=== PATIENT | male | born 1945 | race Caucasian/White ===

== ENCOUNTER 2019-10-01 13:37 | Inpatient (IN) | payer OTHER, BC ==
--- NOTE | 2019-10-01 13:55 | PDOC ---
Attending Attestation - Resident Resident Name: Jessica Lee - HPI HPI: 10/01/19 15:50 Pt presents to the ED complaining of fall with inability to get up for two days. Patient has a long standing history of gout, and a recent admission at [facility] with rehab placement. Patient is unable to state why he fell, or why he was unable to get up. Denies chest pain or shortness of breath. - Physicial Exam PE: 10/01/19 16:35 Agree with resident exam. Patient is alert and oriented x 3 and in no acute distress. Lungs are clear. Heart has regular rate and rhythm. abdomen soft, non tender non distended without guarding or rebound. + swelling and tenderness of distal R wrist, without gross deformity. + mild diffuse tenderness of the R knee without tibial plateau tenderness. - Medical Decision Making 10/01/19 16:37 Pt presents to the ED after fall for unknown reason. Denies chest or abdominal pain, shortness of breath. CT head and C spine checked to rule out intracrainial or cervical spinal injury, and is negative. Differential includes rhabdo, less likely sepsis, less likely ACS. Will check labs and admit to medicine. 10/01/19 16:40
--- NOTE | 2019-10-01 14:18 | PDOC ---
History of Present Illness - General Chief Complaint: Injury Stated Complaint: FALL Time Seen by Provider: 10/01/19 13:51 History Source: Patient - History of Present Illness Initial Comments: 10/01/19 14:18 Patient is a 74 year old male with PMH of HTN and gout who presents s/p fall. Pt does not remember details of fall and is poor historian, giving inconsistent details. Per girlfriend at bedside, she has not heard from pt since Saturday. She went to check on him today and no one was answering his apartment. She called EMS to open apartment and pt was found supine on ground in living room. He states that he thinks he fell either yesterday or day before but is unsure. Story has changed several times. He thinks he was walking back from the kitchen after eating something, now thinks he was walking back from the bathroom. He denies any chest pain, SOB, palpitations, lightheadedness, dizziness prior to fall. Denies seizures. Denies mechanical fall. Says he forgets what happened but then woke up on the ground and was too weak to get up. He urinated himself twice, no fecal incontinence. Denies any alcohol or drug use. Pt had a recent fall in July, which he remembers the details. He fell out of bed and was hospitalized at [facility] for several weeks. Denies any surgeries or known fractures from this fall. He was then transferred to [facility] for rehab and discharged one week ago. PMH: HTN, gout Surgical hx: hernia repair Social hx: occasional alcohol use, denies cigarettes or drug use Allergies: NKDA 10/01/19 14:27 Past History - Past Medical History Allergies/Adverse Reactions: Allergies Allergy/AdvReac Type Severity Reaction Status Date / Time No Known Allergies Allergy Verified 10/01/19 13:51 Home Medications: Ambulatory Orders Allopurinol [Zyloprim -] 100 mg PO DAILY 10/01/19 Amlodipine Besylate mg PO DAILY 10/01/19 Atorvastatin Calcium 80 mg PO HS 10/01/19 Colchicine 1 tab PO DAILY 10/01/19 Ergocalciferol [Vitamin D2] 50,000 unit PO Q7D@1000 10/01/19 Losartan Potassium [Cozaar -] mg PO DAILY 10/01/19 COPD: No HTN: Yes Hypercholesterolemia: Yes Other medical history: gout - Surgical History Abdominal Surgery: Yes (hernia repair) - Psycho Social/Smoking Cessation Hx Smoking History: Smoker current status UNK Review of Systems - Review of Systems Able to Perform ROS?: Yes Constitutional: No: Symptoms Reported, See HPI, Chills, Diaphoresis, Fever, Loss of Appetite, Malaise, Night Sweats, Weakness, Weight Stable, Unintentional Wgt. Loss, Unexplained wgt Loss, Other HEENTM: No: Symptoms Reported, See HPI, Eye Pain, Blurred Vision, Tearing, Recent change in vision, Double Vision, Cataracts, Ear Pain, Ocular Prothesis, Ear Discharge, Nose Pain, Nose Congestion, Tinnitus, Nose Bleeding, Hearing Loss , Throat Pain, Throat Swelling, Mouth Pain, Dental Problems, Difficulty Swallowing, Mouth Swelling, Other Respiratory: No: Symptoms reported, See HPI, Cough, Orthopnea, Shortness of Breath, SOB with Exertion, SOB at Rest, Stridor, Wheezing, Productive cough, Hemoptysis, Other Cardiac (ROS): No: Symptoms Reported, See HPI, Chest Pain, Edema, Irregular Heart Rate, Lightheadedness, Palpitations, Syncope, Chest Tightness, Other ABD/GI: No: Symptoms Reported, See HPI, Abdominal Distended, Abd. Pain w/ defecation, Blood Streaked Bowels, Constipated, Diarrhea, Difficulty Swallowing , Nausea, Poor Appetite, Poor Fluid Intake, Rectal Bleeding, Vomiting, Indigestion, Abdominal cramping, Tarry Stools, Other : No: Symptoms Reported, See HPI, Burning, Dysuria, Discharge, Frequency, Flank Pain, Hematuria, Incontinence, Pain, Urgency, Testicular Mass, Testicular Swelling, Lesions, Testicular Pain, Other Musculoskeletal: Yes: Gout, Joint Pain, Joint Swelling *Physical Exam - Vital Signs Last Vital Signs Temp Pulse Resp BP Pulse Ox 98.3 F 103 H 20 170/90 100 10/01/19 13:50 10/01/19 13:50 10/01/19 13:50 10/01/19 13:50 10/01/19 13:50 - Physical Exam General Appearance: Yes: Cachetic, Thin. No: Apparent Distress HEENT: positive: EOMI, DEZ, Symmetrical Neck: positive: Trachea midline, Normal Thyroid, Supple. negative: Tender Respiratory/Chest: positive: Lungs Clear, Normal Breath Sounds. negative: Respiratory Distress Cardiovascular: positive: Regular Rhythm, Regular Rate, S1, S2. negative: Edema , JVD, Murmur Vascular Pulses: Dorsalis-Pedis (R): 2+, Doralis-Pedis (L): 2+ Gastrointestinal/Abdominal: positive: Normal Bowel Sounds, Soft. 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 negative: Normal Mood/Affect ED Treatment Course - LABORATORY CBC & Chemistry Diagram: 10/01/19 14:21 10/01/19 14:21 - RADIOLOGY Radiology Studies Ordered: Category Date Time Status CERVICAL SPINE CT W/O CONTR [CT] Stat CT Scan 10/01/19 14:[address] WITHOUT CONTRAST [CT] Stat CT Scan 10/01/19 14:12 Ordered CHEST PA & LAT [RAD] Stat Radiology 10/01/19 14:17 Ordered KNEE 3 POS-RIGHT [RAD] Stat Radiology 10/01/19 14:16 Ordered WRIST-LEFT [RAD] Stat Radiology 10/01/19 14:16 Ordered Medical Decision Making - Medical Decision Making 10/01/19 14:42 > EKG, cardiac profile > CXR, CBC, CMP, UA > CT head/c-spine > L wrist, R knee XR 10/01/19 16:02 10/01/19 16:20 L wrist and R knee XR: no fractures CT head: moderate volume loss and ventricular dilatation, mild periventricular chronic microvascular ischemic changes. No intracranial lesion or hemorrahge. 10/01/19 17:45 > Paged Dr. Monsivais once. Discharge - Discharge Information Problems reviewed: Yes Clinical Impression/Diagnosis: Syncope Qualifiers: Syncope type: unspecified Qualified Code(s): R55 - Syncope and collapse - Admission Yes - Follow up/Referral Referrals: Jose Daniel Monreal [Primary Care Provider] - - Patient Discharge Instructions - Post Discharge Activity
[2019-10-01] MEDS ORDERED: MORPHINE SULFATE 2 MG/ML VIAL IVPUSH ONE (14:25)
[2019-10-01] MEDS ORDERED: MORPHINE SULFATE 2 MG/ML VIAL ONE (14:36)
[2019-10-01 14:40] LABS: BASO % 0.1 % (0-2.0); HEMATOCRIT 28.9 % (35.4-49); HEMOGLOBIN 9.5 GM/dL (11.7-16.9); LYMPH % 3.4 % (8-40); MCH 25.5 pg (25.7-33.7); MCHC 33.1 g/dl (32.0-35.9); MEAN PLT VOLUME 8.7 fl (7.5-11.1); MONO % 20.3 % (3.8-10.2); NEUT % 76.2 % (42.8-82.8); RBC 3.75 M/mm3 (4.00-5.60); RDW 20.7 % (11.9-15.9); WHITE BLOOD COUNT 17.2 K/mm3 (4.0-10.0)
[2019-10-01 15:09] LABS: ALBUMIN 3.8 g/dl (3.4-5.0); ALK PHOS 135 U/L (45-117); ANION GAP 9 MMOL/L (8-16); BILIRUBIN,TOTAL 0.5 mg/dL (0.2-1); BLOOD UREA NITROGEN 38.8 mg/dL (7-18); CALCIUM 9.6 mg/dL (8.5-10.1); CHLORIDE 105 mmol/L (98-107); CO2 23 mmol/L (21-32); CREATININE 1.5 mg/dL (0.55-1.3); GLUCOSE,RANDOM 91 mg/dL (74-106); POTASSIUM 4.9 mmol/L (3.5-5.1); SGOT/AST 20 U/L (15-37); SGPT/ALT 15 U/L (13-61); SODIUM 137 mmol/L (136-145); TOT PROT 8.6 g/dl (6.4-8.2)
[2019-10-01 15:32] LABS: ANISOCYTOSIS 3+; MACROCYTOSIS 0; PLATELET ESTIMATE INCREASED
[2019-10-01 15:40] LABS: PLATELET COUNT 792 K/MM3 (134-434)
[2019-10-01 17:44] LABS: EPI CELLS 1.4 /HPF (0-5/HPF); HYALINE CASTS 11 /lpf (0-8); URINE APPEARANCE CLEAR; URINE BILIRUBIN NEGATIVE (NEGATIVE); URINE COLOR DK YELLOW; URINE GLUCOSE (UA) NEGATIVE (NEGATIVE); URINE KETONE NEGATIVE (NEGATIVE); URINE LEUK ESTERASE NEGATIVE (NEGATIVE); URINE NITRITE NEGATIVE (NEGATIVE); URINE PROTEIN 4+ (NEGATIVE); URINE RBC 1 /hpf (0-4); URINE WBC 1 /hpf (0-5)
[2019-10-01 17:50] LABS: COCAINE, UR NEGATIVE ng/ml (CUTOFF=300); METHADONE, UR NEGATIVE ng/ml (CUTOFF=300); PHENCYCLIDINE,URINE NEGATIVE ng/ml (CUTOFF=25); URINE AMPHETAMINES NEGATIVE ng/ml (CUTOFF=500); URINE BARBITURATES NEGATIVE ng/ml (CUTOFF=200); URINE BENZODIAZEPINES NEGATIVE ng/ml (CUTOFF=200)
[2019-10-01 18:03] LABS: OPIATES, URI POSITIVE ng/ml (CUTOFF=300)
[2019-10-01] MEDS: DEXTROSE 5%-0.45% SALINE 1,000 ML IV SCH (19:19)
[2019-10-01 21:44] LABS: PROTHROMBIN TIME (PATIENT) 15.1 SEC (9.7-13.0)
[2019-10-01 21:45] LABS: INR 1.28 (0.83-1.09)
[2019-10-01] MEDS ORDERED: ATORVASTATIN CA 80 MG TABLET (FP) ONE (22:21)
[2019-10-01] MEDS: ATORVASTATIN CA 80 MG TABLET (FP) PO SCH (22:45)
[2019-10-02] MEDS ORDERED: ACETAMINOPHEN 325 MG TABLET (FP) ONE (02:40)
[2019-10-02] MEDS: ACETAMINOPHEN 325 MG TABLET (FP) PO PRN (02:48)
[2019-10-02 06:26] LABS: BASO % 0.1 % (0-2.0); EOS % 0.1 % (0-4.5); HEMATOCRIT 24.1 % (35.4-49); LYMPH % 7.9 % (8-40); MCH 25.5 pg (25.7-33.7); MCHC 33.3 g/dl (32.0-35.9); MEAN CELL VOLUME 76.5 fl (80-96); MEAN PLT VOLUME 8.6 fl (7.5-11.1); MONO % 18.5 % (3.8-10.2); NEUT % 73.4 % (42.8-82.8); PLATELET COUNT 626 K/MM3 (134-434); RBC 3.14 M/mm3 (4.00-5.60); RDW 20.9 % (11.9-15.9); WHITE BLOOD COUNT 10.9 K/mm3 (4.0-10.0)
[2019-10-02 06:35] LABS: INR 1.24 (0.83-1.09); PROTHROMBIN TIME (PATIENT) 14.7 SEC (9.7-13.0)
[2019-10-02 07:04] LABS: BILIRUBIN,TOTAL 0.6 mg/dL (0.2-1); CREATININE 1.8 mg/dL (0.55-1.3); MAGNESIUM 2.5 mg/dL (1.8-2.4); POTASSIUM 4.3 mmol/L (3.5-5.1); TOT PROT 7.3 g/dl (6.4-8.2)
[2019-10-02] MEDS: amLODIPine BESYLATE 10 MG TABLET (FP) PO SCH (11:02)
[2019-10-02] MEDS: LOSARTAN POTASSIUM 50 MG TABLET (FP) PO SCH (11:02)
[2019-10-02] MEDS: POLYETHYLENE GLYCOL 3350 119 GM BTL PO SCH (11:03)
[2019-10-02] MEDS: ALLOPURINOL 100 MG TABLET (FP) PO SCH (11:03)
[2019-10-02] MEDS: COLCHICINE 0.6 MG CAP PO SCH (11:03)
--- NOTE | 2019-10-02 11:47 | HP ---
Admitting History and Physical - Primary Care Physician PCP: Perri Monsivais I - Admission History Source: Patient Limitations to Obtaining History: No Limitations - Past Medical History Cardiovascular: Yes: HTN, Hyperlipdemia Rheumatology: Yes: Gout - Past Surgical History Past Surgical History: Yes: Hernia Repair - Smoking History Smoking history: Smoker current status UNK - Alcohol/Substance Use Hx Alcohol Use: No History of Substance Use: reports: None - Social History Usual Living Arrangement: Yes: Alone ADL: Family Assistance History of Recent Travel: No Home Medications - Allergies Allergies/Adverse Reactions: Allergies Allergy/AdvReac Type Severity Reaction Status Date / Time No Known Allergies Allergy Verified 10/01/19 13:51 - Home Medications Home Medications: Ambulatory Orders Allopurinol [Zyloprim -] 100 mg PO DAILY 10/01/19 Amlodipine Besylate mg PO DAILY 10/01/19 Atorvastatin Calcium 80 mg PO HS 10/01/19 Colchicine 1 tab PO DAILY 10/01/19 Ergocalciferol [Vitamin D2] 50,000 unit PO Q7D@1000 10/01/19 Losartan Potassium [Cozaar -] mg PO DAILY 10/01/19 Review of Systems - Review of Systems Constitutional: reports: Weakness Eyes: reports: No Symptoms HENT: reports: No Symptoms Neck: reports: No Symptoms Cardiovascular: reports: No Symptoms Respiratory: reports: No Symptoms Gastrointestinal: reports: No Symptoms Genitourinary: reports: No Symptoms Breasts: reports: No Symptoms Reported Musculoskeletal: reports: Decreased ROM, Joint Pain, Muscle Weakness Integumentary: reports: No Symptoms Neurological: reports: No Symptoms Endocrine: reports: No Symptoms Hematology/Lymphatic: reports: No Symptoms, Other (Gout) Psychiatric: reports: No Symptoms Physical Examination Vital Signs: Vital Signs Temperature 97.9 F 10/02/19 07:15 Pulse Rate 77 10/02/19 07:15 Respiratory Rate 17 10/02/19 07:15 Blood Pressure 118/73 10/02/19 07:15 O2 Sat by Pulse Oximetry (%) 98 10/02/19 07:15 Constitutional: Yes: Well Nourished, No Distress, Calm Eyes: Yes: Conjunctiva Clear, EOM Intact HENT: Yes: Atraumatic, Normocephalic Neck: Yes: Supple, Trachea Midline Cardiovascular: Yes: Regular Rate and Rhythm Respiratory: Yes: Regular, CTA Bilaterally Gastrointestinal: Yes: Normal Bowel Sounds, Soft ...Rectal Exam: Yes: Deferred Renal/: Yes: WNL Breast(s): Yes: WNL Musculoskeletal: Yes: WNL Extremities: Yes: WNL Edema: No Peripheral Pulses WNL: No Integumentary: Yes: WNL Neurological: Yes: Alert, Oriented ...Motor Strength: WNL Psychiatric: Yes: Alert, Oriented Labs: CBC, BMP 10/02/19 05:45 10/02/19 05:45 Imaging - Results Chest X-ray: Report Reviewed X-ray: Report Reviewed (Rt knee, lt wrist and cervical spine xrays neg for fx) Problem List - Problems (1) Gout Code(s): M10.9 - GOUT, UNSPECIFIED Qualifiers: Gout site: elbow Chronicity: chronic Laterality: right (2) Right knee pain Code(s): M25.561 - PAIN IN RIGHT KNEE (3) Fall Code(s): W19.XXXA - UNSPECIFIED FALL, INITIAL ENCOUNTER (4) Gait abnormality Code(s): R26.9 - UNSPECIFIED ABNORMALITIES OF GAIT AND MOBILITY Assessment/Plan 74 y/o male admitted s/p unwitnessed/ unremembered fall. Patient found lying on apt floor one day after coming home for rehab at [facility] s/p fall. States that he may have been on the floor for a day or two. PMHx includes Gout, HLD and HTN. Pos opiate screen. Refer for physical therapy evaluation.
--- NOTE | 2019-10-02 13:17 | EKG ---
Test Reason : Blood Pressure : / mmHG Vent. Rate : 087 BPM Atrial Rate : 087 BPM P-R Int : 116 ms QRS Dur : 090 ms QT Int : 380 ms P-R-T Axes : 058 -11 -38 degrees QTc Int : 457 ms POOR DATA QUALITY, INTERPRETATION MAY BE ADVERSELY AFFECTED NORMAL SINUS RHYTHM WITH SINUS ARRHYTHMIA SEPTAL INFARCT (CITED ON OR BEFORE 01-OCT-2019) ABNORMAL ECG Confirmed by ORAL GIBBONS MD ([id number]) on 10/02/2019 1:17:12 PM Referred By: Confirmed By:ORAL GIBBONS MD
--- NOTE | 2019-10-02 13:19 | EKG ---
Test Reason : Blood Pressure : / mmHG Vent. Rate : 099 BPM Atrial Rate : 099 BPM P-R Int : 110 ms QRS Dur : 090 ms QT Int : 420 ms P-R-T Axes : 024 -21 035 degrees QTc Int : 539 ms POOR DATA QUALITY, INTERPRETATION MAY BE ADVERSELY AFFECTED SINUS RHYTHM WITH SHORT MO SEPTAL INFARCT , AGE UNDETERMINED NONSPECIFIC ST ABNORMALITY ABNORMAL ECG NO PREVIOUS ECGS AVAILABLE Confirmed by ORAL GIBBONS MD ([id number]) on 10/02/2019 1:19:25 PM Referred By: Confirmed By:ORAL GIBBONS MD
[2019-10-02] MEDS: DEXTROSE 5%-0.45% SALINE 1,000 ML IV SCH (20:05)
[2019-10-02] MEDS ORDERED: ATORVASTATIN CA 80 MG TABLET (FP) ONE (22:04)
[2019-10-02] MEDS: ATORVASTATIN CA 80 MG TABLET (FP) PO SCH (22:24)
[2019-10-03] MEDS: ACETAMINOPHEN 325 MG TABLET (FP) PO PRN ×3 (04:03→14:34)
[2019-10-03] MEDS ORDERED: ACETAMINOPHEN 325 MG TABLET (FP) ONE (04:06)
[2019-10-03 07:25] LABS: BASO % 0.3 % (0-2.0); EOS % 0.1 % (0-4.5); HEMOGLOBIN 7.9 GM/dL (11.7-16.9); LYMPH % 7.9 % (8-40); MCH 25.1 pg (25.7-33.7); MCHC 32.8 g/dl (32.0-35.9); MEAN CELL VOLUME 76.4 fl (80-96); MEAN PLT VOLUME 8.2 fl (7.5-11.1); MONO % 20.6 % (3.8-10.2); NEUT % 71.1 % (42.8-82.8); PLATELET COUNT 459 K/MM3 (134-434); RBC 3.14 M/mm3 (4.00-5.60); RDW 20.1 % (11.9-15.9); WHITE BLOOD COUNT 8.9 K/mm3 (4.0-10.0)
[2019-10-03 07:31] LABS: BLOOD UREA NITROGEN 41.4 mg/dL (7-18); CREATININE 1.5 mg/dL (0.55-1.3); POTASSIUM 4.1 mmol/L (3.5-5.1); URIC ACID 10.9 mg/dL (2.6-7.2)
[2019-10-03] MEDS: amLODIPine BESYLATE 10 MG TABLET (FP) PO SCH (09:57)
[2019-10-03] MEDS: COLCHICINE 0.6 MG CAP PO SCH (09:57)
[2019-10-03] MEDS: LOSARTAN POTASSIUM 50 MG TABLET (FP) PO SCH (09:58)
[2019-10-03] MEDS: ALLOPURINOL 100 MG TABLET (FP) PO SCH (09:59)
[2019-10-03] MEDS: POLYETHYLENE GLYCOL 3350 119 GM BTL PO SCH (09:59)
--- NOTE | 2019-10-03 10:54 | CONSULT ---
Consult - text type - Consultation Consultation Note: Neurology - General Chief Complaint: Injury Stated Complaint: FALL - History of Present Illness Initial Comments: Patient is a 74 year old male with PMH of HTN and gout who presented to ED s/p fall. Pt does not remember details of fall and is poor historian, giving inconsistent details. Per girlfriend at bedside, she has not heard from pt since Saturday prior to admission. She went to check on him on day of admission and no one was answering his apartment. She called EMS to open apartment and pt was found supine on ground in living room. He stateed that he thinks he fell either Saturday or day before on Saturday but is unsure. Story has changed several times. He thinks he was walking back from the kitchen after eating something, then thinks he was walking back from the bathroom. He denies any chest pain, SOB, palpitations, lightheadedness, dizziness prior to fall. Denied seizures. Denied mechanical fall. Says he forgets what happened but then woke up on the ground and was too weak to get up. He urinated himself twice, no fecal incontinence. Denies any alcohol or drug use. Pt had a recent fall in July, which he remembers the details. He fell out of bed and was hospitalized at [facility] for several weeks. Denies any surgeries or known fractures from this fall. He was then transferred to [facility] for rehab and discharged one week ago prior to admission. Head CT completed with no evidence of acute pathology, noted for moderate atrophy with chronic microvascular ischemic changes. Cervical spine ct completed with minimal degenerative changes noted, no acute pathology. Patient labs indicate elevated BUN/Cr 41/1.5, pt also tested positive for opiates. DIscussed with nurse, patient fatigued appearing and opiates are a concern regarding mental status and his presentation. Informed patient of CT head results and although mentating well, does appear sluggish. Past History History Source: Patient - Past Medical History COPD: No HTN: Yes Hypercholesterolemia: Yes Other medical history: gout - Surgical History Abdominal Surgery: Yes (hernia repair) - Psycho Social/Smoking Cessation Hx Smoking History: Smoker current status UNK Social hx: occasional alcohol use, denies cigarettes or drug use Allergies Allergy/AdvReac Type Severity Reaction Status Date / Time No Known Allergies Allergy Verified 10/01/19 13:51 Ambulatory Orders Allopurinol [Zyloprim -] 100 mg PO DAILY 10/01/19 Amlodipine Besylate mg PO DAILY 10/01/19 Atorvastatin Calcium 80 mg PO HS 10/01/19 Colchicine 1 tab PO DAILY 10/01/19 Ergocalciferol [Vitamin D2] 50,000 unit PO Q7D@1000 10/01/19 Losartan Potassium [Cozaar -] mg PO DAILY 10/01/19 Active Medications Acetaminophen (Tylenol -) 650 mg PO Q4H PRN PRN Reason: PAIN LEVEL 1-5 Last Admin: 10/03/19 09:57 Dose: 650 mg Allopurinol (Zyloprim -) 100 mg PO DAILY [facility] Last Admin: 10/03/19 09:59 Dose: 100 mg Amlodipine Besylate (Norvasc -) 10 mg PO DAILY [facility] Last Admin: 10/03/19 09:57 Dose: 10 mg Atorvastatin Calcium (Lipitor -) 80 mg PO HS [facility] Last Admin: 10/02/19 22:24 Dose: 80 mg Colchicine (Colcrys) 0.6 mg PO DAILY [facility] Last Admin: 10/03/19 09:57 Dose: 0.6 mg Ergocalciferol (Drisdol -) 50,000 unit PO Q7D@1000 [facility] Dextrose/Sodium Chloride (D5-1/2ns -) 1,000 mls @ 100 mls/hr IV ASDIR [facility] Last Admin: 10/02/19 20:05 Dose: 100 mls/hr Losartan Potassium (Cozaar -) 50 mg PO DAILY [facility] Last Admin: 10/03/19 09:58 Dose: 50 mg Polyethylene Glycol (Miralax (For Daily Use) -) 17 gm PO DAILY [facility] Last Admin: 10/03/19 09:59 Dose: Not Given Review of Systems - Review of Systems Able to Perform ROS?: Yes Constitutional: No: Symptoms Reported, See HPI, Chills, Diaphoresis, Fever, Loss of Appetite, Malaise, Night Sweats, Weakness, Weight Stable, Unintentional Wgt. Loss, Unexplained wgt Loss, Other HEENTM: No: Symptoms Reported, See HPI, Eye Pain, Blurred Vision, Tearing, Recent change in vision, Double Vision, Cataracts, Ear Pain, Ocular Prothesis, Ear Discharge, Nose Pain, Nose Congestion, Tinnitus, Nose Bleeding, Hearing Loss , Throat Pain, Throat Swelling, Mouth Pain, Dental Problems, Difficulty Swallowing, Mouth Swelling, Other Respiratory: No: Symptoms reported, See HPI, Cough, Orthopnea, Shortness of Breath, SOB with Exertion, SOB at Rest, Stridor, Wheezing, Productive cough, Hemoptysis, Other Cardiac (ROS): No: Symptoms Reported, See HPI, Chest Pain, Edema, Irregular Heart Rate, Lightheadedness, Palpitations, Syncope, Chest Tightness, Other ABD/GI: No: Symptoms Reported, See HPI, Abdominal Distended, Abd. Pain w/ defecation, Blood Streaked Bowels, Constipated, Diarrhea, Difficulty Swallowing , Nausea, Poor Appetite, Poor Fluid Intake, Rectal Bleeding, Vomiting, Indigestion, Abdominal cramping, Tarry Stools, Other : No: Symptoms Reported, See HPI, Burning, Dysuria, Discharge, Frequency, Flank Pain, Hematuria, Incontinence, Pain, Urgency, Testicular Mass, Testicular Swelling, Lesions, Testicular Pain, Other Musculoskeletal: Yes: Gout, Joint Pain, Joint Swelling *Physical Exam - Vital Signs Vital Signs Period Temp Pulse Resp BP Sys/Hewitt Pulse Ox Last 24 Hr 98.1 F-98.2 F 74-87 16-18 118-144/73-82 97-98 - Physical Exam General Appearance: Yes: Cachetic, Thin. No: Apparent Distress HEENT: positive: EOMI, DEZ, Symmetrical Neck: positive: Trachea midline, Normal Thyroid, Supple. negative: Tender Respiratory/Chest: positive: Lungs Clear, Normal Breath Sounds. negative: Respiratory Distress Cardiovascular: positive: Regular Rhythm, Regular Rate, S1, S2. negative: Edema , JVD, Murmur Vascular Pulses: Dorsalis-Pedis (R): 2+, Doralis-Pedis (L): 2+ Gastrointestinal/Abdominal: positive: Normal Bowel Sounds, Soft. 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 NML intact, Fully Oriented,moves all extremities equally, sensory intact, finger to nose normal CBCD WBC 8.9 K/mm3 (4.0-10.0) 10/03/19 06:15 RBC 3.14 M/mm3 (4.00-5.60) L 10/03/19 06:15 Hgb 7.9 GM/dL (11.7-16.9) L 10/03/19 06:15 Hct 24.0 % (35.4-49) L 10/03/19 06:15 MCV 76.4 fl (80-96) L 10/03/19 06:15 MCHC 32.8 g/dl (32.0-35.9) 10/03/19 06:15 RDW 20.1 % (11.9-15.9) H 10/03/19 06:15 Plt Count 459 K/MM3 (134-434) H D 10/03/19 06:15 MPV 8.2 fl (7.5-11.1) 10/03/19 06:15 CMP Sodium 134 mmol/L (136-145) L 10/03/19 06:15 Potassium 4.1 mmol/L (3.5-5.1) 10/03/19 06:15 Chloride 104 mmol/L (98-107) 10/03/19 06:15 Carbon Dioxide 20 mmol/L (21-32) L 10/03/19 06:15 Anion Gap 10 MMOL/L (8-16) 10/03/19 06:15 BUN 41.4 mg/dL (7-18) H 10/03/19 06:15 Creatinine 1.5 mg/dL (0.55-1.3) H 10/03/19 06:15 Random Glucose 115 mg/dL (74-106) H 10/03/19 06:15 Calcium 9.0 mg/dL (8.5-10.1) 10/03/19 06:15 Total Bilirubin 0.6 mg/dL (0.2-1) 10/02/19 05:45 AST 18 U/L (15-37) 10/02/19 05:45 ALT 13 U/L (13-61) 10/02/19 05:45 Alkaline Phosphatase 106 U/L (45-117) 10/02/19 05:45 Total Protein 7.3 g/dl (6.4-8.2) 10/02/19 05:45 Albumin 3.0 g/dl (3.4-5.0) L 10/02/19 05:45 CARDIAC ENZYMES Creatine Kinase 288 U/L (26-308) 10/01/19 14:21 Troponin I < 0.02 ng/ml (0.00-0.05) 10/01/19 14:21 PLAN/ASSESSMENT: Patient is a 74 year old male with PMH of HTN and gout who presented to ED s/p fall. Pt does not remember details of fall and is poor historian, giving inconsistent details. Per girlfriend at bedside, she has not heard from pt since Saturday prior to admission. She went to check on him on day of admission and no one was answering his apartment. She called EMS to open apartment and pt was found supine on ground in living room. He stateed that he thinks he fell either Saturday or day before on Saturday but is unsure. Story has changed several times. He thinks he was walking back from the kitchen after eating something, then thinks he was walking back from the bathroom. He denies any chest pain, SOB, palpitations, lightheadedness, dizziness prior to fall. Denied seizures. Denied mechanical fall. Says he forgets what happened but then woke up on the ground and was too weak to get up. He urinated himself twice, no fecal incontinence. Denies any alcohol or drug use. Pt had a recent fall in July, which he remembers the details. He fell out of bed and was hospitalized at [facility] for several weeks. Denies any surgeries or known fractures from this fall. He was then transferred to [facility] for rehab and discharged one week ago prior to admission. Head CT completed with no evidence of acute pathology, noted for moderate atrophy with chronic microvascular ischemic changes. Cervical spine ct completed with minimal degenerative changes noted, no acute pathology. Patient labs indicate elevated BUN/Cr 41/1.5, pt also tested positive for opiates. DIscussed with nurse, patient fatigued appearing and opiates are a concern regarding mental status and his presentation. Informed patient of CT head results and although mentating well, does appear sluggish. Recommend opiod minimization/cessation as best able. Continue blood pressure monitoring and antihypertensive medications. Maintain adequate hydration, optimize renal function and lytes. Physical therapy may be of benefit, fall precautions.
[2019-10-03] MEDS: ATORVASTATIN CA 80 MG TABLET (FP) PO SCH (21:02)
[2019-10-03] MEDS: DEXTROSE 5%-0.45% SALINE 1,000 ML IV SCH (21:02)
[2019-10-03 22:49] VITALS: BMI 21.7
--- NOTE | 2019-10-04 01:41 | PN ---
Progress Note (short form) - Note Progress Note: Patient in bed comfortable able to provide hx of events but can't remember immediate events leading to fall Vital Signs Period Temp Pulse Resp BP Sys/Hewitt Pulse Ox Last 24 Hr 98.1 F-98.6 F 74-92 16-18 118-144/73-82 97-98 neck supple heart s1/S2 LUNGS CLEAR BILAT Abd soft nontender ext no calf tenderness right elbow deformity left hand swollen CBC, BMP 10/03/19 06:15 10/03/19 06:15 reports no hx of anemia Active Medications Acetaminophen (Tylenol -) 650 mg PO Q4H PRN PRN Reason: PAIN LEVEL 1-5 Last Admin: 10/03/19 14:34 Dose: 650 mg Allopurinol (Zyloprim -) 100 mg PO DAILY [facility] Last Admin: 10/03/19 09:59 Dose: 100 mg Amlodipine Besylate (Norvasc -) 10 mg PO DAILY [facility] Last Admin: 10/03/19 09:57 Dose: 10 mg Atorvastatin Calcium (Lipitor -) 80 mg PO HS [facility] Last Admin: 10/03/19 21:02 Dose: 80 mg Colchicine (Colcrys) 0.6 mg PO DAILY [facility] Last Admin: 10/03/19 09:57 Dose: 0.6 mg Ergocalciferol (Drisdol -) 50,000 unit PO Q7D@1000 [facility] Dextrose/Sodium Chloride (D5-1/2ns -) 1,000 mls @ 100 mls/hr IV ASDIR [facility] Last Admin: 10/03/19 21:02 Dose: Not Given Losartan Potassium (Cozaar -) 50 mg PO DAILY [facility] Last Admin: 10/03/19 09:58 Dose: 50 mg Polyethylene Glycol (Miralax (For Daily Use) -) 17 gm PO DAILY [facility] Last Admin: 10/03/19 09:59 Dose: Not Given # LOC found on floor by girlfriend CK <300, likely on the floor for short time # Anemia anemia w/u transfusion GI w/u # Gout continue meds # HTN continue home meds # HLD continue meds # hx of multiple falls recent hospitalization followed by [facility] just released from [facility] ?? safe at home
[2019-10-04] MEDS: DEXTROSE 5%-0.45% SALINE 1,000 ML IV SCH ×3 (01:45→19:49)
[2019-10-04 06:52] LABS: BASO % 0.6 % (0-2.0); EOS % 0.3 % (0-4.5); HEMOGLOBIN 7.8 GM/dL (11.7-16.9); LYMPH % 9.4 % (8-40); MCH 24.9 pg (25.7-33.7); MCHC 32.3 g/dl (32.0-35.9); MEAN PLT VOLUME 9.2 fl (7.5-11.1); MONO % 20.6 % (3.8-10.2); NEUT % 69.1 % (42.8-82.8); PLATELET COUNT 348 K/MM3 (134-434); RBC 3.12 M/mm3 (4.00-5.60); RDW 20.1 % (11.9-15.9); WHITE BLOOD COUNT 11.8 K/mm3 (4.0-10.0)
[2019-10-04 07:09] LABS: BLOOD UREA NITROGEN 32.2 mg/dL (7-18); CALCIUM 8.8 mg/dL (8.5-10.1); CREATININE 1.2 mg/dL (0.55-1.3); POTASSIUM 4.7 mmol/L (3.5-5.1)
[2019-10-04 09:07] LABS: ANISOCYTOSIS 2+
[2019-10-04] MEDS ORDERED: ERGOCALCIFEROL (VIT D2) 50,000 UNIT (1.25 MG) CAPSULE PO SCH (10:00)
[2019-10-04] MEDS ORDERED: PT OWN MED DRAWER 7, Y5N ONE (10:49)
--- NOTE | 2019-10-04 10:54 | PN ---
Progress Note (short form) - Note Progress Note: Patient in bed comfortable able to provide hx of events but can't remember immediate events leading to fall Patient provides more hx regarding anemia - was at rehab for 4 weeks - was told he was anemic - no other work up He has declined Colonoscopy in the past - has never had one he is still reluctant to have one done anemia w/u ordered and transfusion ordered discussed with patient - he agrees to transfusion - still not agreeable to accept GI work up Vital Signs Period Temp Pulse Resp BP Sys/Hewitt Pulse Ox Last 24 Hr 98.1 F-98.6 F 74-92 16-18 118-144/73-82 97-98 neck supple heart s1/S2 LUNGS CLEAR BILAT Abd soft nontender ext no calf tenderness right elbow deformity left hand swollen / + pain ellicited on pressure in snuff box CBC, [facility] 10/04/19 05:45 10/04/19 05:45 CBC, [facility] 10/03/19 06:15 10/03/19 06:15 Active Medications Acetaminophen (Tylenol -) 650 mg PO Q4H PRN PRN Reason: PAIN LEVEL 1-5 Last Admin: 10/03/19 14:34 Dose: 650 mg Allopurinol (Zyloprim -) 100 mg PO DAILY [facility] Last Admin: 10/03/19 09:59 Dose: 100 mg Amlodipine Besylate (Norvasc -) 10 mg PO DAILY [facility] Last Admin: 10/03/19 09:57 Dose: 10 mg Atorvastatin Calcium (Lipitor -) 80 mg PO HS [facility] Last Admin: 10/03/19 21:02 Dose: 80 mg Colchicine (Colcrys) 0.6 mg PO DAILY [facility] Last Admin: 10/03/19 09:57 Dose: 0.6 mg Ergocalciferol (Drisdol -) 50,000 unit PO Q7D@1000 [facility] Dextrose/Sodium Chloride (D5-1/2ns -) 1,000 mls @ 100 mls/hr IV ASDIR [facility] Last Admin: 10/04/19 01:45 Dose: 100 mls/hr Losartan Potassium (Cozaar -) 50 mg PO DAILY [facility] Last Admin: 10/03/19 09:58 Dose: 50 mg Polyethylene Glycol (Miralax (For Daily Use) -) 17 gm PO DAILY [facility] Last Admin: 10/03/19 09:59 Dose: Not Given # LOC found on floor by girlfriend CK <300, likely on the floor for short time # left wrist swelling + pain in snuff box - consider navicular FX ortho consult Dr Huggins # anemia chronic disease stool guiacs ordered anemia work up ordered transfusion ordered will need GI work up # Gout continue meds # HTN continue home meds # HLD continue meds # hx of multiple falls recent hospitalization followed by [facility] just released from [facility] ?? safe at home
[2019-10-04] MEDS: COLCHICINE 0.6 MG CAP PO SCH (11:05)
--- NOTE | 2019-10-04 11:05 | PN ---
Progress Note (short form) - Note Progress Note: Neurology - General Chief Complaint: Injury Stated Complaint: FALL - History of Present Illness Initial Comments: Patient is a 74 year old male with PMH of HTN and gout who presented to ED s/p fall. Pt does not remember details of fall and is poor historian, giving inconsistent details. Per girlfriend at bedside, she has not heard from pt since Saturday prior to admission. She went to check on him on day of admission and no one was answering his apartment. She called EMS to open apartment and pt was found supine on ground in living room. He stateed that he thinks he fell either Saturday or day before on Saturday but is unsure. Story has changed several times. He thinks he was walking back from the kitchen after eating something, then thinks he was walking back from the bathroom. He denies any chest pain, SOB, palpitations, lightheadedness, dizziness prior to fall. Denied seizures. Denied mechanical fall. Says he forgets what happened but then woke up on the ground and was too weak to get up. He urinated himself twice, no fecal incontinence. Denies any alcohol or drug use. Pt had a recent fall in July, which he remembers the details. He fell out of bed and was hospitalized at [facility] for several weeks. Denies any surgeries or known fractures from this fall. He was then transferred to [facility] for rehab and discharged one week ago prior to admission. Head CT completed with no evidence of acute pathology, noted for moderate atrophy with chronic microvascular ischemic changes. Cervical spine ct completed with minimal degenerative changes noted, no acute pathology. Patient labs indicate elevated BUN/Cr 41/1.5, pt also tested positive for opiates. BUN/Cr trending down, 32.2/1.2 Discussed with nurse, patient fatigued appearing and opiates are a concern regarding mental status and his presentation. Informed patient of CT head results and mentating well, more awake and interactive today but reports feeling relatively the same. Continues to receive fluids and medical optimization. Active Medications Acetaminophen (Tylenol -) 650 mg PO Q4H PRN PRN Reason: PAIN LEVEL 1-5 Last Admin: 10/03/19 14:34 Dose: 650 mg Allopurinol (Zyloprim -) 100 mg PO DAILY [facility] Last Admin: 10/03/19 09:59 Dose: 100 mg Amlodipine Besylate (Norvasc -) 10 mg PO DAILY [facility] Last Admin: 10/03/19 09:57 Dose: 10 mg Atorvastatin Calcium (Lipitor -) 80 mg PO HS [facility] Last Admin: 10/03/19 21:02 Dose: 80 mg Colchicine (Colcrys) 0.6 mg PO DAILY [facility] Last Admin: 10/03/19 09:57 Dose: 0.6 mg Ergocalciferol (Drisdol -) 50,000 unit PO Q7D@1000 [facility] Dextrose/Sodium Chloride (D5-1/2ns -) 1,000 mls @ 100 mls/hr IV ASDIR [facility] Last Admin: 10/04/19 01:45 Dose: 100 mls/hr Losartan Potassium (Cozaar -) 50 mg PO DAILY [facility] Last Admin: 10/03/19 09:58 Dose: 50 mg Polyethylene Glycol (Miralax (For Daily Use) -) 17 gm PO DAILY [facility] Last Admin: 10/03/19 09:59 Dose: Not Given *Physical Exam - Vital Signs Vital Signs Period Temp Pulse Resp BP Sys/Hewitt Pulse Ox Last 24 Hr 98.1 F-98.8 F 74-93 16-18 115-146/70-87 98-98 - Physical Exam General Appearance: Yes: Cachetic, Thin. No: Apparent Distress HEENT: positive: EOMI, DEZ, Symmetrical Neck: positive: Trachea midline, Normal Thyroid, Supple. negative: Tender Respiratory/Chest: positive: Lungs Clear, Normal Breath Sounds. negative: Respiratory Distress Cardiovascular: positive: Regular Rhythm, Regular Rate, S1, S2. negative: Edema , JVD, Murmur Vascular Pulses: Dorsalis-Pedis (R): 2+, Doralis-Pedis (L): 2+ Gastrointestinal/Abdominal: positive: Normal Bowel Sounds, Soft. 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, Fully Oriented,moves all extremities equally, sensory intact, finger to nose normal CBCD WBC 11.8 K/mm3 (4.0-10.0) H 10/04/19 05:45 RBC 3.12 M/mm3 (4.00-5.60) L 10/04/19 05:45 Hgb 7.8 GM/dL (11.7-16.9) L 10/04/19 05:45 Hct 24.0 % (35.4-49) L 10/04/19 05:45 MCV 77.0 fl (80-96) L 10/04/19 05:45 MCHC 32.3 g/dl (32.0-35.9) 10/04/19 05:45 RDW 20.1 % (11.9-15.9) H 10/04/19 05:45 Plt Count 348 K/MM3 (134-434) D 10/04/19 05:45 MPV 9.2 fl (7.5-11.1) D 10/04/19 05:45 CMP Sodium 139 mmol/L (136-145) 10/04/19 05:45 Potassium 4.7 mmol/L (3.5-5.1) 10/04/19 05:45 Chloride 109 mmol/L (98-107) H 10/04/19 05:45 Carbon Dioxide 19 mmol/L (21-32) L 10/04/19 05:45 Anion Gap 10 MMOL/L (8-16) 10/04/19 05:45 BUN 32.2 mg/dL (7-18) H 10/04/19 05:45 Creatinine 1.2 mg/dL (0.55-1.3) 10/04/19 05:45 Random Glucose 96 mg/dL (74-106) 10/04/19 05:45 Calcium 8.8 mg/dL (8.5-10.1) 10/04/19 05:45 Total Bilirubin 0.6 mg/dL (0.2-1) 10/02/19 05:45 AST 18 U/L (15-37) 10/02/19 05:45 ALT 13 U/L (13-61) 10/02/19 05:45 Alkaline Phosphatase 106 U/L (45-117) 10/02/19 05:45 Total Protein 7.3 g/dl (6.4-8.2) 10/02/19 05:45 Albumin 3.0 g/dl (3.4-5.0) L 10/02/19 05:45 CARDIAC ENZYMES Creatine Kinase 288 U/L (26-308) 10/01/19 14:21 Troponin I < 0.02 ng/ml (0.00-0.05) 10/01/19 14:21 PLAN/ASSESSMENT: Patient is a 74 year old male with PMH of HTN and gout who presented to ED s/p fall. Pt does not remember details of fall and is poor historian, giving inconsistent details. Per girlfriend at bedside, she has not heard from pt since Saturday prior to admission. She went to check on him on day of admission and no one was answering his apartment. She called EMS to open apartment and pt was found supine on ground in living room. He stateed that he thinks he fell either Saturday or day before on Saturday but is unsure. Story has changed several times. He thinks he was walking back from the kitchen after eating something, then thinks he was walking back from the bathroom. He denies any chest pain, SOB, palpitations, lightheadedness, dizziness prior to fall. Denied seizures. Denied mechanical fall. Says he forgets what happened but then woke up on the ground and was too weak to get up. He urinated himself twice, no fecal incontinence. Denies any alcohol or drug use. Pt had a recent fall in July, which he remembers the details. He fell out of bed and was hospitalized at [facility] for several weeks. Denies any surgeries or known fractures from this fall. He was then transferred to [facility] for rehab and discharged one week ago prior to admission. Head CT completed with no evidence of acute pathology, noted for moderate atrophy with chronic microvascular ischemic changes. Cervical spine ct completed with minimal degenerative changes noted, no acute pathology. Patient labs indicate elevated BUN/Cr 41/1.5, pt also tested positive for opiates. BUN/Cr trending down, 32.2 and 1.2. Discussed with nurse, patient fatigued appearing and opiates are a concern regarding mental status and his presentation. Informed patient of CT head results and mentating well, more awake and interactive today but reports feeling relatively the same. Continues to receive fluids and medical optimization. Recommend opioid minimization/cessation as best able. Continue blood pressure monitoring and antihypertensive medications. Maintain adequate hydration, optimize renal function and lytes. Physical therapy may be of benefit, fall precautions.
[2019-10-04] MEDS: LOSARTAN POTASSIUM 50 MG TABLET (FP) PO SCH (11:06)
[2019-10-04] MEDS: ALLOPURINOL 100 MG TABLET (FP) PO SCH (11:06)
[2019-10-04] MEDS: amLODIPine BESYLATE 10 MG TABLET (FP) PO SCH (11:06)
[2019-10-04] MEDS: POLYETHYLENE GLYCOL 3350 119 GM BTL PO SCH (11:07)
[2019-10-04] MEDS: ACETAMINOPHEN 325 MG TABLET (FP) PO PRN (16:04)
[2019-10-04] MEDS: ATORVASTATIN CA 80 MG TABLET (FP) PO SCH (22:00)
[2019-10-05] MEDS: DEXTROSE 5%-0.45% SALINE 1,000 ML IV SCH (06:01)
[2019-10-05 07:07] LABS: BASO % 0.3 % (0-2.0); EOS % 0.4 % (0-4.5); HEMATOCRIT 23.9 % (35.4-49); HEMOGLOBIN 7.9 GM/dL (11.7-16.9); LYMPH % 12.6 % (8-40); MEAN CELL VOLUME 75.5 fl (80-96); MEAN PLT VOLUME 8.6 fl (7.5-11.1); NEUT % 60.7 % (42.8-82.8); PLATELET COUNT 416 K/MM3 (134-434); RBC 3.16 M/mm3 (4.00-5.60); RDW 20.4 % (11.9-15.9); WHITE BLOOD COUNT 7.3 K/mm3 (4.0-10.0)
[2019-10-05 07:25] LABS: BLOOD UREA NITROGEN 19.8 mg/dL (7-18); CALCIUM 8.7 mg/dL (8.5-10.1); CREATININE 1.1 mg/dL (0.55-1.3); POTASSIUM 4.7 mmol/L (3.5-5.1)
--- NOTE | 2019-10-05 08:57 | PN ---
Progress Note (short form) - Note Progress Note: Neurology - General Chief Complaint: Injury Stated Complaint: FALL - History of Present Illness Initial Comments: Patient is a 74 year old male with PMH of HTN and gout who presented to ED s/p fall. Pt does not remember details of fall and is poor historian, giving inconsistent details. Per girlfriend at bedside, she has not heard from pt since Saturday prior to admission. She went to check on him on day of admission and no one was answering his apartment. She called EMS to open apartment and pt was found supine on ground in living room. He stateed that he thinks he fell either Saturday or day before on Saturday but is unsure. Story has changed several times. He thinks he was walking back from the kitchen after eating something, then thinks he was walking back from the bathroom. He denies any chest pain, SOB, palpitations, lightheadedness, dizziness prior to fall. Denied seizures. Denied mechanical fall. Says he forgets what happened but then woke up on the ground and was too weak to get up. He urinated himself twice, no fecal incontinence. Denies any alcohol or drug use. Pt had a recent fall in July, which he remembers the details. He fell out of bed and was hospitalized at [facility] for several weeks. Denies any surgeries or known fractures from this fall. He was then transferred to [facility] for rehab and discharged one week ago prior to admission. Head CT completed with no evidence of acute pathology, noted for moderate atrophy with chronic microvascular ischemic changes. Cervical spine ct completed with minimal degenerative changes noted, no acute pathology. Patient labs indicate elevated BUN/Cr 41/1.5, pt also tested positive for opiates. BUN/Cr trending down, 32.2/1.2 Discussed with nurse, patient fatigued appearing and opiates are a concern regarding mental status and his presentation. Informed patient of CT head results and mentating well, more awake and interactive today but reports feeling relatively the same. As noted, H/H decreased N patient was ordered for blood transfusion but he wanted further documentation regarding this. I advised to have all of his questions for primaryphysician to discuss and therefore make an educated decision thereafter. Consider hematology consult if needed. Active Medications Acetaminophen (Tylenol -) 650 mg PO Q4H PRN PRN Reason: PAIN LEVEL 1-5 Last Admin: 10/04/19 16:04 Dose: 650 mg Allopurinol (Zyloprim -) 100 mg PO DAILY [facility] Last Admin: 10/04/19 11:06 Dose: 100 mg Amlodipine Besylate (Norvasc -) 10 mg PO DAILY [facility] Last Admin: 10/04/19 11:06 Dose: 10 mg Atorvastatin Calcium (Lipitor -) 80 mg PO HS [facility] Last Admin: 10/04/19 22:00 Dose: 80 mg Colchicine (Colcrys) 0.6 mg PO DAILY [facility] Last Admin: 10/04/19 11:05 Dose: 0.6 mg Ergocalciferol (Drisdol -) 50,000 unit PO Q7D@1000 [facility] Last Admin: 10/04/19 11:06 Dose: 50,000 unit Dextrose/Sodium Chloride (D5-1/2ns -) 1,000 mls @ 100 mls/hr IV ASDIR [facility] Last Admin: 10/05/19 06:01 Dose: 100 mls/hr Losartan Potassium (Cozaar -) 50 mg PO DAILY [facility] Last Admin: 10/04/19 11:06 Dose: 50 mg Polyethylene Glycol (Miralax (For Daily Use) -) 17 gm PO DAILY [facility] Last Admin: 10/04/19 11:07 Dose: 17 gm *Physical Exam - Vital Signs Vital Signs Period Temp Pulse Resp BP Sys/Hewitt Pulse Ox Last 24 Hr 98.0 F-98.8 F 76-93 16-18 130-146/64-87 96-96 - Physical Exam General Appearance: Yes: Cachetic, Thin. No: Apparent Distress HEENT: positive: EOMI, DEZ, Symmetrical Neck: positive: Trachea midline, Normal Thyroid, Supple. negative: Tender Respiratory/Chest: positive: Lungs Clear, Normal Breath Sounds. negative: Respiratory Distress Cardiovascular: positive: Regular Rhythm, Regular Rate, S1, S2. negative: Edema , JVD, Murmur Vascular Pulses: Dorsalis-Pedis (R): 2+, Doralis-Pedis (L): 2+ Gastrointestinal/Abdominal: positive: Normal Bowel Sounds, Soft. 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, Fully Oriented,moves all extremities equally, sensory intact, finger to nose normal CBCD WBC 7.3 K/mm3 (4.0-10.0) 10/05/19 06:15 RBC 3.16 M/mm3 (4.00-5.60) L 10/05/19 06:15 Hgb 7.9 GM/dL (11.7-16.9) L 10/05/19 06:15 Hct 23.9 % (35.4-49) L 10/05/19 06:15 MCV 75.5 fl (80-96) L 10/05/19 06:15 MCHC 33.0 g/dl (32.0-35.9) 10/05/19 06:15 RDW 20.4 % (11.9-15.9) H 10/05/19 06:15 Plt Count 416 K/MM3 (134-434) 10/05/19 06:15 MPV 8.6 fl (7.5-11.1) 10/05/19 06:15 CMP Sodium 140 mmol/L (136-145) 10/05/19 06:15 Potassium 4.7 mmol/L (3.5-5.1) 10/05/19 06:15 Chloride 110 mmol/L (98-107) H 10/05/19 06:15 Carbon Dioxide 22 mmol/L (21-32) 10/05/19 06:15 Anion Gap 8 MMOL/L (8-16) 10/05/19 06:15 BUN 19.8 mg/dL (7-18) H 10/05/19 06:15 Creatinine 1.1 mg/dL (0.55-1.3) 10/05/19 06:15 Random Glucose 100 mg/dL (74-106) 10/05/19 06:15 Calcium 8.7 mg/dL (8.5-10.1) 10/05/19 06:15 Total Bilirubin 0.6 mg/dL (0.2-1) 10/02/19 05:45 AST 18 U/L (15-37) 10/02/19 05:45 ALT 13 U/L (13-61) 10/02/19 05:45 Alkaline Phosphatase 106 U/L (45-117) 10/02/19 05:45 Total Protein 7.3 g/dl (6.4-8.2) 10/02/19 05:45 Albumin 3.0 g/dl (3.4-5.0) L 10/02/19 05:45 CARDIAC ENZYMES Creatine Kinase 288 U/L (26-308) 10/01/19 14:21 Troponin I < 0.02 ng/ml (0.00-0.05) 10/01/19 14:21 PLAN/ASSESSMENT: Patient is a 74 year old male with PMH of HTN and gout who presented to ED s/p fall. Pt does not remember details of fall and is poor historian, giving inconsistent details. Per girlfriend at bedside, she has not heard from pt since Saturday prior to admission. She went to check on him on day of admission and no one was answering his apartment. She called EMS to open apartment and pt was found supine on ground in living room. He stateed that he thinks he fell either Saturday or day before on Saturday but is unsure. Story has changed several times. He thinks he was walking back from the kitchen after eating something, then thinks he was walking back from the bathroom. He denies any chest pain, SOB, palpitations, lightheadedness, dizziness prior to fall. Denied seizures. Denied mechanical fall. Says he forgets what happened but then woke up on the ground and was too weak to get up. He urinated himself twice, no fecal incontinence. Denies any alcohol or drug use. Pt had a recent fall in July, which he remembers the details. He fell out of bed and was hospitalized at [facility] for several weeks. Denies any surgeries or known fractures from this fall. He was then transferred to [facility] for rehab and discharged one week ago prior to admission. Head CT completed with no evidence of acute pathology, noted for moderate atrophy with chronic microvascular ischemic changes. Cervical spine ct completed with minimal degenerative changes noted, no acute pathology. Patient labs indicate elevated BUN/Cr 41/1.5, pt also tested positive for opiates. BUN/Cr trending down, 32.2 and 1.2. Discussed with nurse, patient fatigued appearing and opiates are a concern regarding mental status and his presentation. Informed patient of CT head results and mentating well, more awake and interactive today but reports feeling relatively the same. Continues to receive fluids and medical optimization. Recommend opioid minimization/cessation as best able. As noted, H/H decreased N patient was ordered for blood transfusion but he wanted further documentation regarding this. I advised to have all of his questions for primaryphysician to discuss and therefore make an educated decision thereafter. Consider hematology consult if needed. Continue blood pressure monitoring and antihypertensive medications. Maintain adequate hydration, optimize renal function and lytes. Physical therapy may be of benefit, fall precautions.
--- NOTE | 2019-10-05 09:20 | CON.ORTH ---
Consult Reason for Consultation:: left hand/wrist pain - Past Medical History Cardio/Vascular: Yes: HTN, Hyperlipdemia Rheumatology: Yes: Gout - Past Surgical History Past Surgical History: Yes: Hernia Repair - Alcohol/Substance Use Hx Alcohol Use: No History of Substance Use: reports: None - Smoking History Smoking history: Former smoker Have you smoked in the past 12 months: No - Social History ADL: Family Assistance History of Recent Travel: No Home Medications - Allergies Allergies/Adverse Reactions: Allergies Allergy/AdvReac Type Severity Reaction Status Date / Time No Known Allergies Allergy Verified 10/01/19 13:51 - Home Medications Home Medications: Ambulatory Orders Allopurinol [Zyloprim -] 100 mg PO DAILY 10/01/19 Amlodipine Besylate mg PO DAILY 10/01/19 Atorvastatin Calcium 80 mg PO HS 10/01/19 Colchicine 1 tab PO DAILY 10/01/19 Ergocalciferol [Vitamin D2] 50,000 unit PO Q7D@1000 10/01/19 Losartan Potassium [Cozaar -] mg PO DAILY 10/01/19 Physical Exam for Ortho Vital Signs: Vital Signs Temperature 98.1 F 10/05/19 06:00 Pulse Rate 84 10/05/19 06:00 Respiratory Rate 18 10/05/19 06:00 Blood Pressure 130/87 10/05/19 06:00 O2 Sat by Pulse Oximetry (%) 96 10/04/19 21:00 Labs: CBC, BMP 10/05/19 06:15 10/05/19 06:15 INR, PTT INR 1.24 (0.83-1.09) H 10/02/19 05:45 - Upper Extremity Wrist: Yes: Left, Pain, Swelling, Other (+ ttp over 2nd and 3rd metacarpal neck , nontender over distal radius and snuff box, good rom of wrist, decr finger flexion, nvi) Imaging - Results X-ray: Image Reviewed Assessment/Plan 74 year old male with PMH of HTN and gout who presented to ED s/p fall. Pt c/o pain and swelling in left hand. He states that the swelling and pain have improved in the past few days. a/p left hand contusion/sprain xrays neg for acute fx, dislocation, lytic/blastic lesion will order wrist brace ROM exercises elevation will follow d/w Dr. Huggins
[2019-10-05] MEDS ORDERED: IRON SUCROSE INJECTION 200 MG in SODIUM CHLORIDE 90 ML IVPB ONE (10:22)
[2019-10-05 10:26] LABS: MACROCYTOSIS 1+; OVALOCYTE 1+; PLATELET ESTIMATE NORMAL
--- NOTE | 2019-10-05 10:33 | PN ---
Progress Note (short form) - Note Progress Note: Patient in bed comfortable after extensive discussion with patient yesterday - and pressummed agreement to accept transfusion but still declined colonoscopy I was called by RN because patient rerfused to sign consent for transfusion - I spoke to him over the phone - states I didnot explain to him why he needed the blood, I repeated explaination - ( nurse at bedside ) patient wants "literature to explain need for transfusion " and "doesn't want it " record from office reviewed - patient with long hx of ETOH - cirrhosis, and anemia known to have poor recall and non compliance All visits to office with "Girlfriend" - however unclear who is HCP Vital Signs Period Temp Pulse Resp BP Sys/Hewitt Pulse Ox Last 24 Hr 98.1 F-98.6 F 74-92 16-18 118-144/73-82 97-98 neck supple heart s1/S2 LUNGS CLEAR BILAT Abd soft nontender ext no calf tenderness right elbow deformity left hand swollen / + pain ellicited on pressure in snuff box CBC, BMP 10/05/19 06:15 10/05/19 06:15 CBC, [facility] 10/04/19 05:45 10/04/19 05:45 Active Medications Acetaminophen (Tylenol -) 650 mg PO Q4H PRN PRN Reason: PAIN LEVEL 1-5 Last Admin: 10/04/19 16:04 Dose: 650 mg Allopurinol (Zyloprim -) 100 mg PO DAILY [facility] Last Admin: 10/04/19 11:06 Dose: 100 mg Amlodipine Besylate (Norvasc -) 10 mg PO DAILY [facility] Last Admin: 10/04/19 11:06 Dose: 10 mg Atorvastatin Calcium (Lipitor -) 80 mg PO HS [facility] Last Admin: 10/04/19 22:00 Dose: 80 mg Colchicine (Colcrys) 0.6 mg PO DAILY [facility] Last Admin: 10/04/19 11:05 Dose: 0.6 mg Ergocalciferol (Drisdol -) 50,000 unit PO Q7D@1000 [facility] Last Admin: 10/04/19 11:06 Dose: 50,000 unit Dextrose/Sodium Chloride (D5-1/2ns -) 1,000 mls @ 100 mls/hr IV ASDIR [facility] Last Admin: 10/05/19 06:01 Dose: 100 mls/hr Iron Sucrose 200 mg/ Sodium (Chloride) 100 mls @ 100 mls/hr IVPB ONCE ONE Stop: 10/05/19 11:21 Losartan Potassium (Cozaar -) 50 mg PO DAILY [facility] Last Admin: 10/04/19 11:06 Dose: 50 mg Polyethylene Glycol (Miralax (For Daily Use) -) 17 gm PO DAILY [facility] Last Admin: 10/04/19 11:07 Dose: 17 gm # LOC found on floor by girlfriend CK <300, likely on the floor for short time # left wrist swelling + pain in snuff box - consider navicular FX ortho consult Dr Huggins # anemia chronic disease stool guiacs ordered anemia work up ordered transfusion ordered -- patient refused will need GI work up -- patient refused # Gout continue meds # HTN continue home meds # HLD continue meds # hx of multiple falls recent hospitalization followed by [facility] just released from [facility] hx of ETOH ?? safe at home
[2019-10-05] MEDS: POLYETHYLENE GLYCOL 3350 119 GM BTL PO SCH (10:49)
[2019-10-05] MEDS: COLCHICINE 0.6 MG CAP PO SCH (10:50)
[2019-10-05] MEDS: amLODIPine BESYLATE 10 MG TABLET (FP) PO SCH (10:50)
[2019-10-05] MEDS: LOSARTAN POTASSIUM 50 MG TABLET (FP) PO SCH (10:50)
[2019-10-05] MEDS: ALLOPURINOL 100 MG TABLET (FP) PO SCH (12:42)
[2019-10-05] MEDS: ATORVASTATIN CA 80 MG TABLET (FP) PO SCH (21:10)
[2019-10-05] MEDS: ACETAMINOPHEN 325 MG TABLET (FP) PO PRN (21:11)
[2019-10-06] MEDS: ACETAMINOPHEN 325 MG TABLET (FP) PO PRN ×2 (06:57→21:25)
--- NOTE | 2019-10-06 08:35 | PN ---
Progress Note (short form) - Note Progress Note: Neurology - General Chief Complaint: Injury Stated Complaint: FALL - History of Present Illness Initial Comments: Patient is a 74 year old male with PMH of HTN and gout who presented to ED s/p fall. Pt does not remember details of fall and is poor historian, giving inconsistent details. Per girlfriend at bedside, she has not heard from pt since Saturday prior to admission. She went to check on him on day of admission and no one was answering his apartment. She called EMS to open apartment and pt was found supine on ground in living room. He stateed that he thinks he fell either Saturday or day before on Saturday but is unsure. Story has changed several times. He thinks he was walking back from the kitchen after eating something, then thinks he was walking back from the bathroom. He denies any chest pain, SOB, palpitations, lightheadedness, dizziness prior to fall. Denied seizures. Denied mechanical fall. Says he forgets what happened but then woke up on the ground and was too weak to get up. He urinated himself twice, no fecal incontinence. Denies any alcohol or drug use. Pt had a recent fall in July, which he remembers the details. He fell out of bed and was hospitalized at [facility] for several weeks. Denies any surgeries or known fractures from this fall. He was then transferred to [facility] for rehab and discharged one week ago prior to admission. Head CT completed with no evidence of acute pathology, noted for moderate atrophy with chronic microvascular ischemic changes. Cervical spine ct completed with minimal degenerative changes noted, no acute pathology. Patient labs indicate elevated BUN/Cr 41/1.5, pt also tested positive for opiates. BUN/Cr trending down, 32.2/1.2 Discussed with nurse, patient fatigued appearing and opiates are a concern regarding mental status and his presentation. Informed patient of CT head results and mentating well, more awake and interactive today but reports feeling relatively the same. As noted, H/H decreased N patient was ordered for blood transfusion but he wanted further documentation regarding this. I advised to have all of his questions for primary physician to discuss and therefore make an educated decision thereafter. Consider hematology consult if needed. Orthopedic consult reviewed, xrays negatives for fracture of left hand, consultation recommendation for wrist braces, ROM exercises, and elevation of left hand. Patient still not interested in transfusion, he reports he was given iron, notes from primary care physician reviewed, patient refusing both transfusion and GI workup. Active Medications Acetaminophen (Tylenol -) 650 mg PO Q4H PRN PRN Reason: PAIN LEVEL 1-5 Last Admin: 10/06/19 06:57 Dose: 650 mg Allopurinol (Zyloprim -) 100 mg PO DAILY [facility] Last Admin: 10/05/19 12:42 Dose: 100 mg Amlodipine Besylate (Norvasc -) 10 mg PO DAILY [facility] Last Admin: 10/05/19 10:50 Dose: 10 mg Atorvastatin Calcium (Lipitor -) 80 mg PO HS [facility] Last Admin: 10/05/19 21:10 Dose: 80 mg Colchicine (Colcrys) 0.6 mg PO DAILY [facility] Last Admin: 10/05/19 10:50 Dose: 0.6 mg Ergocalciferol (Drisdol -) 50,000 unit PO Q7D@1000 [facility] Last Admin: 10/04/19 11:06 Dose: 50,000 unit Losartan Potassium (Cozaar -) 50 mg PO DAILY [facility] Last Admin: 10/05/19 10:50 Dose: 50 mg Polyethylene Glycol (Miralax (For Daily Use) -) 17 gm PO DAILY [facility] Last Admin: 10/05/19 10:49 Dose: 17 gm *Physical Exam - Vital Signs Vital Signs Period Temp Pulse Resp BP Sys/Hewitt Pulse Ox Last 24 Hr 97.8 F-99.9 F 79-93 16-20 131-153/79-92 95-98 - Physical Exam General Appearance: Yes: Cachetic, Thin. No: Apparent Distress HEENT: positive: EOMI, DEZ, Symmetrical Neck: positive: Trachea midline, Normal Thyroid, Supple. negative: Tender Respiratory/Chest: positive: Lungs Clear, Normal Breath Sounds. negative: Respiratory Distress Cardiovascular: positive: Regular Rhythm, Regular Rate, S1, S2. negative: Edema , JVD, Murmur Vascular Pulses: Dorsalis-Pedis (R): 2+, Doralis-Pedis (L): 2+ Gastrointestinal/Abdominal: positive: Normal Bowel Sounds, Soft. 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, Fully Oriented,moves all extremities equally, sensory intact, finger to nose normal CBCD WBC 7.3 K/mm3 (4.0-10.0) 10/05/19 06:15 RBC 3.16 M/mm3 (4.00-5.60) L 10/05/19 06:15 Hgb 7.9 GM/dL (11.7-16.9) L 10/05/19 06:15 Hct 23.9 % (35.4-49) L 10/05/19 06:15 MCV 75.5 fl (80-96) L 10/05/19 06:15 MCHC 33.0 g/dl (32.0-35.9) 10/05/19 06:15 RDW 20.4 % (11.9-15.9) H 10/05/19 06:15 Plt Count 416 K/MM3 (134-434) 10/05/19 06:15 MPV 8.6 fl (7.5-11.1) 10/05/19 06:15 CMP Sodium 140 mmol/L (136-145) 10/05/19 06:15 Potassium 4.7 mmol/L (3.5-5.1) 10/05/19 06:15 Chloride 110 mmol/L (98-107) H 10/05/19 06:15 Carbon Dioxide 22 mmol/L (21-32) 10/05/19 06:15 Anion Gap 8 MMOL/L (8-16) 10/05/19 06:15 BUN 19.8 mg/dL (7-18) H 10/05/19 06:15 Creatinine 1.1 mg/dL (0.55-1.3) 10/05/19 06:15 Random Glucose 100 mg/dL (74-106) 10/05/19 06:15 Calcium 8.7 mg/dL (8.5-10.1) 10/05/19 06:15 Total Bilirubin 0.6 mg/dL (0.2-1) 10/02/19 05:45 AST 18 U/L (15-37) 10/02/19 05:45 ALT 13 U/L (13-61) 10/02/19 05:45 Alkaline Phosphatase 106 U/L (45-117) 10/02/19 05:45 Total Protein 7.3 g/dl (6.4-8.2) 10/02/19 05:45 Albumin 3.0 g/dl (3.4-5.0) L 10/02/19 05:45 CARDIAC ENZYMES Creatine Kinase 288 U/L (26-308) 10/01/19 14:21 Troponin I < 0.02 ng/ml (0.00-0.05) 10/01/19 14:21 PLAN/ASSESSMENT: Patient is a 74 year old male with PMH of HTN and gout who presented to ED s/p fall. Pt does not remember details of fall and is poor historian, giving inconsistent details. Per girlfriend at bedside, she has not heard from pt since Saturday prior to admission. She went to check on him on day of admission and no one was answering his apartment. She called EMS to open apartment and pt was found supine on ground in living room. He stateed that he thinks he fell either Saturday or day before on Saturday but is unsure. Story has changed several times. He thinks he was walking back from the kitchen after eating something, then thinks he was walking back from the bathroom. He denies any chest pain, SOB, palpitations, lightheadedness, dizziness prior to fall. Denied seizures. Denied mechanical fall. Says he forgets what happened but then woke up on the ground and was too weak to get up. He urinated himself twice, no fecal incontinence. Denies any alcohol or drug use. Pt had a recent fall in July, which he remembers the details. He fell out of bed and was hospitalized at [facility] for several weeks. Denies any surgeries or known fractures from this fall. He was then transferred to [facility] for rehab and discharged one week ago prior to admission. Head CT completed with no evidence of acute pathology, noted for moderate atrophy with chronic microvascular ischemic changes. Cervical spine ct completed with minimal degenerative changes noted, no acute pathology. Patient labs indicate elevated BUN/Cr 41/1.5, pt also tested positive for opiates. BUN/Cr trending down, 32.2 and 1.2. Discussed with nurse, patient fatigued appearing and opiates are a concern regarding mental status and his presentation. Informed patient of CT head results and mentating well, more awake and interactive today but reports feeling relatively the same. Continues to receive fluids and medical optimization. Recommend opioid minimization/cessation as best able. As noted, H/H decreased patient was ordered for blood transfusion but he wanted further documentation regarding this. I advised to have all of his questions for primary physician to discuss and therefore make an educated decision thereafter. Consider hematology consult if needed. Orthopedic consult reviewed, xrays negatives for fracture of left hand, consultation recommendation for wrist braces, ROM exercises, and elevation of left hand. Continue blood pressure monitoring and antihypertensive medications. Maintain adequate hydration, optimize renal function and lytes. Physical therapy may be of benefit, fall precautions. Patient still not interested in transfusion, he reports he was given iron, notes from primary care physician reviewed, patient refusing both transfusion and GI workup.
[2019-10-06] MEDS ORDERED: PT OWN MED DRAWER 7, Y5N ONE (08:58)
[2019-10-06] MEDS: POLYETHYLENE GLYCOL 3350 119 GM BTL PO SCH (09:07)
[2019-10-06] MEDS: COLCHICINE 0.6 MG CAP PO SCH (09:08)
[2019-10-06] MEDS: ALLOPURINOL 100 MG TABLET (FP) PO SCH (09:08)
[2019-10-06] MEDS: amLODIPine BESYLATE 10 MG TABLET (FP) PO SCH (09:09)
[2019-10-06] MEDS: LOSARTAN POTASSIUM 50 MG TABLET (FP) PO SCH (09:09)
[2019-10-06] MEDS ORDERED: IRON SUCROSE INJECTION 200 MG in SODIUM CHLORIDE 90 ML IVPB ONE (12:00)
--- NOTE | 2019-10-06 14:05 | PN ---
Progress Note (short form) - Note Progress Note: Ortho Pt seen and examined- left hand/wrist feeling better Selected Entries 10/06/19 09:05 Temperature 97.9 F Pulse Rate 95 H Respiratory 19 Rate Blood Pressure 144/84 Laboratory Tests 10/03/19 10/05/19 06:15 06:15 WBC 7.3 Hgb 7.9 L Hct 23.9 L Plt Count 416 Uric Acid 10.9 H decr swelling, incr rom nvi a/p brace ordered ROM exercises continue colchicine d/w Dr. Huggins
--- NOTE | 2019-10-06 20:47 | PN ---
Progress Note (short form) - Note Progress Note: Patient in bed comfortable able to provide hx of events but can't remember immediate events leading to fall Vital Signs Period Temp Pulse Resp BP Sys/Hewitt Pulse Ox Last 24 Hr 98.1 F-98.6 F 74-92 16-18 118-144/73-82 97-98 neck supple heart s1/S2 LUNGS CLEAR BILAT Abd soft nontender ext no calf tenderness right elbow deformity left hand swollen CBC, BMP 10/03/19 06:15 10/03/19 06:15 reports no hx of anemia Active Medications Acetaminophen (Tylenol -) 650 mg PO Q4H PRN PRN Reason: PAIN LEVEL 1-5 Last Admin: 10/03/19 14:34 Dose: 650 mg Allopurinol (Zyloprim -) 100 mg PO DAILY [facility] Last Admin: 10/03/19 09:59 Dose: 100 mg Amlodipine Besylate (Norvasc -) 10 mg PO DAILY [facility] Last Admin: 10/03/19 09:57 Dose: 10 mg Atorvastatin Calcium (Lipitor -) 80 mg PO HS [facility] Last Admin: 10/03/19 21:02 Dose: 80 mg Colchicine (Colcrys) 0.6 mg PO DAILY [facility] Last Admin: 10/03/19 09:57 Dose: 0.6 mg Ergocalciferol (Drisdol -) 50,000 unit PO Q7D@1000 [facility] Dextrose/Sodium Chloride (D5-1/2ns -) 1,000 mls @ 100 mls/hr IV ASDIR [facility] Last Admin: 10/03/19 21:02 Dose: Not Given Losartan Potassium (Cozaar -) 50 mg PO DAILY [facility] Last Admin: 10/03/19 09:58 Dose: 50 mg Polyethylene Glycol (Miralax (For Daily Use) -) 17 gm PO DAILY [facility] Last Admin: 10/03/19 09:59 Dose: Not Given # LOC found on floor by girlfriend CK <300, likely on the floor for short time # Anemia anemia w/u transfusion refused GI w/u refused Fe 19 on venofer IV # Gout continue meds # HTN continue home meds # HLD continue meds # hx of multiple falls recent hospitalization followed by [facility] just released from [facility] ?? safe at home
[2019-10-06] MEDS: ATORVASTATIN CA 80 MG TABLET (FP) PO SCH (21:25)
[2019-10-07 06:57] LABS: BASO % 0.2 % (0-2.0); HEMATOCRIT 24.3 % (35.4-49); HEMOGLOBIN 8.1 GM/dL (11.7-16.9); LYMPH % 9.1 % (8-40); MCH 24.8 pg (25.7-33.7); MCHC 33.3 g/dl (32.0-35.9); MEAN CELL VOLUME 74.5 fl (80-96); MEAN PLT VOLUME 8.4 fl (7.5-11.1); NEUT % 63.7 % (42.8-82.8); PLATELET COUNT 477 K/MM3 (134-434); RBC 3.27 M/mm3 (4.00-5.60); RDW 19.6 % (11.9-15.9); WHITE BLOOD COUNT 11.4 K/mm3 (4.0-10.0)
[2019-10-07 07:11] LABS: BLOOD UREA NITROGEN 17.6 mg/dL (7-18); CALCIUM 8.9 mg/dL (8.5-10.1); POTASSIUM 4.7 mmol/L (3.5-5.1)
--- NOTE | 2019-10-07 08:54 | PN ---
Progress Note (short form) - Note Progress Note: Neurology - General Chief Complaint: Injury Stated Complaint: FALL - History of Present Illness Initial Comments: Patient is a 74 year old male with PMH of HTN and gout who presented to ED s/p fall. Pt does not remember details of fall and is poor historian, giving inconsistent details. Per girlfriend at bedside, she has not heard from pt since Saturday prior to admission. She went to check on him on day of admission and no one was answering his apartment. She called EMS to open apartment and pt was found supine on ground in living room. He stateed that he thinks he fell either Saturday or day before on Saturday but is unsure. Story has changed several times. He thinks he was walking back from the kitchen after eating something, then thinks he was walking back from the bathroom. He denies any chest pain, SOB, palpitations, lightheadedness, dizziness prior to fall. Denied seizures. Denied mechanical fall. Says he forgets what happened but then woke up on the ground and was too weak to get up. He urinated himself twice, no fecal incontinence. Denies any alcohol or drug use. Pt had a recent fall in July, which he remembers the details. He fell out of bed and was hospitalized at [facility] for several weeks. Denies any surgeries or known fractures from this fall. He was then transferred to [facility] for rehab and discharged one week ago prior to admission. Head CT completed with no evidence of acute pathology, noted for moderate atrophy with chronic microvascular ischemic changes. Cervical spine ct completed with minimal degenerative changes noted, no acute pathology. Patient labs indicate elevated BUN/Cr 41/1.5, pt also tested positive for opiates. BUN/Cr trending down, 32.2/1.2 Discussed with nurse, patient fatigued appearing and opiates are a concern regarding mental status and his presentation. Informed patient of CT head results and mentating well, more awake and interactive today but reports feeling relatively the same. As noted, H/H decreased N patient was ordered for blood transfusion but he wanted further documentation regarding this. I advised to have all of his questions for primary physician to discuss and therefore make an educated decision thereafter. Consider hematology consult if needed. Orthopedic consult reviewed, xrays negatives for fracture of left hand, consultation recommendation for wrist braces, ROM exercises, and elevation of left hand. Patient still not interested in transfusion, he reports he was given iron, notes from primary care physician reviewed, patient refusing both transfusion and GI workup. Per notes, refusing STR. Active Medications Acetaminophen (Tylenol -) 650 mg PO Q4H PRN PRN Reason: PAIN LEVEL 1-5 Last Admin: 10/06/19 21:25 Dose: 650 mg Allopurinol (Zyloprim -) 100 mg PO DAILY [facility] Last Admin: 10/06/19 09:08 Dose: 100 mg Amlodipine Besylate (Norvasc -) 10 mg PO DAILY [facility] Last Admin: 10/06/19 09:09 Dose: 10 mg Atorvastatin Calcium (Lipitor -) 80 mg PO HS [facility] Last Admin: 10/06/19 21:25 Dose: 80 mg Colchicine (Colcrys) 0.6 mg PO DAILY [facility] Last Admin: 10/06/19 09:08 Dose: 0.6 mg Ergocalciferol (Drisdol -) 50,000 unit PO Q7D@1000 [facility] Last Admin: 10/04/19 11:06 Dose: 50,000 unit Losartan Potassium (Cozaar -) 50 mg PO DAILY [facility] Last Admin: 10/06/19 09:09 Dose: 50 mg Polyethylene Glycol (Miralax (For Daily Use) -) 17 gm PO DAILY [facility] Last Admin: 10/06/19 09:07 Dose: 17 gm *Physical Exam - Vital Signs Vital Signs Period Temp Pulse Resp BP Sys/Hewitt Pulse Ox Last 24 Hr 97.9 F-101.1 F 87-114 14-20 138-163/77-93 94-96 - Physical Exam General Appearance: Yes: Cachetic, Thin. No: Apparent Distress HEENT: positive: EOMI, DEZ, Symmetrical Neck: positive: Trachea midline, Normal Thyroid, Supple. negative: Tender Respiratory/Chest: positive: Lungs Clear, Normal Breath Sounds. negative: Respiratory Distress Cardiovascular: positive: Regular Rhythm, Regular Rate, S1, S2. negative: Edema , JVD, Murmur Vascular Pulses: Dorsalis-Pedis (R): 2+, Doralis-Pedis (L): 2+ Gastrointestinal/Abdominal: positive: Normal Bowel Sounds, Soft. 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,moves all extremities equally, sensory intact, finger to nose normal CBCD WBC 11.4 K/mm3 (4.0-10.0) H 10/07/19 06:03 RBC 3.27 M/mm3 (4.00-5.60) L 10/07/19 06:03 Hgb 8.1 GM/dL (11.7-16.9) L 10/07/19 06:03 Hct 24.3 % (35.4-49) L 10/07/19 06:03 MCV 74.5 fl (80-96) L 10/07/19 06:03 MCHC 33.3 g/dl (32.0-35.9) 10/07/19 06:03 RDW 19.6 % (11.9-15.9) H 10/07/19 06:03 Plt Count 477 K/MM3 (134-434) H 10/07/19 06:03 MPV 8.4 fl (7.5-11.1) 10/07/19 06:03 CMP Sodium 134 mmol/L (136-145) L 10/07/19 06:03 Potassium 4.7 mmol/L (3.5-5.1) 10/07/19 06:03 Chloride 104 mmol/L (98-107) 10/07/19 06:03 Carbon Dioxide 23 mmol/L (21-32) 10/07/19 06:03 Anion Gap 8 MMOL/L (8-16) 10/07/19 06:03 BUN 17.6 mg/dL (7-18) 10/07/19 06:03 Creatinine 1.0 mg/dL (0.55-1.3) 10/07/19 06:03 Random Glucose 86 mg/dL (74-106) 10/07/19 06:03 Calcium 8.9 mg/dL (8.5-10.1) 10/07/19 06:03 Total Bilirubin 0.6 mg/dL (0.2-1) 10/02/19 05:45 AST 18 U/L (15-37) 10/02/19 05:45 ALT 13 U/L (13-61) 10/02/19 05:45 Alkaline Phosphatase 106 U/L (45-117) 10/02/19 05:45 Total Protein 7.3 g/dl (6.4-8.2) 10/02/19 05:45 Albumin 3.0 g/dl (3.4-5.0) L 10/02/19 05:45 CARDIAC ENZYMES Creatine Kinase 288 U/L (26-308) 10/01/19 14:21 Troponin I < 0.02 ng/ml (0.00-0.05) 10/01/19 14:21 PLAN/ASSESSMENT: Patient is a 74 year old male with PMH of HTN and gout who presented to ED s/p fall. Pt does not remember details of fall and is poor historian, giving inconsistent details. Per girlfriend at bedside, she has not heard from pt since Saturday prior to admission. She went to check on him on day of admission and no one was answering his apartment. She called EMS to open apartment and pt was found supine on ground in living room. He stateed that he thinks he fell either Saturday or day before on Saturday but is unsure. Story has changed several times. He thinks he was walking back from the kitchen after eating something, then thinks he was walking back from the bathroom. He denies any chest pain, SOB, palpitations, lightheadedness, dizziness prior to fall. Denied seizures. Denied mechanical fall. Says he forgets what happened but then woke up on the ground and was too weak to get up. He urinated himself twice, no fecal incontinence. Denies any alcohol or drug use. Pt had a recent fall in July, which he remembers the details. He fell out of bed and was hospitalized at [facility] for several weeks. Denies any surgeries or known fractures from this fall. He was then transferred to [facility] for rehab and discharged one week ago prior to admission. Head CT completed with no evidence of acute pathology, noted for moderate atrophy with chronic microvascular ischemic changes. Cervical spine ct completed with minimal degenerative changes noted, no acute pathology. Patient labs indicate elevated BUN/Cr 41/1.5, pt also tested positive for opiates. BUN/Cr trending down, 32.2 and 1.2. Discussed with nurse, patient fatigued appearing and opiates are a concern regarding mental status and his presentation. Informed patient of CT head results and mentating well, more awake and interactive today but reports feeling relatively the same. Continues to receive fluids and medical optimization. Recommend opioid minimization/cessation as best able. As noted, H/H decreased patient was ordered for blood transfusion but he wanted further documentation regarding this. I advised to have all of his questions for primary physician to discuss and therefore make an educated decision thereafter. Consider hematology consult if needed. Orthopedic consult reviewed, xrays negatives for fracture of left hand, consultation recommendation for wrist braces, ROM exercises, and elevation of left hand. Continue blood pressure monitoring and antihypertensive medications. Maintain adequate hydration, optimize renal function and lytes. Physical therapy may be of benefit, fall precautions. Patient still not interested in transfusion, he reports he was given iron, notes from primary care physician reviewed, patient refusing both transfusion and GI workup. Per notes, refusing STR. Caution with ambulation.
[2019-10-07] MEDS: ALLOPURINOL 100 MG TABLET (FP) PO SCH (10:09)
[2019-10-07] MEDS: LOSARTAN POTASSIUM 50 MG TABLET (FP) PO SCH (10:09)
[2019-10-07] MEDS: COLCHICINE 0.6 MG CAP PO SCH (10:09)
[2019-10-07] MEDS: amLODIPine BESYLATE 10 MG TABLET (FP) PO SCH (10:09)
[2019-10-07] MEDS: POLYETHYLENE GLYCOL 3350 119 GM BTL PO SCH (10:10)
[2019-10-07] MEDS ORDERED: IRON SUCROSE INJECTION 200 MG in SODIUM CHLORIDE 90 ML IVPB ONE (10:10)
[2019-10-07] MEDS: ACETAMINOPHEN 325 MG TABLET (FP) PO PRN ×2 (10:11→17:40)
--- NOTE | 2019-10-07 10:13 | PN ---
Progress Note (short form) - Note Progress Note: Patient in bed comfortable declined PT today has not been participating unsafe to go home -- discussed STR - he is agreeable recommend SW to discuss with patient and Girlfriend Vital Signs Period Temp Pulse Resp BP Sys/Hewitt Pulse Ox Last 24 Hr 98.1 F-98.6 F 74-92 16-18 118-144/73-82 97-98 neck supple heart s1/S2 LUNGS CLEAR BILAT Abd soft nontender ext no calf tenderness right elbow deformity left hand swollen CBC, BMP 10/07/19 06:03 10/07/19 06:03 CBC, BMP 10/03/19 06:15 10/03/19 06:15 Active Medications Acetaminophen (Tylenol -) 650 mg PO Q4H PRN PRN Reason: PAIN LEVEL 1-5 Last Admin: 10/03/19 14:34 Dose: 650 mg Allopurinol (Zyloprim -) 100 mg PO DAILY [facility] Last Admin: 10/03/19 09:59 Dose: 100 mg Amlodipine Besylate (Norvasc -) 10 mg PO DAILY [facility] Last Admin: 10/03/19 09:57 Dose: 10 mg Atorvastatin Calcium (Lipitor -) 80 mg PO HS [facility] Last Admin: 10/03/19 21:02 Dose: 80 mg Colchicine (Colcrys) 0.6 mg PO DAILY [facility] Last Admin: 10/03/19 09:57 Dose: 0.6 mg Ergocalciferol (Drisdol -) 50,000 unit PO Q7D@1000 [facility] Dextrose/Sodium Chloride (D5-1/2ns -) 1,000 mls @ 100 mls/hr IV ASDIR [facility] Last Admin: 10/03/19 21:02 Dose: Not Given Losartan Potassium (Cozaar -) 50 mg PO DAILY [facility] Last Admin: 10/03/19 09:58 Dose: 50 mg Polyethylene Glycol (Miralax (For Daily Use) -) 17 gm PO DAILY [facility] Last Admin: 10/03/19 09:59 Dose: Not Given # LOC found on floor by girlfriend CK <300, likely on the floor for short time # Anemia anemia w/u transfusion refused GI w/u refused Fe 19 on venofer IV # Gout continue meds # HTN continue home meds # HLD continue meds # hx of multiple falls recent hospitalization followed by [facility] just released from [facility] ?? safe at home record from office reviewed - patient with long hx of ETOH - cirrhosis, and anemia known to have poor recall and non compliance All visits to office with "Girlfriend" - however unclear who is HCP
[2019-10-07 11:02] LABS: URIC ACID 6.6 mg/dL (2.6-7.2)
[2019-10-07 11:58] LABS: ANISOCYTOSIS 2+; MACROCYTOSIS 0; PLATELET ESTIMATE NORMAL
[2019-10-07] MEDS: ATORVASTATIN CA 80 MG TABLET (FP) PO SCH (21:52)
[2019-10-08 07:35] LABS: BLOOD UREA NITROGEN 20.2 mg/dL (7-18); CALCIUM 8.9 mg/dL (8.5-10.1); POTASSIUM 4.7 mmol/L (3.5-5.1)
[2019-10-08 09:01] VITALS: BP 128/87; PULSE 104; TEMP 98.4
--- NOTE | 2019-10-08 10:02 | DS ---
Physical Examination Vital Signs: Vital Signs Temperature 98.4 F 10/08/19 08:59 Pulse Rate 104 H 10/08/19 08:59 Respiratory Rate 18 10/08/19 08:59 Blood Pressure 128/87 10/08/19 08:59 O2 Sat by Pulse Oximetry (%) 95 10/07/19 21:00 Constitutional: Yes: Well Nourished, No Distress, Calm Eyes: Yes: Conjunctiva Clear, EOM Intact HENT: Yes: Atraumatic, Normocephalic Neck: Yes: Supple, Trachea Midline Cardiovascular: Yes: Regular Rate and Rhythm Respiratory: Yes: Regular, CTA Bilaterally Gastrointestinal: Yes: Normal Bowel Sounds, Soft ...Rectal Exam: Yes: Deferred Renal/: Yes: WNL Breast(s): Yes: WNL Musculoskeletal: Yes: WNL Extremities: Yes: WNL Edema: No Peripheral Pulses WNL: Yes Integumentary: Yes: WNL Neurological: Yes: Alert, Unsteady Gait ...Motor Strength: WNL Psychiatric: Yes: Alert, Oriented Labs: CBC, BMP 10/07/19 06:03 10/08/19 06:10 Discharge Summary Problems reviewed: Yes Reason For Visit: SYNCOPE Current Active Problems Fall (Acute) Gait abnormality (Acute) Gout (Acute) Right knee pain (Acute) Syncope (Acute) Hospital Course: 74 y/o male admitted s/p fall one day after coming home from rehab at [facility] due to previous fall. PMHx includes Gout, HLD and HTN. Pos opiate screen. Condition: Improved - Instructions Diet, Activity, Other Instructions: 2 gm sodium diet Referrals: Jose Daniel Monreal [Primary Care Provider] - Disposition: [facility] - Home Medications Comprehensive Discharge Medication List: Ambulatory Orders Allopurinol [Zyloprim -] 100 mg PO DAILY 10/01/19 Amlodipine Besylate mg PO DAILY 10/01/19 Atorvastatin Calcium 80 mg PO HS 10/01/19 Colchicine 1 tab PO DAILY 10/01/19 Ergocalciferol [Vitamin D2] 50,000 unit PO Q7D@1000 10/01/19 Losartan Potassium [Cozaar -] mg PO DAILY 10/01/19
[2019-10-08] MEDS: ALLOPURINOL 100 MG TABLET (FP) PO SCH (10:39)
[2019-10-08] MEDS: LOSARTAN POTASSIUM 50 MG TABLET (FP) PO SCH (10:39)
[2019-10-08] MEDS: amLODIPine BESYLATE 10 MG TABLET (FP) PO SCH (10:39)
[2019-10-08] MEDS: COLCHICINE 0.6 MG CAP PO SCH (10:39)
[2019-10-08] MEDS: POLYETHYLENE GLYCOL 3350 119 GM BTL PO SCH (10:41)
[2019-10-08] MEDS ORDERED: IRON SUCROSE INJECTION 200 MG in SODIUM CHLORIDE 90 ML IVPB ONE (14:20)
== END 2019-10-08 14:30 | DRG 605 ==
LOC: JER 13:37 → JERBED 18:15 → OBSVTOIN 18:24 → J4S 10-03 05:16
PROVIDERS: ADMIT Family Medicine; ATTEND Family Medicine
DX: S60.222A Contusion of left hand, initial encounter (principal); K70.30 Alcoholic cirrhosis of liver without ascites; F11.10 Opioid abuse, uncomplicated; E78.5 Hyperlipidemia, unspecified; R26.9 Unspecified abnormalities of gait and mobility; I10 Essential (primary) hypertension; M25.261 Flail joint, right knee; M1A.9XX0 Chronic gout, unspecified, without tophus (tophi); D50.0 Iron deficiency anemia secondary to blood loss (chronic); R29.6 Repeated falls; W18.39XA Other fall on same level, initial encounter; Y92.098 Other place in other non-institutional residence as the place of occurrence of the external cause
CPT/HCPCS: 36415; 70450-TC; 71046-TC-FY; 72125-TC; 73110-TC-LT-FY; 73562-TC-RT-FY; 80048; 80053; 80061; 80307; 81003; 82550; 82553; 82728; 83036; 83540; 83550; 83605; 83721; 83735; 84443; 84484; 84550; 85025; 85610; 86850; 86900; 86901; 86922; 93005; 93010; 97116-GP; 97161-GP; 99285-25; G0378; J1756

== ENCOUNTER 2019-10-20 18:01 | Inpatient (IN) | payer OTHER, BC ==
[2019-10-20] MEDS ORDERED: METOCLOPRAMIDE HCL INJECTION 10 MG/2 ML VIAL IVPUSH ONE (18:48)
[2019-10-20] MEDS ORDERED: ACETAMINOPHEN 1000 MG/100 ML VIAL (NON FORMULARY) IVPB ONE (18:49)
--- NOTE | 2019-10-20 18:57 | PDOC ---
Attending Attestation - Resident Resident Name: Lurdes Johnson - ED Attending Attestation I have performed the following: I have examined & evaluated the patient, The case was reviewed & discussed with the resident, I agree w/resident's findings & plan, Exceptions are as noted - HPI HPI: 10/20/19 18:57 74y M hx of htn, gout presents with complaint of abdominal pain - the patient was at rehab in her usual state of health this afternoon, after his rehab, he had gotten some pain medication then developed R sided back pain and abdominal pain. Pt notes the pain is severe, associated with several episodes of nbnb vmiting. P denies any fever/chills, cp, sob, diaphoersis, palpitation, diziness , numbne/stingling/wekaness, diarrhea, melena, bpr, dysuria, hematuria. pt denies any history o similar pain kidney stones, gall sones. there is no relationship of the pain to food intake GENERAL: The patient is awake, alert, and fully oriented, Nontoxic - in no acute distress. HEAD: Normocephalic, atraumatic. EYES: extraocular movements intact, sclera anicteric, conjunctiva clear. ENT: Normal voice, Moist mucous membranes. NECK: Normal range of motion, supple LUNGS: Breath sounds equal, clear to auscultation bilaterally. No wheezes, no rhonchi, no rales. HEART: Regular rate and rhythm, normal S1 and S2 without murmur, rub or gallop. ABDOMEN: Soft, moderate RUQ tenderness, No guarding, no rebound. No CVA tenderness EXTREMITIES: Normal range of motion, no edema. moving all 4 extremities spontaneously and symmetrically NEUROLOGICAL: No facial assymetry, Normal speech, PSYCH: Normal mood, normal affect. SKIN: Warm, Dry, normal turgor, ddx - gall stones, kdiney stone, msk, consider acs, panceratitis will obtan blood work ekg analgesia will reassess - Physicial Exam PE: 10/22/19 02:21 see above - Medical Decision Making 10/20/19 21:13 labs reviewed cholelithiasis with mild wall thickening cw cholecystitis will give abx and dw emir Heart Score/ECG Review - ECG Impressions Comment:: 10/20/19 19:14 Twelve-lead EKG was performed and reviewed by me. There is normal sinus rhythm with a normal rate. Rate of 92 QTc interval of 482 T wave inversion in V4, V5, these are present on a prior EKG dated October 01, 2019
[2019-10-20 19:27] LABS: BASO % 0.6 % (0-2.0); EOS % 0.2 % (0-4.5); HEMATOCRIT 29.1 % (35.4-49); HEMOGLOBIN 9.2 GM/dL (11.7-16.9); LYMPH % 6.5 % (8-40); MCH 23.9 pg (25.7-33.7); MCHC 31.5 g/dl (32.0-35.9); MEAN CELL VOLUME 76.1 fl (80-96); MEAN PLT VOLUME 8.7 fl (7.5-11.1); MONO % 6.9 % (3.8-10.2); NEUT % 85.8 % (42.8-82.8); PLATELET COUNT 532 K/MM3 (134-434); RBC 3.83 M/mm3 (4.00-5.60); RDW 19.6 % (11.9-15.9); WHITE BLOOD COUNT 8.9 K/mm3 (4.0-10.0)
[2019-10-20] MEDS ORDERED: ACETAMINOPHEN INJECTION 100 ML IVPB ONE (19:32)
[2019-10-20] MEDS ORDERED: METOCLOPRAMIDE HCL INJECTION 10 MG/2 ML VIAL ONE (19:33)
--- NOTE | 2019-10-20 19:43 | PDOC ---
History of Present Illness - General Chief Complaint: Back Pain Stated Complaint: BACK PAIN Time Seen by Provider: 10/20/19 18:52 - History of Present Illness Initial Comments: Anthony Coulter is a 74yo man with a PMH of HTN, HLD, gout, chronic anemia who presents reporting right back pain that has since moved around to the right upper abdomen. He states that he has been in and out of rehab for several months , and he has had back and leg pain for "a while.' He started a new medication for tingling in his feet today, after which he started vomiting. He says that he had right-sided back and flank pain at that time. He states that this pain is new, and he has never experienced anything similar in the past. He came to the hospital for evaluation, and since arriving his pain has moved around to the right upper abdomen and epigastrium. It is non-radiating and severe. He is unable to clarify whether anything makes the pain better or worse. Mr Coulter states that his emesis looked like Ensure he had earlier in the day ; he denies blood or bile. He denies any fever/chills, diarrhea, lower abdominal pain, difficulty breathing, chest pain, urinary symptoms, new foods, or known sick contacts. He says that he has been given "a lot of pills" while at rehab but is only sure of the one new medication today; he is not sure what the medication was. Past History - Past Medical History Allergies/Adverse Reactions: Allergies Allergy/AdvReac Type Severity Reaction Status Date / Time No Known Allergies Allergy Verified 10/20/19 18:04 Home Medications: Ambulatory Orders Allopurinol [Zyloprim -] 100 mg PO DAILY 10/01/19 Amlodipine Besylate 10 mg PO DAILY 10/01/19 Atorvastatin Calcium 80 mg PO HS 10/01/19 Colchicine 1 tab PO DAILY 10/01/19 Ergocalciferol [Vitamin D2] 50,000 unit PO Q7D@1000 10/01/19 Losartan Potassium [Cozaar -] 50 mg PO DAILY 10/01/19 Acetaminophen [Tylenol .Regular Strength -] 1,000 mg PO Q6H PRN 10/20/19 Gabapentin 100 mg PO TID 10/20/19 Anemia: Yes (iron deficiency.) CVA: Yes (dysphagia,) COPD: No Dementia: Yes (vascular dementia) HTN: Yes Hypercholesterolemia: Yes (Idiopathic gout, frequent falls.) Psychiatric Problems: Yes (alcoholic cirrhosis) - Surgical History Abdominal Surgery: Yes (hernia repair) - Psycho Social/Smoking Cessation Hx Smoking History: Unknown if ever smoked Have you smoked in the past 12 months: No Hx Alcohol Use: No Drug/Substance Use Hx: No Substance Use Type: None Hx Substance Use Treatment: No Review of Systems - Review of Systems Comments:: General: Uncomfortable but in no acute distress HEENT: Atraumatic, PERRL, EOMI, dry lips, voice normal, normal neck ROM Cards: RRR, no murmur appreciated Pulm: Comfortable on room air, clear to auscultation bilaterally Abd: Soft, nondistended. Epigastric and RUQ tenderness. No rigidity or guarding. : No CVA tenderness Ext: Atraumatic. No LE edema. ROM intact. WWP Skin: Normal color, no rashes or lesions Neuro: A&Ox3, CN grossly intact, normal speech, motor/sensory grossly intact and symmetric Psych: Mood appropriate to situation *Physical Exam - Vital Signs Last Vital Signs Temp Pulse Resp BP Pulse Ox 97.8 F 79 16 179/82 H 100 10/20/19 18:05 10/20/19 18:05 10/20/19 18:05 10/20/19 18:05 10/20/19 18:05 - Physical Exam General: Uncomfortable but in no acute distress. Cachectic HEENT: Atraumatic, PERRL, EOMI, dry lips, voice normal, normal neck ROM Cards: RRR, no murmur appreciated Pulm: Comfortable on room air, clear to auscultation bilaterally Abd: Soft, +RUQ and epigastric TTP. Questionable whaley's sign. No rigidity, no guarding. : No CVA tenderness Ext: Atraumatic. No LE edema. ROM intact. WWP Skin: Normal color, no rashes or lesions Neuro: A&Ox3, CN grossly intact, normal speech, motor/sensory grossly intact and symmetric Psych: Mood appropriate to situation ED Treatment Course - LABORATORY CBC & Chemistry Diagram: 10/20/19 19:10 10/20/19 19:10 - ADDITIONAL ORDERS Additional order review: 10/20/19 19:10 RBC 3.83 L MCV 76.1 L MCHC 31.5 L RDW 19.6 H MPV 8.7 Neutrophils % 85.8 H D Lymphocytes % 6.5 L D Monocytes % 6.9 Eosinophils % 0.2 D Basophils % 0.6 Medical Decision Making - Medical Decision Making 10/20/19 19:42 Anthony Coulter is a 74yo man with a PMH of HTN, HLD, gout, chronic anemia who presents with right back and flank pain this afternoon that has since moved to the RUQ and epigastrium; he also reports nausea and NBNB vomiting. - Broad differential given back, flank, and upper abdominal pain. TTP over RUQ and epigastrium, more likely biliary complaint, pancreatitis, possible hepatitis. Flank pain, nausea, vomiting could indicate pyelonephritis. Possible gastritis, gastroenteritis though no diarrhea. Less likely ACS given right- sided pain, no chest pain but nausea can be anginal equivalent - CBC, CMP, lipase, lactate, UA, trop, EKG - IV acetaminophen, reglan for symptoms 10/20/19 20:42 - Labs reviewed. Notable for elevated alk phos to 253. BOUCHRA with Cr to 1.5 from baseline 1.0, BUN 23 from 20, lactate 2.2. Otherwise unremarkable. Remainder of LFT's wnl, tbili 0.4. Anemia with hgb 9.2, increased from recent admission baseline around 8. - IVF for suspected dehydration - Abd US ordered for evaluation of possible biliary colic. Low suspicion for cholecystitis. 10/20/19 21:32 - Abd US with multiple stones and gallbladder wall thickening suggestive of acute cholecystitis. No pericholecystic fluid or duct dilation - Call to Dr Monsivais's service for admission. Waiting for call back - Call placed to surgery, Dr Castle, regarding cholecystits 10/20/19 21:59 - Spoke to Dr Omer, will admit for Dr Monsivais to med/surg - Spoke to Dr Castle, will see tomorrow for cholecystitis Discussed with Dr Steven Johnson PGY2 Discharge - Discharge Information Problems reviewed: Yes Clinical Impression/Diagnosis: Cholecystitis Condition: Stable - Admission Yes - Follow up/Referral - Patient Discharge Instructions - Post Discharge Activity
[2019-10-20 19:54] LABS: LIPASE 296 U/L (73-393)
[2019-10-20 19:59] LABS: PH,URINE >= 9.0 (5.0-8.0); URINE APPEARANCE CLEAR; URINE BILIRUBIN NEGATIVE (NEGATIVE); URINE COLOR YELLOW; URINE GLUCOSE (UA) NEGATIVE (NEGATIVE); URINE KETONE TRACE (NEGATIVE)
[2019-10-20 20:00] LABS: ALBUMIN 3.9 g/dl (3.4-5.0); ALK PHOS 253 U/L (45-117); ANION GAP 13 MMOL/L (8-16); BILIRUBIN,TOTAL 0.4 mg/dL (0.2-1); BLOOD UREA NITROGEN 23.1 mg/dL (7-18); CALCIUM 10.6 mg/dL (8.5-10.1); CHLORIDE 102 mmol/L (98-107); CO2 20 mmol/L (21-32); CREATININE 1.5 mg/dL (0.55-1.3); GLUCOSE,RANDOM 135 mg/dL (74-106); POTASSIUM 4.2 mmol/L (3.5-5.1); SGOT/AST 21 U/L (15-37); SGPT/ALT 19 U/L (13-61); SODIUM 135 mmol/L (136-145); TOT PROT 9.5 g/dl (6.4-8.2); URINE LEUK ESTERASE NEGATIVE (NEGATIVE); URINE NITRITE NEGATIVE (NEGATIVE); URINE PROTEIN 300 (NEGATIVE); URINE UROBILINOGEN 0.2 mg/dL (0.2-1.0)
[2019-10-20] MEDS ORDERED: SODIUM CHLORIDE 0.9% 500 ML INFUS.BAG IV ONE (20:11)
[2019-10-20] MEDS ORDERED: morphine CARPU-JECT 2 MG/1 ML DISP.SYRIN IVPUSH ONE (21:40)
[2019-10-20] MEDS ORDERED: MORPHINE SULFATE 2 MG/ML VIAL ONE (21:57)
[2019-10-20 23:09] LABS: GAMMA GLUTAMYL TRANSPEPTIDASE 314 U/L (5-85)
--- NOTE | 2019-10-20 23:49 | HP ---
Admitting History and Physical - Admission Chief Complaint: Acute right upper quadrant abdominal pain History of Present Illness: This 74 yr old male with history of hypertension, hyperlipidemia, gout, and chronic anemia admitted via ER with acute cholecystitis and cholelithiasis. History Source: Patient Limitations to Obtaining History: Dementia, Poor Historian - Past Medical History BAG HANGER: Yes: Dementia Cardiovascular: Yes: HTN, Hyperlipdemia Pulmonary: No: Asthma, Bronchitis, Cancer, COPD, O2 Dependent, Pneumonia, Previously Intubated, Pulmonary Embolus, Pulmonary Fibrosis, Sleep Apnea, Other Gastrointestinal: Yes: Other (alcoholic cirrhosis of the liver) Hepatobiliary: Yes: Cholelithiasis, Cholecystitis Renal/: No: Renal Failure, Renal Inusuff, BPH, Cancer, Hematuria, Hemodialysis , Neurogenic Bladder, Renal Calculi, UTI, Other Heme/Onc: Yes: Anemia Infectious Disease: No: AIDS, C-Diff, Herpes Zoster, HIV, MRSA, STD's, Tuberculosis, VREF, Other Psych: No: Addictions, Anxiety, Bipolar, Depression, Panic, Psychosis, Schizophrenia, Other Musculoskeletal: No: Bursitis, Chronic low back pain, Hemiparesis, Hemiplegia, Osteoarthritis, Paraplegia, Other Rheumatology: Yes: Gout Endocrine: No: Rafiq's Disease, Abebe's Disease, Diabetes Insipidus, Diabetes Mellitus, Hyperparathyroidism, Hyperthyroidism, Hypothyroidism, Osteopenia, SIADH, Other Dermatology: Yes: Other (open wound of the left buttock) - Past Surgical History Past Surgical History: Yes: Hernia Repair - Smoking History Smoking history: Unknown if ever smoked Have you smoked in the past 12 months: No - Alcohol/Substance Use Hx Alcohol Use: No History of Substance Use: reports: None - Social History ADL: Family Assistance History of Recent Travel: No Home Medications - Allergies Allergies/Adverse Reactions: Allergies Allergy/AdvReac Type Severity Reaction Status Date / Time No Known Allergies Allergy Verified 10/20/19 18:04 - Home Medications Home Medications: Ambulatory Orders Allopurinol [Zyloprim -] 100 mg PO DAILY 10/01/19 Amlodipine Besylate 10 mg PO DAILY 10/01/19 Atorvastatin Calcium 80 mg PO HS 10/01/19 Colchicine 1 tab PO DAILY 10/01/19 Ergocalciferol [Vitamin D2] 50,000 unit PO Q7D@1000 10/01/19 Losartan Potassium [Cozaar -] 50 mg PO DAILY 10/01/19 Acetaminophen [Tylenol .Regular Strength -] 1,000 mg PO Q6H PRN 10/20/19 Gabapentin 100 mg PO TID 10/20/19 Review of Systems - Review of Systems Constitutional: denies: No Symptoms, Chills, Diaphoresis, Fever, Lethargy, Loss of Appetite, Malaise, Night Sweats, Unintentional Wgt. Loss, Weakness, Other Eyes: denies: No Symptoms, Blind Spots, Blurred Vision, Double Vision, Eye Pain , Floaters, Photophobia, Recent Change in Vision, Other HENT: denies: No Symptoms, Difficult Swallowing, Ear Discharge, Ear Pain, Epistaxis, Gingival Bleeding, Hearing Loss, Mouth Swelling, Nasal Congestion, Ocular Prosthesis, Throat Pain, Toothache, Ringing in Ears, Other Neck: denies: No Symptoms, Decreased ROM, Lumps, Pain on Movement, Stiffness, Swollen Glands, Tenderness, Other Cardiovascular: reports: Chest Pain (right sided) Respiratory: denies: No Symptoms, Cough, Exercise Intolerance, Hemoptysis, Orthopnea, PND, Snoring, SOB, SOB on Exertion, Wheezing, Other Gastrointestinal: reports: Nausea, Vomiting Genitourinary: denies: No Symptoms, Burning, Discharge, Dysuria, Flank Pain, Frequency, Hematuria, Incontinence, Lesions, Menses, Pain, Testicular Mass, Testicular Pain, Testicular Swelling, Urgency, Vaginal Bleeding, Other Breasts: denies: No Symptoms Reported, See HPI, Breast Implants, Discharge from Nipple, Lumps, Pain, Skin Changes, Other Musculoskeletal: denies: No Symptoms, Back Pain, Crepitus, Decreased ROM, Extremity Pain, Joint Pain, Joint Swelling, Muscle Pain, Muscle Cramps, Muscle Weakness, Other Integumentary: reports: Wound (left buttock) Hematology/Lymphatic: denies: No Symptoms, Easily Bruised, Excessive Bleeding, Swollen Glands, Other Psychiatric: denies: No Symptoms, Altered Sleep Pattern, Anxiety, Depression, Hallucinations, Panic, Paranoia, Suicidal, Other Physical Examination Vital Signs: Vital Signs Temperature 97.6 F 10/20/19 20:00 Pulse Rate 76 10/20/19 20:00 Respiratory Rate 18 10/20/19 20:00 Blood Pressure 166/76 10/20/19 20:00 O2 Sat by Pulse Oximetry (%) 100 10/20/19 20:00 Constitutional: Yes: Well Nourished, Moderate Distress Eyes: Yes: Conjunctiva Clear, EOM Intact HENT: Yes: Atraumatic, Normocephalic Neck: Yes: Supple, Trachea Midline Cardiovascular: Yes: Regular Rate and Rhythm, Tachycardia Respiratory: Yes: Regular, CTA Bilaterally Gastrointestinal: Yes: Normal Bowel Sounds, Soft, Tenderness (RUQ) ...Rectal Exam: Yes: Deferred Renal/: Yes: WNL Breast(s): Yes: WNL Musculoskeletal: Yes: Muscle Weakness Edema: No Peripheral Pulses WNL: Yes Peripheral Pulses: Left Radial: 2+, Right Radial: 2+, Left Doralis Pedis: 2+, Right Dorsalis Pedis: 2+, Left Femoral: 2+, Right Femoral: 2+ Integumentary: Yes: Pressure Ulcer (left buttock) Neurological: Yes: Alert, Weakness ...Motor Strength: LUE (generalized muscle weakness) Psychiatric: Yes: Alert Labs: CBC, BMP 10/20/19 19:10 10/20/19 19:10 Imaging - Results Ultrasound: Report Reviewed Other: Report Reviewed (Lab data reviewed) Problem List - Problems (1) Anemia Code(s): D64.9 - ANEMIA, UNSPECIFIED (2) Hypertension Code(s): I10 - ESSENTIAL (PRIMARY) HYPERTENSION (3) Gout Code(s): M10.9 - GOUT, UNSPECIFIED Qualifiers: Gout site: elbow Chronicity: chronic Laterality: right (4) Cholecystitis Code(s): K81.9 - CHOLECYSTITIS, UNSPECIFIED Assessment/Plan Assessment/plan: acute cholecystitis, gout, hypertension, hyponatremia, anemia; IV fluids, consultation to surgeon and ID, physical therapy, incentive spirometer.
[2019-10-21] MEDS ORDERED: ACETAMINOPHEN 500 MG TABLET (FP) PO PRN (00:04)
[2019-10-21] MEDS ORDERED: ACETAMINOPHEN 500 MG TABLET (FP) ONE (00:23)
[2019-10-21] MEDS ORDERED: ONDANSETRON 4 MG/2 ML VIAL ONE (00:28)
[2019-10-21] MEDS ORDERED: ONDANSETRON 4 MG/2 ML VIAL IVPUSH ONE (00:28)
[2019-10-21] MEDS ORDERED: ONDANSETRON 4 MG TABLET PO PRN (01:05)
[2019-10-21] MEDS: D5-1/2NS+20 MEQ KCL - 20 MEQ/1,000 ML INFUS.BAG IV SCH (01:28)
[2019-10-21] MEDS: BACITRACIN 15 GM TUBE TOPICAL OINTMENT TP SCH ×3 (01:29→22:01)
[2019-10-21] MEDS ORDERED: MORPHINE SULFATE 2 MG/ML VIAL IVPUSH ONE (03:00)
[2019-10-21] MEDS ORDERED: GABAPENTIN 100 MG CAPSULE (FP) PO SCH (06:00)
[2019-10-21] MEDS: amLODIPine BESYLATE 10 MG TABLET (FP) PO SCH (08:48)
[2019-10-21] MEDS ORDERED: METOPROLOL TARTRATE 5 MG/5 ML VIAL IVPUSH PRN (09:52)
[2019-10-21] MEDS ORDERED: morphine CARPU-JECT 2 MG/1 ML DISP.SYRIN IVPUSH PRN (09:56)
--- NOTE | 2019-10-21 09:56 | PN ---
Progress Note, Physician Chief Complaint: AWAKE POOR HISTORIAN DEMENTIA HISTORY NO FEVER OR CHILLS - Current Medication List Current Medications: Active Medications Acetaminophen (Tylenol -) 1,000 mg PO Q8H PRN PRN Reason: MODERATE PAIN Last Admin: 10/21/19 00:25 Dose: 1,000 mg Allopurinol (Zyloprim -) 100 mg PO DAILY [facility] Amlodipine Besylate (Norvasc -) 10 mg PO DAILY [facility] Last Admin: 10/21/19 08:48 Dose: 10 mg Bacitracin (Bacitracin -) 1 applic TP BID [facility] Last Admin: 10/21/19 09:27 Dose: 1 applic Gabapentin (Neurontin -) 100 mg PO TID [facility] Last Admin: 10/21/19 06:38 Dose: Not Given Potassium Chloride/Dextrose/Sod Cl (D5-1/2ns+20 Meq Kcl -) 20 meq in 1,000 mls @ 75 mls/hr IV ASDIR [facility] Last Admin: 10/21/19 01:28 Dose: 75 mls/hr Losartan Potassium (Cozaar -) 50 mg PO BID [facility] Ondansetron HCl (Zofran -) 4 mg PO TID PRN PRN Reason: NAUSEA - Objective Vital Signs: Vital Signs Temperature 97.5 F L 10/21/19 04:00 Pulse Rate 108 H 10/21/19 04:00 Respiratory Rate 18 10/21/19 04:00 Blood Pressure 182/99 H 10/21/19 04:00 O2 Sat by Pulse Oximetry (%) 100 10/21/19 00:20 Constitutional: Yes: Mild Distress Cardiovascular: Yes: Regular Rate and Rhythm Respiratory: Yes: WNL Gastrointestinal: Yes: Tenderness Genitourinary: Yes: WNL Musculoskeletal: Yes: Muscle Weakness Edema: No Labs: CBC, BMP 10/20/19 19:10 10/20/19 19:10 Problem List - Problems (1) Cholecystitis Code(s): K81.9 - CHOLECYSTITIS, UNSPECIFIED (2) Hypertension Code(s): I10 - ESSENTIAL (PRIMARY) HYPERTENSION (3) Gait abnormality Code(s): R26.9 - UNSPECIFIED ABNORMALITIES OF GAIT AND MOBILITY Assessment/Plan STOP ALL PO MEDS NPO LOPRESSOR IV Q4H SURGERY EVAL ZOFRAN, PAIN MEDS IVF MEDICALLY CLEARED FOR ANY LAPROSOPIC/ROBOTIC CHOLCYSTECTOMY DVT PROPHYLAXIS
[2019-10-21] MEDS ORDERED: MORPHINE SULFATE 2 MG/ML VIAL IVPUSH PRN (09:59)
[2019-10-21] MEDS ORDERED: LOSARTAN POTASSIUM 50 MG TABLET (FP) PO SCH ×2 (10:00)
[2019-10-21] MEDS: METOPROLOL TARTRATE 5 MG/5 ML VIAL IVPB PRN ×2 (11:32→21:43)
[2019-10-21 11:54] LABS: BASO % 0.2 % (0-2.0); HEMATOCRIT 25.6 % (35.4-49); HEMOGLOBIN 8.2 GM/dL (11.7-16.9); LYMPH % 2.8 % (8-40); MCH 24.3 pg (25.7-33.7); MEAN CELL VOLUME 75.9 fl (80-96); MEAN PLT VOLUME 8.6 fl (7.5-11.1); MONO % 14.7 % (3.8-10.2); NEUT % 82.3 % (42.8-82.8); PLATELET COUNT 489 K/MM3 (134-434); RBC 3.38 M/mm3 (4.00-5.60); RDW 19.9 % (11.9-15.9); WHITE BLOOD COUNT 15.7 K/mm3 (4.0-10.0)
[2019-10-21 12:19] LABS: ALBUMIN 3.6 g/dl (3.4-5.0); BILIRUBIN,TOTAL 0.2 mg/dL (0.2-1); BLOOD UREA NITROGEN 17.4 mg/dL (7-18); CREATININE 1.1 mg/dL (0.55-1.3); POTASSIUM 4.3 mmol/L (3.5-5.1)
--- NOTE | 2019-10-21 12:49 | PN ---
Progress Note, Physician Chief Complaint: Patient seen and examined at the bedside, right upper quadrant abdominal pain diminished (on a scale 1-10, #6). History of Present Illness: This 74 yr old male with hx of hypertension, gout, hyperlipidemia, and anemia admitted via ER with acute cholecystitis with cholelithiasis. - Current Medication List Current Medications: Active Medications Acetaminophen (Tylenol -) 1,000 mg PO Q8H PRN PRN Reason: MODERATE PAIN Last Admin: 10/21/19 00:25 Dose: 1,000 mg Allopurinol (Zyloprim -) 100 mg PO DAILY [facility] Amlodipine Besylate (Norvasc -) 10 mg PO DAILY [facility] Last Admin: 10/21/19 08:48 Dose: 10 mg Bacitracin (Bacitracin -) 1 applic TP BID [facility] Last Admin: 10/21/19 09:27 Dose: 1 applic Gabapentin (Neurontin -) 100 mg PO TID [facility] Last Admin: 10/21/19 06:38 Dose: Not Given Potassium Chloride/Dextrose/Sod Cl (D5-1/2ns+20 Meq Kcl -) 20 meq in 1,000 mls @ 75 mls/hr IV ASDIR [facility] Last Admin: 10/21/19 01:28 Dose: 75 mls/hr Losartan Potassium (Cozaar -) 50 mg PO BID [facility] Last Admin: 10/21/19 10:31 Dose: Not Given Metoprolol Tartrate (Lopressor Injection -) 5 mg IVPB Q4H PRN PRN Reason: HYPERTENSION Last Admin: 10/21/19 11:32 Dose: 5 mg Morphine Sulfate (Morphine Sulfate) 2 mg IVPUSH Q4H PRN PRN Reason: PAIN LEVEL 6-10 Ondansetron HCl (Zofran -) 4 mg PO TID PRN PRN Reason: NAUSEA - Objective Vital Signs: Vital Signs Temperature 98 F 10/21/19 08:00 Pulse Rate 106 H 10/21/19 11:32 Respiratory Rate 18 10/21/19 08:00 Blood Pressure 162/95 10/21/19 11:32 O2 Sat by Pulse Oximetry (%) 100 10/21/19 00:20 Constitutional: Yes: Well Nourished, Calm, Mild Distress Eyes: Yes: Conjunctiva Clear, EOM Intact HENT: Yes: Atraumatic, Normocephalic Neck: Yes: Supple, Trachea Midline Cardiovascular: Yes: Regular Rate and Rhythm, Tachycardia Respiratory: Yes: Regular, CTA Bilaterally Gastrointestinal: Yes: Normal Bowel Sounds, Soft, Tenderness (RUQ) ...Rectal Exam: Yes: Deferred Genitourinary: Yes: WNL Breast(s): Yes: WNL Musculoskeletal: Yes: Muscle Weakness Extremities: Yes: WNL Edema: No Peripheral Pulses: Left Radial: 2+, Right Radial: 2+, Left Doralis Pedis: 2+, Right Dorsalis Pedis: 2+, Left Femoral: 2+, Right Femoral: 2+ Integumentary: Yes: Other (open wound of the left buttock) Wound/Incision: Yes: Open to air Neurological: Yes: Alert, Oriented ...Motor Strength: LUE (generalized muscle weakness) Psychiatric: Yes: Alert, Oriented Labs: CBC, BMP 10/21/19 10:05 10/21/19 10:05 - ....Imaging Other: Report Reviewed (Lab data reviewed, Surgeon's note read and appreciated) Problem List - Problems (1) Anemia Code(s): D64.9 - ANEMIA, UNSPECIFIED (2) Hypertension Code(s): I10 - ESSENTIAL (PRIMARY) HYPERTENSION (3) Gout Code(s): M10.9 - GOUT, UNSPECIFIED Qualifiers: Gout site: elbow Chronicity: chronic Laterality: right (4) Cholecystitis Code(s): K81.9 - CHOLECYSTITIS, UNSPECIFIED Assessment/Plan Assessment/plan: acute cholecystitis with cholelithiasis, acute neutrophilic leukocytosis, acute anemia, hypertension; IV fluids, IV analgesics prn, discontinue all oral medications, bp controlled with IV metoprolol, blood transfusion if Hb drops below 8, ct scan of abdomen pending, consult to ID pending, incentive spirometer, physical therapy.
--- NOTE | 2019-10-21 14:41 | PN ---
Progress Note (short form) - Note Progress Note: PATIENT WAS MISTAKENLY PUT ON MY SERVICE BY OVERNIGHT TEAM, PLEASE TRANSFER TO [facility]TEGA Problem List - Problems (1) Cholecystitis Code(s): K81.9 - CHOLECYSTITIS, UNSPECIFIED (2) Hypertension Code(s): I10 - ESSENTIAL (PRIMARY) HYPERTENSION (3) Gait abnormality Code(s): R26.9 - UNSPECIFIED ABNORMALITIES OF GAIT AND MOBILITY
--- NOTE | 2019-10-21 16:25 | PN ---
Progress Note (short form) - Note Progress Note: surgery pt seen and examined. 74m with significant weight loss in past few months, cachectic, anemia, gout, had ruq abd pain that has now moved periumbilical. alk phos elevated. wbc normal. lactic acidosis. u/s shows gallstones with some gb thickening. pt admitted for possible acute choleycstitis off abx. Ct done at my request awaiting official read but gb does not appear to be significantly inflamed but it is distended. alk phos elevated but so is ggt. abd- soft, mild ruq tenderness Plan- acute choleycysitits?- HIDA ordered. will start abx. i am concerned for underlying cachexia. ? malignancy involving bone with elevated alk phos. follow official ct. psa. possible surgery vs perc drain pending hida results.
--- NOTE | 2019-10-21 16:33 | PN ---
Progress Note (short form) - Note Progress Note: R/O ACUTE CHOLECYSTITIS LEUKOCYTOSIS R/O SEPSIS SECONDARY TO BILIARY SOURCE OBTAIN BC EMPIRIC ZOSYN
[2019-10-21] MEDS ORDERED: hydrALAZINE HCL 20 MG/ML VIAL IVPUSH PRN (16:56)
--- NOTE | 2019-10-21 17:11 | CONS ---
DATE OF CONSULTATION: 10/21/2019 REASON FOR CONSULTATION: Acute cholecystitis, cholelithiasis. This is an inpatient consultation. BRIEF HISTORY: A 74-year-old male who approximately 5 to 6 months ago had a hernia repair. Since that time he has lost close to 30 pounds; it is unclear why. He was having difficulty walking because of gout and he developed a right-sided pain in his abdomen. He came to the [facility] emergency room, where he had an ultrasound done of his gallbladder, history of gallstones and some possible mild thickening of the gallbladder. The radiologist opined that this could be acute cholecystitis. He was noted to have a normal white blood cell count, but it did have a shift. He is also known to have an elevated alkaline phosphatase and a lactic acid of 2.2. He was admitted to the hospital overnight. He was not placed on antibiotics. Overnight his white blood cell count climbed to 15.7, and his platelet count was also noted to be elevated at 489. His liver function tests remained unremarkable with the exception of the alkaline phosphatase, which remained elevated at 232. At my request, a CAT scan was done of his abdomen and pelvis, which is currently awaiting official reading. Unofficially, the gallbladder is distended, but there is no marked inflammation around it. He does appear to have a very large prostate. He also has a very distended stomach noted on the CT as well. He is currently asking for food. He denies nausea or vomiting. PAST MEDICAL HISTORY: Significant for hypertension, hyperlipidemia, gout, chronic anemia. PAST SURGICAL HISTORY: Includes bilateral inguinal hernia repair that was not done at [facility]. HOME MEDICATIONS: Reviewed. They include allopurinol, Norvasc, Lipitor, colchicine, vitamin D, Cozaar, Tylenol, and Neurontin. REVIEW OF SYSTEMS: GENERAL: Denies fatigue or malaise. CARDIAC: Denies chest pain or palpitations. RESPIRATORY: Denies shortness of breath, wheeze. GASTROINTESTINAL: As in HPI. GENITOURINARY: Denies dysuria. MUSCULOSKELETAL: Admits to gout pain. PSYCHIATRIC: Denies hearing voices. PHYSICAL EXAMINATION: GENERAL: This is a cachectic 74-year-old male in no distress. He is afebrile, has been this admission. His heart rate is elevated at 106, his blood pressure is 162/95. HEAD: His head shows temporal wasting. NECK: Supple. CHEST: Clear. ABDOMEN: Soft. It is not distended. There are well-healed bilateral inguinal hernia repair scars. He has mild tenderness in the right upper quadrant without any masses appreciated. He has no tenderness elsewhere in his abdomen. EXTREMITIES: Trace edema. LABORATORY: His white blood cell count is 15.7. There is no shift today, but his monocytes are high. His chemistries show lactic acid, which was abnormal at 2.2. His alkaline phosphatase is elevated at 232, and a GGT is also elevated at 314. His imaging is as in HPI. ASSESSMENT: This is a 74-year-old male with significant weight loss that is unintended with resolved right upper quadrant pain, which is now periumbilical pain. He has a lactic acidosis. He has a leukocytosis. He has mild tenderness in right upper quadrant. His ultrasound does confirm gallstones and suggests the possibility of acute cholecystitis, and his CAT scan is pending but does not appear to be significantly inflamed. However, I am waiting on official radiology read. At this point it is possible he does have acute cholecystitis or even possibly gangrenous cholecystitis; however, he does not appear to be toxic. I will start his Zosyn antibiotic to cover for Escherichia coli and other biliary related maude. Will get a HIDA scan to confirm if there is indeed cystic duct obstruction. I am concerned about his cachexia and weight loss. He also has an elevated alkaline phosphatase. Perhaps he has a disease involving his bone such as prostate cancer with metastases. His prostate does appear to be big. I will order a PSA. At this point if the HIDA scan confirms acute cholecystitis, would proceed with a percutaneous drainage of his gallbladder. The patient would have to be considered a good candidate for surgery and optimized, and again I am concerned with his overall general health. DO LALITHA ARCE/[id number] MTDFozia
--- NOTE | 2019-10-21 17:38 | EKG ---
Test Reason : Blood Pressure : / mmHG Vent. Rate : 092 BPM Atrial Rate : 092 BPM P-R Int : 126 ms QRS Dur : 094 ms QT Int : 390 ms P-R-T Axes : 046 -08 085 degrees QTc Int : 482 ms NORMAL SINUS RHYTHM PROLONGED QT ABNORMAL ECG WHEN COMPARED WITH ECG OF 01-OCT-2019 19:37, T WAVE INVERSION NO LONGER EVIDENT IN INFERIOR LEADS T WAVE INVERSION MORE EVIDENT IN LATERAL LEADS CLINICAL CORRELATION IS RECOMMENDED BASELINE ARTIFACT Confirmed by HIRAM SANCHEZ MD ([id number]) on 10/21/2019 5:38:04 PM Referred By: Confirmed By:HIRAM SANCHEZ MD
[2019-10-21] MEDS ORDERED: PIPERACILLIN/TAZOBACTAM 3.375 GM VIAL IVPB ONE (17:53)
[2019-10-21] MEDS ORDERED: DEXTROSE 5%-WATER - 50 ML IVPB ONE (17:53)
[2019-10-21] MEDS ORDERED: PIPERACILLIN/TAZOB 3.375 GM 3.375 GM in DEXTROSE 5%-WATER - 50 ML IVPB SCH ×2 (18:00→21:00)
[2019-10-21] MEDS: hydrALAZINE HCL 20 MG/ML VIAL IVPUSH PRN (18:01)
[2019-10-21] MEDS: PIPERACILLIN/TAZOB 3.375 GM 3.375 GM in DEXTROSE 5%-WATER - 50 ML IVPB SCH (18:38)
[2019-10-21 18:57] LABS: BASO % 0.4 % (0-2.0); EOS % 0.1 % (0-4.5); HEMATOCRIT 26.9 % (35.4-49); HEMOGLOBIN 8.7 GM/dL (11.7-16.9); LYMPH % 3.3 % (8-40); MCH 24.5 pg (25.7-33.7); MCHC 32.1 g/dl (32.0-35.9); MEAN CELL VOLUME 76.2 fl (80-96); MEAN PLT VOLUME 8.5 fl (7.5-11.1); MONO % 14.3 % (3.8-10.2); NEUT % 81.9 % (42.8-82.8); PLATELET COUNT 483 K/MM3 (134-434); RBC 3.53 M/mm3 (4.00-5.60); RDW 19.7 % (11.9-15.9); WHITE BLOOD COUNT 15.7 K/mm3 (4.0-10.0)
[2019-10-22] MEDS: D5-1/2NS+20 MEQ KCL - 20 MEQ/1,000 ML INFUS.BAG IV SCH (00:18)
[2019-10-22] MEDS: hydrALAZINE HCL 20 MG/ML VIAL IVPUSH PRN (00:27)
[2019-10-22] MEDS ORDERED: PIPERACILLIN/TAZOBACTAM 3.375 GM VIAL IVPB ONE ×3 (00:59→17:58)
[2019-10-22] MEDS ORDERED: DEXTROSE 5%-WATER - 50 ML IVPB ONE ×3 (00:59→17:58)
[2019-10-22] MEDS: PIPERACILLIN/TAZOB 3.375 GM 3.375 GM in DEXTROSE 5%-WATER - 50 ML IVPB SCH ×3 (01:03→18:06)
[2019-10-22] MEDS: METOPROLOL TARTRATE 5 MG/5 ML VIAL IVPB PRN ×2 (05:57→13:51)
[2019-10-22 07:54] LABS: BASO % 0.2 % (0-2.0); EOS % 0.1 % (0-4.5); HEMOGLOBIN 8.5 GM/dL (11.7-16.9); LYMPH % 3.4 % (8-40); MCH 24.5 pg (25.7-33.7); MCHC 32.5 g/dl (32.0-35.9); MEAN CELL VOLUME 75.3 fl (80-96); MEAN PLT VOLUME 8.5 fl (7.5-11.1); MONO % 12.3 % (3.8-10.2); PLATELET COUNT 417 K/MM3 (134-434); RBC 3.46 M/mm3 (4.00-5.60); RDW 20.1 % (11.9-15.9); WHITE BLOOD COUNT 17.5 K/mm3 (4.0-10.0)
[2019-10-22 08:24] LABS: ALBUMIN 3.3 g/dl (3.4-5.0); BILIRUBIN,TOTAL 0.3 mg/dL (0.2-1); BLOOD UREA NITROGEN 15.2 mg/dL (7-18); CALCIUM 9.6 mg/dL (8.5-10.1); CREATININE 1.1 mg/dL (0.55-1.3); POTASSIUM 4.4 mmol/L (3.5-5.1); TOT PROT 8.5 g/dl (6.4-8.2)
[2019-10-22 08:43] LABS: ALBUMIN 3.3 g/dl (3.4-5.0); BILIRUBIN,DIRECT 0.2 mg/dL (0.0-0.2); BILIRUBIN,TOTAL 0.5 mg/dL (0.2-1); TOT PROT 8.7 g/dl (6.4-8.2)
--- NOTE | 2019-10-22 09:32 | PN ---
Progress Note (short form) - Note Progress Note: 74yo F h/o RUQ pain and cholelithiasis, seen and examined at bedside. Pt states that he continues to have some RUQ pain and nausea. He denies fever, chills, cp, sob. Pt remains NPO and is scheduled for HIDA scan. Abd/pelvis CT read pending. Vital Signs Temp 98.8 F 10/22/19 07:00 Pulse 111 H 10/22/19 07:00 Resp 10/22/19 07:00 BP 157/97 10/22/19 07:00 Pulse Ox 100 10/21/19 00:20 Intake & Output 10/21/19 10/21/19 10/22/19 11:59 23:59 11:59 Intake Total 375 332 600 Output Total 600 Balance 375 -268 600 Weight 118 lb 14.4 oz Intake: IV 375 332 600 D5-1/2NS+20 MEQ KCL - 20 375 332 600 meq In 1,000 ml @ 75 mls/ hr IV ASDIR DARYL Rx#: [id number] Output: Urine 600 Void 600 Other: Voiding Method Urinal Urinal Bowel Movement No Height 5 ft 6 in Body Mass Index (BMI) 19.1 Weight Measurement Method Built in [facility] CBC, BMP 10/22/19 06:46 10/22/19 06:46 PE: Gen: A&OX 3, NAD Resp: Unlabored resp on RA Abd: soft, nondistented, diffuse abd pain worse in RUQ, no rebound tenderness, no masses. no rashes or lesions on skin. Ext: no edema, right olecranon bursitis noted. Problem List - Problems (1) Cholecystitis Assessment/Plan: Assessment/Plan: Plan -will follow up HIDA scan-OR plan pending - Follow up abd/pelvis CT scan read -cont NPO, IVF -pain control -IV ABX per medicine - Code(s): K81.9 - CHOLECYSTITIS, UNSPECIFIED
[2019-10-22] MEDS: amLODIPine BESYLATE 10 MG TABLET (FP) PO SCH ×2 (10:41→13:52)
[2019-10-22] MEDS: ALLOPURINOL 100 MG TABLET (FP) PO SCH ×2 (10:42→13:52)
[2019-10-22 12:03] VITALS: BMI 19.0
[2019-10-22] MEDS: BACITRACIN 15 GM TUBE TOPICAL OINTMENT TP SCH ×2 (13:52→23:12)
--- NOTE | 2019-10-22 14:17 | PN ---
Progress Note (short form) - Note Progress Note: surgery hida negative at 10 minutes. gb is not source of leukocytosis or pain. still awaiting official ct read from yesterday. suggest gi eval.
--- NOTE | 2019-10-22 15:14 | PN ---
Progress Note, Physician Chief Complaint: Patient seen and examined at the bedside, awake, intermittently c/o nausea and mild RUQ abdominal pain. History of Present Illness: This 74 yr old male with hx of hypertension, hyperlipidemia, gout, and anemia admitted via ER with acute RUQ abdominal pain, and acute nausea. - Current Medication List Current Medications: Active Medications Bacitracin (Bacitracin -) 1 applic TP BID DARYL Last Admin: 10/22/19 13:52 Dose: 1 applic Hydralazine HCl (Apresoline Injection -) 5 mg IVPUSH Q6H PRN PRN Reason: HYPERTENSION Last Admin: 10/22/19 00:27 Dose: 5 mg Potassium Chloride/Dextrose/Sod Cl (D5-1/2ns+20 Meq Kcl -) 20 meq in 1,000 mls @ 75 mls/hr IV ASDIR DARYL Last Admin: 10/22/19 00:18 Dose: 75 mls/hr Piperacillin Sod/Tazobactam (Sod 3.375 gm/ Dextrose) 50 mls @ 100 mls/hr IVPB Q8H-IV DARYL; Protocol Last Admin: 10/22/19 14:34 Dose: 100 mls/hr Metoprolol Tartrate (Lopressor Injection -) 5 mg IVPB Q8H DARYL Morphine Sulfate (Morphine Sulfate) 2 mg IVPUSH Q4H PRN PRN Reason: PAIN LEVEL 6-10 Last Admin: 10/21/19 13:52 Dose: 2 mg - Objective Vital Signs: Vital Signs Temperature 97.3 F L 10/22/19 14:40 Pulse Rate 116 H 10/22/19 14:40 Respiratory Rate 20 10/22/19 14:40 Blood Pressure 158/91 10/22/19 14:40 O2 Sat by Pulse Oximetry (%) 99 10/22/19 09:00 Constitutional: Yes: Calm, Cachectic, Mild Distress Eyes: Yes: Conjunctiva Clear, EOM Intact HENT: Yes: Atraumatic, Normocephalic Neck: Yes: Supple, Trachea Midline Cardiovascular: Yes: Regular Rate and Rhythm Respiratory: Yes: Regular, CTA Bilaterally Gastrointestinal: Yes: Normal Bowel Sounds, Soft, Tenderness (mild RUQ tenderness) ...Rectal Exam: Yes: Deferred Genitourinary: Yes: WNL Breast(s): Yes: WNL Musculoskeletal: Yes: Muscle Weakness Extremities: Yes: WNL Edema: No Peripheral Pulses WNL: Yes Peripheral Pulses: Left Radial: 2+, Right Radial: 2+, Left Doralis Pedis: 2+, Right Dorsalis Pedis: 2+, Left Femoral: 2+, Right Femoral: 2+ Integumentary: Yes: Other (open wound of the left buttock) Neurological: Yes: Alert, Oriented ...Motor Strength: LUE (generalized muscle weakness) Psychiatric: Yes: Alert, Oriented Labs: CBC, BMP 10/22/19 06:46 10/22/19 06:46 - ....Imaging Other: Report Reviewed (Lab data reviewed) Problem List - Problems (1) Anemia Code(s): D64.9 - ANEMIA, UNSPECIFIED (2) Hypertension Code(s): I10 - ESSENTIAL (PRIMARY) HYPERTENSION (3) Gout Code(s): M10.9 - GOUT, UNSPECIFIED Qualifiers: Gout site: elbow Chronicity: chronic Laterality: right (4) Cholecystitis Code(s): K81.9 - CHOLECYSTITIS, UNSPECIFIED (5) Open wound of left buttock Code(s): S31.829A - UNSPECIFIED OPEN WOUND OF LEFT BUTTOCK, INITIAL ENCOUNTER (6) Alcoholic cirrhosis of liver Code(s): K70.30 - ALCOHOLIC CIRRHOSIS OF LIVER WITHOUT ASCITES (7) Iron overload Code(s): E83.19 - OTHER DISORDERS OF IRON METABOLISM Assessment/Plan Assessment/plan: Acute RUQ abdominal pain, acute nausea, severe anemia of chronic disease, hypertension, alcoholic cirrhosis of the liver, iron overload, acute neutrophilic leukocytosis, acute open wound of the left buttock; IV fluids , IV hydralazine, IV Metoprolol, IV Zofran, topical Bacitracin ointment, consultation to GI, physical therapy.
[2019-10-22] MEDS ORDERED: ONDANSETRON 4 MG/2 ML VIAL IVPUSH PRN (15:15)
[2019-10-22] MEDS ORDERED: AMINO ACIDS 4.25%/D5W 1,000 ML IV SCH ×2 (16:00)
[2019-10-22] MEDS ORDERED: D5-1/2NS+20 MEQ KCL - 20 MEQ/1,000 ML INFUS.BAG IV SCH (16:00)
--- NOTE | 2019-10-22 16:37 | CON.GI ---
Consult Consult Specialty:: GI Referred by:: Hospitalist Service Reason for Consultation:: Abdominal pain, weight loss, thickening of stomach on CT scan - History of Present Illness Chief Complaint: Abdominal pain History of Present Illness: 74M admitted through [facility] from rehab (has falls at home). This was his second. He is uncertain why he falls but is now in rehab for this problem) for evaluation of abdominal pain. He states that the pain was on the right abdomen radiating to the right side of his back. He says that it was ocurring for about a week, not related to meals and positional at times. There was no associated change in bowel habits. He was noted to have an elevated WBC, had a negative HIDA and Alkaline phosphatase is elevated. CT scan of the A/P He states that whern he was given morphine on admission, the pain resolved. He does not have pain now. There has been no diarrhea. There have been no fevers/ chills. He was noted to be anemic. He states that he believes his PMD told Mr. Coulter's girlfriend that he was anemic within the last year. He does not recall ever having had an EGD or colonoscopy. His mother had colon canceer diagnosed in her 60's. He describes weight loss over last few months of 35 pounds. He has an unexplained leukocytosis. The H&P describes a history of alcoholism and cirrhosis. Mr. Coulter denies drinking alcohol in past or present. 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 Cardio/Vascular: Yes: HTN, Hyperlipdemia Gastrointestinal: Yes: Other (alcoholic cirrhosis of the liver) Hepatobiliary: Yes: Cholelithiasis, Cholecystitis Rheumatology: Yes: Gout Dermatology: Yes: Other (open wound of the left buttock) - Past Surgical History Past Surgical History: Yes: Hernia Repair (bilteral inguinal hernia repair) - Alcohol/Substance Use Hx Alcohol Use: No History of Substance Use: reports: None - Smoking History Smoking history: Unknown if ever smoked Have you smoked in the past 12 months: No - Social History ADL: Family Assistance History of Recent Travel: No Home Medications - Allergies Allergies/Adverse Reactions: Allergies Allergy/AdvReac Type Severity Reaction Status Date / Time No Known Allergies Allergy Verified 10/20/19 18:04 - Home Medications Home Medications: Ambulatory Orders Allopurinol [Zyloprim -] 100 mg PO DAILY 10/01/19 Amlodipine Besylate 10 mg PO DAILY 10/01/19 Atorvastatin Calcium 80 mg PO HS 10/01/19 Colchicine 1 tab PO DAILY 10/01/19 Ergocalciferol [Vitamin D2] 50,000 unit PO Q7D@1000 10/01/19 Losartan Potassium [Cozaar -] 50 mg PO DAILY 10/01/19 Acetaminophen [Tylenol .Regular Strength -] 1,000 mg PO Q6H PRN 10/20/19 Gabapentin 100 mg PO TID 10/20/19 Allopurinol [Zyloprim -] 100 mg PO DAILY 10/21/19 Family Medical History Family Hx Cancer: Mother (Colon cancer: 60) Other Family History: Father: : 50's: blood clot in brain. 1 brother, 2 sisters: healthy. No children Review of Systems - Review of Systems Constitutional: denies: Chills Cardiovascular: denies: Chest Pain Respiratory: denies: Cough Gastrointestinal: reports: Abdominal Pain (resolved) Physical Exam-GI Vital Signs: Vital Signs Temperature 97.3 F L 10/22/19 14:40 Pulse Rate 116 H 10/22/19 14:40 Respiratory Rate 20 10/22/19 14:40 Blood Pressure 158/91 10/22/19 14:40 O2 Sat by Pulse Oximetry (%) 99 10/22/19 09:00 Constitutional: Yes: Calm Eyes: No: Sclera Icterus Cardiovascular: Yes: Tachycardia. No: Murmur Respiratory: Yes: CTA Bilaterally Gastrointestinal Inspection: No: Distention ...Auscultate: Yes: Normoactive Bowel Sounds ...Palpate: Yes: Soft. No: Hepatomegaly, Splenomegaly, Tenderness ...Percussion: No: Tympanitic ...Rectal Exam: Yes: Other (No external lesions, no masses, trace brown stool, guaiac negative. 2+ prostate) Edema: No (No LE edema) Neurological: Yes: Alert Labs: CBC, BMP 10/22/19 06:46 10/22/19 06:46 Hepatic Panel Total Bilirubin 0.5 mg/dL (0.2-1) 10/22/19 06:46 Direct Bilirubin 0.2 mg/dL (0.0-0.2) 10/22/19 06:46 AST 26 U/L (15-37) 10/22/19 06:46 ALT 19 U/L (13-61) 10/22/19 06:46 Alkaline Phosphatase 228 U/L (45-117) H 10/22/19 06:46 Albumin 3.3 g/dl (3.4-5.0) L 10/22/19 06:46 Problem List - Problems (1) Abdominal pain Assessment/Plan: Resolved. No focal findings on physical exam and guaiac negative. HIDA negative. Given microcytic anemia and history of weight loss, questionable thickening of the stomach on CT scan and family history of colon cancer, discussed upper endoscopy followed by colonoscopy to exclude pathology of the GI tract such as bleeding blood vessels, PUD, polyps or mass lesions of the stomach such as colon cancer. We discussed potential risks of the procedures like but not limited to bleeding, perforation requiring surgery to repair, infection, sedation medication effects all of which could be potentially life threatening. He has declined these procedures. I asked that he think about these options. For follow-up of questionable pancreatic head finding, I suggested MRI for further evaluation with MRCP. He was agreeable to this. (ordered) ALP is elevated whith remaining liver chemistries being normal. As above, MRI to be obtained with MRCP images. GGT ordered. Given enlarged prostate noted on physical exam, exclusion of bone component of elevated ALP should be considered per PMD. Check screening hepatitis serologies. Code(s): R10.9 - UNSPECIFIED ABDOMINAL PAIN (2) Elevated ferritin Assessment/Plan: Ordered iron and TIBC. Cannot call it iron overlaod at this time. May be acting as acute phase reactant in setting of inflammatory process given leukocytosis. Code(s): R79.89 - OTHER SPECIFIED ABNORMAL FINDINGS OF BLOOD CHEMISTRY (3) Leukocytosis Assessment/Plan: Unclear etiology at this time: No focal GI findings at this time Hematology evaluation ID evaluation Code(s): D72.829 - ELEVATED WHITE BLOOD CELL COUNT, UNSPECIFIED (4) Enlarged prostate Assessment/Plan: Noted on physical exam. Eval per PMD Code(s): N40.0 - BENIGN PROSTATIC HYPERPLASIA WITHOUT LOWER URINRY TRACT SYMP
[2019-10-22] MEDS ORDERED: hydrALAZINE HCL 20 MG/ML VIAL IVPB PRN (17:42)
[2019-10-22] MEDS ORDERED: METOPROLOL TARTRATE 5 MG/5 ML VIAL IVPB SCH (18:00)
[2019-10-22] MEDS: METOPROLOL TARTRATE 5 MG/5 ML VIAL IVPB SCH (23:13)
[2019-10-23] MEDS ORDERED: PIPERACILLIN/TAZOBACTAM 3.375 GM VIAL IVPB ONE ×3 (01:06→17:11)
[2019-10-23] MEDS ORDERED: DEXTROSE 5%-WATER - 50 ML IVPB ONE ×3 (01:06→17:11)
[2019-10-23] MEDS: PIPERACILLIN/TAZOB 3.375 GM 3.375 GM in DEXTROSE 5%-WATER - 50 ML IVPB SCH ×3 (01:48→17:16)
[2019-10-23] MEDS: METOPROLOL TARTRATE 5 MG/5 ML VIAL IVPB SCH (05:56)
[2019-10-23 07:49] LABS: BASO % 0.3 % (0-2.0); HEMATOCRIT 24.1 % (35.4-49); HEMOGLOBIN 7.8 GM/dL (11.7-16.9); MCH 24.6 pg (25.7-33.7); MCHC 32.5 g/dl (32.0-35.9); MEAN CELL VOLUME 75.7 fl (80-96); MEAN PLT VOLUME 8.8 fl (7.5-11.1); MONO % 17.3 % (3.8-10.2); NEUT % 76.4 % (42.8-82.8); PLATELET COUNT 323 K/MM3 (134-434); RBC 3.18 M/mm3 (4.00-5.60); WHITE BLOOD COUNT 15.6 K/mm3 (4.0-10.0)
[2019-10-23 08:02] LABS: IRON SERUM 24 ug/dL (50-175); TOTAL IRON BINDING CAPACITY 209 ug/dL (250-450)
[2019-10-23 08:25] LABS: ALBUMIN 2.8 g/dl (3.4-5.0); BILIRUBIN,TOTAL 0.4 mg/dL (0.2-1); BLOOD UREA NITROGEN 25.4 mg/dL (7-18); CALCIUM 8.9 mg/dL (8.5-10.1); CREATININE 1.2 mg/dL (0.55-1.3); TOT PROT 7.6 g/dl (6.4-8.2)
[2019-10-23] MEDS ORDERED: AMINO ACIDS 4.25%/D5W 1,000 ML IV SCH (09:35)
[2019-10-23 10:26] LABS: MAGNESIUM 1.7 mg/dL (1.8-2.4); PHOSPHOROUS 2.9 mg/dL (2.5-4.9)
--- NOTE | 2019-10-23 10:30 | PN.GI ---
GI Progress Note Subjective: Denies any focal complaints - Objective Vital Signs: Vital Signs Temperature 98.4 F 10/23/19 05:00 Pulse Rate 100 H 10/23/19 05:56 Respiratory Rate 10/23/19 05:00 Blood Pressure 149/96 10/23/19 05:56 O2 Sat by Pulse Oximetry (%) 98 10/22/19 21:00 Constitutional: Calm Eyes: No: Sclera Icterus Cardiovascular: Yes: Regular Rate and Rhythm Respiratory: Yes: CTA Bilaterally Gastrointestinal Inspection: No: Distention ...Auscultate: Yes: Normoactive Bowel Sounds ...Palpate: Yes: Soft. No: Hepatomegaly, Splenomegaly, Tenderness Edema: No (No LE edema) Neurological: Yes: Alert Labs: CBC, BMP 10/23/19 07:00 10/23/19 07:00 Laboratory Tests 10/23/19 07:00 Iron 24 L TIBC 209 L Iron Saturation 11 L Unsaturated IBC 185 L Problem List - Problems (1) Anemia Assessment/Plan: Low iron indices, low TIBC: suspect mixed picture of iropn deficiency anemia and chronic disease. Guaiac negative on yesterday's physical exam Has refused endoscopic evaluation. Discussion as outlined with patient in yesterday's consult Consider Hematology evaluation Monitor H/H and for overt bleeding Daily PPI Code(s): D64.9 - ANEMIA, UNSPECIFIED Qualifiers: Anemia type: other cause (2) Abdominal pain Assessment/Plan: No abdominal pain Awaiting MRI abdomen Code(s): R10.9 - UNSPECIFIED ABDOMINAL PAIN (3) Leukocytosis Assessment/Plan: Of unclear etiology Heme eval ID eval Code(s): D72.829 - ELEVATED WHITE BLOOD CELL COUNT, UNSPECIFIED (4) Enlarged prostate Assessment/Plan: With elevated PSA. W/U per PMD Code(s): N40.0 - BENIGN PROSTATIC HYPERPLASIA WITHOUT LOWER URINRY TRACT SYMP
[2019-10-23] MEDS: AMINO ACIDS 4.25%/D5W 1,000 ML IV SCH (10:42)
[2019-10-23] MEDS: BACITRACIN 15 GM TUBE TOPICAL OINTMENT TP SCH ×2 (10:42→21:30)
[2019-10-23] MEDS: D5-1/2NS+20 MEQ KCL - 20 MEQ/1,000 ML INFUS.BAG IV SCH ×2 (10:42→17:23)
[2019-10-23] MEDS: LOSARTAN POTASSIUM 50 MG TABLET (FP) PO SCH (12:40)
[2019-10-23] MEDS: CHOLECALCIFEROL (VIT D3) 1,000 UNIT (25 MCG) TABLET PO SCH (12:40)
[2019-10-23] MEDS: ALLOPURINOL 100 MG TABLET (FP) PO SCH (12:40)
[2019-10-23] MEDS: PANTOPRAZOLE 40 MG TABLET (FP) PO SCH (12:41)
--- NOTE | 2019-10-23 14:09 | PN ---
Progress Note, Physician Chief Complaint: Patient seen and examined at the bedside. No specific complaints except for mild generalized muscle weakness. Denies to nausea, abdominal pain and dyspnea. History of Present Illness: This 74 yr old male with hx of hypertension, hyperlipidemia, gout, and anemia admitted via ER with acute RUQ abdominal pain, acute open wound of the left buttock, and acute nausea. - Current Medication List Current Medications: Active Medications Allopurinol (Zyloprim -) 100 mg PO DAILY [facility] Last Admin: 10/23/19 12:40 Dose: 100 mg Amlodipine Besylate (Norvasc -) 10 mg PO DAILY [facility] Bacitracin (Bacitracin -) 1 applic TP BID [facility] Last Admin: 10/23/19 10:42 Dose: 1 applic Cholecalciferol (Vitamin D3 -) 5,000 unit PO DAILY [facility] Last Admin: 10/23/19 12:40 Dose: 5,000 unit Piperacillin Sod/Tazobactam (Sod 3.375 gm/ Dextrose) 50 mls @ 100 mls/hr IVPB Q8H-IV DARYL; Protocol Last Admin: 10/23/19 10:41 Dose: 100 mls/hr Potassium Chloride/Dextrose/Sod Cl (D5-1/2ns+20 Meq Kcl -) 20 meq in 1,000 mls @ 35 mls/hr IV ASDIR [facility] Last Admin: 10/23/19 10:42 Dose: Not Given Amino Acids (Clinimix -) 1,000 mls @ 65 mls/hr IV Q24H [facility] Last Admin: 10/23/19 10:42 Dose: Not Given Losartan Potassium (Cozaar -) 50 mg PO DAILY [facility] Last Admin: 10/23/19 12:40 Dose: 50 mg Pantoprazole Sodium (Protonix -) 40 mg PO DAILY [facility] Last Admin: 10/23/19 12:41 Dose: 40 mg - Objective Vital Signs: Vital Signs Temperature 98.2 F 10/23/19 13:00 Pulse Rate 95 H 10/23/19 13:00 Respiratory Rate 20 10/23/19 13:00 Blood Pressure 149/98 10/23/19 13:00 O2 Sat by Pulse Oximetry (%) 98 10/22/19 21:00 Constitutional: Yes: No Distress, Calm, Cachectic Eyes: Yes: Conjunctiva Clear, EOM Intact HENT: Yes: Atraumatic, Normocephalic Neck: Yes: Supple, Trachea Midline Cardiovascular: Yes: Regular Rate and Rhythm Respiratory: Yes: Regular, CTA Bilaterally Gastrointestinal: Yes: Normal Bowel Sounds, Soft ...Rectal Exam: Yes: Deferred Genitourinary: Yes: WNL Breast(s): Yes: WNL Musculoskeletal: Yes: Muscle Weakness Edema: No Peripheral Pulses WNL: Yes Peripheral Pulses: Left Radial: 2+, Right Radial: 2+, Left Doralis Pedis: 2+, Right Dorsalis Pedis: 2+, Left Femoral: 2+, Right Femoral: 2+ Integumentary: Yes: Other (open wound of the left buttock) Neurological: Yes: Alert, Oriented ...Motor Strength: LUE (mild generalized muscle weakness) Psychiatric: Yes: Alert, Oriented Labs: CBC, BMP 10/23/19 07:00 10/23/19 07:00 - ....Imaging Other: Report Reviewed (Lab data reviewed, GI note read and appreciated) Problem List - Problems (1) Anemia Code(s): D64.9 - ANEMIA, UNSPECIFIED (2) Hypertension Code(s): I10 - ESSENTIAL (PRIMARY) HYPERTENSION (3) Gout Code(s): M10.9 - GOUT, UNSPECIFIED Qualifiers: Gout site: elbow Chronicity: chronic Laterality: right (4) Cholecystitis Code(s): K81.9 - CHOLECYSTITIS, UNSPECIFIED (5) Open wound of left buttock Code(s): S31.829A - UNSPECIFIED OPEN WOUND OF LEFT BUTTOCK, INITIAL ENCOUNTER (6) Alcoholic cirrhosis of liver Code(s): K70.30 - ALCOHOLIC CIRRHOSIS OF LIVER WITHOUT ASCITES (7) Elevated ferritin Code(s): R79.89 - OTHER SPECIFIED ABNORMAL FINDINGS OF BLOOD CHEMISTRY (8) Muscle weakness (generalized) Code(s): M62.81 - MUSCLE WEAKNESS (GENERALIZED) (9) Cholelithiasis Code(s): K80.20 - CALCULUS OF GALLBLADDER W/O CHOLECYSTITIS W/O OBSTRUCTION (10) Leukocytosis Code(s): D72.829 - ELEVATED WHITE BLOOD CELL COUNT, UNSPECIFIED (11) Enlarged prostate Code(s): N40.0 - BENIGN PROSTATIC HYPERPLASIA WITHOUT LOWER URINRY TRACT SYMP Assessment/Plan Assessment/plan: acute RUQ abdominal pain resolved, acute nausea resolved, acute anemia, acute leukocytosis, acute elevated ferritin level, cachexia, mild hypomagnesemia; IV fluids, IV Clinimix, PPI, oral antihypertensives, physical therapy, consultation to Hematology.
--- NOTE | 2019-10-23 15:55 | CONSULT ---
Consultation: REQUESTING PROVIDER: primary team CONSULT REQUEST: We have been asked to medically evaluate this patient for ( anemia and leuckocytosis ). HISTORY OF PRESENT ILLNESS: his 74 yr old male with history of hypertension, hyperlipidemia, gout, and chronic anemia admitted via ER with acute cholecystitis and cholelithiasis. we were consulted for anemia and leuckocytosis . pt reports 35 pound weight loss since May , he had B/L hernia repeair at that time. 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 no drugs, drink socially wine , REVIEW OF SYSTEMS: CONSTITUTIONAL: Absent: fever, chills, diaphoresis, generalized weakness, malaise, loss of appetite, weight change loss 35 pounds HEENT: Absent: rhinorrhea, nasal congestion, throat pain, throat swelling, difficulty swallowing, mouth swelling, ear pain, eye pain, visual changes CARDIOVASCULAR: Absent: chest pain, syncope, palpitations, irregular heart rate, lightheadedness , peripheral edema RESPIRATORY: Absent: cough, shortness of breath, dyspnea with exertion, orthopnea, wheezing, stridor, hemoptysis GASTROINTESTINAL: Absent: abdominal pain, abdominal distension, nausea, vomiting, diarrhea, constipation, melena, hematochezia GENITOURINARY: Absent: dysuria, frequency, urgency, hesitancy, hematuria, flank pain, genital pain MUSCULOSKELETAL: Absent: myalgia, arthralgia, joint swelling, back pain, neck pain SKIN: Absent: rash, itching, pallor HEMATOLOGIC/IMMUNOLOGIC: Absent: easy bleeding, easy bruising, lymphadenopathy, frequent infections ENDOCRINE: Absent: unexplained weight gain, unexplained weight loss, heat intolerance, cold intolerance NEUROLOGIC: Absent: headache, focal weakness or paresthesias, dizziness, unsteady gait, seizure, mental status changes, bladder or bowel incontinence PSYCHIATRIC: Absent: anxiety, depression, suicidal or homicidal ideation, hallucinations. PHYSICAL EXAMINATION Vital Signs - 24 hr 10/22/19 10/22/19 10/22/19 17:00 21:00 23:13 Temperature 99.5 F Pulse Rate 105 H 117 H Respiratory 20 Rate Blood Pressure 156/99 157/105 H O2 Sat by Pulse 98 Oximetry (%) 10/23/19 10/23/19 10/23/19 01:00 05:00 05:56 Temperature 99.6 F 98.4 F Pulse Rate 98 H 100 H 100 H Respiratory 20 20 Rate Blood Pressure 124/74 149/96 149/96 O2 Sat by Pulse Oximetry (%) 10/23/19 13:00 Temperature 98.2 F Pulse Rate 95 H Respiratory 20 Rate Blood Pressure 149/98 O2 Sat by Pulse Oximetry (%) GENERAL: Awake, alert, and fully oriented, in no acute distress. HEAD: Normal with no signs of trauma. EYES: Pupils equal, round and reactive to light, extraocular movements intact, sclera anicteric, conjunctiva clear. EARS, NOSE, THROAT: Ears normal, nares patent, oropharynx clear without exudates. Moist mucous membranes. NECK: supple without lymphadenopathy, LUNGS: Breath sounds equal, clear to auscultation bilaterally. No wheezes, and no crackles. No accessory muscle use. HEART: Regular rate and rhythm, normal S1 and S2 without murmur, rub or gallop. ABDOMEN: Soft, nontender, not distended, normoactive bowel sounds, no guarding, LOWER EXTREMITIES: 2+ pulses, warm, well-perfused. No calf tenderness. No peripheral edema. NEUROLOGICAL: no focal deficit Normal speech. PSYCHIATRIC: Cooperative. SKIN: Warm, dry, normal turgor, B/L inguinal scar for hernia repair no lyphnode enlargment noticed no breast mass palpated no oral thrush or mucositis Laboratory Results - last 24 hr 10/22/19 10/23/19 10/23/19 06:46 07:00 07:00 WBC 15.6 H RBC 3.18 L Hgb 7.8 L Hct 24.1 L MCV 75.7 L MCH 24.6 L MCHC 32.5 RDW 20.0 H Plt Count 323 D MPV 8.8 Absolute Neuts (auto) 11.9 H Neutrophils % 76.4 Lymphocytes % 6.0 L D Monocytes % 17.3 H Eosinophils % 0.0 D Basophils % 0.3 Nucleated RBC % 0 Sodium 136 Potassium 4.0 Chloride 105 Carbon Dioxide 21 Anion Gap 10 BUN 25.4 H Creatinine 1.2 Est GFR (CKD-EPI)AfAm 69.11 Est GFR (CKD-EPI)NonAf 59.63 Random Glucose 94 Calcium 8.9 Phosphorus 2.9 Magnesium 1.7 L Iron TIBC Iron Saturation Unsaturated IBC Total Bilirubin 0.4 GGT AST 25 ALT 20 Alkaline Phosphatase 188 H Total Protein 7.6 Albumin 2.8 L Prostate Specific Ag 4.10 H Blood Type Antibody Screen 10/23/19 10/23/19 10/23/19 07:00 07:00 10:58 WBC RBC Hgb Hct MCV MCH MCHC RDW Plt Count MPV Absolute Neuts (auto) Neutrophils % Lymphocytes % Monocytes % Eosinophils % Basophils % Nucleated RBC % Sodium Potassium Chloride Carbon Dioxide Anion Gap BUN Creatinine Est GFR (CKD-EPI)AfAm Est GFR (CKD-EPI)NonAf Random Glucose Calcium Phosphorus Magnesium Iron 24 L TIBC 209 L Iron Saturation 11 L Unsaturated IBC 185 L Total Bilirubin GGT 264 H AST ALT Alkaline Phosphatase Total Protein Albumin Prostate Specific Ag Blood Type B POSITIVE Antibody Screen Negative Active Medications Generic Name Dose Route Start Last Admin Trade Name Freq PRN Reason Stop Dose Admin Allopurinol 100 mg 10/23/19 12:15 10/23/19 12:40 Zyloprim - PO 100 mg DAILY DARYL Administration Amlodipine Besylate 10 mg 10/24/19 10:00 Norvasc - PO DAILY DARYL Bacitracin 1 applic 10/21/19 01:15 10/23/19 10:42 Bacitracin - TP 1 applic BID DARYL Administration Cholecalciferol 5,000 unit 10/23/19 13:00 10/23/19 12:40 Vitamin D3 - PO 5,000 unit DAILY DARYL Administration Piperacillin Sod/Tazobactam 50 mls @ 100 mls/hr 10/21/19 18:00 10/23/19 10:41 Sod 3.375 gm/ Dextrose IVPB 100 mls/hr Q8H-IV DARYL Administration Protocol Potassium Chloride/Dextrose/Sod Cl 20 meq in 1,000 mls @ 35 mls/hr 10/23/19 09 :35 10/23/19 10:42 D5-1/2ns+20 Meq Kcl - IV Not Given ASDIR DARYL Amino Acids 1,000 mls @ 65 mls/hr 10/23/19 09:45 10/23/19 10:42 Clinimix - IV Not Given Q24H DARYL Losartan Potassium 50 mg 10/23/19 12:15 10/23/19 12:40 Cozaar - PO 50 mg DAILY DARYL Administration Pantoprazole Sodium 40 mg 10/23/19 10:30 10/23/19 12:41 Protonix - PO 40 mg DAILY DARYL Administration CBC, BMP 10/23/19 07:00 10/23/19 07:00 ASSESSMENT/PLAN: # Leuckocytosis R/O infection # Microcytic hypochromic anemia likely due to anemia of chronic disease , iron panel all low except ferritin 1500 could be acute phases reactanct # weight loss cont clinimix , r.o cancer * williamson cx * cont abx * will send flow cytometry, FISH, Cytogentics , BCR/ABL , JAK2 , b12 , FA , ESR , CRP, TSH * appropriate age cancer screening * CT chest as screening * UA negative , Blood cx negative so far * maintain hgb > 8 * occult blood negative * pt refuse EGD/Colonoscopy * CT a/p non contrast --lingular scar , needs 3 month f/u, extensive perinephric stranding, adrenal gland hyperplasia, prominent pancreatic head * MRI/MRCP ordered by GI team * Reverse AG rtio --check protein studies * Elevated ALKP -- MRCP * will get bone scan # prostate enlargement PSA only 4 # HTN # Abdominal pain # Gout # prologed QTC 480 avoid meds cause prologation # Open wound buttocks # Cirrhosis alcoholic per primary team Dispo: We will continue to follow the patient. Thank you for this consultative opportunity. Visit type - Emergency Visit Emergency Visit: Yes ED Registration Date: 10/20/19 Care time: The patient presented to the Emergency Department on the above date and was hospitalized for further evaluation of their emergent condition. - New Patient This patient is new to me today: Yes Date on this admission: 10/20/19 - Critical Care Critical Care patient: No ATTENDING PHYSICIAN STATEMENT I saw and evaluated the patient. I reviewed the resident's note and discussed the case with the resident. I agree with the resident's findings and plan as documented. SUBJECTIVE: OBJECTIVE: ASSESSMENT AND PLAN:
[2019-10-24] MEDS ORDERED: PIPERACILLIN/TAZOBACTAM 3.375 GM VIAL IVPB ONE ×3 (01:59→17:36)
[2019-10-24] MEDS ORDERED: DEXTROSE 5%-WATER - 50 ML IVPB ONE ×3 (01:59→17:37)
[2019-10-24] MEDS: PIPERACILLIN/TAZOB 3.375 GM 3.375 GM in DEXTROSE 5%-WATER - 50 ML IVPB SCH ×3 (02:03→17:38)
--- NOTE | 2019-10-24 07:49 | PN ---
Progress Note, Physician Chief Complaint: Patient seen and examined by the bedside. Denies to nausea, abdominal pain, or dyspnea. History of Present Illness: This 74 yr old male presented with hypertension, gout, hyperlipidemia, and anemia of chronic disease admitted via ER with aucte RUQ abdominal pain, acute nausea, and an open wound of the left buttock. - Current Medication List Current Medications: Active Medications Allopurinol (Zyloprim -) 100 mg PO DAILY [facility] Last Admin: 10/23/19 12:40 Dose: 100 mg Amlodipine Besylate (Norvasc -) 10 mg PO DAILY [facility] Bacitracin (Bacitracin -) 1 applic TP BID [facility] Last Admin: 10/23/19 21:30 Dose: 1 applic Cholecalciferol (Vitamin D3 -) 5,000 unit PO DAILY [facility] Last Admin: 10/23/19 12:40 Dose: 5,000 unit Piperacillin Sod/Tazobactam (Sod 3.375 gm/ Dextrose) 50 mls @ 100 mls/hr IVPB Q8H-IV DARYL; Protocol Last Admin: 10/24/19 02:03 Dose: 100 mls/hr Potassium Chloride/Dextrose/Sod Cl (D5-1/2ns+20 Meq Kcl -) 20 meq in 1,000 mls @ 35 mls/hr IV ASDIR [facility] Last Admin: 10/23/19 17:23 Dose: 35 mls/hr Amino Acids (Clinimix -) 1,000 mls @ 65 mls/hr IV Q24H [facility] Last Admin: 10/23/19 10:42 Dose: Not Given Losartan Potassium (Cozaar -) 50 mg PO DAILY [facility] Last Admin: 10/23/19 12:40 Dose: 50 mg Pantoprazole Sodium (Protonix -) 40 mg PO DAILY [facility] Last Admin: 10/23/19 12:41 Dose: 40 mg - Objective Vital Signs: Vital Signs Temperature 98.2 F 10/24/19 07:30 Pulse Rate 77 10/24/19 07:30 Respiratory Rate 20 10/24/19 07:30 Blood Pressure 134/76 10/24/19 07:30 O2 Sat by Pulse Oximetry (%) 99 10/23/19 19:44 Constitutional: Yes: No Distress, Calm, Cachectic Eyes: Yes: Conjunctiva Clear, EOM Intact HENT: Yes: Atraumatic, Normocephalic Neck: Yes: Supple, Trachea Midline Cardiovascular: Yes: Regular Rate and Rhythm Respiratory: Yes: Regular, CTA Bilaterally Gastrointestinal: Yes: Normal Bowel Sounds, Soft, Hernia (status post bilateral inguinal hernia repair) ...Rectal Exam: Yes: Deferred Genitourinary: Yes: WNL Breast(s): Yes: WNL Musculoskeletal: Yes: WNL Extremities: Yes: WNL Edema: No Peripheral Pulses WNL: Yes Peripheral Pulses: Left Radial: 2+, Right Radial: 2+, Left Doralis Pedis: 2+, Right Dorsalis Pedis: 2+, Left Femoral: 2+, Right Femoral: 2+ Integumentary: Yes: Other (open wound of the left buttock) Neurological: Yes: Alert, Oriented ...Motor Strength: WNL Psychiatric: Yes: Alert, Oriented Labs: CBC, BMP 10/23/19 07:00 10/23/19 07:00 - ....Imaging Other: Report Reviewed (Hematology consult read and appreciated) Problem List - Problems (1) Anemia Code(s): D64.9 - ANEMIA, UNSPECIFIED (2) Hypertension Code(s): I10 - ESSENTIAL (PRIMARY) HYPERTENSION (3) Gout Code(s): M10.9 - GOUT, UNSPECIFIED Qualifiers: Gout site: elbow Chronicity: chronic Laterality: right (4) Cholecystitis Code(s): K81.9 - CHOLECYSTITIS, UNSPECIFIED (5) Open wound of left buttock Code(s): S31.829A - UNSPECIFIED OPEN WOUND OF LEFT BUTTOCK, INITIAL ENCOUNTER (6) Alcoholic cirrhosis of liver Code(s): K70.30 - ALCOHOLIC CIRRHOSIS OF LIVER WITHOUT ASCITES (7) Elevated ferritin Code(s): R79.89 - OTHER SPECIFIED ABNORMAL FINDINGS OF BLOOD CHEMISTRY (8) Muscle weakness (generalized) Code(s): M62.81 - MUSCLE WEAKNESS (GENERALIZED) (9) Cholelithiasis Code(s): K80.20 - CALCULUS OF GALLBLADDER W/O CHOLECYSTITIS W/O OBSTRUCTION (10) Leukocytosis Code(s): D72.829 - ELEVATED WHITE BLOOD CELL COUNT, UNSPECIFIED (11) Enlarged prostate Code(s): N40.0 - BENIGN PROSTATIC HYPERPLASIA WITHOUT LOWER URINRY TRACT SYMP (12) History of bilateral inguinal hernia repair Code(s): Z98.890 - OTHER SPECIFIED POSTPROCEDURAL STATES; Z87.19 - PERSONAL HISTORY OF OTHER DISEASES OF THE DIGESTIVE SYSTEM (13) Abnormal weight loss Code(s): R63.4 - ABNORMAL WEIGHT LOSS Assessment/Plan Assessment/plan: acute RUQ abdominal pain subsided, acute nausea subsided, cholelithiasis, acute cholecystitis, anemia of chronic disease, unintentional abnormal weight loss, ?cancer, elevated ferritin, acute leukocytosis; IV fluids , IV Clinimix, IV Piperacillin, oral antihypertensives, oral PPI, physical therapy.
[2019-10-24 08:06] LABS: RETICULOCYTES 2.32 % (0.5-1.5)
[2019-10-24 08:19] LABS: BASO % 0.4 % (0-2.0); EOS % 0.1 % (0-4.5); HEMATOCRIT 22.8 % (35.4-49); HEMOGLOBIN 7.4 GM/dL (11.7-16.9); LYMPH % 9.2 % (8-40); MCH 24.8 pg (25.7-33.7); MCHC 32.6 g/dl (32.0-35.9); MEAN PLT VOLUME 9.2 fl (7.5-11.1); MONO % 16.2 % (3.8-10.2); NEUT % 74.1 % (42.8-82.8); PLATELET COUNT 367 K/MM3 (134-434); RDW 19.9 % (11.9-15.9); WHITE BLOOD COUNT 10.7 K/mm3 (4.0-10.0)
[2019-10-24 08:37] LABS: ALBUMIN 2.5 g/dl (3.4-5.0); BILIRUBIN,TOTAL 0.3 mg/dL (0.2-1); BLOOD UREA NITROGEN 31.6 mg/dL (7-18); CALCIUM 8.7 mg/dL (8.5-10.1); CREATININE 1.2 mg/dL (0.55-1.3); POTASSIUM 3.8 mmol/L (3.5-5.1)
[2019-10-24] MEDS: CHOLECALCIFEROL (VIT D3) 1,000 UNIT (25 MCG) TABLET PO SCH (10:18)
[2019-10-24] MEDS: PANTOPRAZOLE 40 MG TABLET (FP) PO SCH (10:19)
[2019-10-24] MEDS: ALLOPURINOL 100 MG TABLET (FP) PO SCH (10:20)
[2019-10-24] MEDS: BACITRACIN 15 GM TUBE TOPICAL OINTMENT TP SCH ×2 (10:20→21:36)
[2019-10-24] MEDS: D5-1/2NS+20 MEQ KCL - 20 MEQ/1,000 ML INFUS.BAG IV SCH (10:20)
[2019-10-24] MEDS: amLODIPine BESYLATE 10 MG TABLET (FP) PO SCH (10:20)
[2019-10-24] MEDS: AMINO ACIDS 4.25%/D5W 1,000 ML IV SCH ×2 (10:21→22:42)
[2019-10-24] MEDS: LOSARTAN POTASSIUM 50 MG TABLET (FP) PO SCH (10:21)
[2019-10-24 10:22] LABS: ERYTHROCYTE SEDIMENTATION RATE > 140 mm/hr (0-20)
--- NOTE | 2019-10-24 17:18 | PN ---
Teaching Attending Note Name of Resident: Tomy Salas ATTENDING PHYSICIAN STATEMENT I saw and evaluated the patient. I reviewed the resident's note and discussed the case with the resident. I agree with the resident's findings and plan as documented. ASSESSMENT AND PLAN: 74M admitted through [facility] from rehab (has falls at home). This was his second. He is uncertain why he falls but is now in rehab for this problem) for evaluation of abdominal pain. He states that the pain was on the right abdomen radiating to the right side of his back. He says that it was ocurring for about a week, not related to meals and positional at times. There was no associated change in bowel habits. He was noted to have an elevated WBC, had a negative HIDA and Alkaline phosphatase is elevated. His mother had colon canceer diagnosed in her 60's. He describes weight loss over last few months of 35 pounds. He has an unexplained leukocytosis. # Microcytic hypochromic anemia likely due to anemia of chronic disease Irob studies s/o chronic disease + iron deficiency. IRon saturtion 11%, Ferritin 1500 ESR> 140 CT a/p non contrast --lingular scar , needs 3 month f/u, extensive perinephric stranding, adrenal glnd hyperplasia, prominent pancreatic head MRI/MRCP ordered by GI team Will order CT chest Refused EGD/Colonoscopy Reverse AG rtio --check protein studies Elevated ALKP -- MRCP will get bone scan will request fall evaluation by neurology
[2019-10-24] MEDS ORDERED: CYANOCOBALAMIN (VITAMIN B-12) 1000 MCG/1 ML VIAL IM ONE (18:19)
[2019-10-24] MEDS ORDERED: D5-NS + 20 MEQ KCL - 20 MEQ/1,000 ML INFUS.BAG IV SCH (18:30)
[2019-10-24 20:09] LABS: HEP B CORE AB, TOT Negative (Negative)
[2019-10-24] MEDS ORDERED: PT OWN MED DRAWER 7, Y5N ONE (22:35)
[2019-10-25] MEDS ORDERED: PIPERACILLIN/TAZOBACTAM 3.375 GM VIAL IVPB ONE ×3 (01:12→17:48)
[2019-10-25] MEDS ORDERED: DEXTROSE 5%-WATER - 50 ML IVPB ONE ×3 (01:13→17:48)
[2019-10-25] MEDS: PIPERACILLIN/TAZOB 3.375 GM 3.375 GM in DEXTROSE 5%-WATER - 50 ML IVPB SCH ×3 (01:33→17:58)
[2019-10-25] MEDS ORDERED: IRON SUCROSE INJECTION 100 MG in SODIUM CHLORIDE 95 ML IVPB ONE (07:00)
[2019-10-25 09:15] LABS: BASO % 0.4 % (0-2.0); EOS % 0.2 % (0-4.5); HEMOGLOBIN 7.9 GM/dL (11.7-16.9); LYMPH % 10.8 % (8-40); MCHC 32.9 g/dl (32.0-35.9); MEAN PLT VOLUME 8.9 fl (7.5-11.1); MONO % 16.4 % (3.8-10.2); NEUT % 72.2 % (42.8-82.8); PLATELET COUNT 375 K/MM3 (134-434); RBC 3.15 M/mm3 (4.00-5.60); RDW 19.5 % (11.9-15.9); WHITE BLOOD COUNT 8.1 K/mm3 (4.0-10.0)
[2019-10-25 09:24] LABS: ALBUMIN 2.7 g/dl (3.4-5.0); BILIRUBIN,TOTAL 0.3 mg/dL (0.2-1); BLOOD UREA NITROGEN 37.3 mg/dL (7-18); CALCIUM 9.1 mg/dL (8.5-10.1); CREATININE 1.2 mg/dL (0.55-1.3); POTASSIUM 4.1 mmol/L (3.5-5.1); TOT PROT 7.3 g/dl (6.4-8.2)
[2019-10-25] MEDS: amLODIPine BESYLATE 10 MG TABLET (FP) PO SCH (10:33)
[2019-10-25] MEDS: ALLOPURINOL 100 MG TABLET (FP) PO SCH (10:33)
[2019-10-25] MEDS: LOSARTAN POTASSIUM 50 MG TABLET (FP) PO SCH (10:33)
[2019-10-25] MEDS: PANTOPRAZOLE 40 MG TABLET (FP) PO SCH (10:34)
[2019-10-25] MEDS: AMINO ACIDS 4.25%/D5W 1,000 ML IV SCH (10:34)
[2019-10-25] MEDS: BACITRACIN 15 GM TUBE TOPICAL OINTMENT TP SCH ×2 (10:34→21:04)
[2019-10-25] MEDS: CHOLECALCIFEROL (VIT D3) 1,000 UNIT (25 MCG) TABLET PO SCH (10:34)
--- NOTE | 2019-10-25 13:29 | PN ---
Progress Note, Physician Chief Complaint: Patient seen and examined at the bedside. Denies to nausea, dyspnea, or abdominal pain. Agrees to have upper endoscopy and colonoscopy. History of Present Illness: This 74 yr old male with hx of abnormal weight loss, hypertension, hyperlipidemia, gout, and anemia of chronic disease admitted via ER with acute RUQ abdominal pain, nausea, and an open wound of the left buttock. - Current Medication List Current Medications: Active Medications Allopurinol (Zyloprim -) 100 mg PO DAILY [facility] Last Admin: 10/25/19 10:33 Dose: 100 mg Amlodipine Besylate (Norvasc -) 10 mg PO DAILY [facility] Last Admin: 10/25/19 10:33 Dose: 10 mg Bacitracin (Bacitracin -) 1 applic TP BID [facility] Last Admin: 10/25/19 10:34 Dose: 1 applic Cholecalciferol (Vitamin D3 -) 5,000 unit PO DAILY [facility] Last Admin: 10/25/19 10:34 Dose: 5,000 unit Piperacillin Sod/Tazobactam (Sod 3.375 gm/ Dextrose) 50 mls @ 100 mls/hr IVPB Q8H-IV DARYL; Protocol Last Admin: 10/25/19 10:32 Dose: 100 mls/hr Amino Acids (Clinimix -) 1,000 mls @ 65 mls/hr IV Q24H [facility] Last Admin: 10/25/19 10:34 Dose: Not Given Dextrose/Sodium Chloride (Dextrose 5%-Normal Saline+20 Meq Kcl -) 20 meq in 1, 000 mls @ 35 mls/hr IV ASDIR [facility] Last Admin: 10/24/19 21:35 Dose: 35 mls/hr Fat Emulsion Intravenous (Intralipid -) 500 mls @ 250 mls/hr IV DAILY@2200 [facility] Losartan Potassium (Cozaar -) 50 mg PO DAILY [facility] Last Admin: 10/25/19 10:33 Dose: 50 mg Pantoprazole Sodium (Protonix -) 40 mg PO DAILY [facility] Last Admin: 10/25/19 10:34 Dose: 40 mg - Objective Vital Signs: Vital Signs Temperature 97.7 F 10/25/19 10:21 Pulse Rate 68 10/25/19 10:21 Respiratory Rate 20 10/25/19 10:21 Blood Pressure 136/77 10/25/19 10:21 O2 Sat by Pulse Oximetry (%) 99 10/25/19 09:00 Constitutional: Yes: No Distress, Calm, Cachectic Eyes: Yes: Conjunctiva Clear, EOM Intact HENT: Yes: Atraumatic, Normocephalic Neck: Yes: Supple, Trachea Midline Cardiovascular: Yes: Regular Rate and Rhythm Respiratory: Yes: Regular, CTA Bilaterally Gastrointestinal: Yes: Normal Bowel Sounds, Soft ...Rectal Exam: Yes: Deferred Genitourinary: Yes: WNL Breast(s): Yes: WNL Musculoskeletal: Yes: WNL Extremities: Yes: WNL Edema: No Peripheral Pulses WNL: Yes Peripheral Pulses: Left Radial: 2+, Right Radial: 2+, Left Doralis Pedis: 2+, Right Dorsalis Pedis: 2+, Left Femoral: 2+, Right Femoral: 2+ Integumentary: Yes: Other (abrasion of left buttock) Wound/Incision: Yes: Open to air Neurological: Yes: Alert, Oriented ...Motor Strength: WNL Psychiatric: Yes: Alert, Oriented Labs: CBC, BMP 10/25/19 08:08 10/25/19 08:08 - ....Imaging MRI: Report Reviewed (Within head of pancreas intraductal papillary mucinous neoplasm is suspected vs dilated branch duct) Other: Report Reviewed (Lab data reviewed) Problem List - Problems (1) Anemia Code(s): D64.9 - ANEMIA, UNSPECIFIED (2) Hypertension Code(s): I10 - ESSENTIAL (PRIMARY) HYPERTENSION (3) Gout Code(s): M10.9 - GOUT, UNSPECIFIED Qualifiers: Gout site: elbow Chronicity: chronic Laterality: right (4) Cholecystitis Code(s): K81.9 - CHOLECYSTITIS, UNSPECIFIED (5) Open wound of left buttock Code(s): S31.829A - UNSPECIFIED OPEN WOUND OF LEFT BUTTOCK, INITIAL ENCOUNTER (6) Alcoholic cirrhosis of liver Code(s): K70.30 - ALCOHOLIC CIRRHOSIS OF LIVER WITHOUT ASCITES (7) Elevated ferritin Code(s): R79.89 - OTHER SPECIFIED ABNORMAL FINDINGS OF BLOOD CHEMISTRY (8) Muscle weakness (generalized) Code(s): M62.81 - MUSCLE WEAKNESS (GENERALIZED) (9) Cholelithiasis Code(s): K80.20 - CALCULUS OF GALLBLADDER W/O CHOLECYSTITIS W/O OBSTRUCTION (10) Leukocytosis Code(s): D72.829 - ELEVATED WHITE BLOOD CELL COUNT, UNSPECIFIED (11) Enlarged prostate Code(s): N40.0 - BENIGN PROSTATIC HYPERPLASIA WITHOUT LOWER URINRY TRACT SYMP (12) History of bilateral inguinal hernia repair Code(s): Z98.890 - OTHER SPECIFIED POSTPROCEDURAL STATES; Z87.19 - PERSONAL HISTORY OF OTHER DISEASES OF THE DIGESTIVE SYSTEM (13) Abnormal weight loss Code(s): R63.4 - ABNORMAL WEIGHT LOSS (14) Splenomegaly Code(s): R16.1 - SPLENOMEGALY, NOT ELSEWHERE CLASSIFIED (15) Intraductal papillary mucinous neoplasm Code(s): D49.0 - NEOPLASM OF UNSPECIFIED BEHAVIOR OF DIGESTIVE SYSTEM (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
[2019-10-25] MEDS ORDERED: AMINO ACIDS 4.25%/D5W 1,000 ML IV SCH (14:00)
[2019-10-25] MEDS: POTASSIUM CHLORIDE 20 MEQ in AMINO ACIDS 4.25%/D5W 1,000 ML IVPB SCH (16:23)
[2019-10-25] MEDS: FAT EMULSIONS 500 ML IV SCH (21:04)
[2019-10-25] MEDS ORDERED: FAT EMULSIONS 20% 500 ML PREMIX INFUS.BAG IV SCH (22:00)
[2019-10-26] MEDS ORDERED: PIPERACILLIN/TAZOBACTAM 3.375 GM VIAL IVPB ONE ×3 (00:57→17:11)
[2019-10-26] MEDS ORDERED: DEXTROSE 5%-WATER - 50 ML IVPB ONE ×3 (00:58→17:12)
[2019-10-26] MEDS: POTASSIUM CHLORIDE 20 MEQ in AMINO ACIDS 4.25%/D5W 1,000 ML IVPB SCH ×3 (01:10→13:39)
[2019-10-26] MEDS: PIPERACILLIN/TAZOB 3.375 GM 3.375 GM in DEXTROSE 5%-WATER - 50 ML IVPB SCH ×3 (01:11→17:34)
[2019-10-26 08:15] LABS: BASO % 0.4 % (0-2.0); EOS % 0.2 % (0-4.5); HEMATOCRIT 22.9 % (35.4-49); HEMOGLOBIN 7.6 GM/dL (11.7-16.9); LYMPH % 7.9 % (8-40); MCH 25.1 pg (25.7-33.7); MEAN CELL VOLUME 75.9 fl (80-96); MEAN PLT VOLUME 8.8 fl (7.5-11.1); MONO % 13.8 % (3.8-10.2); NEUT % 77.7 % (42.8-82.8); PLATELET COUNT 446 K/MM3 (134-434); RBC 3.02 M/mm3 (4.00-5.60); RDW 19.8 % (11.9-15.9); WHITE BLOOD COUNT 8.3 K/mm3 (4.0-10.0)
[2019-10-26] MEDS ORDERED: EPOETIN ALFA 2,000 UNIT/1 ML VIAL SQ ONE (08:38)
[2019-10-26 08:45] LABS: ALBUMIN 2.7 g/dl (3.4-5.0); BILIRUBIN,TOTAL 0.2 mg/dL (0.2-1); BLOOD UREA NITROGEN 31.1 mg/dL (7-18); CALCIUM 8.9 mg/dL (8.5-10.1); CREATININE 1.3 mg/dL (0.55-1.3); POTASSIUM 4.3 mmol/L (3.5-5.1); TOT PROT 7.3 g/dl (6.4-8.2)
--- NOTE | 2019-10-26 08:54 | PN ---
Progress Note, Physician Chief Complaint: Patient seen and examined at bedside. Denies to nausea, abdominal pain, or dyspnea. Low grade fever. History of Present Illness: This 74 yr old male with hx of hypertension, gout, hyperlipidemia admitted via ER with acute RUQ abdominal pain, acute nausea, abnormal weight loss, and acute neutrophilic leukocytosis. - Current Medication List Current Medications: Active Medications Allopurinol (Zyloprim -) 100 mg PO DAILY [facility] Last Admin: 10/25/19 10:33 Dose: 100 mg Amlodipine Besylate (Norvasc -) 10 mg PO DAILY [facility] Last Admin: 10/25/19 10:33 Dose: 10 mg Bacitracin (Bacitracin -) 1 applic TP BID [facility] Last Admin: 10/25/19 21:04 Dose: 1 applic Cholecalciferol (Vitamin D3 -) 5,000 unit PO DAILY [facility] Last Admin: 10/25/19 10:34 Dose: 5,000 unit Epoetin Uli (Epogen -) 25,000 unit SQ ONCE ONE Stop: 10/26/19 08:39 Piperacillin Sod/Tazobactam (Sod 3.375 gm/ Dextrose) 50 mls @ 100 mls/hr IVPB Q8H-IV DARYL; Protocol Last Admin: 10/26/19 01:11 Dose: 100 mls/hr Fat Emulsion Intravenous (Intralipid -) 500 mls @ 250 mls/hr IV DAILY@2200 [facility] Last Admin: 10/25/19 21:04 Dose: 250 mls/hr Potassium Chloride 20 meq/ (Amino Acids) 1,010 mls @ 84 mls/hr IVPB Q12H [facility] Last Admin: 10/26/19 01:10 Dose: Not Given Losartan Potassium (Cozaar -) 50 mg PO DAILY [facility] Last Admin: 10/25/19 10:33 Dose: 50 mg Pantoprazole Sodium (Protonix -) 40 mg PO DAILY [facility] Last Admin: 10/25/19 10:34 Dose: 40 mg - Objective Vital Signs: Vital Signs Temperature 100.1 F H 10/26/19 06:13 Pulse Rate 80 10/26/19 06:13 Respiratory Rate 18 10/26/19 06:13 Blood Pressure 126/67 10/26/19 06:13 O2 Sat by Pulse Oximetry (%) 100 10/25/19 21:00 Constitutional: Yes: No Distress, Calm, Cachectic Eyes: Yes: Conjunctiva Clear, EOM Intact HENT: Yes: Atraumatic, Normocephalic Neck: Yes: Supple, Trachea Midline Cardiovascular: Yes: Regular Rate and Rhythm Respiratory: Yes: Regular, CTA Bilaterally Gastrointestinal: Yes: Normal Bowel Sounds, Soft ...Rectal Exam: Yes: Deferred Genitourinary: Yes: WNL Breast(s): Yes: WNL Musculoskeletal: Yes: WNL Extremities: Yes: WNL Edema: No Peripheral Pulses WNL: Yes Peripheral Pulses: Left Radial: 2+, Right Radial: 2+, Left Doralis Pedis: 2+, Right Dorsalis Pedis: 2+, Left Femoral: 2+, Right Femoral: 2+ Integumentary: Yes: Other (abrasion of the left hip) Wound/Incision: Yes: Open to air Neurological: Yes: Alert, Oriented ...Motor Strength: WNL Psychiatric: Yes: Alert, Oriented Labs: CBC, BMP 10/26/19 06:45 10/26/19 06:45 - ....Imaging MRI: Report Reviewed (Intraductal papillary mucinous neoplasm) Other: Report Reviewed (cbc reviewed, chemistries pending.) Problem List - Problems (1) Anemia Code(s): D64.9 - ANEMIA, UNSPECIFIED (2) Hypertension Code(s): I10 - ESSENTIAL (PRIMARY) HYPERTENSION (3) Gout Code(s): M10.9 - GOUT, UNSPECIFIED Qualifiers: Gout site: elbow Chronicity: chronic Laterality: right (4) Cholecystitis Code(s): K81.9 - CHOLECYSTITIS, UNSPECIFIED (5) Open wound of left buttock Code(s): S31.829A - UNSPECIFIED OPEN WOUND OF LEFT BUTTOCK, INITIAL ENCOUNTER (6) Alcoholic cirrhosis of liver Code(s): K70.30 - ALCOHOLIC CIRRHOSIS OF LIVER WITHOUT ASCITES (7) Elevated ferritin Code(s): R79.89 - OTHER SPECIFIED ABNORMAL FINDINGS OF BLOOD CHEMISTRY (8) Muscle weakness (generalized) Code(s): M62.81 - MUSCLE WEAKNESS (GENERALIZED) (9) Cholelithiasis Code(s): K80.20 - CALCULUS OF GALLBLADDER W/O CHOLECYSTITIS W/O OBSTRUCTION (10) Leukocytosis Code(s): D72.829 - ELEVATED WHITE BLOOD CELL COUNT, UNSPECIFIED (11) Enlarged prostate Code(s): N40.0 - BENIGN PROSTATIC HYPERPLASIA WITHOUT LOWER URINRY TRACT SYMP (12) History of bilateral inguinal hernia repair Code(s): Z98.890 - OTHER SPECIFIED POSTPROCEDURAL STATES; Z87.19 - PERSONAL HISTORY OF OTHER DISEASES OF THE DIGESTIVE SYSTEM (13) Abnormal weight loss Code(s): R63.4 - ABNORMAL WEIGHT LOSS (14) Splenomegaly Code(s): R16.1 - SPLENOMEGALY, NOT ELSEWHERE CLASSIFIED (15) Intraductal papillary mucinous neoplasm Code(s): D49.0 - NEOPLASM OF UNSPECIFIED BEHAVIOR OF DIGESTIVE SYSTEM (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
[2019-10-26] MEDS: CHOLECALCIFEROL (VIT D3) 1,000 UNIT (25 MCG) TABLET PO SCH (09:45)
[2019-10-26] MEDS: LOSARTAN POTASSIUM 50 MG TABLET (FP) PO SCH (09:45)
[2019-10-26] MEDS: ACETAMINOPHEN 500 MG TABLET (FP) PO PRN ×2 (09:45→21:44)
[2019-10-26] MEDS: amLODIPine BESYLATE 10 MG TABLET (FP) PO SCH (09:45)
[2019-10-26] MEDS: ALLOPURINOL 100 MG TABLET (FP) PO SCH (09:46)
[2019-10-26] MEDS: BACITRACIN 15 GM TUBE TOPICAL OINTMENT TP SCH ×2 (09:46→21:23)
[2019-10-26] MEDS: PANTOPRAZOLE 40 MG TABLET (FP) PO SCH (09:46)
[2019-10-26] MEDS ORDERED: EPOETIN ALFA SQ ONE (10:15)
--- NOTE | 2019-10-26 12:19 | PN ---
Progress Note (short form) - Note Progress Note: Patient now amenable to procedures, has never had EGD or colonoscopy, I personally discussed with him in detail Will plan for colonoscopy +/- EGD on Sat Clear liquids tomorrow 20mg dulcolax and 4L golytely Saturday evening NPO after MN Sat for procedures 10/28
--- NOTE | 2019-10-26 16:35 | PN ---
Progress Note (short form) - Note Progress Note: Patient seen and examined Feels OK Last Vital Signs Temp Pulse Resp BP Pulse Ox 97.4 F L 72 18 118/61 100 10/26/19 14:00 10/26/19 14:00 10/26/19 14:00 10/26/19 14:00 10/25/19 21:00 Cor: RSR, No murmurs, No gallops Lungs: Clear to P&A Abd: Soft, Normal bowel sounds, No organomegaly Ext:No significant edema Labs/Meds reviewed A/P 74M admitted through [facility] from rehab (has falls at home). Came in with abdominal pain. He states that the pain was on the right abdomen radiating to the right side of his back. He says that it was ocurring for about a week, not related to meals and positional at times. There was no associated change in bowel habits. He was noted to have an elevated WBC, had a negative HIDA and Alkaline phosphatase is elevated. His mother had colon canceer diagnosed in her 60's. He describes weight loss over last few months of 35 pounds. He has an unexplained leukocytosis. # Microcytic hypochromic anemia likely due to anemia of chronic disease Iron studies s/o chronic disease + iron deficiency. IRon saturtion 11%, Ferritin 1500 ESR> 140 CT a/p non contrast --lingular scar , needs 3 month f/u, extensive perinephric stranding, adrenal glnd hyperplasia, prominent pancreatic head MRI/MRCP --0.9cm cyst in pancreatic head, ? dilated biliary branch duct vs IPMN. MRI s/o iron overload f/u CT chest, bone scan FOr EGD/Colonoscopy Reverse AG rtio --check protein studies Elevated ALKP -- will get bone scan + rheumatoid factor --marie Schmitt consult Avoid iv iron given ferritin 1500, iron sat 11%
[2019-10-26] MEDS: FAT EMULSIONS 500 ML IV SCH (21:23)
[2019-10-27] MEDS ORDERED: PIPERACILLIN/TAZOBACTAM 3.375 GM VIAL IVPB ONE ×3 (02:21→17:22)
[2019-10-27] MEDS ORDERED: DEXTROSE 5%-WATER - 50 ML IVPB ONE ×3 (02:22→17:22)
[2019-10-27] MEDS: PIPERACILLIN/TAZOB 3.375 GM 3.375 GM in DEXTROSE 5%-WATER - 50 ML IVPB SCH ×3 (02:45→17:26)
[2019-10-27] MEDS: POTASSIUM CHLORIDE 20 MEQ in AMINO ACIDS 4.25%/D5W 1,000 ML IVPB SCH ×2 (02:46→14:51)
--- NOTE | 2019-10-27 07:38 | PN ---
Progress Note, Physician Chief Complaint: Patient seen and examined at the bedside, pain of both feet secondary to gout, denies to dyspnea, nausea, or abdominal pain. History of Present Illness: This 74 yr old male with hx of HTN, gout, and hyperlipidemia admitted via ER with acute RUQ abdominal pain, acute nausea, cholelithiasis, abnormal weight loss, and acute neutrophilic leukocytosis. - Current Medication List Current Medications: Active Medications Acetaminophen (Tylenol -) 500 mg PO Q4H PRN PRN Reason: MODERATE PAIN Last Admin: 10/26/19 21:44 Dose: 500 mg Allopurinol (Zyloprim -) 100 mg PO DAILY [facility] Last Admin: 10/26/19 09:46 Dose: 100 mg Amlodipine Besylate (Norvasc -) 10 mg PO DAILY [facility] Last Admin: 10/26/19 09:45 Dose: 10 mg Bacitracin (Bacitracin -) 1 applic TP BID [facility] Last Admin: 10/26/19 21:23 Dose: 1 applic Bisacodyl (Dulcolax -) 20 mg PO ONCE ONE Stop: 10/27/19 17:21 Cholecalciferol (Vitamin D3 -) 5,000 unit PO DAILY [facility] Last Admin: 10/26/19 09:45 Dose: 5,000 unit Piperacillin Sod/Tazobactam (Sod 3.375 gm/ Dextrose) 50 mls @ 100 mls/hr IVPB Q8H-IV [facility]; Protocol Last Admin: 10/27/19 02:45 Dose: 100 mls/hr Fat Emulsion Intravenous (Intralipid -) 500 mls @ 250 mls/hr IV DAILY@2200 [facility] Last Admin: 10/26/19 21:23 Dose: 250 mls/hr Potassium Chloride 20 meq/ (Amino Acids) 1,010 mls @ 84 mls/hr IVPB Q12H [facility] Last Admin: 10/27/19 02:46 Dose: 84 mls/hr Losartan Potassium (Cozaar -) 50 mg PO DAILY [facility] Last Admin: 10/26/19 09:45 Dose: 50 mg Pantoprazole Sodium (Protonix -) 40 mg PO DAILY [facility] Last Admin: 10/26/19 09:46 Dose: 40 mg Polyethylene Glycol/Electrolytes (Golytely Solution -) 4,000 ml PO ONCE ONE Stop: 10/27/19 17:21 - Objective Vital Signs: Vital Signs Temperature 97.9 F 10/27/19 06:16 Pulse Rate 76 10/27/19 06:16 Respiratory Rate 20 10/27/19 06:16 Blood Pressure 139/75 10/27/19 06:16 O2 Sat by Pulse Oximetry (%) 100 10/25/19 21:00 Constitutional: Yes: No Distress, Calm, Cachectic Eyes: Yes: Conjunctiva Clear, EOM Intact HENT: Yes: Atraumatic, Normocephalic Neck: Yes: Supple, Trachea Midline Cardiovascular: Yes: Regular Rate and Rhythm Respiratory: Yes: Regular, CTA Bilaterally Gastrointestinal: Yes: Normal Bowel Sounds, Soft ...Rectal Exam: Yes: Deferred Genitourinary: Yes: WNL Breast(s): Yes: WNL Musculoskeletal: Yes: Other (Joint pain of both feet) Extremities: Yes: Other (gout, pain in both feet) Edema: No Peripheral Pulses WNL: Yes Peripheral Pulses: Left Radial: 3+, Right Radial: 3+, Left Doralis Pedis: 3+, Right Dorsalis Pedis: 3+, Left Femoral: 3+, Right Femoral: 3+ Integumentary: Yes: WNL Neurological: Yes: Alert, Oriented ...Motor Strength: WNL Psychiatric: Yes: Alert, Oriented Labs: CBC, BMP 10/26/19 06:45 10/26/19 06:45 Problem List - Problems (1) Anemia Code(s): D64.9 - ANEMIA, UNSPECIFIED (2) Hypertension Code(s): I10 - ESSENTIAL (PRIMARY) HYPERTENSION (3) Gout Code(s): M10.9 - GOUT, UNSPECIFIED Qualifiers: Gout site: elbow Chronicity: chronic Laterality: right (4) Cholecystitis Code(s): K81.9 - CHOLECYSTITIS, UNSPECIFIED (5) Open wound of left buttock Code(s): S31.829A - UNSPECIFIED OPEN WOUND OF LEFT BUTTOCK, INITIAL ENCOUNTER (6) Alcoholic cirrhosis of liver Code(s): K70.30 - ALCOHOLIC CIRRHOSIS OF LIVER WITHOUT ASCITES (7) Elevated ferritin Code(s): R79.89 - OTHER SPECIFIED ABNORMAL FINDINGS OF BLOOD CHEMISTRY (8) Muscle weakness (generalized) Code(s): M62.81 - MUSCLE WEAKNESS (GENERALIZED) (9) Cholelithiasis Code(s): K80.20 - CALCULUS OF GALLBLADDER W/O CHOLECYSTITIS W/O OBSTRUCTION (10) Leukocytosis Code(s): D72.829 - ELEVATED WHITE BLOOD CELL COUNT, UNSPECIFIED (11) Enlarged prostate Code(s): N40.0 - BENIGN PROSTATIC HYPERPLASIA WITHOUT LOWER URINRY TRACT SYMP (12) History of bilateral inguinal hernia repair Code(s): Z98.890 - OTHER SPECIFIED POSTPROCEDURAL STATES; Z87.19 - PERSONAL HISTORY OF OTHER DISEASES OF THE DIGESTIVE SYSTEM (13) Abnormal weight loss Code(s): R63.4 - ABNORMAL WEIGHT LOSS (14) Splenomegaly Code(s): R16.1 - SPLENOMEGALY, NOT ELSEWHERE CLASSIFIED (15) Intraductal papillary mucinous neoplasm Code(s): D49.0 - NEOPLASM OF UNSPECIFIED BEHAVIOR OF DIGESTIVE SYSTEM (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
[2019-10-27 07:44] LABS: BASO % 0.4 % (0-2.0); EOS % 0.1 % (0-4.5); HEMATOCRIT 22.1 % (35.4-49); HEMOGLOBIN 7.5 GM/dL (11.7-16.9); LYMPH % 11.5 % (8-40); MCH 25.6 pg (25.7-33.7); MCHC 33.9 g/dl (32.0-35.9); MEAN CELL VOLUME 75.4 fl (80-96); MEAN PLT VOLUME 9.5 fl (7.5-11.1); MONO % 16.5 % (3.8-10.2); NEUT % 71.5 % (42.8-82.8); PLATELET COUNT 477 K/MM3 (134-434); RBC 2.92 M/mm3 (4.00-5.60); RDW 19.9 % (11.9-15.9)
[2019-10-27 08:15] LABS: ALBUMIN 2.7 g/dl (3.4-5.0); BILIRUBIN,TOTAL 0.4 mg/dL (0.2-1); BLOOD UREA NITROGEN 34.7 mg/dL (7-18); CREATININE 1.3 mg/dL (0.55-1.3); POTASSIUM 4.2 mmol/L (3.5-5.1); TOT PROT 7.4 g/dl (6.4-8.2)
[2019-10-27] MEDS: BACITRACIN 15 GM TUBE TOPICAL OINTMENT TP SCH ×2 (09:58→21:40)
[2019-10-27] MEDS: amLODIPine BESYLATE 10 MG TABLET (FP) PO SCH (09:59)
[2019-10-27] MEDS: ACETAMINOPHEN 500 MG TABLET (FP) PO PRN ×2 (09:59→21:39)
[2019-10-27] MEDS: CHOLECALCIFEROL (VIT D3) 1,000 UNIT (25 MCG) TABLET PO SCH (09:59)
[2019-10-27] MEDS: ALLOPURINOL 100 MG TABLET (FP) PO SCH (09:59)
[2019-10-27] MEDS: PANTOPRAZOLE 40 MG TABLET (FP) PO SCH (09:59)
[2019-10-27] MEDS: LOSARTAN POTASSIUM 50 MG TABLET (FP) PO SCH (10:00)
--- NOTE | 2019-10-27 14:04 | PATH ---
Surgical Pathology Report Patient Name: AURELIA CALL Med. Rec. #: [id number] /Age/Gender: 1945 (Age: 74) / M Account: [id number] [facility] Taken: 10/24/2019 Received: 10/26/2019 Reported: 10/27/2019 Physicians: Marisel Nj M.D. Specimen(s) Received PERIPHERAL BLOOD Clinical History Anemia, leukocytosis Final Diagnosis Comprehensive Flow Panel performed and interpreted at [place], [place] shows the following: Interpretation: Granulocytosis with no definitive atypical flow cytometric findings seen. Comment: This specimen was received beyond 48 hours after collection, which can result in loss of selective populations. Please correlate clinically and morphologically. See [facility] report ([id number]) for additional details. Electronically Signed Bailee Valverde M.D. Addendum Reported: 10/28/2019 Addendum Diagnosis MYELODYSPLASIA FISH PANEL performed and interpreted at [place], [place] shows the following: INTERPRETATION: No evidence of deletion 5q or monosomy 5 is present. No evidence of deletion 7q or monosomy 7 is present. No evidence of trisomy 8 (+8) is present. No evidence of deletion 13q14.2 is present. No evidence of a rearrangement of 11q23. No evidence of a deletion of the p53 (17p13) locus. No evidence of deletion 20q12 is present. No BCR/ABL1 t(9;22) translocation is detected. Comments: Correlation with pending cytogenetics ([id number]) is recommended. Eight multiplex probe stain procedures were performed. See [facility] report ([id number]) for additional details. Bailee Valverde M.D. Addendum Reported: 10/30/2019 Addendum Diagnosis CYTOGENETIC KARYOTYPE ANALYSIS performed and interpreted at [facility] shows the following: RESULTS: Tissue Culture Failure INTERPRETATION: This unstimulated peripheral blood specimen did not produce any analyzable metaphase cells and, therefore, chromosome analysis is not possible. A bone marrow aspirate, when clinically appropriate, is recommended. See [facility] report for additional details ([id number]). Bailee Valverde M.D. Gross Description Received peripheral blood in 4 green top and 3 lavender top tubes. Sent to [facility] for analysis. KWS/10/27/2019 pérez/10/27/2019
[2019-10-27 16:07] LABS: ALBUMIN % 72.6 % (.); ALPHA-1 FOR UPE 1.4 % (.); TOTAL PROTEIN, URINE 193.7 mg/dL (Not Estab.)
[2019-10-27] MEDS ORDERED: PEG 3350/NA SULF BICARB CL/KCL 4000 ML SOLN.RECON PO ONE (17:20)
[2019-10-27] MEDS ORDERED: BISACODYL 5 MG TABLET.DR (FP) PO ONE (17:20)
[2019-10-27 18:07] LABS: FREE KAPPA,SERUM 75.5 mg/L (3.3-19.4)
[2019-10-27] MEDS: FAT EMULSIONS 500 ML IV SCH (21:39)
[2019-10-28] MEDS ORDERED: DEXTROSE 5%-WATER - 50 ML IVPB ONE ×2 (02:02→10:41)
[2019-10-28] MEDS ORDERED: PIPERACILLIN/TAZOBACTAM 3.375 GM VIAL IVPB ONE ×2 (02:02→10:41)
[2019-10-28] MEDS: PIPERACILLIN/TAZOB 3.375 GM 3.375 GM in DEXTROSE 5%-WATER - 50 ML IVPB SCH ×2 (02:11→10:45)
[2019-10-28] MEDS: POTASSIUM CHLORIDE 20 MEQ in AMINO ACIDS 4.25%/D5W 1,000 ML IVPB SCH ×2 (02:11→14:41)
[2019-10-28] MEDS: ACETAMINOPHEN 500 MG TABLET (FP) PO PRN (02:51)
[2019-10-28 08:20] LABS: BASO % 0.4 % (0-2.0); EOS % 0.1 % (0-4.5); HEMATOCRIT 21.5 % (35.4-49); HEMOGLOBIN 7.4 GM/dL (11.7-16.9); LYMPH % 14.1 % (8-40); MCH 25.8 pg (25.7-33.7); MCHC 34.3 g/dl (32.0-35.9); MEAN CELL VOLUME 75.2 fl (80-96); MEAN PLT VOLUME 9.6 fl (7.5-11.1); MONO % 15.3 % (3.8-10.2); NEUT % 70.1 % (42.8-82.8); PLATELET COUNT 556 K/MM3 (134-434); RBC 2.86 M/mm3 (4.00-5.60); RDW 19.9 % (11.9-15.9); WHITE BLOOD COUNT 8.6 K/mm3 (4.0-10.0)
[2019-10-28 09:19] LABS: ALBUMIN 2.6 g/dl (3.4-5.0); BILIRUBIN,TOTAL 0.5 mg/dL (0.2-1); CALCIUM 8.7 mg/dL (8.5-10.1); CREATININE 1.4 mg/dL (0.55-1.3); POTASSIUM 4.2 mmol/L (3.5-5.1)
[2019-10-28] MEDS: BACITRACIN 15 GM TUBE TOPICAL OINTMENT TP SCH ×2 (10:45→21:20)
[2019-10-28] MEDS: amLODIPine BESYLATE 10 MG TABLET (FP) PO SCH (10:46)
[2019-10-28] MEDS: CHOLECALCIFEROL (VIT D3) 1,000 UNIT (25 MCG) TABLET PO SCH (10:46)
[2019-10-28] MEDS: PANTOPRAZOLE 40 MG TABLET (FP) PO SCH (10:46)
[2019-10-28] MEDS: ALLOPURINOL 100 MG TABLET (FP) PO SCH (10:46)
[2019-10-28] MEDS: LOSARTAN POTASSIUM 50 MG TABLET (FP) PO SCH (10:46)
--- NOTE | 2019-10-28 11:04 | PN ---
Progress Note, Physician Chief Complaint: Patient seen and examined at the bedside, generalized muscle weakness, doesn't tolerate the prep and refusing endoscopy and colonoscopy. History of Present Illness: This 74 yr old male with hx of hypertension, hyperlipidemia, and gout admitted via ER with acute RUQ abdominal pain, acute nausea, abnormal weight loss, malnutrition, and acute neutrophilic leukocytosis. - Current Medication List Current Medications: Active Medications Acetaminophen (Tylenol -) 500 mg PO Q4H PRN PRN Reason: MODERATE PAIN Last Admin: 10/28/19 02:51 Dose: 500 mg Allopurinol (Zyloprim -) 100 mg PO DAILY [facility] Last Admin: 10/28/19 10:46 Dose: 100 mg Amlodipine Besylate (Norvasc -) 10 mg PO DAILY [facility] Last Admin: 10/28/19 10:46 Dose: 10 mg Bacitracin (Bacitracin -) 1 applic TP BID [facility] Last Admin: 10/28/19 10:45 Dose: 1 applic Cholecalciferol (Vitamin D3 -) 5,000 unit PO DAILY [facility] Last Admin: 10/28/19 10:46 Dose: 5,000 unit Piperacillin Sod/Tazobactam (Sod 3.375 gm/ Dextrose) 50 mls @ 100 mls/hr IVPB Q8H-IV [facility]; Protocol Last Admin: 10/28/19 10:45 Dose: 100 mls/hr Fat Emulsion Intravenous (Intralipid -) 500 mls @ 250 mls/hr IV DAILY@2200 [facility] Last Admin: 10/27/19 21:39 Dose: 250 mls/hr Potassium Chloride 20 meq/ (Amino Acids) 1,010 mls @ 84 mls/hr IVPB Q12H [facility] Last Admin: 10/28/19 02:11 Dose: 84 mls/hr Losartan Potassium (Cozaar -) 50 mg PO DAILY [facility] Last Admin: 10/28/19 10:46 Dose: 50 mg Pantoprazole Sodium (Protonix -) 40 mg PO DAILY [facility] Last Admin: 10/28/19 10:46 Dose: 40 mg - Objective Vital Signs: Vital Signs Temperature 97.9 F 10/28/19 06:22 Pulse Rate 82 10/28/19 06:22 Respiratory Rate 20 10/28/19 06:22 Blood Pressure 116/62 10/28/19 06:22 O2 Sat by Pulse Oximetry (%) 100 10/25/19 21:00 Constitutional: Yes: No Distress, Calm, Cachectic Eyes: Yes: Conjunctiva Clear, EOM Intact HENT: Yes: Atraumatic, Normocephalic Neck: Yes: Supple, Trachea Midline Cardiovascular: Yes: Regular Rate and Rhythm Respiratory: Yes: Regular, CTA Bilaterally Gastrointestinal: Yes: Normal Bowel Sounds, Soft ...Rectal Exam: Yes: Deferred Genitourinary: Yes: WNL Breast(s): Yes: WNL Extremities: Yes: WNL Edema: No Peripheral Pulses WNL: Yes Peripheral Pulses: Left Radial: 3+, Right Radial: 3+, Left Doralis Pedis: 3+, Right Dorsalis Pedis: 3+, Left Femoral: 3+, Right Femoral: 3+ Integumentary: Yes: WNL Neurological: Yes: Alert, Oriented, Weakness ...Motor Strength: LUE (generalized muscle weakness), LLE (generalized muscle weakness), RUE (generalized muscle weakness), RLE (generalized muscle weakness) Psychiatric: Yes: Alert, Oriented Labs: CBC, BMP 10/28/19 07:34 10/28/19 07:34 - ....Imaging Other: Report Reviewed (Lab data reviewed) Problem List - Problems (1) Anemia Code(s): D64.9 - ANEMIA, UNSPECIFIED (2) Hypertension Code(s): I10 - ESSENTIAL (PRIMARY) HYPERTENSION (3) Gout Code(s): M10.9 - GOUT, UNSPECIFIED Qualifiers: Gout site: elbow Chronicity: chronic Laterality: right (4) Cholecystitis Code(s): K81.9 - CHOLECYSTITIS, UNSPECIFIED (5) Open wound of left buttock Code(s): S31.829A - UNSPECIFIED OPEN WOUND OF LEFT BUTTOCK, INITIAL ENCOUNTER (6) Alcoholic cirrhosis of liver Code(s): K70.30 - ALCOHOLIC CIRRHOSIS OF LIVER WITHOUT ASCITES (7) Elevated ferritin Code(s): R79.89 - OTHER SPECIFIED ABNORMAL FINDINGS OF BLOOD CHEMISTRY (8) Muscle weakness (generalized) Code(s): M62.81 - MUSCLE WEAKNESS (GENERALIZED) (9) Cholelithiasis Code(s): K80.20 - CALCULUS OF GALLBLADDER W/O CHOLECYSTITIS W/O OBSTRUCTION (10) Leukocytosis Code(s): D72.829 - ELEVATED WHITE BLOOD CELL COUNT, UNSPECIFIED (11) Enlarged prostate Code(s): N40.0 - BENIGN PROSTATIC HYPERPLASIA WITHOUT LOWER URINRY TRACT SYMP (12) History of bilateral inguinal hernia repair Code(s): Z98.890 - OTHER SPECIFIED POSTPROCEDURAL STATES; Z87.19 - PERSONAL HISTORY OF OTHER DISEASES OF THE DIGESTIVE SYSTEM (13) Abnormal weight loss Code(s): R63.4 - ABNORMAL WEIGHT LOSS (14) Splenomegaly Code(s): R16.1 - SPLENOMEGALY, NOT ELSEWHERE CLASSIFIED (15) Intraductal papillary mucinous neoplasm Code(s): D49.0 - NEOPLASM OF UNSPECIFIED BEHAVIOR OF DIGESTIVE SYSTEM (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 Code(s): D49.0 - NEOPLASM OF UNSPECIFIED BEHAVIOR OF DIGESTIVE SYSTEM (17) Fever Code(s): R50.9 - FEVER, UNSPECIFIED (18) Pain in both feet Code(s): M79.671 - PAIN IN RIGHT FOOT; M79.672 - PAIN IN LEFT FOOT (19) Malnutrition Code(s): E46 - UNSPECIFIED PROTEIN-CALORIE MALNUTRITION (20) Hypoalbuminemia Code(s): E88.09 - OTH DISORDERS OF PLASMA-PROTEIN METABOLISM, NEC (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
--- NOTE | 2019-10-28 11:22 | PN ---
Progress Note (short form) - Note Progress Note: Pt planned for EGD/colonoscopy today however informed he took 2 cups of golytely , did not want to drink more. Spoke with pt in detail, discussed concerns and alternative prep including miralax to improve tolerability. Also discussed potential for missed lesions including malignancy if procedures not done. Pt verbalized understanding, refusing the test today and states he would like to think about it further. Did not want to address rescheduling or potential date for procedure at this time. EGD/colonoscopy therefore cancelled today.
[2019-10-28 13:21] LABS: PLATELET ESTIMATE INCREASED
[2019-10-28 13:55] LABS: ANISOCYTOSIS 1+; OVALOCYTE 1+
[2019-10-28] MEDS: FAT EMULSIONS 500 ML IV SCH (21:20)
[2019-10-29] MEDS: ACETAMINOPHEN 500 MG TABLET (FP) PO PRN ×2 (01:49→10:27)
[2019-10-29] MEDS: POTASSIUM CHLORIDE 20 MEQ in AMINO ACIDS 4.25%/D5W 1,000 ML IVPB SCH ×2 (03:04→03:05)
[2019-10-29 08:54] LABS: BASO % 0.3 % (0-2.0); EOS % 0.1 % (0-4.5); HEMATOCRIT 20.8 % (35.4-49); LYMPH % 14.2 % (8-40); MCH 25.4 pg (25.7-33.7); MCHC 33.5 g/dl (32.0-35.9); MEAN CELL VOLUME 75.7 fl (80-96); MEAN PLT VOLUME 9.1 fl (7.5-11.1); MONO % 18.1 % (3.8-10.2); NEUT % 67.3 % (42.8-82.8); PLATELET COUNT 606 K/MM3 (134-434); RBC 2.75 M/mm3 (4.00-5.60); RDW 20.2 % (11.9-15.9); WHITE BLOOD COUNT 8.4 K/mm3 (4.0-10.0)
[2019-10-29 09:26] LABS: ALBUMIN 2.6 g/dl (3.4-5.0); BILIRUBIN,TOTAL 0.1 mg/dL (0.2-1); CALCIUM 8.9 mg/dL (8.5-10.1); CREATININE 1.3 mg/dL (0.55-1.3); POTASSIUM 4.5 mmol/L (3.5-5.1); TOT PROT 7.1 g/dl (6.4-8.2)
[2019-10-29] MEDS ORDERED: PT OWN MED DRAWER 7, Y5N ONE (10:17)
[2019-10-29] MEDS: BACITRACIN 15 GM TUBE TOPICAL OINTMENT TP SCH ×2 (10:20→21:12)
[2019-10-29] MEDS: CHOLECALCIFEROL (VIT D3) 1,000 UNIT (25 MCG) TABLET PO SCH (10:20)
[2019-10-29] MEDS: ALLOPURINOL 100 MG TABLET (FP) PO SCH (10:20)
[2019-10-29] MEDS: amLODIPine BESYLATE 10 MG TABLET (FP) PO SCH (10:20)
[2019-10-29] MEDS: PANTOPRAZOLE 40 MG TABLET (FP) PO SCH (10:20)
[2019-10-29] MEDS: LOSARTAN POTASSIUM 50 MG TABLET (FP) PO SCH (10:20)
--- NOTE | 2019-10-29 11:18 | PN ---
Progress Note, Physician Chief Complaint: Patient seen and examined at the bedside, generalized muscle weakness, tolerating oral liquids well. History of Present Illness: This 74 yr old male with hx of gout, hypertension, and hyperlipidemia admitted via ER with acute RUQ abdominal pain, acute nausea, malnutrition, abnormal weight loss, severe anemia of chronic disease, and acute neutrophilic leukocytosis. - Current Medication List Current Medications: Active Medications Acetaminophen (Tylenol -) 500 mg PO Q4H PRN PRN Reason: MODERATE PAIN Last Admin: 10/29/19 10:27 Dose: 500 mg Allopurinol (Zyloprim -) 100 mg PO DAILY [facility] Last Admin: 10/29/19 10:20 Dose: 100 mg Amlodipine Besylate (Norvasc -) 10 mg PO DAILY [facility] Last Admin: 10/29/19 10:20 Dose: 10 mg Bacitracin (Bacitracin -) 1 applic TP BID [facility] Last Admin: 10/29/19 10:20 Dose: 1 applic Cholecalciferol (Vitamin D3 -) 5,000 unit PO DAILY [facility] Last Admin: 10/29/19 10:20 Dose: 5,000 unit Fat Emulsion Intravenous (Intralipid -) 500 mls @ 250 mls/hr IV DAILY@2200 [facility] Last Admin: 10/28/19 21:20 Dose: 250 mls/hr Potassium Chloride 20 meq/ (Amino Acids) 1,010 mls @ 84 mls/hr IVPB Q12H [facility] Last Admin: 10/29/19 03:05 Dose: 84 mls/hr Losartan Potassium (Cozaar -) 50 mg PO DAILY [facility] Last Admin: 10/29/19 10:20 Dose: 50 mg Pantoprazole Sodium (Protonix -) 40 mg PO DAILY [facility] Last Admin: 10/29/19 10:20 Dose: 40 mg - Objective Vital Signs: Vital Signs Temperature 98.9 F 10/29/19 06:35 Pulse Rate 92 H 10/29/19 06:35 Respiratory Rate 20 10/29/19 06:35 Blood Pressure 107/58 L 10/29/19 06:35 O2 Sat by Pulse Oximetry (%) 100 10/28/19 21:00 Constitutional: Yes: No Distress, Calm, Cachectic Eyes: Yes: Conjunctiva Clear, EOM Intact HENT: Yes: Atraumatic, Normocephalic Neck: Yes: Supple, Trachea Midline Cardiovascular: Yes: Regular Rate and Rhythm Respiratory: Yes: Regular, CTA Bilaterally Gastrointestinal: Yes: Normal Bowel Sounds, Soft ...Rectal Exam: Yes: Deferred Genitourinary: Yes: WNL Breast(s): Yes: WNL Extremities: Yes: WNL Edema: No Peripheral Pulses WNL: Yes Peripheral Pulses: Left Radial: 3+, Right Radial: 3+, Left Doralis Pedis: 3+, Right Dorsalis Pedis: 3+, Left Femoral: 3+, Right Femoral: 3+ Integumentary: Yes: WNL Neurological: Yes: Alert, Oriented ...Motor Strength: LUE (generalized muscle weakness) Psychiatric: Yes: Alert, Oriented Labs: CBC, BMP 10/29/19 07:50 10/29/19 07:50 - ....Imaging Other: Report Reviewed (Lab data reviewed) Problem List - Problems (1) Anemia Code(s): D64.9 - ANEMIA, UNSPECIFIED (2) Hypertension Code(s): I10 - ESSENTIAL (PRIMARY) HYPERTENSION (3) Gout Code(s): M10.9 - GOUT, UNSPECIFIED Qualifiers: Gout site: elbow Chronicity: chronic Laterality: right (4) Cholecystitis Code(s): K81.9 - CHOLECYSTITIS, UNSPECIFIED (5) Open wound of left buttock Code(s): S31.829A - UNSPECIFIED OPEN WOUND OF LEFT BUTTOCK, INITIAL ENCOUNTER (6) Alcoholic cirrhosis of liver Code(s): K70.30 - ALCOHOLIC CIRRHOSIS OF LIVER WITHOUT ASCITES (7) Elevated ferritin Code(s): R79.89 - OTHER SPECIFIED ABNORMAL FINDINGS OF BLOOD CHEMISTRY (8) Muscle weakness (generalized) Code(s): M62.81 - MUSCLE WEAKNESS (GENERALIZED) (9) Cholelithiasis Code(s): K80.20 - CALCULUS OF GALLBLADDER W/O CHOLECYSTITIS W/O OBSTRUCTION (10) Leukocytosis Code(s): D72.829 - ELEVATED WHITE BLOOD CELL COUNT, UNSPECIFIED (11) Enlarged prostate Code(s): N40.0 - BENIGN PROSTATIC HYPERPLASIA WITHOUT LOWER URINRY TRACT SYMP (12) History of bilateral inguinal hernia repair Code(s): Z98.890 - OTHER SPECIFIED POSTPROCEDURAL STATES; Z87.19 - PERSONAL HISTORY OF OTHER DISEASES OF THE DIGESTIVE SYSTEM (13) Abnormal weight loss Code(s): R63.4 - ABNORMAL WEIGHT LOSS (14) Splenomegaly Code(s): R16.1 - SPLENOMEGALY, NOT ELSEWHERE CLASSIFIED (15) Intraductal papillary mucinous neoplasm Code(s): D49.0 - NEOPLASM OF UNSPECIFIED BEHAVIOR OF DIGESTIVE SYSTEM (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 Code(s): D49.0 - NEOPLASM OF UNSPECIFIED BEHAVIOR OF DIGESTIVE SYSTEM (17) Fever Code(s): R50.9 - FEVER, UNSPECIFIED (18) Pain in both feet Code(s): M79.671 - PAIN IN RIGHT FOOT; M79.672 - PAIN IN LEFT FOOT (19) Malnutrition Code(s): E46 - UNSPECIFIED PROTEIN-CALORIE MALNUTRITION (20) Hypoalbuminemia Code(s): E88.09 - OTH DISORDERS OF PLASMA-PROTEIN METABOLISM, NEC (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
--- NOTE | 2019-10-29 19:13 | PN.GI ---
GI Progress Note Subjective: patienit appear to be confused, FHX of colon cancer, progressive anemia, abnormal catscan - Objective Vital Signs: Vital Signs Temperature 98.0 F 10/29/19 17:36 Pulse Rate 71 10/29/19 17:36 Respiratory Rate 10/29/19 17:36 Blood Pressure 122/69 10/29/19 17:36 O2 Sat by Pulse Oximetry (%) 100 10/28/19 21:00 Constitutional: Well Nourished Eyes: Yes: Conjunctiva Clear, Occular Prosthesis Cardiovascular: Yes: Regular Rate and Rhythm Respiratory: Yes: CTA Bilaterally ...Palpate: Yes: Soft. No: Firm/Rigid, Guarding, Hepatomegaly, Mass, Pulsatile Mass, Splenomegaly, Tenderness Labs: CBC, BMP 10/29/19 07:50 10/29/19 07:50 Problem List - Problems (1) Anemia Assessment/Plan: r/o occult gi bleeding, moccult malignancy R> pt appear confised, may need psych to assess mentation transfuse 1 uniit of [facility] will schedule EGD after psych evaluation Code(s): D64.9 - ANEMIA, UNSPECIFIED
--- NOTE | 2019-10-29 21:00 | PN ---
Physical Exam: SUBJECTIVE: Patient seen and examined no acute events OBJECTIVE: Vital Signs Period Temp Pulse Resp BP Sys/Hewitt Pulse Ox Last 24 Hr 97.3 F-98.9 F 66-92 20-20 107-144/58-77 GENERAL: Awake, alert, and fully oriented, in no acute distress. HEAD: Normal with no signs of trauma. EYES: Pupils equal, round and reactive to light, extraocular movements intact, sclera anicteric, conjunctiva clear. EARS, NOSE, THROAT: Ears normal, nares patent, oropharynx clear without exudates. Moist mucous membranes. NECK: supple without lymphadenopathy, LUNGS: Breath sounds equal, clear to auscultation bilaterally. No wheezes, and no crackles. No accessory muscle use. HEART: Regular rate and rhythm, normal S1 and S2 without murmur, rub or gallop. ABDOMEN: Soft, nontender, not distended, normoactive bowel sounds, no guarding, LOWER EXTREMITIES: 2+ pulses, warm, well-perfused. No calf tenderness. No peripheral edema. NEUROLOGICAL: no focal deficit Normal speech. PSYCHIATRIC: Cooperative. SKIN: Warm, dry, normal turgor, B/L inguinal scar for hernia repair no lyphnode enlargment noticed no breast mass palpated no oral thrush or mucositis Laboratory Results - last 24 hr 10/29/19 10/29/19 07:50 07:50 WBC 8.4 RBC 2.75 L Hgb 7.0 L Hct 20.8 L MCV 75.7 L MCH 25.4 L MCHC 33.5 RDW 20.2 H Plt Count 606 H MPV 9.1 Absolute Neuts (auto) 5.7 Neutrophils % 67.3 Lymphocytes % 14.2 Monocytes % 18.1 H Eosinophils % 0.1 Basophils % 0.3 Nucleated RBC % 0 Sodium 135 L Potassium 4.5 Chloride 110 H Carbon Dioxide 16 L Anion Gap 10 BUN 31.0 H Creatinine 1.3 Est GFR (CKD-EPI)AfAm 62.74 Est GFR (CKD-EPI)NonAf 54.13 Random Glucose 90 Calcium 8.9 Total Bilirubin 0.1 L AST 14 L ALT 12 L Alkaline Phosphatase 146 H Total Protein 7.1 Albumin 2.6 L Active Medications Generic Name Dose Route Start Last Admin Trade Name Freq PRN Reason Stop Dose Admin Acetaminophen 500 mg 10/26/19 09:22 10/29/19 10:27 Tylenol - PO 500 mg Q4H PRN Administration MODERATE PAIN Allopurinol 100 mg 10/23/19 12:15 10/29/19 10:20 Zyloprim - PO 100 mg DAILY DARYL Administration Amlodipine Besylate 10 mg 10/24/19 10:00 10/29/19 10:20 Norvasc - PO 10 mg DAILY DARYL Administration Bacitracin 1 applic 10/21/19 01:15 10/29/19 10:20 Bacitracin - TP 1 applic BID DARYL Administration Cholecalciferol 5,000 unit 10/23/19 13:00 10/29/19 10:20 Vitamin D3 - PO 5,000 unit DAILY DARYL Administration Losartan Potassium 50 mg 10/23/19 12:15 10/29/19 10:20 Cozaar - PO 50 mg DAILY DARYL Administration Pantoprazole Sodium 40 mg 10/23/19 10:30 10/29/19 10:20 Protonix - PO 40 mg DAILY DARYL Administration CBC, BMP 10/29/19 07:50 10/29/19 07:50 ASSESSMENT/PLAN: # Leuckocytosis R/O infection # Microcytic hypochromic anemia likely due to anemia of chronic disease , iron panel all low except ferritin 1500 could be acute phases reactanct # weight loss cont clinimix , r.o cancer * williamson cx * cont abx * will send flow cytometry, FISH, [employer] , BCR/ABL , JAK2 , b12 , FA , ESR , CRP, TSH * appropriate age cancer screening * CT chest as screening * UA negative , Blood cx negative so far * maintain hgb > 8 * occult blood negative * pt refuse EGD/Colonoscopy * CT a/p non contrast --lingular scar , needs 3 month f/u, extensive perinephric stranding, adrenal gland hyperplasia, prominent pancreatic head * MRI/MRCP ordered by GI team * Reverse AG rtio --check protein studies * Elevated ALKP -- MRCP * will get bone scan # prostate enlargement PSA only 4 # HTN # Abdominal pain # Gout # prologed QTC 480 avoid meds cause prologation # Open wound buttocks # Cirrhosis alcoholic per primary team Visit type - Emergency Visit Emergency Visit: Yes ED Registration Date: 10/20/19 Care time: The patient presented to the Emergency Department on the above date and was hospitalized for further evaluation of their emergent condition. - New Patient This patient is new to me today: No - Critical Care Critical Care patient: No ATTENDING PHYSICIAN STATEMENT I saw and evaluated the patient. I reviewed the resident's note and discussed the case with the resident. I agree with the resident's findings and plan as documented. SUBJECTIVE: OBJECTIVE: ASSESSMENT AND PLAN:
--- NOTE | 2019-10-29 21:50 | PN ---
Teaching Attending Note Name of Resident: Tomy Salas ATTENDING PHYSICIAN STATEMENT I saw and evaluated the patient. I reviewed the resident's note and discussed the case with the resident. I agree with the resident's findings and plan as documented. SUBJECTIVE: Doing well. No complaints OBJECTIVE: Last Vital Signs Temp Pulse Resp BP Pulse Ox 98.0 F 71 20 122/69 100 10/29/19 17:36 10/29/19 17:36 10/29/19 17:36 10/29/19 17:36 10/28/19 21:00 Cor: RSR, No murmurs, No gallops Lungs: Clear to P&A Abd: Soft, Normal bowel sounds, No organomegaly Ext:No significant edema 10/29/19 07:50 10/29/19 07:50 Current Medications Acetaminophen (Tylenol -) 500 mg PO Q4H PRN PRN Reason: MODERATE PAIN Last Admin: 10/29/19 10:27 Dose: 500 mg Allopurinol (Zyloprim -) 100 mg PO DAILY [facility] Last Admin: 10/29/19 10:20 Dose: 100 mg Amlodipine Besylate (Norvasc -) 10 mg PO DAILY [facility] Last Admin: 10/29/19 10:20 Dose: 10 mg Bacitracin (Bacitracin -) 1 applic TP BID [facility] Last Admin: 10/29/19 21:12 Dose: 1 applic Cholecalciferol (Vitamin D3 -) 5,000 unit PO DAILY [facility] Last Admin: 10/29/19 10:20 Dose: 5,000 unit Losartan Potassium (Cozaar -) 50 mg PO DAILY [facility] Last Admin: 10/29/19 10:20 Dose: 50 mg Pantoprazole Sodium (Protonix -) 40 mg PO DAILY [facility] Last Admin: 10/29/19 10:20 Dose: 40 mg ASSESSMENT AND PLAN: 74 y/o gentleman admitted through [facility] from rehab (has falls at home). Came in with abdominal pain. He states that the pain was on the right abdomen radiating to the right side of his back. He says that it was ocurring for about a week, not related to meals and positional at times. There was no associated change in bowel habits. He was noted to have an elevated WBC, had a negative HIDA and Alkaline phosphatase is elevated. His mother had colon canceer diagnosed in her 60's. He describes weight loss over last few months of 35 pounds. He had an unexplained leukocytosis which has now resolved. # Microcytic hypochromic anemia likely due to anemia of chronic disease Iron studies s/o chronic disease + iron deficiency. Iron saturation 11%, Ferritin 1500 ESR> 140 CT a/p non contrast --lingular scar , needs 3 month f/u, extensive perinephric stranding, adrenal glnd hyperplasia, prominent pancreatic head MRI/MRCP --0.9cm cyst in pancreatic head, ? dilated biliary branch duct vs IPMN. MRI s/o iron overload f/u CT chest, bone scan For EGD/Colonoscopy. Reverse AG ratio --check protein studies. SPEP, UPEP, FLC Elevated ALKP -- will get bone scan + rheumatoid factor --check Dr. Schmitt consult Avoid iv iron given ferritin 1500, iron sat 11%.
[2019-10-30] MEDS: ACETAMINOPHEN 500 MG TABLET (FP) PO PRN ×2 (02:42→17:38)
[2019-10-30] MEDS ORDERED: PT OWN MED DRAWER 7, Y5N ONE (10:12)
[2019-10-30] MEDS: amLODIPine BESYLATE 10 MG TABLET (FP) PO SCH (10:16)
[2019-10-30] MEDS: LOSARTAN POTASSIUM 50 MG TABLET (FP) PO SCH (10:16)
[2019-10-30] MEDS: ALLOPURINOL 100 MG TABLET (FP) PO SCH (10:17)
[2019-10-30] MEDS: BACITRACIN 15 GM TUBE TOPICAL OINTMENT TP SCH ×2 (10:17→22:33)
[2019-10-30] MEDS: PANTOPRAZOLE 40 MG TABLET (FP) PO SCH (10:17)
[2019-10-30] MEDS: CHOLECALCIFEROL (VIT D3) 1,000 UNIT (25 MCG) TABLET PO SCH (10:17)
[2019-10-30 15:18] LABS: BASO % 0.5 % (0-2.0); EOS % 0.1 % (0-4.5); HEMATOCRIT 32.5 % (35.4-49); HEMOGLOBIN 10.7 GM/dL (11.7-16.9); LYMPH % 12.9 % (8-40); MCH 26.3 pg (25.7-33.7); MCHC 32.8 g/dl (32.0-35.9); MEAN CELL VOLUME 80.1 fl (80-96); MEAN PLT VOLUME 9.2 fl (7.5-11.1); MONO % 26.2 % (3.8-10.2); NEUT % 60.3 % (42.8-82.8); PLATELET COUNT 530 K/MM3 (134-434); RBC 4.05 M/mm3 (4.00-5.60); RDW 18.2 % (11.9-15.9); WHITE BLOOD COUNT 8.1 K/mm3 (4.0-10.0)
--- NOTE | 2019-10-30 16:40 | PN ---
Progress Note, Physician Chief Complaint: Patient seen and examined at the bedside. Appetite good. Denies to nausea, and /or abdominal pain. History of Present Illness: This 74 yr old male with hx of gout, hypertension, and hyperlipidemia admitted via ER with acute RUQ abdominal pain, acute nausea, abnormal weight loss, malnutrition, and acute neutrophilic leukocytosis. - Current Medication List Current Medications: Active Medications Acetaminophen (Tylenol -) 500 mg PO Q4H PRN PRN Reason: MODERATE PAIN Last Admin: 10/30/19 02:42 Dose: 500 mg Allopurinol (Zyloprim -) 100 mg PO DAILY [facility] Last Admin: 10/30/19 10:17 Dose: 100 mg Amlodipine Besylate (Norvasc -) 10 mg PO DAILY [facility] Last Admin: 10/30/19 10:16 Dose: 10 mg Bacitracin (Bacitracin -) 1 applic TP BID [facility] Last Admin: 10/30/19 10:17 Dose: 1 applic Cholecalciferol (Vitamin D3 -) 5,000 unit PO DAILY [facility] Last Admin: 10/30/19 10:17 Dose: 5,000 unit Losartan Potassium (Cozaar -) 50 mg PO DAILY [facility] Last Admin: 10/30/19 10:16 Dose: 50 mg Pantoprazole Sodium (Protonix -) 40 mg PO DAILY [facility] Last Admin: 10/30/19 10:17 Dose: 40 mg - Objective Vital Signs: Vital Signs Temperature 98.4 F 10/30/19 15:00 Pulse Rate 76 10/30/19 15:00 Respiratory Rate 20 10/30/19 15:00 Blood Pressure 139/71 10/30/19 15:00 O2 Sat by Pulse Oximetry (%) 100 10/28/19 21:00 Constitutional: Yes: No Distress, Calm, Cachectic Eyes: Yes: Conjunctiva Clear, EOM Intact HENT: Yes: Atraumatic, Normocephalic Neck: Yes: Supple, Trachea Midline Cardiovascular: Yes: Regular Rate and Rhythm Respiratory: Yes: Regular, CTA Bilaterally Gastrointestinal: Yes: Normal Bowel Sounds, Soft ...Rectal Exam: Yes: Deferred Genitourinary: Yes: WNL Breast(s): Yes: WNL Musculoskeletal: Yes: Muscle Weakness Extremities: Yes: WNL Edema: No Peripheral Pulses WNL: Yes Peripheral Pulses: Left Radial: 3+, Right Radial: 3+, Left Doralis Pedis: 3+, Right Dorsalis Pedis: 3+, Left Femoral: 3+, Right Femoral: 3+ Integumentary: Yes: WNL Neurological: Yes: Alert, Oriented ...Motor Strength: LUE (geneneralized muscle weakness) Psychiatric: Yes: Alert, Oriented Labs: CBC, BMP 10/30/19 14:35 10/29/19 07:50 - ....Imaging Other: Report Reviewed (Lab data reviewed) Problem List - Problems (1) Anemia Code(s): D64.9 - ANEMIA, UNSPECIFIED (2) Hypertension Code(s): I10 - ESSENTIAL (PRIMARY) HYPERTENSION (3) Gout Code(s): M10.9 - GOUT, UNSPECIFIED Qualifiers: Gout site: elbow Chronicity: chronic Laterality: right (4) Cholecystitis Code(s): K81.9 - CHOLECYSTITIS, UNSPECIFIED (5) Open wound of left buttock Code(s): S31.829A - UNSPECIFIED OPEN WOUND OF LEFT BUTTOCK, INITIAL ENCOUNTER (6) Alcoholic cirrhosis of liver Code(s): K70.30 - ALCOHOLIC CIRRHOSIS OF LIVER WITHOUT ASCITES (7) Elevated ferritin Code(s): R79.89 - OTHER SPECIFIED ABNORMAL FINDINGS OF BLOOD CHEMISTRY (8) Muscle weakness (generalized) Code(s): M62.81 - MUSCLE WEAKNESS (GENERALIZED) (9) Cholelithiasis Code(s): K80.20 - CALCULUS OF GALLBLADDER W/O CHOLECYSTITIS W/O OBSTRUCTION (10) Leukocytosis Code(s): D72.829 - ELEVATED WHITE BLOOD CELL COUNT, UNSPECIFIED (11) Enlarged prostate Code(s): N40.0 - BENIGN PROSTATIC HYPERPLASIA WITHOUT LOWER URINRY TRACT SYMP (12) History of bilateral inguinal hernia repair Code(s): Z98.890 - OTHER SPECIFIED POSTPROCEDURAL STATES; Z87.19 - PERSONAL HISTORY OF OTHER DISEASES OF THE DIGESTIVE SYSTEM (13) Abnormal weight loss Code(s): R63.4 - ABNORMAL WEIGHT LOSS (14) Splenomegaly Code(s): R16.1 - SPLENOMEGALY, NOT ELSEWHERE CLASSIFIED (15) Intraductal papillary mucinous neoplasm Code(s): D49.0 - NEOPLASM OF UNSPECIFIED BEHAVIOR OF DIGESTIVE SYSTEM (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 Code(s): D49.0 - NEOPLASM OF UNSPECIFIED BEHAVIOR OF DIGESTIVE SYSTEM (17) Fever Code(s): R50.9 - FEVER, UNSPECIFIED (18) Pain in both feet Code(s): M79.671 - PAIN IN RIGHT FOOT; M79.672 - PAIN IN LEFT FOOT (19) Malnutrition Code(s): E46 - UNSPECIFIED PROTEIN-CALORIE MALNUTRITION (20) Hypoalbuminemia Code(s): E88.09 - OTH DISORDERS OF PLASMA-PROTEIN METABOLISM, NEC (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 Patient wishes to be discharged home with limited 8 hours per day home services. Total time spent 25 minutes.
[2019-10-30 18:47] LABS: ANISOCYTOSIS 3+; MACROCYTOSIS 0; OVALOCYTE 2+; PLATELET ESTIMATE INCREASED
[2019-10-31] MEDS: ACETAMINOPHEN 500 MG TABLET (FP) PO PRN (05:40)
[2019-10-31 06:28] VITALS: TEMP 98.2
[2019-10-31] MEDS ORDERED: PT OWN MED DRAWER 7, Y5N ONE (09:41)
[2019-10-31] MEDS: LOSARTAN POTASSIUM 50 MG TABLET (FP) PO SCH (09:48)
[2019-10-31] MEDS: PANTOPRAZOLE 40 MG TABLET (FP) PO SCH (09:48)
[2019-10-31] MEDS: ALLOPURINOL 100 MG TABLET (FP) PO SCH (09:48)
[2019-10-31] MEDS: CHOLECALCIFEROL (VIT D3) 1,000 UNIT (25 MCG) TABLET PO SCH (09:49)
[2019-10-31] MEDS: amLODIPine BESYLATE 10 MG TABLET (FP) PO SCH (09:49)
[2019-10-31] MEDS: BACITRACIN 15 GM TUBE TOPICAL OINTMENT TP SCH (09:49)
--- NOTE | 2019-10-31 11:03 | DS ---
Physical Examination Vital Signs: Vital Signs Temperature 98.2 F 10/31/19 09:36 Pulse Rate 100 H 10/31/19 09:36 Respiratory Rate 20 10/31/19 09:36 Blood Pressure 149/87 10/31/19 09:36 O2 Sat by Pulse Oximetry (%) 100 10/28/19 21:00 Constitutional: Yes: No Distress, Calm, Cachectic Eyes: Yes: Conjunctiva Clear, EOM Intact HENT: Yes: Atraumatic, Normocephalic Neck: Yes: Supple, Trachea Midline Cardiovascular: Yes: Regular Rate and Rhythm Respiratory: Yes: Regular, CTA Bilaterally Gastrointestinal: Yes: Normal Bowel Sounds, Soft ...Rectal Exam: Yes: Deferred Renal/: Yes: WNL Breast(s): Yes: WNL Musculoskeletal: Yes: Muscle Weakness Extremities: Yes: WNL Edema: No Peripheral Pulses WNL: Yes Peripheral Pulses: Left Radial: 3+, Right Radial: 3+, Left Doralis Pedis: 2+, Right Dorsalis Pedis: 2+, Left Femoral: 3+, Right Femoral: 3+ Integumentary: Yes: WNL Neurological: Yes: Alert, Oriented ...Motor Strength: LUE (generalized weakness) Psychiatric: Yes: Alert, Oriented Labs: CBC, BMP 10/30/19 14:35 10/29/19 07:50 Discharge Summary Problems reviewed: Yes Reason For Visit: CHOLECYSTITIS Current Active Problems Abdominal pain (Acute) Abnormal weight loss (Acute) Alcoholic cirrhosis of liver (Acute) Anemia (Acute) Anemia (Acute) Cholecystitis (Acute) Cholelithiasis (Acute) Elevated ferritin (Acute) Enlarged prostate (Acute) Fever (Acute) History of bilateral inguinal hernia repair (Acute) Hypertension (Acute) Hypoalbuminemia (Acute) Intraductal papillary mucinous neoplasm (Acute) Intraductal papillary mucinous neoplasm of pancreas (Acute) Olivarez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 (Acute) Leukocytosis (Acute) Malnutrition (Acute) Muscle weakness (generalized) (Acute) Open wound of left buttock (Acute) Pain in both feet (Acute) Splenomegaly (Acute) Condition: Stable - Instructions Diet, Activity, Other Instructions: Continue home medications. Patient is refusing EGD and Colonoscopy. Patient is aware of risks. Patient is aware of IPMN, generalized weakness, severe anemia (complications of anemia). Activity as tolerated with one on one assistance. Physical therapy. Follow up with Psychiatrist for psych eval. Follow up with GI for EGD. Follow up with Dr. Perri Monsivais. Total time spent over 30 minutes. Referrals: Barbi Angel MD [Primary Care Provider] - Disposition: HOME - Home Medications Comprehensive Discharge Medication List: Ambulatory Orders Allopurinol [Zyloprim -] 100 mg PO DAILY 10/01/19 Amlodipine Besylate 10 mg PO DAILY 10/01/19 Atorvastatin Calcium 80 mg PO HS 10/01/19 Colchicine 1 tab PO DAILY 10/01/19 Ergocalciferol [Vitamin D2] 50,000 unit PO Q7D@1000 10/01/19 Losartan Potassium [Cozaar -] 50 mg PO DAILY 10/01/19 Acetaminophen [Tylenol .Regular Strength -] 1,000 mg PO Q6H PRN 10/20/19 Gabapentin 100 mg PO TID 10/20/19 Acetaminophen [Tylenol .Extra-Strength -] 500 mg PO Q4H PRN tablet 10/29/19 Bacitracin - [Bacitracin Topical Ointment -] 1 applic TP BID tube 10/29/19 Pantoprazole Sodium [Protonix -] 40 mg PO DAILY tablet.ec 10/29/19
[2019-10-31 13:05] VITALS: BP 137/79; PULSE 98
== END 2019-10-31 13:07 | disposition home or self-care (01) | DRG 375 ==
LOC: JER 18:01 → JERBED 22:00 → J8W 10-21 00:49
PROVIDERS: ADMIT Internal Medicine; ATTEND Internal Medicine
DX: D49.0 Neoplasm of unspecified behavior of digestive system (principal); K80.00 Calculus of gallbladder with acute cholecystitis without obstruction; R64 Cachexia; Z68.1 Body mass index [BMI] 19.9 or less, adult; E46 Unspecified protein-calorie malnutrition; N17.9 Acute kidney failure, unspecified; I10 Essential (primary) hypertension; E78.5 Hyperlipidemia, unspecified; M10.9 Gout, unspecified; D64.9 Anemia, unspecified; K70.30 Alcoholic cirrhosis of liver without ascites; F10.10 Alcohol abuse, uncomplicated; E83.42 Hypomagnesemia; D63.8 Anemia in other chronic diseases classified elsewhere; R16.1 Splenomegaly, not elsewhere classified; R50.9 Fever, unspecified; N40.0 Benign prostatic hyperplasia without lower urinary tract symptoms
CPT/HCPCS: 36415; 36430; 36511; 71250-TC; 74176-TC; 74183-TC; 76705-TC; 78226-TC; 78306-TC; 80053; 80076; 81003; 82308; 82550; 82607; 82668; 82728; 82746; 82977; 83540; 83550; 83605; 83615; 83690; 83735; 83883; 84100; 84153; 84155; 84156; 84165; 84166; 84443; 84484; 85025; 85044; 85651; 86038; 86140; 86431; 86704; 86706; 86707; 86708; 86709; 86803; 86850; 86900; 86901; 86922; 87040; 87340; 88300-TC; 93005; 93010; 97116-GP; 97161-GP; 99284-25; A9503; A9537; J0131; J0885; J1756; P9038; P9058; Q9967

== ENCOUNTER 2019-11-02 13:01 | Inpatient (IN) | payer OTHER, BC ==
[2019-11-02 13:24] VITALS: BMI 20.1
--- NOTE | 2019-11-02 13:52 | PDOC ---
History of Present Illness - General Chief Complaint: Weakness Stated Complaint: WEAKNESS,FAILURE TO THRIVE Time Seen by Provider: 11/02/19 13:47 History Source: Patient, Family - History of Present Illness Initial Comments: 11/02/19 15:36 Chief complaint: Arm pain and weakness Patient is 74-year-old male with a history of high blood pressure, gout, anemia who was discharged from the hospital 2 days ago after an extended stay for weight loss, anemia and questionable neoplasm of the pancreas. Patient had come from rehab and wanted to go home. Patient lives by himself. Patient went home he felt good and then today he woke up with severe pain to the left wrist less so to the right one but was unable to get out of bed. Patient denies any fever, chest pain, shortness of breath, nausea, vomiting abdominal pain or any other complaints. The reason he came back is because he could not get out of bed and he was in pain. Patient has been taking his allopurinol and colchicine. GENERAL/CONSTITUTIONAL: No fever, weakness. dizziness HEAD, EYES, EARS, NOSE AND THROAT: No change in vision. No ear pain or discharge. No sore throat. CARDIOVASCULAR: No chest pain RESPIRATORY: No shortness of breath or cough GASTROINTESTINAL: No pain, nausea, vomiting, diarrhea or constipation GENITOURINARY: No dysuria MUSCULOSKELETAL: No neck or back pain, + arm pain SKIN: No rash NEUROLOGIC: No headache, vertigo, loss of consciousness, or loss of sensation. GENERAL: The patient is awake, alert, and fully oriented, in no acute distress. HEAD: Normal with no signs of trauma. EYES: Pupils equal, round and reactive to light, sclera anicteric, conjunctiva clear. ENT: pharynx: no erythema, no exudate, uvula midline NECK: supple CHEST: clear, nontender, rr ABD: soft, nontender BACK: no tenderness or signs of injury EXTREMITIES: Left wrist, with swelling and tenderness, no signs of infection, right arm with mild tenderness and pain with movement, no gross swelling beyond the wrists. Legs without swelling NEUROLOGICAL: Cranial nerves II through XII grossly intact, no gross focal abnormalities SKIN: Warm, Dry Past History - Past Medical History Allergies/Adverse Reactions: Allergies Allergy/AdvReac Type Severity Reaction Status Date / Time No Known Allergies Allergy Verified 11/02/19 13:07 Home Medications: Ambulatory Orders Allopurinol [Zyloprim -] 100 mg PO DAILY 10/01/19 Amlodipine Besylate 10 mg PO DAILY 10/01/19 Atorvastatin Calcium 80 mg PO HS 10/01/19 Colchicine 1 tab PO DAILY 10/01/19 Ergocalciferol [Vitamin D2] 50,000 unit PO Q7D@1000 10/01/19 Losartan Potassium [Cozaar -] 50 mg PO DAILY 10/01/19 Acetaminophen [Tylenol .Regular Strength -] 1,000 mg PO Q6H PRN 10/20/19 Gabapentin 100 mg PO TID 10/20/19 Acetaminophen [Tylenol .Extra-Strength -] 500 mg PO Q4H PRN tablet 10/29/19 Amlodipine Besylate [Norvasc -] 10 mg PO DAILY tablet 10/29/19 Bacitracin - [Bacitracin Topical Ointment -] 1 applic TP BID tube 10/29/19 Cholecalciferol (Vitamin D3) [Vitamin D3 -] 5,000 unit PO DAILY tab 10/29/19 Losartan Potassium [Cozaar -] 50 mg PO DAILY tablet 10/29/19 Pantoprazole Sodium [Protonix -] 40 mg PO DAILY tablet.ec 10/29/19 Anemia: Yes (iron deficiency.) Cardiac Disorders: Yes (HTN) CVA: Yes (dysphagia,) COPD: No Dementia: Yes (vascular dementia) HTN: Yes Hypercholesterolemia: Yes (Idiopathic gout, frequent falls.) Liver Disease: Yes (CIRRHOSIS) Psychiatric Problems: Yes (alcoholic cirrhosis) - Surgical History Abdominal Surgery: Yes (hernia repair) - Psycho Social/Smoking Cessation Hx Smoking History: Never smoked Have you smoked in the past 12 months: No Information on smoking cessation initiated: No Hx Alcohol Use: No Drug/Substance Use Hx: No Substance Use Type: None Hx Substance Use Treatment: No *Physical Exam - Vital Signs Last Vital Signs Temp Pulse Resp BP Pulse Ox 98.0 F 86 16 152/88 100 11/02/19 13:05 11/02/19 13:05 11/02/19 13:05 11/02/19 13:05 11/02/19 13:05 Medical Decision Making - Medical Decision Making 11/02/19 15:39 74-year-old male, discharged from the hospital 2 days ago after hospitalization for anemia, weight loss, found to have questionable CA related to the pancreas, did not want to stay for more testing. Did not want to go back to rehab and went home where he lives by himself. Today patient has flareup of gout to both arms although he is taking allopurinol and colchicine as directed. Patient has been eating but patient is unable to function at home he could not get himself out of bed. Discussed with his covering primary care doctor and there is no choice but to have patient admitted into the hospital for further evaluation and disposition. Dr. michael reynoso Did not want any Work-up done in the ER since patient had blood work done 2 days ago. He just wants patient to be given Tylenol and he will put in admission orders Discharge - Discharge Information Problems reviewed: Yes Clinical Impression/Diagnosis: Physical deconditioning Gout Qualifiers: Gout site: unspecified site Encounter type: initial encounter Chronicity: acute Condition: Fair - Admission Yes - Follow up/Referral - Patient Discharge Instructions - Post Discharge Activity
[2019-11-02] MEDS ORDERED: ACETAMINOPHEN 325 MG TABLET (FP) PO ONE (14:40)
[2019-11-02] MEDS ORDERED: COLCHICINE 0.6 MG CAP PO PRN (16:07)
[2019-11-02] MEDS ORDERED: ACETAMINOPHEN 325 MG TABLET (FP) ONE (16:36)
--- NOTE | 2019-11-02 17:32 | HP ---
Admitting History and Physical - Admission Chief Complaint: Acute deconditioning, and acute pain of the left hand and wrist. History of Present Illness: This 74 yr old w/m with hx of gout, HTN, anemia, intraductal papillary mucinous neoplasm of the pancreas admitted via ER for acute deconditioning, generalized muscle weakness, and acute gout. 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 Cardiovascular: Yes: HTN, Hyperlipdemia Pulmonary: No: Asthma, Bronchitis, Cancer, COPD, O2 Dependent, Pneumonia, Previously Intubated, Pulmonary Embolus, Pulmonary Fibrosis, Sleep Apnea, Other Gastrointestinal: Yes: Other (alcoholic cirrhosis of the liver) Hepatobiliary: Yes: Cholelithiasis, Cholecystitis Heme/Onc: Yes: Anemia Infectious Disease: No: AIDS, C-Diff, Herpes Zoster, HIV, MRSA, STD's, Tuberculosis, VREF, Other Psych: Yes: Depression Rheumatology: Yes: Gout ENT: No: Allergic Rhinitis, Sinusitis, Other Endocrine: No: Bel[place]'s Disease, [place]'s Disease, Diabetes Insipidus, Diabetes Mellitus, Hyperparathyroidism, Hyperthyroidism, Hypothyroidism, Osteopenia, SIADH, Other - Past Surgical History Past Surgical History: Yes: Hernia Repair (bilteral inguinal hernia repair) - Smoking History Smoking history: Never smoked Have you smoked in the past 12 months: No - Alcohol/Substance Use Hx Alcohol Use: No History of Substance Use: reports: None - Social History ADL: Family Assistance History of Recent Travel: No Home Medications - Allergies Allergies/Adverse Reactions: Allergies Allergy/AdvReac Type Severity Reaction Status Date / Time No Known Allergies Allergy Verified 11/02/19 13:07 - Home Medications Home Medications: Ambulatory Orders Allopurinol [Zyloprim -] 100 mg PO DAILY 10/01/19 Amlodipine Besylate 10 mg PO DAILY 10/01/19 Atorvastatin Calcium 80 mg PO HS 10/01/19 Colchicine 1 tab PO DAILY 10/01/19 Ergocalciferol [Vitamin D2] 50,000 unit PO Q7D@1000 10/01/19 Losartan Potassium [Cozaar -] 50 mg PO DAILY 10/01/19 Acetaminophen [Tylenol .Regular Strength -] 1,000 mg PO Q6H PRN 10/20/19 Gabapentin 100 mg PO TID 10/20/19 Acetaminophen [Tylenol .Extra-Strength -] 500 mg PO Q4H PRN tablet 10/29/19 Amlodipine Besylate [Norvasc -] 10 mg PO DAILY tablet 10/29/19 Bacitracin - [Bacitracin Topical Ointment -] 1 applic TP BID tube 10/29/19 Cholecalciferol (Vitamin D3) [Vitamin D3 -] 5,000 unit PO DAILY tab 10/29/19 Losartan Potassium [Cozaar -] 50 mg PO DAILY tablet 10/29/19 Pantoprazole Sodium [Protonix -] 40 mg PO DAILY tablet.ec 10/29/19 Review of Systems - Review of Systems Constitutional: reports: Unintentional Wgt. Loss, Weakness Eyes: reports: No Symptoms HENT: reports: No Symptoms Neck: reports: No Symptoms Cardiovascular: reports: No Symptoms Respiratory: reports: No Symptoms Gastrointestinal: reports: No Symptoms Genitourinary: reports: No Symptoms Breasts: reports: No Symptoms Reported Musculoskeletal: reports: Muscle Weakness Integumentary: reports: No Symptoms Neurological: reports: Weakness Endocrine: reports: Unexplained Weight Loss Hematology/Lymphatic: reports: Other (anemia) Psychiatric: reports: Depression Physical Examination Vital Signs: Vital Signs Temperature 98.0 F 11/02/19 13:05 Pulse Rate 86 11/02/19 13:05 Respiratory Rate 16 11/02/19 13:05 Blood Pressure 152/88 11/02/19 13:05 O2 Sat by Pulse Oximetry (%) 98 11/02/19 13:49 Constitutional: Yes: Calm, Cachectic, Mild Distress Eyes: Yes: Conjunctiva Clear, EOM Intact HENT: Yes: Atraumatic, Normocephalic Neck: Yes: Supple, Trachea Midline Cardiovascular: Yes: Regular Rate and Rhythm Respiratory: Yes: Regular, CTA Bilaterally Gastrointestinal: Yes: Normal Bowel Sounds, Soft ...Rectal Exam: Yes: Deferred Renal/: Yes: WNL Breast(s): Yes: WNL Musculoskeletal: Yes: Muscle Weakness Extremities: Yes: Other (generalized muscle weakness) Edema: No Peripheral Pulses WNL: Yes Peripheral Pulses: Left Radial: 2+, Right Radial: 2+, Left Doralis Pedis: 2+, Right Dorsalis Pedis: 2+, Left Femoral: 2+, Right Femoral: 2+ Integumentary: Yes: WNL Neurological: Yes: Alert, Unsteady Gait, Weakness ...Motor Strength: LUE (generalized muscle weakness) Psychiatric: Yes: Alert Problem List - Problems (1) Gout Code(s): M10.9 - GOUT, UNSPECIFIED Qualifiers: Gout site: unspecified site Encounter type: initial encounter Chronicity : acute (2) Physical deconditioning Code(s): R53.81 - OTHER MALAISE Assessment/Plan Assessment/plan: acute deconditioning, acute gout of left hand and wrist; consult to Psychiatrist for eval re mental capacity to make decisions.
[2019-11-02] MEDS ORDERED: COLCHICINE 0.6 MG CAP PO SCH (18:00)
[2019-11-02] MEDS: GABAPENTIN 100 MG CAPSULE PO SCH (21:30)
[2019-11-02] MEDS: ATORVASTATIN CA 80 MG TABLET (FP) PO SCH (21:30)
[2019-11-03] MEDS: GABAPENTIN 100 MG CAPSULE PO SCH ×3 (05:51→21:46)
--- NOTE | 2019-11-03 09:34 | PN ---
Progress Note, Physician Chief Complaint: Acute deconditioning, acute gout of the left hand, acute generalized muscle weakness. History of Present Illness: This 74 yr old male with hx of hypertension, gout, intraductal papillary mucinous neoplasm of the pancreas, and anemia admitted via ER with acute deconditioning, acute generalized muscle weakness, and acute gout of the left hand and wrist. - Current Medication List Current Medications: Active Medications Acetaminophen (Tylenol -) 500 mg PO Q6H PRN PRN Reason: MODERATE PAIN Allopurinol (Zyloprim -) 100 mg PO DAILY [facility] Amlodipine Besylate (Norvasc -) 10 mg PO DAILY [facility] Atorvastatin Calcium (Lipitor -) 80 mg PO HS [facility] Last Admin: 11/02/19 21:30 Dose: 80 mg Cholecalciferol (Vitamin D3 -) 5,000 unit PO DAILY [facility] Colchicine (Colcrys) 0.6 mg PO Q6H [facility] Gabapentin (Neurontin -) 100 mg PO TID [facility] Last Admin: 11/03/19 05:51 Dose: 100 mg Losartan Potassium (Cozaar -) 50 mg PO DAILY [facility] Pantoprazole Sodium (Protonix Packets For Oral Suspension -) 40 mg PO DAILY [facility] - Objective Vital Signs: Vital Signs Temperature 98.8 F 11/03/19 09:03 Pulse Rate 81 11/03/19 09:03 Respiratory Rate 20 11/03/19 09:03 Blood Pressure 132/78 11/03/19 09:03 O2 Sat by Pulse Oximetry (%) 99 11/02/19 23:16 Constitutional: Yes: Calm, Mild Distress Eyes: Yes: Conjunctiva Clear, EOM Intact HENT: Yes: Atraumatic, Normocephalic Neck: Yes: Supple, Trachea Midline Cardiovascular: Yes: Regular Rate and Rhythm Respiratory: Yes: Regular, CTA Bilaterally Gastrointestinal: Yes: Normal Bowel Sounds, Soft ...Rectal Exam: Yes: Deferred Genitourinary: Yes: WNL Breast(s): Yes: WNL Musculoskeletal: Yes: Muscle Weakness Extremities: Yes: Other (generalized muscle weakness) Edema: No Peripheral Pulses WNL: Yes Peripheral Pulses: Left Radial: 2+, Right Radial: 2+, Left Doralis Pedis: 2+, Right Dorsalis Pedis: 2+, Left Femoral: 2+, Right Femoral: 2+ Integumentary: Yes: WNL Neurological: Yes: Alert, Unsteady Gait, Weakness ...Motor Strength: LUE (generalized muscle weakness of all extremities) Problem List - Problems (1) Gout Code(s): M10.9 - GOUT, UNSPECIFIED Qualifiers: Gout site: unspecified site Encounter type: initial encounter Chronicity : acute (2) Physical deconditioning Code(s): R53.81 - OTHER MALAISE Assessment/Plan Assessment/plan: acute gout of the left wrist and hand, acute deconditioning, acute generalized muscle weakness; continue home meds, consult to Psychiatrist to determine mental capacity to make decisions, physical therapy, DVT prophylaxis, SCD'S, oral Colchicine.
[2019-11-03] MEDS: ALLOPURINOL 100 MG TABLET (FP) PO SCH (09:41)
[2019-11-03] MEDS: amLODIPine BESYLATE 10 MG TABLET (FP) PO SCH (09:41)
[2019-11-03] MEDS: PANTOPRAZOLE 40 MG TABLET PO SCH (09:41)
[2019-11-03] MEDS: LOSARTAN POTASSIUM 50 MG TABLET (FP) PO SCH (09:42)
[2019-11-03] MEDS: CHOLECALCIFEROL (VIT D3) 1,000 UNIT (25 MCG) TABLET PO SCH (09:42)
[2019-11-03] MEDS: COLCHICINE 0.6 MG CAP PO SCH ×2 (09:57→17:18)
[2019-11-03] MEDS ORDERED: PANTOPRAZOLE SOD 40 MG SUSPENSION PACKET PO SCH (10:00)
--- NOTE | 2019-11-03 12:44 | EKG ---
Test Reason : Blood Pressure : / mmHG Vent. Rate : 092 BPM Atrial Rate : 092 BPM P-R Int : 118 ms QRS Dur : 086 ms QT Int : 290 ms P-R-T Axes : 033 -37 002 degrees QTc Int : 358 ms POOR DATA QUALITY, INTERPRETATION MAY BE ADVERSELY AFFECTED NORMAL SINUS RHYTHM LEFT AXIS DEVIATION NONSPECIFIC ST AND T WAVE ABNORMALITY ABNORMAL ECG WHEN COMPARED WITH ECG OF 20-OCT-2019 18:59, ST NOW DEPRESSED IN INFERIOR LEADS QT HAS SHORTENED Confirmed by MD Jose, Aj ([id number]) on 11/03/2019 12:43:59 PM Referred By: Confirmed By:Aj Garcia MD
[2019-11-03] MEDS ORDERED: ACETAMINOPHEN 500 MG TABLET (FP) PO PRN (17:42)
[2019-11-03] MEDS: ATORVASTATIN CA 80 MG TABLET (FP) PO SCH (21:46)
[2019-11-03] MEDS: ACETAMINOPHEN 500 MG TABLET (FP) PO PRN (21:53)
[2019-11-04] MEDS: COLCHICINE 0.6 MG CAP PO SCH ×4 (00:01→17:19)
[2019-11-04] MEDS ORDERED: PT OWN MED DRAWER 7, Y5N ONE (00:02)
[2019-11-04] MEDS ORDERED: COLCHICINE 0.6 MG CAP PO ONE (02:45)
[2019-11-04] MEDS: GABAPENTIN 100 MG CAPSULE PO SCH ×3 (05:13→21:46)
[2019-11-04] MEDS: ALLOPURINOL 100 MG TABLET (FP) PO SCH (09:40)
[2019-11-04] MEDS: CHOLECALCIFEROL (VIT D3) 1,000 UNIT (25 MCG) TABLET PO SCH (09:40)
[2019-11-04] MEDS: LOSARTAN POTASSIUM 50 MG TABLET (FP) PO SCH (09:40)
[2019-11-04] MEDS: PANTOPRAZOLE 40 MG TABLET PO SCH (09:40)
[2019-11-04] MEDS: amLODIPine BESYLATE 10 MG TABLET (FP) PO SCH (09:40)
--- NOTE | 2019-11-04 10:44 | PN ---
Progress Note (short form) - Note Progress Note: ID CONSULT DICTATED FEVER ? SECONDARY TO ACUTE GOUT FLARE ? SEPSIS ? PANCREATIC CA AWAIT C/S TX GOUT EMPIRIC [id number]
[2019-11-04] MEDS ORDERED: DEXTROSE 5%-WATER 100 ML IVPB ONE (11:46)
[2019-11-04] MEDS: CEFTRIAXONE 2 GM in DEXTROSE 5%-WATER 100 ML IVPB SCH (11:49)
--- NOTE | 2019-11-04 13:19 | PN ---
Progress Note, Physician Chief Complaint: Acute physical deconditioning, generalized muscle weakness, pain and swelling of joints of the left hand and wrist, and fever. History of Present Illness: This 74 yr old male with hx of intraductal papillary mucinous neoplasm of the pancreas, hypertension, gout, abnormal weight loss, and anemia admitted via ER with acute physical deconditioning, generalized muscle weakness and an acute bout of gout of the left hand and wrist. During hospitalization patient spiked a temp of 101.6F. - Current Medication List Current Medications: Active Medications Acetaminophen (Tylenol -) 500 mg PO Q6H PRN PRN Reason: MODERATE PAIN Last Admin: 11/03/19 21:53 Dose: 500 mg Acetaminophen (Tylenol -) 500 mg PO Q4H PRN PRN Reason: FEVER >100 Last Admin: 11/03/19 18:08 Dose: 500 mg Allopurinol (Zyloprim -) 100 mg PO DAILY [facility] Last Admin: 11/04/19 09:40 Dose: 100 mg Amlodipine Besylate (Norvasc -) 10 mg PO DAILY [facility] Last Admin: 11/04/19 09:40 Dose: 10 mg Atorvastatin Calcium (Lipitor -) 80 mg PO HS [facility] Last Admin: 11/03/19 21:46 Dose: 80 mg Cholecalciferol (Vitamin D3 -) 5,000 unit PO DAILY [facility] Last Admin: 11/04/19 09:40 Dose: 5,000 unit Colchicine (Colcrys) 0.6 mg PO Q6HPO [facility] Last Admin: 11/04/19 11:49 Dose: 0.6 mg Gabapentin (Neurontin -) 100 mg PO TID [facility] Last Admin: 11/04/19 05:13 Dose: 100 mg Ceftriaxone Sodium 2 gm/ (Dextrose) 100 mls @ 200 mls/hr IVPB DAILY [facility]; Protocol Last Admin: 11/04/19 11:49 Dose: 200 mls/hr Losartan Potassium (Cozaar -) 50 mg PO DAILY [facility] Last Admin: 11/04/19 09:40 Dose: 50 mg Pantoprazole Sodium (Protonix -) 40 mg PO DAILY [facility] Last Admin: 11/04/19 09:40 Dose: 40 mg - Objective Vital Signs: Vital Signs Temperature 97.9 F 11/04/19 10:00 Pulse Rate 76 11/04/19 10:00 Respiratory Rate 18 11/04/19 10:00 Blood Pressure 114/67 11/04/19 10:00 O2 Sat by Pulse Oximetry (%) 100 11/04/19 09:00 Constitutional: Yes: Cachectic, Mild Distress, Other (pain of the left hand and wrist) Eyes: Yes: Conjunctiva Clear, EOM Intact HENT: Yes: Atraumatic, Normocephalic Neck: Yes: Supple, Trachea Midline Cardiovascular: Yes: Regular Rate and Rhythm Respiratory: Yes: Regular, CTA Bilaterally Gastrointestinal: Yes: Normal Bowel Sounds, Soft ...Rectal Exam: Yes: Deferred Genitourinary: Yes: WNL Breast(s): Yes: WNL Musculoskeletal: Yes: Joint Swelling (left hand), Muscle Weakness Extremities: Yes: Other (acute gout of the left hand and wrist) Edema: Yes Edema: LUE: 1+ (left hand) Peripheral Pulses WNL: Yes Peripheral Pulses: Left Radial: 2+, Right Radial: 2+, Left Doralis Pedis: 2+, Right Dorsalis Pedis: 2+, Left Femoral: 2+, Right Femoral: 2+ Integumentary: Yes: WNL Neurological: Yes: Alert, Unsteady Gait, Weakness ...Motor Strength: LUE (generalized muscle weakness) Psychiatric: Yes: Alert Problem List - Problems (1) Gout Code(s): M10.9 - GOUT, UNSPECIFIED Qualifiers: Gout site: unspecified site Encounter type: initial encounter Chronicity : acute (2) Physical deconditioning Code(s): R53.81 - OTHER MALAISE (3) Fever Code(s): R50.9 - FEVER, UNSPECIFIED Assessment/Plan Assessment/plan: acute fever, acute gout of joints of the left hand and wrist, acute physical deconditioning, acute generalized muscle weakness; IV Ceftriaxone as prophylaxis, DVT prophylaxis, consult to Psychiatrist pending.
--- NOTE | 2019-11-04 14:46 | CONS ---
INFECTIOUS DISEASE CONSULTATION DATE OF CONSULTATION: DATE OF DICTATION: 11/04/2019 HISTORY OF PRESENT ILLNESS: The patient is a 74-year-old, male who is evaluated for fever. He was recently hospitalized at [facility], after presenting with abdominal pain. He was treated for possible acute cholecystitis. As part of the workup, imaging of the abdomen showed a pancreatic cyst, possible malignancy. His course, at that time, was complicated by elevated white blood cell count and fever on two occasions. He has had significant weight loss and anemia over the past several months and was undergoing evaluation for possible pancreatic malignancy. He left the hospital and is now readmitted after developing bilateral wrist swelling consistent with acute flare of gouty arthritis. His course has been complicated now by a temperature of 101.7. Patient complains of bilateral wrist pain, left greater than right. He gives a history of gout. He has had exacerbations in the past, mainly involving his ankles and knees. He denies any high-grade fever, shaking chills. No complaints of chest pain, shortness of breath, cough or sputum production. No vomiting or diarrhea. No dysuria. PAST MEDICAL HISTORY: Positive for hypertension, gouty arthritis, chronic anemia. ALLERGIES: No known allergies. MEDICATIONS: Tylenol, allopurinol, amlodipine, Lipitor, colchicine, Neurontin, losartan, Protonix. SOCIAL HISTORY: Patient lives in the community. He is a former smoker. SYSTEMS REVIEW: Neurologic: No loss of consciousness, seizure activity, focal weakness. Cardiac: Negative chest pain or palpitations. Respiratory: Negative cough or sputum production. Gastrointestinal: As per HPI. Genitourinary: Negative for urinary tract infection. LABORATORY DATA: Pending at the time of this dictation. Cultures pending. IMAGING: CAT scan of the chest, done on October 27, was negative for acute infiltrate. PHYSICAL EXAMINATION: General: On exam, he is awake. He is in moderate distress, secondary to bilateral wrist pain. Vital Signs: Temperature 97.3, blood pressure 91/55, pulse 66 regular, respirations 18per minute. Eyes: Sclerae are anicteric. Heart: Heart sounds S1, S2. Lungs: Clear. Abdomen: Soft. No tenderness elicited. Extremities: Negative for pedal edema. There is diffuse swelling of the left wrist, extending to the dorsum of the left hand, with erythema and warmth. The right wrist - no swelling or erythema is noted. IMPRESSION: 1. Fever. 2. Acute flare of gouty arthritis. 3. Possible pancreatic malignancy. Source of fever not clear. May be secondary to acute flare of gouty arthritis. Cannot rule out sepsis or tumor fever from possible pancreatic malignancy. Await cultures. Obtain chest x-ray. Empiric antibiotic coverage with ceftriaxone. Continue treatment for gout. Workup of possible pancreatic malignancy, per primary. Thank you for the kind referral. ORAL GATES M.D. [id number]
--- NOTE | 2019-11-04 18:23 | CON.PSY ---
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 patient apparantly refusing all work up. Patient denies any previous psych illness or treatment. No history of Self damaging behaviour. Symptoms: reports: Appetite Disturbance - Previous Psychiatric Treatment Outpatient: None Inpatient: None - Previous Substance Abuse Treatment Outpatient: None Inpatient: None - Current Medications Current Medications: Active Medications Acetaminophen (Tylenol -) 500 mg PO Q6H PRN PRN Reason: MODERATE PAIN Last Admin: 11/03/19 21:53 Dose: 500 mg Acetaminophen (Tylenol -) 500 mg PO Q4H PRN PRN Reason: FEVER >100 Last Admin: 11/03/19 18:08 Dose: 500 mg Allopurinol (Zyloprim -) 100 mg PO DAILY [facility] Last Admin: 11/04/19 09:40 Dose: 100 mg Amlodipine Besylate (Norvasc -) 10 mg PO DAILY [facility] Last Admin: 11/04/19 09:40 Dose: 10 mg Atorvastatin Calcium (Lipitor -) 80 mg PO HS [facility] Last Admin: 11/03/19 21:46 Dose: 80 mg Cholecalciferol (Vitamin D3 -) 5,000 unit PO DAILY [facility] Last Admin: 11/04/19 09:40 Dose: 5,000 unit Colchicine (Colcrys) 0.6 mg PO Q6HPO [facility] Last Admin: 11/04/19 17:19 Dose: 0.6 mg Gabapentin (Neurontin -) 100 mg PO TID [facility] Last Admin: 11/04/19 14:31 Dose: 100 mg Ceftriaxone Sodium 2 gm/ (Dextrose) 100 mls @ 200 mls/hr IVPB DAILY [facility]; Protocol Last Admin: 11/04/19 11:49 Dose: 200 mls/hr Losartan Potassium (Cozaar -) 50 mg PO DAILY [facility] Last Admin: 11/04/19 09:40 Dose: 50 mg Pantoprazole Sodium (Protonix -) 40 mg PO DAILY [facility] Last Admin: 11/04/19 09:40 Dose: 40 mg - Allergies Allergies: Allergies Allergy/AdvReac Type Severity Reaction Status Date / Time No Known Allergies Allergy Verified 11/02/19 13:07 - Current Living Status Usual Living Arrangement: Alone - Current Mental Status Evaluation Appearance: Well Groomed Attitude: Guarded - Affect Affect: Constrictive Appropriateness: Appropriate to Content - Mood Mood: Euthymic - Speech/Language Expressive: Coherent - Psychomotor Activity Psychomotor Activity: Slowed - Thought Process Thought Process: Intact - Thought Content Hallucinations: Absent Delusions: Absent - Self Perception Self Perception: No Impairment - Cognition Attention: Alert Orientation: Time Memory, Immediate Recall: Intact Memory, Short Term: 3/3 Memory, Remote with Promptin/3 - Concentration Serial Sevens Intact: Yes Simple Calculations Intact: Yes - Abstraction Proverb Interpretation: Intact Judgement: Minimally Impaired - Insight Insight: Intact - Impulse Control Impulse Control: Good Control - Suicidal Ideation Suicidal Ideation: No - Homicidal Ideation Homicidal Ideation: No Assessment/Plan 1) Patient has the functional capacity to make decisions at this time.
[2019-11-04] MEDS: ACETAMINOPHEN 500 MG TABLET (FP) PO PRN (19:43)
[2019-11-04] MEDS: ATORVASTATIN CA 80 MG TABLET (FP) PO SCH (21:45)
[2019-11-05] MEDS: COLCHICINE 0.6 MG CAP PO SCH ×2 (01:15→05:26)
[2019-11-05] MEDS: GABAPENTIN 100 MG CAPSULE PO SCH ×3 (05:26→21:02)
[2019-11-05 07:42] LABS: BASO % 0.3 % (0-2.0); EOS % 0.1 % (0-4.5); HEMATOCRIT 29.9 % (35.4-49); HEMOGLOBIN 10.1 GM/dL (11.7-16.9); LYMPH % 13.4 % (8-40); MCH 26.4 pg (25.7-33.7); MCHC 33.6 g/dl (32.0-35.9); MEAN CELL VOLUME 78.4 fl (80-96); MEAN PLT VOLUME 9.6 fl (7.5-11.1); MONO % 24.5 % (3.8-10.2); NEUT % 61.7 % (42.8-82.8); PLATELET COUNT 341 K/MM3 (134-434); RBC 3.81 M/mm3 (4.00-5.60); RDW 19.4 % (11.9-15.9); WHITE BLOOD COUNT 5.3 K/mm3 (4.0-10.0)
[2019-11-05] MEDS ORDERED: DEXTROSE 5%-WATER 100 ML IVPB ONE (09:15)
[2019-11-05] MEDS ORDERED: PT OWN MED DRAWER 7, Y5N ONE (09:15)
[2019-11-05 09:31] LABS: ANISOCYTOSIS 2+; MACROCYTOSIS 0; PLATELET ESTIMATE NORMAL; TEAR DROP CELLS 1+
[2019-11-05] MEDS: CEFTRIAXONE 2 GM in DEXTROSE 5%-WATER 100 ML IVPB SCH (09:34)
[2019-11-05] MEDS: PANTOPRAZOLE 40 MG TABLET PO SCH (09:35)
[2019-11-05] MEDS: ALLOPURINOL 100 MG TABLET (FP) PO SCH (09:35)
[2019-11-05] MEDS: CHOLECALCIFEROL (VIT D3) 1,000 UNIT (25 MCG) TABLET PO SCH (09:35)
[2019-11-05] MEDS: amLODIPine BESYLATE 10 MG TABLET (FP) PO SCH (09:35)
[2019-11-05] MEDS: LOSARTAN POTASSIUM 50 MG TABLET (FP) PO SCH (09:35)
--- NOTE | 2019-11-05 13:35 | PN ---
Progress Note, Physician Chief Complaint: Patient seen and examined at the bedside, appetite poor to fair, watery diarrhea ; no abdominal pair, nausea, or vomiting. History of Present Illness: This 74 yr old male with hx of hypertension, abnormal weight loss, gout , intraductal papillary mucinous neoplasm of the pancreas, and anemia admitted via ER with acute physical deconditioning, and generalized muscle weakness. During hospitalization patient spiked a temp of 101.6 only once. Evaluated by psych - has the mental capacity to make decisions. - Current Medication List Current Medications: Active Medications Acetaminophen (Tylenol -) 500 mg PO Q6H PRN PRN Reason: MODERATE PAIN Last Admin: 11/04/19 19:43 Dose: 500 mg Acetaminophen (Tylenol -) 500 mg PO Q4H PRN PRN Reason: FEVER >100 Last Admin: 11/03/19 18:08 Dose: 500 mg Allopurinol (Zyloprim -) 100 mg PO DAILY [facility] Last Admin: 11/05/19 09:35 Dose: 100 mg Amlodipine Besylate (Norvasc -) 10 mg PO DAILY [facility] Last Admin: 11/05/19 09:35 Dose: 10 mg Atorvastatin Calcium (Lipitor -) 80 mg PO HS [facility] Last Admin: 11/04/19 21:45 Dose: 80 mg Cholecalciferol (Vitamin D3 -) 5,000 unit PO DAILY [facility] Last Admin: 11/05/19 09:35 Dose: 5,000 unit Gabapentin (Neurontin -) 100 mg PO TID [facility] Last Admin: 11/05/19 05:26 Dose: 100 mg Ceftriaxone Sodium 2 gm/ (Dextrose) 100 mls @ 200 mls/hr IVPB DAILY [facility]; Protocol Last Admin: 11/05/19 09:34 Dose: 200 mls/hr Losartan Potassium (Cozaar -) 50 mg PO DAILY [facility] Last Admin: 11/05/19 09:35 Dose: 50 mg Pantoprazole Sodium (Protonix -) 40 mg PO DAILY [facility] Last Admin: 11/05/19 09:35 Dose: 40 mg - Objective Vital Signs: Vital Signs Temperature 97.6 F 11/05/19 13:25 Pulse Rate 79 11/05/19 13:25 Respiratory Rate 20 11/05/19 13:25 Blood Pressure 130/78 11/05/19 13:25 O2 Sat by Pulse Oximetry (%) 100 11/05/19 09:00 Constitutional: Yes: No Distress, Calm, Cachectic, Mild Distress Eyes: Yes: Conjunctiva Clear, EOM Intact HENT: Yes: Atraumatic, Normocephalic Neck: Yes: Supple, Trachea Midline Cardiovascular: Yes: Regular Rate and Rhythm Respiratory: Yes: Regular, CTA Bilaterally Gastrointestinal: Yes: Normal Bowel Sounds, Soft, Other (diarrhea most probably colchicine induced) ...Rectal Exam: Yes: Deferred Genitourinary: Yes: WNL Breast(s): Yes: WNL Musculoskeletal: Yes: WNL Extremities: Yes: WNL Edema: No Peripheral Pulses WNL: Yes Peripheral Pulses: Left Radial: 2+, Right Radial: 2+, Left Doralis Pedis: 2+, Right Dorsalis Pedis: 2+, Left Femoral: 2+, Right Femoral: 2+ Integumentary: Yes: WNL Neurological: Yes: Alert, Oriented ...Motor Strength: LUE (generalized muscle weakness of all extremities) Psychiatric: Yes: Alert, Oriented Labs: CBC, BMP 11/05/19 06:55 - ....Imaging Other: Report Reviewed (Lab data reviewed) Problem List - Problems (1) Gout Code(s): M10.9 - GOUT, UNSPECIFIED Qualifiers: Gout site: unspecified site Encounter type: initial encounter Chronicity : acute (2) Physical deconditioning Code(s): R53.81 - OTHER MALAISE (3) Fever Code(s): R50.9 - FEVER, UNSPECIFIED (4) Diarrhea Code(s): R19.7 - DIARRHEA, UNSPECIFIED (5) Colchicine adverse reaction Code(s): T50.4X5A - ADVERSE EFFECT OF DRUGS AFFECTING URIC ACID METABOLISM, INIT Assessment/Plan Assessment/plan: acute fever (temp 101.6 only once), acute watery diarrhea colchicine induced, acute physical deconditioning, acute generalized muscle weakness; oral Tylenol prn, physical therapy, transfer to SNF for short term rehab.
--- NOTE | 2019-11-05 13:53 | PN ---
Progress Note, Physician History of Present Illness: AWAKE IN BED C/O L WRIST PAIN/SWELLING TEMPS REMAIN DOWN AFEBRILE BC (-) CXR(-) - Current Medication List Current Medications: Active Medications Acetaminophen (Tylenol -) 500 mg PO Q6H PRN PRN Reason: MODERATE PAIN Last Admin: 11/04/19 19:43 Dose: 500 mg Acetaminophen (Tylenol -) 500 mg PO Q4H PRN PRN Reason: FEVER >100 Last Admin: 11/03/19 18:08 Dose: 500 mg Allopurinol (Zyloprim -) 100 mg PO DAILY [facility] Last Admin: 11/05/19 09:35 Dose: 100 mg Amlodipine Besylate (Norvasc -) 10 mg PO DAILY [facility] Last Admin: 11/05/19 09:35 Dose: 10 mg Atorvastatin Calcium (Lipitor -) 80 mg PO HS [facility] Last Admin: 11/04/19 21:45 Dose: 80 mg Cholecalciferol (Vitamin D3 -) 5,000 unit PO DAILY [facility] Last Admin: 11/05/19 09:35 Dose: 5,000 unit Gabapentin (Neurontin -) 100 mg PO TID [facility] Last Admin: 11/05/19 05:26 Dose: 100 mg Losartan Potassium (Cozaar -) 50 mg PO DAILY [facility] Last Admin: 11/05/19 09:35 Dose: 50 mg Pantoprazole Sodium (Protonix -) 40 mg PO DAILY [facility] Last Admin: 11/05/19 09:35 Dose: 40 mg - Objective Vital Signs: Vital Signs Temperature 97.6 F 11/05/19 13:25 Pulse Rate 79 11/05/19 13:25 Respiratory Rate 20 11/05/19 13:25 Blood Pressure 130/78 11/05/19 13:25 O2 Sat by Pulse Oximetry (%) 100 11/05/19 09:00 Constitutional: Yes: No Distress Eyes: Yes: Conjunctiva Clear Cardiovascular: Yes: Regular Rate and Rhythm, S1, S2 Respiratory: Yes: CTA Bilaterally Gastrointestinal: Yes: Normal Bowel Sounds, Soft. No: Tenderness Extremities: Yes: Other (+ SWELLING/ TENDERNESS L WRIST/ HAND) Edema: No Labs: CBC, BMP 11/05/19 06:55 Assessment/Plan ACUTE FLARE, GOUTTY ARTHRITIS FEVER LIKELY SECONDARY TO ACUTE GOUT FLARE D/C ANTIBIOTICS CONT TX GOUT
[2019-11-05] MEDS: ATORVASTATIN CA 80 MG TABLET (FP) PO SCH (21:01)
[2019-11-06] MEDS: GABAPENTIN 100 MG CAPSULE PO SCH ×2 (06:00→13:48)
[2019-11-06] MEDS: PANTOPRAZOLE 40 MG TABLET PO SCH (09:57)
[2019-11-06] MEDS: amLODIPine BESYLATE 10 MG TABLET (FP) PO SCH (09:57)
[2019-11-06] MEDS: ALLOPURINOL 100 MG TABLET (FP) PO SCH (09:57)
[2019-11-06] MEDS: LOSARTAN POTASSIUM 50 MG TABLET (FP) PO SCH (09:58)
[2019-11-06] MEDS: CHOLECALCIFEROL (VIT D3) 1,000 UNIT (25 MCG) TABLET PO SCH (09:58)
--- NOTE | 2019-11-06 11:54 | PN ---
Progress Note, Physician Chief Complaint: Patient seen and examined at the bedside, diminution of pain of the left hand, appetite fair, denies to abdominal pain, and/or diarrhea. History of Present Illness: This 74 yr old male with hx of gout, hypertension, intraductal papillary mucinous neoplasm of the pancreas, and anemia admitted via ER with acute physical deconditioning, and acute genealized muscle weakness. During hospitalization patient spiked a temp of 101.6 only once most probably due to acute gout. - Current Medication List Current Medications: Active Medications Acetaminophen (Tylenol -) 500 mg PO Q6H PRN PRN Reason: MODERATE PAIN Last Admin: 11/04/19 19:43 Dose: 500 mg Acetaminophen (Tylenol -) 500 mg PO Q4H PRN PRN Reason: FEVER >100 Last Admin: 11/03/19 18:08 Dose: 500 mg Allopurinol (Zyloprim -) 100 mg PO DAILY [facility] Last Admin: 11/06/19 09:57 Dose: 100 mg Amlodipine Besylate (Norvasc -) 10 mg PO DAILY [facility] Last Admin: 11/06/19 09:57 Dose: 10 mg Atorvastatin Calcium (Lipitor -) 80 mg PO HS [facility] Last Admin: 11/05/19 21:01 Dose: 80 mg Cholecalciferol (Vitamin D3 -) 5,000 unit PO DAILY [facility] Last Admin: 11/06/19 09:58 Dose: 5,000 unit Gabapentin (Neurontin -) 100 mg PO TID [facility] Last Admin: 11/06/19 06:00 Dose: 100 mg Losartan Potassium (Cozaar -) 50 mg PO DAILY [facility] Last Admin: 11/06/19 09:58 Dose: 50 mg Pantoprazole Sodium (Protonix -) 40 mg PO DAILY [facility] Last Admin: 11/06/19 09:57 Dose: 40 mg - Objective Vital Signs: Vital Signs Temperature 98.0 F 11/06/19 10:00 Pulse Rate 73 11/06/19 10:00 Respiratory Rate 11/06/19 10:00 Blood Pressure 117/73 11/06/19 10:00 O2 Sat by Pulse Oximetry (%) 100 11/06/19 09:00 Constitutional: Yes: Calm, Cachectic, Mild Distress Eyes: Yes: Conjunctiva Clear, EOM Intact HENT: Yes: Atraumatic, Normocephalic Neck: Yes: Supple, Trachea Midline Cardiovascular: Yes: Regular Rate and Rhythm Respiratory: Yes: Regular, CTA Bilaterally Gastrointestinal: Yes: Normal Bowel Sounds, Soft ...Rectal Exam: Yes: Deferred Genitourinary: Yes: WNL Breast(s): Yes: WNL Musculoskeletal: Yes: Muscle Weakness Extremities: Yes: Other (generalized muscle weakness) Edema: No Peripheral Pulses WNL: Yes Peripheral Pulses: Left Radial: 2+, Right Radial: 2+, Left Doralis Pedis: 2+, Right Dorsalis Pedis: 2+, Left Femoral: 2+, Right Femoral: 2+ Integumentary: Yes: WNL Neurological: Yes: Alert, Oriented, Unsteady Gait, Weakness ...Motor Strength: LUE (generalized muscle weakness of all extremities) Psychiatric: Yes: Alert, Oriented Labs: CBC, BMP 11/05/19 06:55 Problem List - Problems (1) Gout Code(s): M10.9 - GOUT, UNSPECIFIED Qualifiers: Gout site: unspecified site Encounter type: initial encounter Chronicity : acute (2) Physical deconditioning Code(s): R53.81 - OTHER MALAISE (3) Fever Code(s): R50.9 - FEVER, UNSPECIFIED (4) Diarrhea Code(s): R19.7 - DIARRHEA, UNSPECIFIED (5) Colchicine adverse reaction Code(s): T50.4X5A - ADVERSE EFFECT OF DRUGS AFFECTING URIC ACID METABOLISM, INIT (6) Hyperlipidemia Code(s): E78.5 - HYPERLIPIDEMIA, UNSPECIFIED (7) Hypertension Code(s): I10 - ESSENTIAL (PRIMARY) HYPERTENSION (8) Intraductal papillary mucinous neoplasm of pancreas Code(s): D49.0 - NEOPLASM OF UNSPECIFIED BEHAVIOR OF DIGESTIVE SYSTEM (9) Abnormal weight loss Code(s): R63.4 - ABNORMAL WEIGHT LOSS (10) Anemia Code(s): D64.9 - ANEMIA, UNSPECIFIED Assessment/Plan Assessment/plan: acute physical deconditioning, acute generalized muscle weakness, hypertension, acute anemia, acute gout; oral Colchicine prn, oral antihypertensives, physical therapy, SCD'S for DVT prophylaxis, discharge planning, child welfare social worker request, awaiting transfer to SNF for short term rehab.
[2019-11-06 18:46] VITALS: BP 127/71; PULSE 63; TEMP 97.9
--- NOTE | 2019-11-07 14:19 | DS ---
Physical Examination Vital Signs: Vital Signs Temperature 97.9 F 11/06/19 18:39 Pulse Rate 63 11/06/19 18:39 Respiratory Rate 18 11/06/19 18:39 Blood Pressure 127/71 11/06/19 18:39 O2 Sat by Pulse Oximetry (%) 100 11/06/19 09:00 Constitutional: Yes: No Distress, Calm Eyes: Yes: Conjunctiva Clear, EOM Intact HENT: Yes: Atraumatic Neck: Yes: Supple, Trachea Midline Cardiovascular: Yes: Regular Rate and Rhythm Respiratory: Yes: Regular, CTA Bilaterally Gastrointestinal: Yes: Normal Bowel Sounds, Soft ...Rectal Exam: Yes: Deferred Renal/: Yes: WNL Breast(s): Yes: WNL Musculoskeletal: Yes: Muscle Weakness Extremities: Yes: Other (generalized muscle weakness) Edema: No Peripheral Pulses WNL: Yes Peripheral Pulses: Left Radial: 2+, Right Radial: 2+, Left Doralis Pedis: 2+, Right Dorsalis Pedis: 2+, Left Femoral: 2+, Right Femoral: 2+ Integumentary: Yes: WNL Neurological: Yes: Alert ...Motor Strength: LUE (generalized muscle weakness of all extremities) Psychiatric: Yes: Alert Labs: CBC, BMP 11/05/19 06:55 Discharge Summary Problems reviewed: Yes Reason For Visit: GOUT,PHYSICAL DECONDITIONING Condition: Fair - Instructions Referrals: Jose Daniel Monreal [Primary Care Provider] - [facility] - Home Medications Comprehensive Discharge Medication List: Ambulatory Orders Allopurinol [Zyloprim -] 100 mg PO DAILY 10/01/19 Atorvastatin Calcium 80 mg PO HS 10/01/19 Colchicine 0.3 tab PO DAILY 10/01/19 Ergocalciferol [Vitamin D2] 50,000 unit PO Q7D@1000 10/01/19 Acetaminophen [Tylenol .Extra-Strength -] 500 mg PO Q4H PRN tablet 10/29/19 Activity as tolerated. Transfer for short term rehab. Follow up with Dr. Monsivais. Total time spent over 30 minutes.
== END 2019-11-06 19:16 | DRG 554 ==
LOC: JER 13:01 → JERBED 14:43 → J7W 20:51
PROVIDERS: ADMIT Internal Medicine; ATTEND Internal Medicine
DX: M10.032 Idiopathic gout, left wrist (principal); R64 Cachexia; R62.7 Adult failure to thrive; Z68.20 Body mass index [BMI] 20.0-20.9, adult; I10 Essential (primary) hypertension; F01.50 Vascular dementia, unspecified severity, without behavioral disturbance, psychotic disturbance, mood disturbance, and anxiety; E78.5 Hyperlipidemia, unspecified; D50.9 Iron deficiency anemia, unspecified; F32.9 Major depressive disorder, single episode, unspecified; K70.30 Alcoholic cirrhosis of liver without ascites; N40.0 Benign prostatic hyperplasia without lower urinary tract symptoms; R50.9 Fever, unspecified; D49.0 Neoplasm of unspecified behavior of digestive system; M10.042 Idiopathic gout, left hand; R53.81 Other malaise; T50.4X5A Adverse effect of drugs affecting uric acid metabolism, initial encounter
CPT/HCPCS: 36415; 71045-TC-FY; 85025; 87040; 87086; 93005; 93010; 97161-GP; 99284-25

== ENCOUNTER 2020-04-13 13:20 | Inpatient (IN) | payer OTHER, BC ==
[2020-04-13] MEDS ORDERED: SODIUM CHLORIDE 1,000 ML IV STA (14:06)
--- NOTE | 2020-04-13 14:18 | PDOC ---
History of Present Illness - General Chief Complaint: Weakness Stated Complaint: WEAKNESS Time Seen by Provider: 04/13/20 13:50 - History of Present Illness Initial Comments: 04/13/20 14:14 HPI: 74 y/o M with hx of HTN, HLD, gout, chronic anemia BIBEMS for pre-syncope. Patient was walking in the road when he felt faint and LH. Required assist to sit down and EMS was called. His symptoms did not improve after sitting down. He denies BOYCE, fever, chest pain, SOB, n/v, abd pain, diaphoresis. He reprots stopping his BP meds 1 month ago because he felt LH and has improved since then. Otherwise in normal state of health with no dysuria, hematuria, diarrhea. No numbness, tingling, LOC, head trauma PMHx: as noted above ROS: as noted SHx: Denies tobacco use; no alcohol use; no rec drugs Allergies: NKDA ROS: GENERAL/CONSTITUTIONAL: No fever or chills. +gen weakness. HEAD, EYES, EARS, NOSE AND THROAT: No change in vision. No ear pain or discharge. No sore throat. CARDIOVASCULAR: No chest pain or shortness of breath RESPIRATORY: No cough, wheezing, or hemoptysis. GASTROINTESTINAL: No nausea, vomiting, diarrhea or constipation. GENITOURINARY: No dysuria, frequency, or change in urination. MUSCULOSKELETAL: No joint or muscle swelling or pain. No neck or back pain. SKIN: No rash NEUROLOGIC: No headache, vertigo, loss of consciousness, or change in strength/sensation. ENDOCRINE: No increased thirst. No abnormal weight change HEMATOLOGIC/LYMPHATIC: No anemia, easy bleeding, or history of blood clots. ALLERGIC/IMMUNOLOGIC: No hives or skin allergy. PE: GENERAL: Awake, alert, and fully oriented, no acute distress HEAD: No signs of trauma, normocephalic, atraumatic EYES: EOMI, sclera anicteric, conjunctival pallor ENT: Auricles normal inspection, hearing grossly normal, nares patent, oropharynx clear without exudates. Moist mucosa NECK: Normal ROM, no lymphadenopathy LUNGS: No increased work of breathing, symmetrical chest rise, clear to auscultation bilaterally, no wheezes, crackles or rhonchi HEART: Regular rate, regular rhythm, normal S1 and S2, no murmur, peripheral pulses 2+ and equal bilaterally. ABDOMEN: Soft, nondistended, nontender. No guarding, no rebound. No masses. No CVAT MUSCULOSKELETAL: FROM NEUROLOGICAL: Cranial nerves II through XII grossly intact. Normal speech, no focal sensorimotor deficits SKIN: Warm, Dry, normal turgor, no rashes or lesions noted Past History - Medical History Allergies/Adverse Reactions: Allergies Allergy/AdvReac Type Severity Reaction Status Date / Time No Known Allergies Allergy Verified 11/02/19 13:07 Home Medications: Ambulatory Orders Allopurinol [Zyloprim -] 100 mg PO DAILY 10/01/19 Atorvastatin Calcium 80 mg PO HS 10/01/19 Colchicine 0.3 tab PO DAILY 10/01/19 Ergocalciferol [Vitamin D2] 50,000 unit PO Q7D@1000 10/01/19 Acetaminophen [Tylenol .Regular Strength -] 1,000 mg PO Q6H PRN 10/20/19 Acetaminophen [Tylenol .Extra-Strength -] 500 mg PO Q4H PRN tablet 10/29/19 Anemia: Yes (iron deficiency.) Cardiac Disorders: Yes (HTN) CVA: Yes (dysphagia,) COPD: No Dementia: Yes (vascular dementia) HTN: Yes Hypercholesterolemia: Yes (Idiopathic gout, frequent falls.) Liver Disease: Yes (CIRRHOSIS) Psychiatric Problems: Yes (alcoholic cirrhosis) - Surgical History Abdominal Surgery: Yes (hernia repair) - Psycho-Social/Smoking History Smoking History: Former smoker Have you smoked in the past 12 months: No Information on smoking cessation initiated: No - Substance Abuse Hx (Audit-C & DAST Scrn) How often the patient has a drink containing alcohol: Never Score: In Men: 4 or > Positive; In Women: 3 or > Positive: 0 Screen Result (Pos requires Nsg. Audit-10AR): Negative In the last yr the pt used illegal drug/Rx for NonMed reason: No Score: Yes response is considered Positive: 0 Screen Result (Positive result requires Nsg. DAST-10): Negative *Physical Exam - Vital Signs Last Vital Signs Temp Pulse Resp BP Pulse Ox 99.7 F H 85 18 146/97 99 04/13/20 13:21 04/13/20 13:21 04/13/20 13:21 04/13/20 13:21 04/13/20 13:21 ED Treatment Course - LABORATORY CBC & Chemistry Diagram: 04/13/20 14:50 04/13/20 14:50 - ADDITIONAL ORDERS Additional order review: Laboratory Results 04/13/20 13:40 POC Glucometer 82 04/13/20 13:40 POC Glucometer 82 - RADIOLOGY Radiology Studies Ordered: Category Date Time Status CXRPORT [CHEST X-RAY PORTABLE*] [RAD] Stat Radiology 04/13/20 14:02 Ordered Medical Decision Making - Medical Decision Making 04/13/20 14:17 74 y/o M with hx of HTN, HLD, gout, chronic anemia BIBEMS for pre-syncope. VSS, AF. PE notable for conjunctival pallor. DDx includes anemia, dehydration, ACS, arrythmia, lyte abnormality, occult infection -cbc, cmp, card prof, mg, coags, t&s, ua, ekg, cxr -1L ivf -reassess 04/13/20 16:07 Hb 8.1 from 10.1 in 10/2019 Cr 2.0 fobt pending ekg with nsr without barak/d, no twi cxr with no acute pathology 04/13/20 16:25 on further hx patient reported previous Iron and prbc transfusion in 10/2019 but refused EGD and Cscope at the time because he didnt like go lightly and was afraid; patient now reporting he would be amenable to EGD and Csope as an outpatient admitted to Dr Carmona for BOUCHRA and synmptomatic anemia Discharge - Discharge Information Problems reviewed: Yes Clinical Impression/Diagnosis: Symptomatic anemia, BOUCHRA (acute kidney injury) Condition: Stable - Admission Yes - Follow up/Referral Referrals: Jose Daniel Monreal [Primary Care Provider] - - Patient Discharge Instructions - Post Discharge Activity
[2020-04-13 14:19] VITALS: BMI 20.9
--- NOTE | 2020-04-13 15:01 | PDOC ---
Documentation entered by Janis Patrick SCRIBE, acting as scribe for Navid Regan MD. Navid Regan MD: This documentation has been prepared by the eastoneDarnell Sydney, SCRIBE, under my direction and personally reviewed by me in its entirety. I confirm that the documentation accurately reflects all work, treatment, procedures, and medical decision making performed by me. Attending Attestation - Resident Resident Name: Ramiro Vital - ED Attending Attestation I have performed the following: I have examined & evaluated the patient, The case was reviewed & discussed with the resident, I agree w/resident's findings & plan, Exceptions are as noted - HPI HPI: 04/13/20 14:21 Patient is a 74 year old male with a significant past medical history of HTN, HLD, gout, chronic anemia who presents to the ED with pre-syncope. Patient was walking when he felt faint and lightheaded, prompting him to sit down. Patient reports stopping his blood pressure medication one month ago. Patient denies headache, fever, chills, SOB, chest pain, nausea, vomiting, or diarrhea. Denies dysuria, hematuria, frequency, or urgency. Denies no other symptoms. - Physicial Exam PE: 04/13/20 14:59 Patient is awake and alert, well-nourished, no significant distress Normocephalic and atraumatic PERRLA, EOMI, conjunctiva pale Mucous membranes are dry No JVD No carotid bruits CTA RRR Abdomen soft, nontender, nondistended No lower extremity edema And O x3, moving all extremities symmetrically - Medical Decision Making 04/13/20 15:00 74-year-old male with multiple comorbidities, history of anemia (status post packed RBC transfusion in the past), presents with near syncope. Differential diagnosis includes heat exhaustion versus symptomatic anemia versus arrhythmia. EKG in the ED reveals no evidence of acute ischemia or dysrhythmia. Will obtain CBC/CMP/type and screen. Will transfuse packed cells as needed. Will reassess. Discharge - Discharge Information Problems reviewed: Yes Clinical Impression/Diagnosis: Symptomatic anemia, BOUCHRA (acute kidney injury) Condition: Stable - Follow up/Referral - Patient Discharge Instructions - Post Discharge Activity
[2020-04-13 15:10] LABS: BASO % 0.4 % (0-2.0); EOS % 0.1 % (0-4.5); HEMATOCRIT 24.8 % (35.4-49); HEMOGLOBIN 8.1 GM/dL (11.7-16.9); LYMPH % 7.8 % (8-40); MCH 25.5 pg (25.7-33.7); MCHC 32.7 g/dl (32.0-35.9); MEAN CELL VOLUME 77.9 fl (80-96); MEAN PLT VOLUME 9.7 fl (7.5-11.1); MONO % 14.3 % (3.8-10.2); NEUT % 77.4 % (42.8-82.8); PLATELET COUNT 338 K/MM3 (134-434); RBC 3.19 M/mm3 (4.00-5.60); RDW 17.9 % (11.9-15.9); WHITE BLOOD COUNT 8.6 K/mm3 (4.0-10.0)
[2020-04-13 15:15] LABS: EPI CELLS 12 /uL (0-25.1); HYALINE CASTS 11 /uL (0-3.1); URINE APPEARANCE CLOUDY; URINE BACTERIA 3 /uL (0-1359); URINE BILIRUBIN NEGATIVE (NEGATIVE); URINE COLOR YELLOW; URINE GLUCOSE (UA) NEGATIVE (NEGATIVE); URINE KETONE NEGATIVE (NEGATIVE); URINE LEUK ESTERASE NEGATIVE (NEGATIVE); URINE NITRITE NEGATIVE (NEGATIVE); URINE PROTEIN 3+ (NEGATIVE); URINE RBC 3 /uL (0-23.9); URINE UROBILINOGEN 0.2 mg/dL (0.2-1.0); URINE WBC 5 /uL (0-25.8)
[2020-04-13 15:17] LABS: INR 1.3 (0.83-1.09); PROTHROMBIN TIME (PATIENT) 15.4 SEC (9.7-13.0)
[2020-04-13 15:19] LABS: ACTIVATED PTT 33.9 SECONDS (25.2-36.5)
[2020-04-13 15:28] LABS: ALBUMIN 3.4 g/dl (3.4-5.0); ALK PHOS 132 U/L (45-117); ANION GAP 10 MMOL/L (8-16); BILIRUBIN,TOTAL 0.5 mg/dL (0.2-1); CALCIUM 8.9 mg/dL (8.5-10.1); CHLORIDE 109 mmol/L (98-107); CO2 18 mmol/L (21-32); GLUCOSE,RANDOM 134 mg/dL (74-106); MAGNESIUM 1.8 mg/dL (1.8-2.4); POTASSIUM 4.4 mmol/L (3.5-5.1); SGOT/AST 10 U/L (15-37); SGPT/ALT 9 U/L (13-61); SODIUM 137 mmol/L (136-145); TOT PROT 8.7 g/dl (6.4-8.2)
--- NOTE | 2020-04-13 16:00 | EKG ---
Test Reason : Blood Pressure : / mmHG Vent. Rate : 081 BPM Atrial Rate : 081 BPM P-R Int : 134 ms QRS Dur : 088 ms QT Int : 358 ms P-R-T Axes : 045 -18 058 degrees QTc Int : 415 ms NORMAL SINUS RHYTHM SEPTAL INFARCT , AGE UNDETERMINED ABNORMAL ECG WHEN COMPARED WITH ECG OF 02-NOV-2019 13:20, NO SIGNIFICANT CHANGE WAS FOUND Confirmed by MD Dolly, Shaheed ([id number]) on 04/13/2020 3:59:38 PM Referred By: Confirmed By:Shaheed Alberto MD
[2020-04-13 16:57] LABS: IRON SERUM 21 ug/dL (50-175); TOTAL IRON BINDING CAPACITY 188 ug/dL (250-450)
[2020-04-13 16:58] LABS: RETICULOCYTES 0.93 % (0.5-1.5)
--- NOTE | 2020-04-13 17:05 | HP ---
Admitting History and Physical - Admission Chief Complaint: Acute exacerbation of dizziness, weaknesss and presyncope History of Present Illness: This 74 yr old male with PMH of HTN, HLD, gout, and chronic anemia admitted via ER with an acute exacerbation of dizziness, weakness, and p resyncope. 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 Cardiovascular: Yes: HTN, Hyperlipdemia Pulmonary: No: Asthma, Bronchitis, Cancer, COPD, O2 Dependent, Pneumonia, Previously Intubated, Pulmonary Embolus, Pulmonary Fibrosis, Sleep Apnea, Other Gastrointestinal: Yes: Other (alcoholic cirrhosis of the liver) Hepatobiliary: Yes: Cholelithiasis, Cholecystitis Heme/Onc: Yes: Anemia Infectious Disease: No: AIDS, C-Diff, Herpes Zoster, HIV, MRSA, STD's, Tuberculosis, VREF, Other Psych: Yes: Depression Musculoskeletal: No: Bursitis, Chronic low back pain, Hemiparesis, Hemiplegia, Osteoarthritis, Paraplegia, Other Rheumatology: Yes: Gout ENT: No: Allergic Rhinitis, Sinusitis, Other Endocrine: No: Hillsdale's Disease, Thompson's Disease, Diabetes Insipidus, Diabetes Mellitus, Hyperparathyroidism, Hyperthyroidism, Hypothyroidism, Osteopenia, SIADH, Other Dermatology: No: Basal Cell, Cellulitis, Eczema, Melanoma, Psoriasis, Squamous Cell, Other - Past Surgical History Past Surgical History: Yes: Hernia Repair (bilteral inguinal hernia repair) - Smoking History Smoking history: Former smoker Have you smoked in the past 12 months: No - Alcohol/Substance Use Hx Alcohol Use: Yes History of Substance Use: reports: None - Social History ADL: Family Assistance History of Recent Travel: No Home Medications - Allergies Allergies/Adverse Reactions: Allergies Allergy/AdvReac Type Severity Reaction Status Date / Time No Known Allergies Allergy Verified 11/02/19 13:07 - Home Medications Home Medications: Ambulatory Orders Allopurinol [Zyloprim -] 100 mg PO DAILY 10/01/19 Atorvastatin Calcium 80 mg PO HS 10/01/19 Colchicine 0.3 tab PO DAILY 10/01/19 Ergocalciferol [Vitamin D2] 50,000 unit PO Q7D@1000 10/01/19 Acetaminophen [Tylenol .Regular Strength -] 1,000 mg PO Q6H PRN 10/20/19 Acetaminophen [Tylenol .Extra-Strength -] 500 mg PO Q4H PRN tablet 10/29/19 Review of Systems - Review of Systems Constitutional: reports: Weakness Eyes: reports: No Symptoms HENT: reports: No Symptoms Neck: reports: No Symptoms Cardiovascular: reports: No Symptoms Respiratory: reports: No Symptoms Gastrointestinal: reports: No Symptoms Genitourinary: reports: No Symptoms Breasts: reports: No Symptoms Reported Musculoskeletal: reports: Muscle Weakness Integumentary: reports: No Symptoms Neurological: reports: Dizziness, Unsteady Gait, Weakness Endocrine: reports: No Symptoms Hematology/Lymphatic: reports: No Symptoms Psychiatric: reports: Depression Physical Examination Vital Signs: Vital Signs Temperature 99.2 F 04/13/20 14:14 Pulse Rate 85 04/13/20 13:21 Respiratory Rate 18 04/13/20 13:21 Blood Pressure 146/97 04/13/20 13:21 O2 Sat by Pulse Oximetry (%) 99 04/13/20 13:21 Constitutional: Yes: Well Nourished, No Distress, Calm Eyes: Yes: Conjunctiva Clear, EOM Intact HENT: Yes: Atraumatic, Normocephalic Neck: Yes: Supple, Trachea Midline Cardiovascular: Yes: Regular Rate and Rhythm Respiratory: Yes: Regular, CTA Bilaterally Gastrointestinal: Yes: Normal Bowel Sounds, Soft ...Rectal Exam: Yes: Deferred Renal/: Yes: WNL Breast(s): Yes: WNL Musculoskeletal: Yes: Muscle Weakness Extremities: Yes: WNL Edema: No Peripheral Pulses WNL: Yes Integumentary: Yes: WNL Neurological: Yes: Unsteady Gait, Weakness ...Motor Strength: WNL Psychiatric: Yes: Alert, Oriented Labs: CBC, BMP 04/13/20 14:50 04/13/20 14:50 Imaging - Results EKG: Report Reviewed Other: Report Reviewed (lab data reviewed) Problem List - Problems (1) BOUCHRA (acute kidney injury) Code(s): N17.9 - ACUTE KIDNEY FAILURE, UNSPECIFIED (2) Symptomatic anemia Code(s): D64.9 - ANEMIA, UNSPECIFIED (3) Anemia Code(s): D64.9 - ANEMIA, UNSPECIFIED (4) Cholelithiasis Code(s): K80.20 - CALCULUS OF GALLBLADDER W/O CHOLECYSTITIS W/O OBSTRUCTION (5) Gait abnormality Code(s): R26.9 - UNSPECIFIED ABNORMALITIES OF GAIT AND MOBILITY (6) History of bilateral inguinal hernia repair Code(s): Z98.890 - OTHER SPECIFIED POSTPROCEDURAL STATES; Z87.19 - PERSONAL HISTORY OF OTHER DISEASES OF THE DIGESTIVE SYSTEM (7) Hyperlipidemia Code(s): E78.5 - HYPERLIPIDEMIA, UNSPECIFIED (8) Hypertension Code(s): I10 - ESSENTIAL (PRIMARY) HYPERTENSION (9) Hypoalbuminemia Code(s): E88.09 - OTH DISORDERS OF PLASMA-PROTEIN METABOLISM, NEC (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(s): D49.0 - NEOPLASM OF UNSPECIFIED BEHAVIOR OF DIGESTIVE SYSTEM (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): D49.0 - NEOPLASM OF UNSPECIFIED BEHAVIOR OF DIGESTIVE SYSTEM (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 Code(s): D89.89 - OTH DISRD INVOLVING THE IMMUNE MECHANISM, NEC (13) Malnutrition Code(s): E46 - UNSPECIFIED PROTEIN-CALORIE MALNUTRITION (14) Muscle weakness (generalized) Code(s): M62.81 - MUSCLE WEAKNESS (GENERALIZED) (15) Physical deconditioning Code(s): R53.81 - OTHER MALAISE (16) Syncope Code(s): R55 - SYNCOPE AND COLLAPSE Qualifiers: Syncope type: unspecified Qualified Code(s): R55 - Syncope and collapse (17) Chronic kidney disease Code(s): N18.9 - CHRONIC KIDNEY DISEASE, UNSPECIFIED (18) Volume depletion Code(s): E86.9 - VOLUME DEPLETION, UNSPECIFIED (19) Orthostatic hypotension Code(s): I95.1 - ORTHOSTATIC HYPOTENSION (20) Hypomagnesemia Code(s): E83.42 - HYPOMAGNESEMIA Assessment/Plan Assessment/plan: acute presyncope, acute orthostatic hypotension, acute volume depletion, acute hypomagnesemi acute on chronic anemia, acute generalized muscle weakness, gout, intraductal papillary neoplasm of pancreas, HTN, HLD, CKD; IV fluids, DVT/GI prophylaxis, Niferex, Protonix, oral Tylenol, Colchicine, Allopurinol, Atorvastatin, IV magnesium sulfate, out of bed in chair as tolerated.
[2020-04-13] MEDS: LACTATED RINGERS SOLUTION 1,000 ML/1,000 ML INFUS.BAG IV SCH (17:26)
[2020-04-13] MEDS ORDERED: MAGNESIUM SULF 50% (8.12 MEQ/2 ML-1 GM VIAL) IVPB ONE (17:35)
[2020-04-13] MEDS: ENOXAPARIN NA (PORCINE) 30 MG/0.3 ML DISP.SYRIN SQ SCH (18:26)
[2020-04-13] MEDS: PANTOPRAZOLE 40 MG TABLET PO SCH (18:27)
[2020-04-13] MEDS ORDERED: PANTOPRAZOLE 40 MG TABLET ONE (18:46)
[2020-04-13] MEDS ORDERED: ENOXAPARIN NA (PORCINE) 30 MG/0.3 ML DISP.SYRIN SQ ONE ×2 (18:46→18:52)
[2020-04-13] MEDS: ATORVASTATIN CA 80 MG TABLET (FP) PO SCH (21:09)
[2020-04-13] MEDS: CHOLECALCIFEROL (VIT D3) 1,000 UNIT (25 MCG) TABLET PO SCH (21:09)
[2020-04-13] MEDS: FE POLYSAC/CYANOCOBAL/FA COMBO CAPSULE PO SCH (21:09)
--- NOTE | 2020-04-14 05:07 | PN ---
Progress Note, Physician Chief Complaint: Patient seen and examined at the bedside, no acute events from last night, generalized muscle weakness. History of Present Illness: This 74 yr old w/m with PMH of chronic anemia, HTN, HLD, gout admitted via ER with an acute exacerbation of dizziness, generalized muscle weakness, and presyncope. - Current Medication List Current Medications: Active Medications Acetaminophen (Tylenol -) 650 mg PO Q4H PRN PRN Reason: MODERATE PAIN Allopurinol (Zyloprim -) 100 mg PO DAILY [facility] Atorvastatin Calcium (Lipitor -) 80 mg PO HS [facility] Last Admin: 04/13/20 21:09 Dose: 80 mg Documented by: B12/Folic Ac/Intrin Fact/Iron/Vit C (Niferex-150 Forte -) 1 each PO DAILY [facility] Last Admin: 04/13/20 21:09 Dose: 1 each Documented by: Cholecalciferol (Vitamin D3 -) 5,000 unit PO DAILY [facility] Last Admin: 04/13/20 21:09 Dose: 5,000 unit Documented by: Colchicine (Colcrys) 0.3 mg PO DAILY [facility] Enoxaparin Sodium (Lovenox -) 30 mg SQ DAILY [facility] Last Admin: 04/13/20 18:26 Dose: 30 mg Documented by: Lactated Ringer's (Lactated Ringers Solution) 1,000 ml in 1,000 mls @ 75 mls/hr IV ASDIR [facility] Last Admin: 04/13/20 17:26 Dose: 75 mls/hr Documented by: Pantoprazole Sodium (Protonix -) 40 mg PO DAILY [facility] Last Admin: 04/13/20 18:27 Dose: 40 mg Documented by: - Objective Vital Signs: Vital Signs Temperature 99.0 F 04/14/20 01:20 Pulse Rate 74 04/14/20 01:20 Respiratory Rate 16 04/14/20 01:20 Blood Pressure 139/73 04/14/20 01:20 O2 Sat by Pulse Oximetry (%) 98 04/14/20 01:20 Constitutional: Yes: No Distress, Calm, Thin Eyes: Yes: Conjunctiva Clear, EOM Intact HENT: Yes: Atraumatic, Normocephalic Neck: Yes: Supple, Trachea Midline Cardiovascular: Yes: Regular Rate and Rhythm Respiratory: Yes: Regular, CTA Bilaterally Gastrointestinal: Yes: Normal Bowel Sounds, Soft ...Rectal Exam: Yes: Deferred Genitourinary: Yes: WNL Breast(s): Yes: WNL Musculoskeletal: Yes: Muscle Weakness Extremities: Yes: WNL Edema: No Peripheral Pulses WNL: Yes Integumentary: Yes: WNL Neurological: Yes: Alert, Oriented, Unsteady Gait, Weakness ...Motor Strength: LUE (generalized muscle weakness of all extremities) Psychiatric: Yes: WNL Labs: CBC, BMP 04/13/20 14:50 04/13/20 14:50 INR, PTT INR 1.30 (0.83-1.09) H 04/13/20 14:50 - ....Imaging Other: Report Reviewed (lab data reviewed) Problem List - Problems (1) BOUCHRA (acute kidney injury) Code(s): N17.9 - ACUTE KIDNEY FAILURE, UNSPECIFIED (2) Symptomatic anemia Code(s): D64.9 - ANEMIA, UNSPECIFIED (3) Anemia Code(s): D64.9 - ANEMIA, UNSPECIFIED (4) Cholelithiasis Code(s): K80.20 - CALCULUS OF GALLBLADDER W/O CHOLECYSTITIS W/O OBSTRUCTION (5) Gait abnormality Code(s): R26.9 - UNSPECIFIED ABNORMALITIES OF GAIT AND MOBILITY (6) History of bilateral inguinal hernia repair Code(s): Z98.890 - OTHER SPECIFIED POSTPROCEDURAL STATES; Z87.19 - PERSONAL HISTORY OF OTHER DISEASES OF THE DIGESTIVE SYSTEM (7) Hyperlipidemia Code(s): E78.5 - HYPERLIPIDEMIA, UNSPECIFIED (8) Hypertension Code(s): I10 - ESSENTIAL (PRIMARY) HYPERTENSION (9) Hypoalbuminemia Code(s): E88.09 - OTH DISORDERS OF PLASMA-PROTEIN METABOLISM, NEC (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(s): D49.0 - NEOPLASM OF UNSPECIFIED BEHAVIOR OF DIGESTIVE SYSTEM (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): D49.0 - NEOPLASM OF UNSPECIFIED BEHAVIOR OF DIGESTIVE SYSTEM (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(s): D89.89 - OTH DISRD INVOLVING THE IMMUNE MECHANISM, NEC (13) Malnutrition Code(s): E46 - UNSPECIFIED PROTEIN-CALORIE MALNUTRITION (14) Muscle weakness (generalized) Code(s): M62.81 - MUSCLE WEAKNESS (GENERALIZED) (15) Physical deconditioning Code(s): R53.81 - OTHER MALAISE (16) Syncope Code(s): R55 - SYNCOPE AND COLLAPSE Qualifiers: Syncope type: unspecified Qualified Code(s): R55 - Syncope and collapse (17) Chronic kidney disease Code(s): N18.9 - CHRONIC KIDNEY DISEASE, UNSPECIFIED (18) Volume depletion Code(s): E86.9 - VOLUME DEPLETION, UNSPECIFIED (19) Orthostatic hypotension Code(s): I95.1 - ORTHOSTATIC HYPOTENSION (20) Hypomagnesemia Code(s): E83.42 - HYPOMAGNESEMIA Assessment/Plan Assessment/plan: acute dizziness, acute generalized muscle weakness, acute presyncope, acute hypotension, acute volume depletion, acute prerenal azotemia, acute on chronic anemia, acute hypomagnesemia, gout, 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
[2020-04-14 08:20] LABS: BASO % 0.5 % (0-2.0); EOS % 0.1 % (0-4.5); HEMATOCRIT 20.6 % (35.4-49); LYMPH % 14.2 % (8-40); MCH 25.7 pg (25.7-33.7); MCHC 33.8 g/dl (32.0-35.9); MEAN PLT VOLUME 9.3 fl (7.5-11.1); MONO % 25.4 % (3.8-10.2); NEUT % 59.8 % (42.8-82.8); PLATELET COUNT 269 K/MM3 (134-434); RBC 2.72 M/mm3 (4.00-5.60); RDW 18.1 % (11.9-15.9); WHITE BLOOD COUNT 5.6 K/mm3 (4.0-10.0)
[2020-04-14 08:23] LABS: ALBUMIN 2.6 g/dl (3.4-5.0); BILIRUBIN,TOTAL 0.5 mg/dL (0.2-1); BLOOD UREA NITROGEN 33.8 mg/dL (7-18); CALCIUM 8.5 mg/dL (8.5-10.1); CREATININE 1.6 mg/dL (0.55-1.3); MAGNESIUM 1.8 mg/dL (1.8-2.4); POTASSIUM 4.4 mmol/L (3.5-5.1); TOT PROT 6.9 g/dl (6.4-8.2)
[2020-04-14] MEDS ORDERED: PANTOPRAZOLE 40 MG TABLET ONE (09:11)
[2020-04-14] MEDS: ALLOPURINOL 100 MG TABLET (FP) PO SCH (09:37)
[2020-04-14] MEDS: PANTOPRAZOLE 40 MG TABLET PO SCH (09:37)
[2020-04-14] MEDS: FE POLYSAC/CYANOCOBAL/FA COMBO CAPSULE PO SCH (09:37)
[2020-04-14] MEDS: CHOLECALCIFEROL (VIT D3) 1,000 UNIT (25 MCG) TABLET PO SCH (09:37)
[2020-04-14] MEDS ORDERED: COLCHICINE 0.6 MG CAP ONE (10:25)
[2020-04-14] MEDS ORDERED: ENOXAPARIN NA (PORCINE) 30 MG/0.3 ML DISP.SYRIN SQ ONE (10:25)
[2020-04-14] MEDS: ENOXAPARIN NA (PORCINE) 30 MG/0.3 ML DISP.SYRIN SQ SCH (10:47)
[2020-04-14] MEDS: COLCHICINE 0.6 MG CAP PO SCH (12:24)
[2020-04-14] MEDS: ACETAMINOPHEN 325 MG TABLET (FP) PO PRN ×2 (12:34→20:17)
[2020-04-14 15:55] LABS: ANISOCYTOSIS 3+; MACROCYTOSIS 0; OVALOCYTE 2+; PLATELET ESTIMATE NORMAL
[2020-04-14] MEDS: LACTATED RINGERS SOLUTION 1,000 ML/1,000 ML INFUS.BAG IV SCH (17:03)
[2020-04-14] MEDS: ATORVASTATIN CA 80 MG TABLET (FP) PO SCH (22:44)
--- NOTE | 2020-04-15 06:43 | PN ---
Progress Note, Physician Chief Complaint: Patient seen and examined at the bedside, no acute events from last night, dizziness improved. History of Present Illness: This 74 yr old male with PMH of HTN, HLD, gout, and chronic anemia admitted via ER with an acute dizziness, presyncope, generalized muscle weakn ess, volume depletion, and prerenal azotemia. - Current Medication List Current Medications: Active Medications Acetaminophen (Tylenol -) 650 mg PO Q4H PRN PRN Reason: MODERATE PAIN Last Admin: 04/14/20 20:17 Dose: 650 mg Documented by: Allopurinol (Zyloprim -) 100 mg PO DAILY [facility] Last Admin: 04/14/20 09:37 Dose: 100 mg Documented by: Atorvastatin Calcium (Lipitor -) 80 mg PO HS [facility] Last Admin: 04/14/20 22:44 Dose: 80 mg Documented by: Cholecalciferol (Vitamin D3 -) 5,000 unit PO DAILY [facility] Last Admin: 04/14/20 09:37 Dose: 5,000 unit Documented by: Colchicine (Colcrys) 0.3 mg PO DAILY [facility] Last Admin: 04/14/20 12:24 Dose: Not Given Documented by: Enoxaparin Sodium (Lovenox -) 30 mg SQ DAILY [facility] Last Admin: 04/14/20 10:47 Dose: 30 mg Documented by: Lactated Ringer's (Lactated Ringers Solution) 1,000 ml in 1,000 mls @ 75 mls/hr IV ASDIR [facility] Last Admin: 04/14/20 17:03 Dose: 75 mls/hr Documented by: Pantoprazole Sodium (Protonix -) 40 mg PO DAILY [facility] Last Admin: 04/14/20 09:37 Dose: 40 mg Documented by: - Objective Vital Signs: Vital Signs Temperature 98.7 F 04/15/20 04:07 Pulse Rate 67 04/15/20 04:07 Respiratory Rate 17 04/15/20 04:07 Blood Pressure 152/79 04/15/20 04:07 O2 Sat by Pulse Oximetry (%) 96 04/14/20 21:00 Constitutional: Yes: Well Nourished, No Distress, Calm Eyes: Yes: Conjunctiva Clear, EOM Intact HENT: Yes: Atraumatic, Normocephalic Neck: Yes: Supple, Trachea Midline Cardiovascular: Yes: Regular Rate and Rhythm Respiratory: Yes: Regular, CTA Bilaterally Gastrointestinal: Yes: Normal Bowel Sounds, Soft ...Rectal Exam: Yes: Deferred Genitourinary: Yes: WNL Breast(s): Yes: WNL Musculoskeletal: Yes: Muscle Weakness Extremities: Yes: Other (gout) Edema: No Peripheral Pulses WNL: Yes Integumentary: Yes: WNL Neurological: Yes: Alert, Oriented ...Motor Strength: LUE (generalized muscle weakness of all extremities) Psychiatric: Yes: Alert, Oriented Labs: CBC, BMP 04/14/20 07:01 04/14/20 07:01 INR, PTT INR 1.30 (0.83-1.09) H 04/13/20 14:50 - ....Imaging Other: Report Reviewed (lab data reviewed) Problem List - Problems (1) BOUCHRA (acute kidney injury) Code(s): N17.9 - ACUTE KIDNEY FAILURE, UNSPECIFIED (2) Symptomatic anemia Code(s): D64.9 - ANEMIA, UNSPECIFIED (3) Anemia Code(s): D64.9 - ANEMIA, UNSPECIFIED (4) Cholelithiasis Code(s): K80.20 - CALCULUS OF GALLBLADDER W/O CHOLECYSTITIS W/O OBSTRUCTION (5) Gait abnormality Code(s): R26.9 - UNSPECIFIED ABNORMALITIES OF GAIT AND MOBILITY (6) History of bilateral inguinal hernia repair Code(s): Z98.890 - OTHER SPECIFIED POSTPROCEDURAL STATES; Z87.19 - PERSONAL H ISTORY OF OTHER DISEASES OF THE DIGESTIVE SYSTEM (7) Hyperlipidemia Code(s): E78.5 - HYPERLIPIDEMIA, UNSPECIFIED (8) Hypertension Code(s): I10 - ESSENTIAL (PRIMARY) HYPERTENSION (9) Hypoalbuminemia Code(s): E88.09 - OTH DISORDERS OF PLASMA-PROTEIN METABOLISM, NEC (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(s): D49.0 - NEOPLASM OF UNSPECIFIED BEHAVIOR OF DIGESTIVE SYSTEM (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): D49.0 - NEOPLASM OF UNSPECIFIED BEHAVIOR OF DIGESTIVE SYSTEM (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(s): D89.89 - OTH DISRD INVOLVING THE IMMUNE MECHANISM, NEC (13) Malnutrition Code(s): E46 - UNSPECIFIED PROTEIN-CALORIE MALNUTRITION (14) Muscle weakness (generalized) Code(s): M62.81 - MUSCLE WEAKNESS (GENERALIZED) (15) Physical deconditioning Code(s): R53.81 - OTHER MALAISE (16) Syncope Code(s): R55 - SYNCOPE AND COLLAPSE Qualifiers: Syncope type: unspecified Qualified Code(s): R55 - Syncope and collapse (17) Chronic kidney disease Code(s): N18.9 - CHRONIC KIDNEY DISEASE, UNSPECIFIED (18) Volume depletion Code(s): E86.9 - VOLUME DEPLETION, UNSPECIFIED (19) Orthostatic hypotension Code(s): I95.1 - ORTHOSTATIC HYPOTENSION (20) Hypomagnesemia Code(s): E83.42 - HYPOMAGNESEMIA Assessment/Plan Assessment/plan: acute dizziness, acute presyncope, acute generalized muscle wekness, acute exacerbation of anemia, volume depletion, prerenal azotemia, gout, HLD, HTN; IV fluids, blood transfusion, DVT/GI prophylaxis, out of bed in chair as tolerated, Atorvastatin, Tylenol, Colchicine and Allopurinol for gout.
[2020-04-15] MEDS: PANTOPRAZOLE 40 MG TABLET PO SCH (09:14)
[2020-04-15] MEDS: ALLOPURINOL 100 MG TABLET (FP) PO SCH (09:14)
[2020-04-15] MEDS: ENOXAPARIN NA (PORCINE) 30 MG/0.3 ML DISP.SYRIN SQ SCH (09:14)
[2020-04-15] MEDS: CHOLECALCIFEROL (VIT D3) 1,000 UNIT (25 MCG) TABLET PO SCH (09:14)
[2020-04-15] MEDS: COLCHICINE 0.6 MG CAP PO SCH (09:14)
[2020-04-15] MEDS: ACETAMINOPHEN 325 MG TABLET (FP) PO PRN ×2 (09:16→20:47)
[2020-04-15 11:01] LABS: BASO % 0.6 % (0-2.0); EOS % 0.3 % (0-4.5); HEMATOCRIT 27.9 % (35.4-49); HEMOGLOBIN 9.1 GM/dL (11.7-16.9); LYMPH % 10.5 % (8-40); MCH 25.4 pg (25.7-33.7); MCHC 32.7 g/dl (32.0-35.9); MEAN CELL VOLUME 77.5 fl (80-96); MEAN PLT VOLUME 9.6 fl (7.5-11.1); MONO % 25.6 % (3.8-10.2); PLATELET COUNT 275 K/MM3 (134-434); RDW 16.5 % (11.9-15.9); WHITE BLOOD COUNT 5.7 K/mm3 (4.0-10.0)
[2020-04-15 11:25] LABS: ALBUMIN 2.5 g/dl (3.4-5.0); BILIRUBIN,TOTAL 0.7 mg/dL (0.2-1); BLOOD UREA NITROGEN 29.8 mg/dL (7-18); CALCIUM 8.2 mg/dL (8.5-10.1); CREATININE 1.6 mg/dL (0.55-1.3); POTASSIUM 4.4 mmol/L (3.5-5.1); TOT PROT 6.6 g/dl (6.4-8.2)
[2020-04-15 12:24] LABS: ANISOCYTOSIS 1+; MACROCYTOSIS 0; OVALOCYTE 1+; PLATELET ESTIMATE NORMAL; TEAR DROP CELLS 1+
[2020-04-15] MEDS: ATORVASTATIN CA 80 MG TABLET (FP) PO SCH (21:09)
[2020-04-16 07:51] LABS: BASO % 0.7 % (0-2.0); EOS % 0.2 % (0-4.5); HEMATOCRIT 26.8 % (35.4-49); LYMPH % 15.4 % (8-40); MCH 26.1 pg (25.7-33.7); MCHC 33.5 g/dl (32.0-35.9); MEAN CELL VOLUME 77.9 fl (80-96); MEAN PLT VOLUME 9.8 fl (7.5-11.1); MONO % 27.7 % (3.8-10.2); PLATELET COUNT 307 K/MM3 (134-434); RBC 3.44 M/mm3 (4.00-5.60); RDW 16.5 % (11.9-15.9); WHITE BLOOD COUNT 4.8 K/mm3 (4.0-10.0)
[2020-04-16 07:57] LABS: ALBUMIN 2.3 g/dl (3.4-5.0); BILIRUBIN,TOTAL 0.9 mg/dL (0.2-1); BLOOD UREA NITROGEN 26.4 mg/dL (7-18); CALCIUM 8.2 mg/dL (8.5-10.1); CREATININE 1.5 mg/dL (0.55-1.3); POTASSIUM 4.4 mmol/L (3.5-5.1); TOT PROT 6.3 g/dl (6.4-8.2)
--- NOTE | 2020-04-16 08:19 | PN ---
Progress Note, Physician Chief Complaint: Patient seen and examined at the bedside, no acute events from last night, feels stronger, no dizziness. History of Present Illness: This 74 yr old male with PMH of HTN, HLG, gout, chronic anemia, mucinous papillary neoplasm of the pancreas admitted via ER with an acute dizziness, generalized weakness and presyncope. - Current Medication List Current Medications: Active Medications Acetaminophen (Tylenol -) 650 mg PO Q4H PRN PRN Reason: MODERATE PAIN Last Admin: 04/15/20 20:47 Dose: 650 mg Documented by: Allopurinol (Zyloprim -) 100 mg PO DAILY [facility] Last Admin: 04/15/20 09:14 Dose: 100 mg Documented by: Atorvastatin Calcium (Lipitor -) 80 mg PO HS [facility] Last Admin: 04/15/20 21:09 Dose: 80 mg Documented by: Cholecalciferol (Vitamin D3 -) 5,000 unit PO DAILY [facility] Last Admin: 04/15/20 09:14 Dose: 5,000 unit Documented by: Colchicine (Colcrys) 0.3 mg PO DAILY [facility] Last Admin: 04/15/20 09:14 Dose: Not Given Documented by: Enoxaparin Sodium (Lovenox -) 30 mg SQ DAILY [facility] Last Admin: 04/15/20 09:14 Dose: 30 mg Documented by: Lactated Ringer's (Lactated Ringers Solution) 1,000 ml in 1,000 mls @ 75 mls/hr IV ASDIR [facility] Last Admin: 04/14/20 17:03 Dose: 75 mls/hr Documented by: Pantoprazole Sodium (Protonix -) 40 mg PO DAILY [facility] Last Admin: 04/15/20 09:14 Dose: 40 mg Documented by: - Objective Vital Signs: Vital Signs Temperature 98.4 F 04/16/20 06:00 Pulse Rate 59 L 04/16/20 06:00 Respiratory Rate 18 04/16/20 06:00 Blood Pressure 140/76 04/16/20 06:00 O2 Sat by Pulse Oximetry (%) 98 04/15/20 21:00 Constitutional: Yes: Well Nourished, No Distress, Calm Eyes: Yes: Conjunctiva Clear, EOM Intact HENT: Yes: Atraumatic, Normocephalic Neck: Yes: Supple, Trachea Midline Cardiovascular: Yes: Regular Rate and Rhythm Respiratory: Yes: Regular, CTA Bilaterally Gastrointestinal: Yes: Normal Bowel Sounds, Soft ...Rectal Exam: Yes: Deferred Genitourinary: Yes: WNL Breast(s): Yes: WNL Musculoskeletal: Yes: Muscle Weakness Edema: No Peripheral Pulses WNL: Yes Integumentary: Yes: WNL Neurological: Yes: Alert, Unsteady Gait, Weakness ...Motor Strength: WNL Psychiatric: Yes: WNL Labs: CBC, BMP 04/16/20 06:25 04/16/20 06:25 INR, PTT INR 1.30 (0.83-1.09) H 04/13/20 14:50 - ....Imaging Other: Report Reviewed (lab data reviewed) Problem List - Problems (1) BOUCHRA (acute kidney injury) Code(s): N17.9 - ACUTE KIDNEY FAILURE, UNSPECIFIED (2) Symptomatic anemia Code(s): D64.9 - ANEMIA, UNSPECIFIED (3) Anemia Code(s): D64.9 - ANEMIA, UNSPECIFIED (4) Cholelithiasis Code(s): K80.20 - CALCULUS OF GALLBLADDER W/O CHOLECYSTITIS W/O OBSTRUCTION (5) Gait abnormality Code(s): R26.9 - UNSPECIFIED ABNORMALITIES OF GAIT AND MOBILITY (6) History of bilateral inguinal hernia repair Code(s): Z98.890 - OTHER SPECIFIED POSTPROCEDURAL STATES; Z87.19 - PERSONAL HISTORY OF OTHER DISEASES OF THE DIGESTIVE SYSTEM (7) Hyperlipidemia Code(s): E78.5 - HYPERLIPIDEMIA, UNSPECIFIED (8) Hypertension Code(s): I10 - ESSENTIAL (PRIMARY) HYPERTENSION (9) Hypoalbuminemia Code(s): E88.09 - OTH DISORDERS OF PLASMA-PROTEIN METABOLISM, NEC (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(s): D49.0 - NEOPLASM OF UNSPECIFIED BEHAVIOR OF DIGESTIVE SYSTEM (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): D49.0 - NEOPLASM OF UNSPECIFIED BEHAVIOR OF DIGESTIVE SYSTEM (12) [place]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 Code(s): D89.89 - OTH DISRD INVOLVING THE IMMUNE MECHANISM, NEC (13) Malnutrition Code(s): E46 - UNSPECIFIED PROTEIN-CALORIE MALNUTRITION (14) Muscle weakness (generalized) Code(s): M62.81 - MUSCLE WEAKNESS (GENERALIZED) (15) Physical deconditioning Code(s): R53.81 - OTHER MALAISE (16) Syncope Code(s): R55 - SYNCOPE AND COLLAPSE Qualifiers: Syncope type: unspecified Qualified Code(s): R55 - Syncope and collapse (17) Chronic kidney disease Code(s): N18.9 - CHRONIC KIDNEY DISEASE, UNSPECIFIED (18) Volume depletion Code(s): E86.9 - VOLUME DEPLETION, UNSPECIFIED (19) Orthostatic hypotension Code(s): I95.1 - ORTHOSTATIC HYPOTENSION (20) Hypomagnesemia Code(s): E83.42 - HYPOMAGNESEMIA Assessment/Plan Assessment/plan: acute dizziness, acute generalized muscle weakness, acute presyncope, HTN, HLD, gout, acute exacerbation of chronic anemia, acute volume depletion, acute prerenal azotemia, mucinous papillary neoplasm of the pancreas; IV fluids, DVT/GI prophylaxis, out of bed in chair as tolerated, physical therapy.
[2020-04-16] MEDS: ALLOPURINOL 100 MG TABLET (FP) PO SCH (09:42)
[2020-04-16] MEDS: CHOLECALCIFEROL (VIT D3) 1,000 UNIT (25 MCG) TABLET PO SCH (09:42)
[2020-04-16] MEDS: PANTOPRAZOLE 40 MG TABLET PO SCH (09:42)
[2020-04-16] MEDS: ENOXAPARIN NA (PORCINE) 30 MG/0.3 ML DISP.SYRIN SQ SCH (09:45)
[2020-04-16] MEDS ORDERED: COLCHICINE 0.6 MG PO SCH (10:30)
[2020-04-16 11:58] LABS: ANISOCYTOSIS 1+; MACROCYTOSIS 1+; PLATELET ESTIMATE NORMAL; TEAR DROP CELLS 1+
[2020-04-16] MEDS: LACTATED RINGERS SOLUTION 1,000 ML/1,000 ML INFUS.BAG IV SCH (12:15)
[2020-04-16] MEDS: COLCHICINE 0.6 MG CAP PO SCH (12:31)
[2020-04-16] MEDS: ACETAMINOPHEN 325 MG TABLET (FP) PO PRN ×2 (12:56→21:11)
[2020-04-16] MEDS: ATORVASTATIN CA 80 MG TABLET (FP) PO SCH (21:05)
--- NOTE | 2020-04-17 08:32 | DS ---
Physical Examination Vital Signs: Vital Signs Temperature 98.3 F 04/17/20 06:00 Pulse Rate 53 L 04/17/20 06:00 Respiratory Rate 18 04/17/20 06:00 Blood Pressure 146/76 04/17/20 06:00 O2 Sat by Pulse Oximetry (%) 98 04/16/20 21:00 Constitutional: Yes: Well Nourished, No Distress, Calm Eyes: Yes: Conjunctiva Clear, EOM Intact HENT: Yes: Atraumatic, Normocephalic Neck: Yes: Supple, Trachea Midline Cardiovascular: Yes: Regular Rate and Rhythm Respiratory: Yes: Regular, CTA Bilaterally Gastrointestinal: Yes: Normal Bowel Sounds, Soft ...Rectal Exam: Yes: Deferred Renal/: Yes: WNL Breast(s): Yes: WNL Musculoskeletal: Yes: WNL Extremities: Yes: WNL Edema: No Peripheral Pulses WNL: Yes Integumentary: Yes: WNL Neurological: Yes: WNL ...Motor Strength: WNL Psychiatric: Yes: WNL Labs: CBC, BMP 04/16/20 06:25 04/16/20 06:25 Discharge Summary Problems reviewed: Yes Reason For Visit: ACUTE KIDNEY INJURY ANEMIA Current Active Problems BOUCHRA (acute kidney injury) (Acute) Chronic kidney disease (Acute) Hypomagnesemia (Acute) Orthostatic hypotension (Acute) Symptomatic anemia (Acute) Volume depletion (Acute) Condition: Stable - Instructions Diet, Activity, Other Instructions: Continue home medications. Activity as tolerated. Follow up with Dr. Monsivais within one week. Total time spent over 30 minutes. Referrals: Jose Daniel Monreal [Primary Care Provider] - Disposition: HOME - Home Medications Comprehensive Discharge Medication List: Ambulatory Orders Allopurinol [Zyloprim -] 100 mg PO DAILY 10/01/19 Atorvastatin Calcium 80 mg PO HS 10/01/19 Colchicine 0.3 tab PO DAILY 10/01/19 Ergocalciferol [Vitamin D2] 50,000 unit PO Q7D@1000 10/01/19 Acetaminophen [Tylenol .Regular Strength -] 1,000 mg PO Q6H PRN 10/20/19 Acetaminophen [Tylenol .Extra-Strength -] 500 mg PO Q4H PRN tablet 10/29/19 Acetaminophen [Tylenol .Regular Strength -] 650 mg PO Q4H PRN tablet 04/17/20 Allopurinol [Zyloprim -] 100 mg PO DAILY tablet 04/17/20 Atorvastatin Ca [Lipitor] 80 mg PO HS tablet 04/17/20 Colchicine [Colcrys] 0.3 mg PO DAILY cap 04/17/20 Pantoprazole Sodium [Protonix -] 40 mg PO DAILY tablet.ec 04/17/20
[2020-04-17 08:50] VITALS: PULSE 82; TEMP 98
[2020-04-17] MEDS ORDERED: PT OWN MED DRAWER 7, Y5N ONE ×2 (09:36→11:14)
[2020-04-17] MEDS: ALLOPURINOL 100 MG TABLET (FP) PO SCH (09:44)
[2020-04-17] MEDS: PANTOPRAZOLE 40 MG TABLET PO SCH (09:44)
[2020-04-17] MEDS: ENOXAPARIN NA (PORCINE) 30 MG/0.3 ML DISP.SYRIN SQ SCH (09:44)
[2020-04-17] MEDS: CHOLECALCIFEROL (VIT D3) 1,000 UNIT (25 MCG) TABLET PO SCH (09:45)
[2020-04-17 09:55] VITALS: BP 145/76
[2020-04-17] MEDS ORDERED: COLCHICINE 0.6 MG TAB PO SCH (09:57)
== END 2020-04-17 16:55 | disposition home or self-care (01) | DRG 683 ==
LOC: JER 13:20 → JERBED 16:36 → J7W 04-14 11:21
PROVIDERS: ADMIT Internal Medicine; ATTEND Internal Medicine
PROC: 30233N1 Transfusion of Nonautologous Red Blood Cells into Peripheral Vein, Percutaneous Approach (ICD-10-PCS; principal; 2020-04-14)
DX: N17.9 Acute kidney failure, unspecified (principal); E46 Unspecified protein-calorie malnutrition; Z68.21 Body mass index [BMI] 21.0-21.9, adult; D64.9 Anemia, unspecified; D13.6 Benign neoplasm of pancreas; N18.9 Chronic kidney disease, unspecified; E83.42 Hypomagnesemia; I95.1 Orthostatic hypotension; E86.9 Volume depletion, unspecified; I12.9 Hypertensive chronic kidney disease with stage 1 through stage 4 chronic kidney disease, or unspecified chronic kidney disease; R53.1 Weakness; E78.5 Hyperlipidemia, unspecified; M10.00 Idiopathic gout, unspecified site; R26.9 Unspecified abnormalities of gait and mobility
CPT/HCPCS: 36415; 36430; 36511; 71045-TC-FY; 80053; 81003; 82272; 82550; 82728; 82962; 83540; 83550; 83735; 84484; 85025; 85044; 85610; 85730; 86850; 86870; 86900; 86901; 86902; 86922; 93005; 93010; 97116-GP; 97161-GP; 99285-25; P9038; P9058; U0003

== ENCOUNTER 2020-05-01 16:17 | Inpatient (IN) | payer OTHER, BC ==
[2020-05-01] MEDS ORDERED: SODIUM CHLORIDE 0.9% 500 ML INFUS.BAG IV ONE (17:54)
[2020-05-01] MEDS ORDERED: SODIUM CHLORIDE 1,701 ML IV ONE (18:06)
[2020-05-01] MEDS ORDERED: VANCOMYCIN 1,250 MG in DEXTROSE 5%-WATER - 250 ML IVPB ONE (18:55)
[2020-05-01] MEDS ORDERED: ACETAMINOPHEN 1000 MG/100 ML VIAL (NON FORMULARY) IVPB ONE (18:55)
--- NOTE | 2020-05-01 18:55 | PDOC ---
Attending Attestation - Resident Resident Name: HarisjennyGopi - ED Attending Attestation I have performed the following: I have examined & evaluated the patient, The case was reviewed & discussed with the resident, I agree w/resident's findings & plan - HPI HPI: 05/01/20 18:51 74-year-old male with a history of high blood pressure, gout, anemia who was recently discharged from the hospital last month after an extended stay for weight loss, anemia and questionable neoplasm of the pancreas. presents today for weakness Patient has been taking his allopurinol and colchicine for his gout. - Physicial Exam PE: 05/01/20 18:52 Agree with the resident's HPI and PE as documented in the electronic medical record. malaised and frail appearing. EOMI, PERRL, pale conjunctiva, anicteric; neck supple. lungs clear, tachycardic. abdomen soft nontender. No rebound, no guarding. Back nontender. REED x4, no focal neuro deficits. No peripheral edema. jaundiced skin, WWP. +right elbow erythema and mass lesion, soft, mobile, nontender +right lateral knee erythema, warmth and tenderness +right medial malleolar tenderness, erythema and warmth. +right thumb tophus, swollen thumb and erythema, warmth 05/01/20 18:57 05/01/20 18:57 - Medical Decision Making 05/01/20 18:54 Vital Signs Temp Pulse Resp BP Pulse Ox 100.4 F H 133 H 170/116 H 99 05/01/20 18:00 05/01/20 16:36 05/01/20 16:36 05/01/20 17:58 Vital signs reviewed patient is febrile 100.4 rectally, tachycardic and hypertensive, patient does have pain in multiple joints. He does have a history of gout and could be having a gout flareup in multiple extremities We will pursue septic work-up, lactic, basic labs and cultures, urinalysis and culture fever here, tylenol and sepsis bolus 30cc/kg. Antibiotics will be indicated, will evaluate for source, most likely soft tissue infection (vs gouty flare) IV vancomycin now for empiric coverage of soft tissue infection admission is likely s/o to Dr Jimenez pending continued workup 05/01/20 18:54 05/01/20 18:56 05/01/20 18:58 Heart Score/ECG Review #1 ECG reviewed & interpreted by me at: 18:15 General ECG Interpretation: Sinus Rhythm, Normal Intervals Compared to previous ECG there are: No significant change 05/01/20 18:56 EKG sinus tachycardia 103 bpm, no interval abnormalities, narrow QRS, ST and T wave segments and morphology normal. Nonspecific T wave abnormalities Discharge - Discharge Information Problems reviewed: Yes Clinical Impression/Diagnosis: Fever Qualifiers: Fever type: unspecified Qualified Code(s): R50.9 - Fever, unspecified Gout Qualifiers: Gout site: multiple sites Gout etiology: unspecified cause Chronicity: unspecified Qualified Code(s): M10.9 - Gout, unspecified Anemia Qualifiers: Anemia type: other cause Other causes of anemia: other cause, not classified Qualified Code(s): D64.89 - Other specified anemias Condition: Fair - Admission Yes - Follow up/Referral - Patient Discharge Instructions - Post Discharge Activity
[2020-05-01 18:56] LABS: MCH 24.9 pg (25.7-33.7); MCHC 31.8 g/dl (32.0-35.9); MEAN CELL VOLUME 78.3 fl (80-96); RBC 2.81 M/mm3 (4.00-5.60); RDW 16.2 % (11.9-15.9)
[2020-05-01] MEDS ORDERED: ACETAMINOPHEN INJECTION 100 ML IVPB ONE (19:03)
[2020-05-01 19:08] LABS: INR 1.28 (0.83-1.09); PROTHROMBIN TIME (PATIENT) 15.2 SEC (9.7-13.0)
[2020-05-01 19:13] LABS: ALBUMIN 2.4 g/dl (3.4-5.0); BILIRUBIN,TOTAL 0.8 mg/dL (0.2-1); BLOOD UREA NITROGEN 63.8 mg/dL (7-18); CALCIUM 8.8 mg/dL (8.5-10.1); CREATININE 1.8 mg/dL (0.55-1.3); POTASSIUM 3.9 mmol/L (3.5-5.1); TOT PROT 7.8 g/dl (6.4-8.2)
[2020-05-01 19:39] LABS: WHITE BLOOD COUNT 17.4 K/mm3 (4.0-10.0)
--- NOTE | 2020-05-01 19:58 | PDOC ---
History of Present Illness - General Chief Complaint: Weakness Stated Complaint: WEAKNESS Time Seen by Provider: 05/01/20 17:21 History Source: Patient - History of Present Illness Initial Comments: 05/01/20 19:52 74yo M w/PMH anemia, gout, HTN, HLD, ?pancreatic neoplasm diagnosed last admission, hernia repair, dementia, who presents with weakness and inablility to get out of bed for three days. Patient states that he began feeling weak three days ago and was on the floor for two days. He states he was unable to get up, but he was not found to have soiled himself. States nothing to eat or drink for two days. Denies any other symptoms. Denies joint pain. Denies f/c. PMH/PSH as above: Meds: no changes since recent discharge Allergies: no changes since recent discharge Tob: denies Etoh: denies Rec drugs: denies PCP: Anitra (spelling? first name?) ROS GENERAL/CONSTITUTIONAL: No fever or chills. + weakness. HEAD, EYES, EARS, NOSE AND THROAT: No ear pain or discharge. No sore throat. CARDIOVASCULAR: No chest pain or shortness of breath RESPIRATORY: No cough, wheezing, or hemoptysis. GASTROINTESTINAL: No nausea, vomiting, diarrhea or constipation. GENITOURINARY: No dysuria, frequency, or change in urination. MUSCULOSKELETAL: No joint or muscle swelling or pain. No neck or back pain. SKIN: No rash NEUROLOGIC: No headache, vertigo, loss of consciousness, or change in strength/sensation. ENDOCRINE: No increased thirst. No abnormal weight change HEMATOLOGIC/LYMPHATIC: No anemia, easy bleeding, or history of blood clots. ALLERGIC/IMMUNOLOGIC: No hives or skin allergy. PE GENERAL: Awake, alert, and fully oriented, in no acute distress HEAD: No signs of trauma, normocephalic, atraumatic EYES: PERRLA, EOMI, sclera anicteric, conjunctiva clear ENT: hearing grossly normal, nares patent, oropharynx clear without exudates. Moist mucosa NECK: Normal ROM, supple, no lymphadenopathy, JVD, or masses LUNGS: No distress, speaks full sentences, clear to auscultation bilaterally HEART: Regular tachycardia, normal S1 and S2, no murmurs, rubs or gallops, peripheral pulses normal and equal bilaterally. ABDOMEN: Soft, nontender, normoactive bowel sounds. No guarding, no rebound. No masses EXTREMITIES : large nontender effusion on right elbow. Erythema, swelling, and tenderness in right thumb, knee, and ankle. Non-tender tophi on big toes NEUROLOGICAL: Cranial nerves II through XII grossly intact. Normal speech, normal gait, no focal sensorimotor deficits SKIN: jaundice, Warm, Dry, normal turgor, no rashes or lesions noted Assessment and Plan 74yo M w/PMH anemia, gout, HTN, HLD, ?pancreatic neoplasm diagnosed last admission, hernia repair, dementia, who presents with weakness and inability to get out of bed for three days. Tachycardia, multiple joints erythematous/swoll en/tender. Gout flare vs soft tissue infection vs other source of infection. EKG: NSR, no ischemic changes CXR: no consolidation (my read) Labs: WBC 17.4 w/shift, Hb 7.0, BUN/Cr 63.8/11.8, CK 1110, UA neg -Fluids -Vanc to cover for soft-tissue infection -Admit -possible transfusion Discussed with admitting attending who accepted the patient Past History - Medical History Allergies/Adverse Reactions: Allergies Allergy/AdvReac Type Severity Reaction Status Date / Time No Known Allergies Allergy Verified 05/01/20 16:31 Home Medications: Ambulatory Orders Allopurinol [Zyloprim -] 100 mg PO DAILY 10/01/19 Atorvastatin Calcium 80 mg PO HS 10/01/19 Colchicine 0.3 tab PO DAILY 10/01/19 Ergocalciferol [Vitamin D2] 50,000 unit PO Q7D@1000 10/01/19 Acetaminophen [Tylenol .Regular Strength -] 650 mg PO Q4H PRN tablet 04/17/20 Allopurinol [Zyloprim -] 100 mg PO DAILY tablet 04/17/20 Atorvastatin Ca [Lipitor] 80 mg PO HS tablet 04/17/20 Colchicine [Colcrys] 0.3 mg PO DAILY cap 04/17/20 Pantoprazole Sodium [Protonix -] 40 mg PO DAILY tablet.ec 04/17/20 Anemia: Yes (iron deficiency.) Asthma: No Cancer: No Cardiac Disorders: Yes (HTN) CVA: Yes (dysphagia,) COPD: No CHF: No Dementia: Yes (vascular dementia) Diabetes: No GI Disorders: No Disorders: No HTN: Yes Hypercholesterolemia: Yes (Idiopathic gout, frequent falls.) Liver Disease: Yes (CIRRHOSIS) Psychiatric Problems: Yes (alcoholic cirrhosis) Seizures: No Thyroid Disease: No - Surgical History Abdominal Surgery: Yes (hernia repair) Appendectomy: No Cardiac Surgery: No Cholecystectomy: No Lung Surgery: No Neurologic Surgery: No Orthopedic Surgery: No - Psycho-Social/Smoking History Smoking History: Never smoked Have you smoked in the past 12 months: No Number of Cigarettes Smoked Daily: 6 If you are a former smoker, when did you quit?: 60 yrs ago Information on smoking cessation initiated: No - Substance Abuse Hx (Audit-C & DAST Scrn) How often the patient has a drink containing alcohol: Monthly or less Score: In Men: 4 or > Positive; In Women: 3 or > Positive: 1 Screen Result (Pos requires Nsg. Audit-10AR): Negative In the last yr the pt used illegal drug/Rx for NonMed reason: No Score: Yes response is considered Positive: 0 Screen Result (Positive result requires Nsg. DAST-10): Negative *Physical Exam - Vital Signs Last Vital Signs Temp Pulse Resp BP Pulse Ox 100.4 F H 99 H 18 176/102 H 100 05/01/20 18:00 05/01/20 18:40 05/01/20 18:40 05/01/20 18:40 05/01/20 18:40 ED Treatment Course - LABORATORY CBC & Chemistry Diagram: 05/01/20 18:35 05/01/20 18:35 - ADDITIONAL ORDERS Additional order review: Laboratory Results 05/01/20 05/01/20 05/01/20 19:17 18:35 18:35 PT with INR 15.20 H INR 1.28 H PTT (Actin FS) 18.0 L VBG pH Cancelled POC VBG pCO2 Cancelled POC VBG pO2 Cancelled VBG HCO3 Cancelled VBG O2 Sat (Lauren) Cancelled VBG Base Excess Cancelled Sodium Potassium Chloride Carbon Dioxide Anion Gap BUN Creatinine Est GFR (CKD-EPI)AfAm Est GFR (CKD-EPI)NonAf Random Glucose Lactic Acid 1.2 Calcium Total Bilirubin AST ALT Alkaline Phosphatase Troponin I Total Protein Albumin 05/01/20 18:35 PT with INR INR PTT (Actin FS) VBG pH POC VBG pCO2 POC VBG pO2 VBG HCO3 VBG O2 Sat (Lauren) VBG Base Excess Sodium 142 Potassium 3.9 Chloride 111 H Carbon Dioxide 19 L Anion Gap 12 BUN 63.8 H Creatinine 1.8 H Est GFR (CKD-EPI)AfAm 42.33 Est GFR (CKD-EPI)NonAf 36.52 Random Glucose 111 H Lactic Acid Calcium 8.8 Total Bilirubin 0.8 AST 48 H ALT 25 Alkaline Phosphatase 157 H Troponin I 0.03 Total Protein 7.8 Albumin 2.4 L 05/01/20 18:35 RBC 2.81 L MCV 78.3 L MCHC 31.8 L RDW 16.2 H MPV No Result Required. Neutrophils % No Result Required. Lymphocytes % No Result Required. - RADIOLOGY Radiology Studies Ordered: Category Date Time Status CXRPORT [CHEST X-RAY PORTABLE*] [RAD] Stat Radiology 05/01/20 17:53 Taken - Medications Given in the ED: ED Medications Discontinued Medications Generic Name Dose Route Start Last Admin Trade Name Freq PRN Reason Stop Dose Admin Acetaminophen 1,000 mg 05/01/20 18:55 05/01/20 19:49 Ofirmev Injection - IVPB 05/01/20 18:56 1,000 mg ONCE ONE Administration Sodium Chloride 1,000 ml 05/01/20 17:54 05/01/20 19:48 Normal Saline - IV 05/01/20 17:55 1,000 ml ONCE ONE Administration Discharge - Discharge Information Problems reviewed: Yes Clinical Impression/Diagnosis: Fever, Gout Condition: Fair - Follow up/Referral - Patient Discharge Instructions - Post Discharge Activity
[2020-05-01 20:27] LABS: EPI CELLS 14 /uL (0-25.1); HYALINE CASTS 5 /uL (0-3.1); URINE APPEARANCE CLEAR; URINE BACTERIA 21 /uL (0-1359); URINE BILIRUBIN NEGATIVE (NEGATIVE); URINE COLOR DK YELLOW; URINE GLUCOSE (UA) NEGATIVE (NEGATIVE); URINE KETONE NEGATIVE (NEGATIVE); URINE LEUK ESTERASE NEGATIVE (NEGATIVE); URINE NITRITE NEGATIVE (NEGATIVE); URINE PROTEIN 3+ (NEGATIVE); URINE WBC 8 /uL (0-25.8)
--- NOTE | 2020-05-01 20:32 | PDOC ---
*Physical Exam - Vital Signs Last Vital Signs Temp Pulse Resp BP Pulse Ox 100.4 F H 99 H 18 176/102 H 100 05/01/20 18:00 05/01/20 18:40 05/01/20 18:40 05/01/20 18:40 05/01/20 18:40 ED Treatment Course - LABORATORY CBC & Chemistry Diagram: 05/01/20 18:35 05/01/20 18:35 - ADDITIONAL ORDERS Additional order review: Laboratory Results 05/01/20 05/01/20 05/01/20 19:51 19:17 18:35 PT with INR INR PTT (Actin FS) VBG pH Cancelled POC VBG pCO2 Cancelled POC VBG pO2 Cancelled VBG HCO3 Cancelled VBG O2 Sat (Lauren) Cancelled VBG Base Excess Cancelled Sodium Potassium Chloride Carbon Dioxide Anion Gap BUN Creatinine Est GFR (CKD-EPI)AfAm Est GFR (CKD-EPI)NonAf Random Glucose Lactic Acid 1.2 Calcium Total Bilirubin AST ALT Alkaline Phosphatase Creatine Kinase Troponin I Total Protein Albumin Urine Color Dk yellow Urine Appearance Clear Urine pH 5.0 Ur Specific [place] 1.019 Urine Protein 3+ H Urine Glucose (UA) Negative Urine Ketones Negative Urine Blood 1+ H Urine Nitrite Negative Urine Bilirubin Negative Urine Urobilinogen 1.0 Ur Leukocyte Esterase Negative Urine WBC (Auto) 8 Urine Casts (Auto) 5 U Epithel Cells (Auto) 14 Urine Bacteria (Auto) 21 05/01/20 05/01/20 18:35 18:35 PT with INR 15.20 H INR 1.28 H PTT (Actin FS) 18.0 L VBG pH POC VBG pCO2 POC VBG pO2 VBG HCO3 VBG O2 Sat (Lauren) VBG Base Excess Sodium 142 Potassium 3.9 Chloride 111 H Carbon Dioxide 19 L Anion Gap 12 BUN 63.8 H Creatinine 1.8 H Est GFR (CKD-EPI)AfAm 42.33 Est GFR (CKD-EPI)NonAf 36.52 Random Glucose 111 H Lactic Acid Calcium 8.8 Total Bilirubin 0.8 AST 48 H ALT 25 Alkaline Phosphatase 157 H Creatine Kinase 1110 H Troponin I 0.03 Total Protein 7.8 Albumin 2.4 L Urine Color Urine Appearance Urine pH Ur Specific [place] Urine Protein Urine Glucose (UA) Urine Ketones Urine Blood Urine Nitrite Urine Bilirubin Urine Urobilinogen Ur Leukocyte Esterase Urine WBC (Auto) Urine Casts (Auto) U Epithel Cells (Auto) Urine Bacteria (Auto) 05/01/20 18:35 RBC 2.81 L MCV 78.3 L MCHC 31.8 L RDW 16.2 H MPV No Result Required. Neutrophils % No Result Required. Lymphocytes % No Result Required. - Medications Given in the ED: ED Medications Discontinued Medications Generic Name Dose Route Start Last Admin Trade Name Belen PRN Reason Stop Dose Admin Acetaminophen 1,000 mg 05/01/20 18:55 05/01/20 19:49 Ofirmev Injection - IVPB 05/01/20 18:56 1,000 mg ONCE ONE Administration Sodium Chloride 1,701 mls @ 850.5 mls/hr 05/01/20 18:06 05/01/20 20:18 Normal Saline - 30 ml/kg infuse over 2 hr (1701 ml) 05/01/20 20:05 701 mls/hr IV Administration ONCE ONE Sodium Chloride 1,000 ml 05/01/20 17:54 05/01/20 19:48 Normal Saline - IV 05/01/20 17:55 1,000 ml ONCE ONE Administration Medical Decision Making - Medical Decision Making 05/01/20 20:32 Pt has anemia and rhabdomyolysis; known BOUCHRA; elevated WBC count and a sepsis workup to identify his source of infection. Pt has no UTI 05/01/20 20:33 CXR looks clear to me 05/01/20 20:34 Pt will be admitted to med/surg Discharge - Discharge Information Problems reviewed: Yes Clinical Impression/Diagnosis: Fever, Gout Condition: Fair - Follow up/Referral - Patient Discharge Instructions - Post Discharge Activity
[2020-05-01 21:05] LABS: URINE RBC 42.6 /uL (0-23.9)
--- NOTE | 2020-05-01 21:46 | HP ---
Admitting History and Physical - Admission Chief Complaint: Acute exacerbation of gout, anemia, dehydration, and generali zed muscle weakness. History of Present Illness: This 74 yr old male with PMH of gout, HTN, HLD, chronic anemia, mucinous papillary neoplasm of the pancreas admitted via ER with an acute exacerbation of gout, anemia, dehydration, generalized muscle weakness, low g rade fever, and leukocytosis. 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[employer]HER: Yes: Dementia Cardiovascular: Yes: HTN, Hyperlipdemia Pulmonary: No: Asthma, Bronchitis, Cancer, COPD, O2 Dependent, Pneumonia, Previously Intubated, Pulmonary Embolus, Pulmonary Fibrosis, Sleep Apnea, Other Gastrointestinal: Yes: Other (alcoholic cirrhosis of the liver) Hepatobiliary: Yes: Cholelithiasis, Cholecystitis Renal/: No: Renal Failure, Renal Inusuff, BPH, Cancer, Hematuria, Hemodialysis, Neurogenic Bladder, Renal Calculi, UTI, Other Heme/Onc: Yes: Anemia Infectious Disease: No: AIDS, C-Diff, Herpes Zoster, HIV, MRSA, STD's, Tuberculosis, VREF, Other Psych: Yes: Depression Musculoskeletal: No: Bursitis, Chronic low back pain, Hemiparesis, Hemiplegia, Osteoarthritis, Paraplegia, Other Rheumatology: Yes: Gout ENT: No: Allergic Rhinitis, Sinusitis, Other Endocrine: No: [place]'s Disease, [place]'s Disease, Diabetes Insipidus, Diabetes Mellitus, Hyperparathyroidism, Hyperthyroidism, Hypothyroidism, Osteopenia, SIADH, Other Dermatology: No: Basal Cell, Cellulitis, Eczema, Melanoma, Psoriasis, Squamous Cell, Other - Past Surgical History Past Surgical History: Yes: Hernia Repair (bilteral inguinal hernia repair) - Smoking History Smoking history: Never smoked Have you smoked in the past 12 months: No Aproximately how many cigarettes per day: 6 If you are a former smoker, when did you quit?: 60 yrs ago - Alcohol/Substance Use Hx Alcohol Use: Yes History of Substance Use: reports: None - Social History ADL: Family Assistance History of Recent Travel: No Home Medications - Allergies Allergies/Adverse Reactions: Allergies Allergy/AdvReac Type Severity Reaction Status Date / Time No Known Allergies Allergy Verified 05/01/20 16:31 - Home Medications Home Medications: Ambulatory Orders Allopurinol [Zyloprim -] 100 mg PO DAILY 10/01/19 Atorvastatin Calcium 80 mg PO HS 10/01/19 Colchicine 0.3 tab PO DAILY 10/01/19 Ergocalciferol [Vitamin D2] 50,000 unit PO Q7D@1000 10/01/19 Acetaminophen [Tylenol .Regular Strength -] 650 mg PO Q4H PRN tablet 04/17/20 Allopurinol [Zyloprim -] 100 mg PO DAILY tablet 04/17/20 Atorvastatin Ca [Lipitor] 80 mg PO HS tablet 04/17/20 Colchicine [Colcrys] 0.3 mg PO DAILY cap 04/17/20 Pantoprazole Sodium [Protonix -] 40 mg PO DAILY tablet.ec 04/17/20 Review of Systems - Review of Systems Constitutional: reports: Fever, Unintentional Wgt. Loss, Weakness Eyes: reports: No Symptoms HENT: reports: No Symptoms Neck: reports: No Symptoms Cardiovascular: reports: No Symptoms Respiratory: reports: No Symptoms Gastrointestinal: reports: No Symptoms Genitourinary: reports: No Symptoms Breasts: reports: No Symptoms Reported Musculoskeletal: reports: Joint Swelling (right elbow), Muscle Weakness Integumentary: reports: No Symptoms Neurological: reports: Unsteady Gait, Weakness Endocrine: reports: Unexplained Weight Loss Hematology/Lymphatic: reports: No Symptoms Psychiatric: reports: Depression Physical Examination Vital Signs: Vital Signs Temperature 100.4 F H 05/01/20 18:00 Pulse Rate 85 05/01/20 20:40 Respiratory Rate 24 H 05/01/20 20:40 Blood Pressure 163/78 05/01/20 20:40 O2 Sat by Pulse Oximetry (%) 100 05/01/20 20:40 Constitutional: Yes: Calm, Cachectic, Mild Distress, Thin Eyes: Yes: Conjunctiva Clear, EOM Intact HENT: Yes: Atraumatic, Normocephalic Neck: Yes: Supple, Trachea Midline Cardiovascular: Yes: Regular Rate and Rhythm Respiratory: Yes: Regular, CTA Bilaterally Gastrointestinal: Yes: Normal Bowel Sounds, Soft ...Rectal Exam: Yes: Deferred Renal/: Yes: WNL Breast(s): Yes: WNL Musculoskeletal: Yes: Joint Swelling (right elbow), Muscle Weakness Extremities: Yes: WNL Edema: Yes Edema: RUE: 4+ (right elbow) Peripheral Pulses WNL: Yes Integumentary: Yes: WNL Neurological: Yes: Alert, Oriented, Unsteady Gait, Weakness ...Motor Strength: LUE (generalized muscle weakness of all extremities) Psychiatric: Yes: Alert, Oriented Labs: CBC, BMP 05/01/20 18:35 05/01/20 18:35 Imaging - Results Other: Report Reviewed (lab data reviewed) Problem List - Problems (1) Fever Code(s): R50.9 - FEVER, UNSPECIFIED (2) Gout Code(s): M10.9 - GOUT, UNSPECIFIED (3) BOUCHRA (acute kidney injury) Code(s): N17.9 - ACUTE KIDNEY FAILURE, UNSPECIFIED (4) Abnormal weight loss Code(s): R63.4 - ABNORMAL WEIGHT LOSS (5) Alcoholic cirrhosis of liver Code(s): K70.30 - ALCOHOLIC CIRRHOSIS OF LIVER WITHOUT ASCITES (6) Anemia Code(s): D64.9 - ANEMIA, UNSPECIFIED (7) Gait abnormality Code(s): R26.9 - UNSPECIFIED ABNORMALITIES OF GAIT AND MOBILITY (8) History of bilateral inguinal hernia repair Code(s): Z98.890 - OTHER SPECIFIED POSTPROCEDURAL STATES; Z87.19 - PERSONAL HISTORY OF OTHER DISEASES OF THE DIGESTIVE SYSTEM (9) Hyperlipidemia Code(s): E78.5 - HYPERLIPIDEMIA, UNSPECIFIED (10) Hypertension Code(s): I10 - ESSENTIAL (PRIMARY) HYPERTENSION (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 Code(s): D49.0 - NEOPLASM OF UNSPECIFIED BEHAVIOR OF DIGESTIVE SYSTEM (12) Intraductal papillary mucinous neoplasm of pancreas Code(s): D49.0 - NEOPLASM OF UNSPECIFIED BEHAVIOR OF DIGESTIVE SYSTEM (13) Leukocytosis Code(s): D72.829 - ELEVATED WHITE BLOOD CELL COUNT, UNSPECIFIED (14) Malnutrition Code(s): E46 - UNSPECIFIED PROTEIN-CALORIE MALNUTRITION (15) Muscle weakness (generalized) Code(s): M62.81 - MUSCLE WEAKNESS (GENERALIZED) (16) Orthostatic hypotension Code(s): I95.1 - ORTHOSTATIC HYPOTENSION (17) Physical deconditioning Code(s): R53.81 - OTHER MALAISE (18) Splenomegaly Code(s): R16.1 - SPLENOMEGALY, NOT ELSEWHERE CLASSIFIED (19) Symptomatic anemia Code(s): D64.9 - ANEMIA, UNSPECIFIED (20) Volume depletion Code(s): E86.9 - VOLUME DEPLETION, UNSPECIFIED (21) Prerenal azotemia Code(s): R79.89 - OTHER SPECIFIED ABNORMAL FINDINGS OF BLOOD CHEMISTRY Assessment/Plan Assessment/plan: acute exacerbation of gout, anemia, generalized muscle weakness, dehydration, prerenal azotemia, acute low grade fever, acute leukocytosi; IV fluids for volume depletion, colchicine for acute gout, blood transfusion for severe anemia, DVT/GI prophylaxis with Lovenox and pantoprazole, stool for hemoccult testing, consult to ID, low grade fever and leukocytosis may be related to an acute gout alone.
[2020-05-01] MEDS: D5-1/2NS+20 MEQ KCL - 20 MEQ/1,000 ML INFUS.BAG IV SCH (23:42)
[2020-05-01] MEDS ORDERED: PANTOPRAZOLE 40 MG TABLET ONE (23:43)
[2020-05-01] MEDS: CHOLECALCIFEROL (VIT D3) 1,000 UNIT (25 MCG) TABLET PO SCH (23:50)
[2020-05-01] MEDS: PANTOPRAZOLE 40 MG TABLET PO SCH (23:50)
[2020-05-02] MEDS: LOSARTAN POTASSIUM 50 MG TABLET (FP) PO SCH (04:00)
[2020-05-02] MEDS ORDERED: LOSARTAN POTASSIUM 50 MG TABLET (FP) ONE (04:05)
[2020-05-02] MEDS ORDERED: GABAPENTIN 100 MG CAPSULE ONE (05:49)
--- NOTE | 2020-05-02 08:54 | PN ---
Progress Note, Physician Chief Complaint: Patient seen and examined at the bedside, no acute events from last night, c/o dry mouth and lips. History of Present Illness: This 74 yr old male with PMH of mucinous papillary neoplasm of the pancreas, HTN, HLD, and gout admitted via ER with an acute dehydration, anemia, prerenal azotemia, lactic acidosis, and generalized muscle weakness. - Current Medication List Current Medications: Active Medications Acetaminophen (Tylenol -) 650 mg PO Q4H PRN PRN Reason: MODERATE PAIN Allopurinol (Zyloprim -) 100 mg PO DAILY [facility] Atorvastatin Calcium (Lipitor -) 80 mg PO HS [facility] Cholecalciferol (Vitamin D3 -) 5,000 unit PO DAILY [facility] Last Admin: 05/01/20 23:50 Dose: 5,000 unit Documented by: Colchicine (Colcrys) 0.6 mg PO DAILY [facility] Enoxaparin Sodium (Lovenox -) 40 mg SQ DAILY [facility] Potassium Chloride/Dextrose/Sod Cl (D5-1/2ns+20 Meq Kcl -) 20 meq in 1,000 mls @ 100 mls/hr IV ASDIR [facility] Last Admin: 05/01/20 23:42 Dose: 100 mls/hr Documented by: Losartan Potassium (Cozaar -) 50 mg PO NOW [facility] Last Admin: 05/02/20 04:00 Dose: 50 mg Documented by: Pantoprazole Sodium (Protonix -) 40 mg PO DAILY [facility] Last Admin: 05/01/20 23:50 Dose: 40 mg Documented by: - Objective Vital Signs: Vital Signs Temperature 98.1 F 05/02/20 06:27 Pulse Rate 79 05/02/20 06:27 Respiratory Rate 22 H 05/02/20 06:27 Blood Pressure 174/95 H 05/02/20 06:27 O2 Sat by Pulse Oximetry (%) 100 05/02/20 06:27 Constitutional: Yes: Well Nourished, No Distress, Calm Eyes: Yes: Conjunctiva Clear, EOM Intact HENT: Yes: Atraumatic, Normocephalic Neck: Yes: Supple, Trachea Midline Cardiovascular: Yes: Regular Rate and Rhythm Respiratory: Yes: Regular, CTA Bilaterally Gastrointestinal: Yes: Normal Bowel Sounds, Soft ...Rectal Exam: Yes: Deferred Genitourinary: Yes: WNL Breast(s): Yes: WNL Musculoskeletal: Yes: Muscle Weakness Extremities: Yes: Other (edema of the right elbow) Edema: Yes Edema: RUE: 4+ (elbow) Peripheral Pulses WNL: Yes Integumentary: Yes: WNL Neurological: Yes: Alert, Oriented, Unsteady Gait, Weakness ...Motor Strength: LUE (generalized muscle weakness of all extremities) Psychiatric: Yes: Alert Labs: CBC, BMP 05/01/20 18:35 05/01/20 18:35 INR, PTT INR 1.28 (0.83-1.09) H 05/01/20 18:35 - ....Imaging Other: Report Reviewed (lab data reviewed) Problem List - Problems (1) Fever Code(s): R50.9 - FEVER, UNSPECIFIED Qualifiers: Fever type: unspecified Qualified Code(s): R50.9 - Fever, unspecified (2) Gout Code(s): M10.9 - GOUT, UNSPECIFIED Qualifiers: Gout site: multiple sites Gout etiology: unspecified cause Chronicity: unspecified Qualified Code(s): M10.9 - Gout, unspecified (3) BOUCHRA (acute kidney injury) Code(s): N17.9 - ACUTE KIDNEY FAILURE, UNSPECIFIED (4) Abnormal weight loss Code(s): R63.4 - ABNORMAL WEIGHT LOSS (5) Alcoholic cirrhosis of liver Code(s): K70.30 - ALCOHOLIC CIRRHOSIS OF LIVER WITHOUT ASCITES (6) Anemia Code(s): D64.9 - ANEMIA, UNSPECIFIED (7) Gait abnormality Code(s): R26.9 - UNSPECIFIED ABNORMALITIES OF GAIT AND MOBILITY (8) History of bilateral inguinal hernia repair Code(s): Z98.890 - OTHER SPECIFIED POSTPROCEDURAL STATES; Z87.19 - PERSONAL HISTORY OF OTHER DISEASES OF THE DIGESTIVE SYSTEM (9) Hyperlipidemia Code(s): E78.5 - HYPERLIPIDEMIA, UNSPECIFIED (10) Hypertension Code(s): I10 - ESSENTIAL (PRIMARY) HYPERTENSION (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 Code(s): D49.0 - NEOPLASM OF UNSPECIFIED BEHAVIOR OF DIGESTIVE SYSTEM (12) Intraductal papillary mucinous neoplasm of pancreas Code(s): D49.0 - NEOPLASM OF UNSPECIFIED BEHAVIOR OF DIGESTIVE SYSTEM (13) Leukocytosis Code(s): D72.829 - ELEVATED WHITE BLOOD CELL COUNT, UNSPECIFIED (14) Malnutrition Code(s): E46 - UNSPECIFIED PROTEIN-CALORIE MALNUTRITION (15) Muscle weakness (generalized) Code(s): M62.81 - MUSCLE WEAKNESS (GENERALIZED) (16) Orthostatic hypotension Code(s): I95.1 - ORTHOSTATIC HYPOTENSION (17) Physical deconditioning Code(s): R53.81 - OTHER MALAISE (18) Splenomegaly Code(s): R16.1 - SPLENOMEGALY, NOT ELSEWHERE CLASSIFIED (19) Symptomatic anemia Code(s): D64.9 - ANEMIA, UNSPECIFIED (20) Volume depletion Code(s): E86.9 - VOLUME DEPLETION, UNSPECIFIED (21) Prerenal azotemia Code(s): R79.89 - OTHER SPECIFIED ABNORMAL FINDINGS OF BLOOD CHEMISTRY Assessment/Plan Assessment/plan: acute dehydration, acute prerenal azotemia, acute lactic acidosis, acute gout, acute anemia, HTN, HLD, mucinous papillary neoplasm of the pancreas; blood transfusion for anemia, IV fluids for acute dehydration, Colchicine for acute gout, DVT/GI prophylaxis, out of bed in chair as tolerated.
[2020-05-02] MEDS ORDERED: ENOXAPARIN NA (PORCINE) 40 MG/0.4 ML DISP.SYRIN SQ ONE (09:21)
[2020-05-02] MEDS ORDERED: COLCHICINE 0.6 MG CAP ONE (09:21)
[2020-05-02] MEDS: ALLOPURINOL 100 MG TABLET (FP) PO SCH (09:26)
[2020-05-02] MEDS: ENOXAPARIN NA (PORCINE) 40 MG/0.4 ML DISP.SYRIN SQ SCH (09:27)
[2020-05-02] MEDS: CHOLECALCIFEROL (VIT D3) 1,000 UNIT (25 MCG) TABLET PO SCH (09:27)
[2020-05-02] MEDS: PANTOPRAZOLE 40 MG TABLET PO SCH (09:27)
--- NOTE | 2020-05-02 09:36 | EKG ---
Test Reason : Blood Pressure : / mmHG Vent. Rate : 103 BPM Atrial Rate : 103 BPM P-R Int : 122 ms QRS Dur : 092 ms QT Int : 330 ms P-R-T Axes : 037 -23 074 degrees QTc Int : 432 ms SINUS TACHYCARDIA NONSPECIFIC T WAVE ABNORMALITY ABNORMAL ECG Artifacts WHEN COMPARED WITH ECG OF 01-MAY-2020 16:38, No significant changes Confirmed by Carrie Church ([id number]) on 05/02/2020 9:36:33 AM Referred By: Confirmed By:Carrie Church
[2020-05-02] MEDS ORDERED: COLCHICINE 0.6 MG CAP PO SCH (10:00)
--- NOTE | 2020-05-02 12:23 | PN ---
Progress Note (short form) - Note Progress Note: ID consult dictated imp/reccd 74 yo man reports weakness at home, slipped off the couch, lay on the floor for 2 days, found by girlfriend and brought to ED he has swelling of his right olecronon bursa, both knees and ankles, right thumb all he attributes to his chronic gout no fevers he is alert reports he was recently hospitalized here and then again at [facility]- he is unsure as to the diagnosis but reports he has anemia and gets transfusions he has not followed up with his PMD in a long time leukocytosis gout anemia of unknown etiology rhabdo ckd blood cultures sent and pending cefazoln for cellulitis rheumatology consult for gout ?hematology for anemia- need records from recent [facility] admission
[2020-05-02] MEDS ORDERED: CEFAZOLIN 1 GM/D5W 1 GM/50 ML BAG IVPB ONE (12:45)
[2020-05-02] MEDS ORDERED: CEFAZOLIN 1 GM/D5W 1 GM/50 ML BAG ONE (13:06)
--- NOTE | 2020-05-02 13:33 | EKG ---
Test Reason : Blood Pressure : / mmHG Vent. Rate : 125 BPM Atrial Rate : 125 BPM P-R Int : 124 ms QRS Dur : 082 ms QT Int : 306 ms P-R-T Axes : 111 -25 072 degrees QTc Int : 441 ms POOR DATA QUALITY, INTERPRETATION MAY BE ADVERSELY AFFECTED SINUS TACHYCARDIA NONSPECIFIC ST AND T WAVE ABNORMALITY ABNORMAL ECG WHEN COMPARED WITH ECG OF 13-APR-2020 14:31, VENT. RATE HAS INCREASED BY 44 BPM repeat ECG Confirmed by Carrie Church ([id number]) on 05/02/2020 1:32:55 PM Referred By: Confirmed By:Carrie Church
[2020-05-02] MEDS ORDERED: predniSONE 20 MG TABLET (UD) PO SCH (16:00)
[2020-05-02] MEDS: D5-1/2NS+20 MEQ KCL - 20 MEQ/1,000 ML INFUS.BAG IV SCH ×2 (16:26→21:10)
[2020-05-02] MEDS ORDERED: PANTOPRAZOLE 40 MG TABLET PO SCH (16:37)
--- NOTE | 2020-05-02 18:45 | CONS ---
DATE OF CONSULTATION: DATE OF DICTATION: 05/02/2020 INFECTIOUS DISEASE CONSULTATION HISTORY OF PRESENT ILLNESS: This is a 74-year-old man. He is a retired from [employer]. He lives in the [place]. He has a history of anemia. He has a history of gout which he says he has had for the last 2 years, and he presents to the ER after he was found on the floor next to his couch by his girlfriend, who reports he was feeling very weak. He slipped off the couch and was not able to get up. She thinks he was laying there for about 2 days. He was in the ER, noted to have an elevated white count. He was noted to have multiple joint swellings. He had a clear chest x-ray and was noted to be anemic with an elevated white count and elevated creatinine of 1.8, and an elevated CPK of 1110. He had blood cultures drawn, was given a dose of vancomycin for possible cellulitis, and I am asked to see him. He is awake and alert and resting comfortably. He notes he has had these joint issues for the last 2 years. He reports having seen a purchaser once. He reports he was recently in the hospital here in March, after which he thinks he was hospitalized at [facility] at some point, and his workup is not clear. He reports he has been transfused multiple times for anemia, but he is not sure why he is anemic. He reports he lives alone in the [place] and that his girlfriend and a sister are involved in his care. PAST MEDICAL HISTORY: Notable for the gout. He has a history of anemia, and he has weakness. He has apparently hypertension, hyperlipidemia as well, and he has had a hernia repair. I spoke to his PMD, , who has not seen him in a very long time. He had very briefly been seen in their practice, had been referred to multiple specialists, and the etiology of his anemia, and apparently he had had several syncopal episodes, was unclear. The patient has not followed up. SOCIAL HISTORY: He stopped smoking many, many years ago. Denies any substance use, though there is a question of whether he drinks alcohol. ALLERGIES: He has no known drug allergies. MEDICATION: His medications include: 1. Protonix. 2. Vitamin D. 3. Colchicine. 4. Atorvastatin. 5. Allopurinol. He reports he has seen a purchaser once. REVIEW OF SYSTEMS: He denies cough. Denies chest pain, abdominal pain, nausea, vomiting, diarrhea, or dysuria. PHYSICAL EXAMINATION: General: He weighs 56 kg. He has been hospitalized before in 2019 at [facility] when he weighed 61 kg, so he has lost weigh. Vital Signs: Temperature 98.5, pulse 70, blood pressure 188/94. His T-max was 100.4. HEENT: Normocephalic. Eyes are anicteric. Neck: Supple. Lungs: Clear to auscultation. Heart: Regular rate and rhythm. Abdomen: Soft, nontender. Extremities: Notable for, he has bilateral knee swelling. He has ankle swelling. His right thumb is swollen. He has olecranon bursa on his right arm that is swollen as well. LABORATORY: Labs are notable for white count of 17,000, hemoglobin is 7, platelets are 17.7. His BUN and creatinine are 63 and 1.8. Cultures are pending. His COVID serology is back, PCR is back, and it is negative. Cultures are pending. IMPRESSION: In summary, this is a 74-year-old man with leukocytosis I suspect on the basis of systemic gout with multiple joint involvement, anemia of unknown etiology, rhabdomyolysis, and chronic kidney disease. Blood cultures have been sent and pending. Would treat him with cephazolin for cellulitis. Rheumatology consult for the gout. Would consider hematology for anemia. We need records from his recent [facility] admission. MARCOS CLEMENTS M.D. [id number]
--- NOTE | 2020-05-02 20:49 | CONSULT ---
Consult Consult Specialty:: Rheumatology - History of Present Illness History of Present Illness: 74 yr old male with PMH of gout, HTN, HLD, chronic anemia, mucinous papillary neoplasm of the pancreas admitted with weakness and pain in multiple joints. MARIELLE Poor historian. The patient reports he has had muscle weakness for the last week. Five days ago he fell in his bathroom and ws not able to stand up. He reports pain and swelling in the right elbow, right thumb and knees. Gout, I saw him once in my office on 03/13/19. At that tiome he reported a 10 year history of gouty arthritis with acute episodes of gout with an average of once per month., He was treated with Colchicine for the acute arthritis and was not taking urate lowering medications. At that time the creatinine was 1.74, AST 71, ALT 49 urinalysis had protein 2+ with no blood. Uric acid was 12.1 and serology for hepatitis B and C was negative. At that time he had 4 swollen joints (including right elbow olecranon bursitis). I started Allopurinol 100 mg /d with plan to increase the dose, however he did not return to my office. At the present time he reports he continues having, on average, one episode of gout per month and continues taking the same medications. He indicated he does not drink alcohol. Laboratory on this admission: WBC 17.4, creatinine 1.8, eGFR 36.5 UA with protein 3+, blood 1+ and granular casts. CK 1110. - History Source History Provided By: Patient, Medical Record - Past Medical History ART SPECIALIST: Yes: Dementia Cardio/Vascular: Yes: HTN, Hyperlipdemia Pulmonary: No: Asthma, Bronchitis, Cancer, COPD, O2 Dependent, Pneumonia, Previously Intubated, Pulmonary Embolus, Pulmonary Fibrosis, Sleep Apnea, Other Gastrointestinal: Yes: Other (alcoholic cirrhosis of the liver) Hepatobiliary: Yes: Cholelithiasis, Cholecystitis Renal/: No: Renal Failure, Renal Inusuff, BPH, Cancer, Hematuria, Hemod ialysis, Neurogenic Bladder, Renal Calculi, UTI, Other Infectious Disease: No: AIDS, C-Diff, Herpes Zoster, HIV, MRSA, STD's, Tuberculosis, VREF, Other Psych: Yes: Depression Musculoskeletal: No: Bursitis, Chronic low back pain, Hemiparesis, Hemiplegia, Osteoarthritis, Paraplegia, Other Rheumatology: Yes: Gout ENT: No: Allergic Rhinitis, Sinusitis, Other Endocrine: No: Ransom's Disease, Abebe's Disease, Diabetes Insipidus, Diabetes Mellitus, Hyperparathyroidism, Hyperthyroidism, Hypothyroidism, Osteopenia, SIADH, Other Dermatology: No: Basal Cell, Cellulitis, Eczema, Melanoma, Psoriasis, Squamous Cell, Other - Past Surgical History Past Surgical History: Yes: Hernia Repair (bilteral inguinal hernia repair) - Alcohol/Substance Use Hx Alcohol Use: Yes History of Substance Use: reports: None - Smoking History Smoking history: Never smoked Have you smoked in the past 12 months: No Aproximately how many cigarettes per day: 6 If you are a former smoker, when did you quit?: 60 yrs ago - Social History Usual Living Arrangement: Alone ADL: Family Assistance History of Recent Travel: No Home Medications - Allergies Allergies/Adverse Reactions: Allergies Allergy/AdvReac Type Severity Reaction Status Date / Time No Known Allergies Allergy Verified 05/01/20 16:31 - Home Medications Home Medications: Ambulatory Orders Allopurinol [Zyloprim -] 100 mg PO DAILY 10/01/19 Atorvastatin Calcium 80 mg PO HS 10/01/19 Colchicine 0.3 tab PO DAILY 10/01/19 Ergocalciferol [Vitamin D2] 50,000 unit PO Q7D@1000 10/01/19 Acetaminophen [Tylenol .Regular Strength -] 650 mg PO Q4H PRN tablet 04/17/20 Allopurinol [Zyloprim -] 100 mg PO DAILY tablet 04/17/20 Atorvastatin Ca [Lipitor] 80 mg PO HS tablet 04/17/20 Colchicine [Colcrys] 0.3 mg PO DAILY cap 04/17/20 Pantoprazole Sodium [Protonix -] 40 mg PO DAILY tablet.ec 04/17/20 Review of Systems - Review of Systems Constitutional: reports: Malaise, Weakness Eyes: reports: No Symptoms HENT: reports: No Symptoms Neck: reports: No Symptoms Cardiovascular: reports: No Symptoms Respiratory: reports: No Symptoms Gastrointestinal: reports: No Symptoms Musculoskeletal: reports: Other (See HPI) Physical Exam Vital Signs: Vital Signs Temperature 99.5 F 05/02/20 19:56 Pulse Rate 80 05/02/20 19:56 Respiratory Rate 18 05/02/20 15:00 Blood Pressure 158/95 05/02/20 19:56 O2 Sat by Pulse Oximetry (%) 99 05/02/20 15:00 Constitutional: Yes: Mild Distress Eyes: Yes: WNL HENT: Yes: WNL Cardiovascular: Yes: WNL Respiratory: Yes: WNL Gastrointestinal: Yes: WNL Musculoskeletal: Yes: Other (10 swollen joints: swelling of the olecroanon bursa in the right elbow, right wrist, in right hand 2nd MCP and 1st, 2nd and 3rd PIPs. In the left hand 2nd and 3rd MCP/s. Both knees were tender with small effusion and both ankles were tender,) Labs: CBC, BMP 05/01/20 18:35 05/01/20 18:35 Problem List - Problems (1) Gout Assessment/Plan: Polyarticular acute gouty arthritis. PROCEDURE: Under aseptic conditions I aspirated the olecranon bursa of the right elbow, obtained 32 ml of whitish fluid and injected 20 mg Depomedrol. Fluid sent for cell count, crystal analysis and culture. Plan: Prednisone 40 mg/d for 3 days then taper and discontinue the medication. Code(s): M10.9 - GOUT, UNSPECIFIED Qualifiers: Gout site: multiple sites Gout etiology: unspecified cause Chronicity: unspecified Qualified Code(s): M10.9 - Gout, unspecified (2) Muscle weakness Assessment/Plan: Rule out myopathy related to Colchicine, rule out rhabdomyolysis. DC Colchicine Code(s): M62.81 - MUSCLE WEAKNESS (GENERALIZED)
[2020-05-02] MEDS: ATORVASTATIN CA 80 MG TABLET (FP) PO SCH (21:07)
[2020-05-02 23:02] LABS: BODY FLUID MACROPHAGES 2 %; BODY FLUID MONOCYTE 3 %
[2020-05-03] MEDS: LOSARTAN POTASSIUM 50 MG TABLET (FP) PO SCH (04:11)
[2020-05-03] MEDS: D5-1/2NS+20 MEQ KCL - 20 MEQ/1,000 ML INFUS.BAG IV SCH ×2 (05:30→10:03)
[2020-05-03 07:59] LABS: BASO % 0.2 % (0-2.0); HEMATOCRIT 28.7 % (35.4-49); HEMOGLOBIN 9.4 GM/dL (11.7-16.9); LYMPH % 7.2 % (8-40); MCH 26.3 pg (25.7-33.7); MCHC 32.8 g/dl (32.0-35.9); MEAN PLT VOLUME 9.2 fl (7.5-11.1); MONO % 16.2 % (3.8-10.2); NEUT % 76.4 % (42.8-82.8); PLATELET COUNT 241 K/MM3 (134-434); RBC 3.59 M/mm3 (4.00-5.60); RDW 15.8 % (11.9-15.9); WHITE BLOOD COUNT 5.7 K/mm3 (4.0-10.0)
[2020-05-03 08:28] LABS: BILIRUBIN,TOTAL 0.8 mg/dL (0.2-1); CALCIUM 8.4 mg/dL (8.5-10.1); CREATININE 1.5 mg/dL (0.55-1.3); POTASSIUM 4.2 mmol/L (3.5-5.1); URIC ACID 9.1 mg/dL (2.6-7.2)
--- NOTE | 2020-05-03 09:49 | PN ---
Progress Note, Physician Chief Complaint: Patient seen and examined at the bedside, no acute events from last night, afebrile, oxygen saturation 99% on room air. History of Present Illness: This 74 yr old male with PMH of gout, HTN, HLD, chronic anemia, mucinous papillary neoplasm of the pancreas admitted via ER with an acute dehydration, acute gouty arthritis, acute prerenal azotemia, acute anemia, and acute generalized muscle weakness. - Current Medication List Current Medications: Active Medications Acetaminophen (Tylenol -) 650 mg PO Q4H PRN PRN Reason: MODERATE PAIN Allopurinol (Zyloprim -) 100 mg PO DAILY [facility] Last Admin: 05/02/20 09:26 Dose: 100 mg Documented by: Atorvastatin Calcium (Lipitor -) 80 mg PO HS [facility] Last Admin: 05/02/20 21:07 Dose: 80 mg Documented by: Cholecalciferol (Vitamin D3 -) 5,000 unit PO DAILY [facility] Last Admin: 05/02/20 09:27 Dose: Not Given Documented by: Enoxaparin Sodium (Lovenox -) 40 mg SQ DAILY [facility] Last Admin: 05/02/20 09:27 Dose: 40 mg Documented by: Potassium Chloride/Dextrose/Sod Cl (D5-1/2ns+20 Meq Kcl -) 20 meq in 1,000 mls @ 100 mls/hr IV ASDIR [facility] Last Admin: 05/03/20 05:30 Dose: 100 mls/hr Documented by: Losartan Potassium (Cozaar -) 50 mg PO NOW [facility] Last Admin: 05/03/20 04:11 Dose: 50 mg Documented by: Pantoprazole Sodium (Protonix -) 40 mg PO DAILY [facility] Stop: 05/05/20 10:01 Prednisone (Deltasone -) 40 mg PO DAILY [facility] Stop: 05/05/20 10:01 Prednisone (Deltasone -) 20 mg PO DAILY [facility] Stop: 05/08/20 10:01 - Objective Vital Signs: Vital Signs Temperature 98.6 F 05/03/20 09:19 Pulse Rate 63 05/03/20 09:19 Respiratory Rate 18 05/03/20 09:19 Blood Pressure 157/85 05/03/20 09:19 O2 Sat by Pulse Oximetry (%) 99 05/02/20 21:00 Constitutional: Yes: No Distress, Calm, Cachectic, Thin Eyes: Yes: Conjunctiva Clear, EOM Intact HENT: Yes: Atraumatic, Normocephalic Neck: Yes: Supple, Trachea Midline Cardiovascular: Yes: Regular Rate and Rhythm Respiratory: Yes: Regular, CTA Bilaterally Gastrointestinal: Yes: Normal Bowel Sounds, Soft ...Rectal Exam: Yes: Deferred Genitourinary: Yes: WNL Breast(s): Yes: WNL Musculoskeletal: Yes: Muscle Weakness Extremities: Yes: WNL Edema: Yes Edema: RUE: 1+ (right elbow) Peripheral Pulses WNL: Yes Integumentary: Yes: WNL Neurological: Yes: Alert, Oriented, Weakness ...Motor Strength: LUE (generalized muscle weakness of all extremities) Psychiatric: Yes: Alert, Oriented Labs: CBC, BMP 05/03/20 06:45 05/03/20 06:45 INR, PTT INR 1.28 (0.83-1.09) H 05/01/20 18:35 - ....Imaging Other: Report Reviewed (lab data reviewed) Problem List - Problems (1) Fever Code(s): R50.9 - FEVER, UNSPECIFIED Qualifiers: Fever type: unspecified Qualified Code(s): R50.9 - Fever, unspecified (2) Gout Code(s): M10.9 - GOUT, UNSPECIFIED Qualifiers: Gout site: multiple sites Gout etiology: unspecified cause Chronicity: unspecified Qualified Code(s): M10.9 - Gout, unspecified (3) BOUCHRA (acute kidney injury) Code(s): N17.9 - ACUTE KIDNEY FAILURE, UNSPECIFIED (4) Abnormal weight loss Code(s): R63.4 - ABNORMAL WEIGHT LOSS (5) Alcoholic cirrhosis of liver Code(s): K70.30 - ALCOHOLIC CIRRHOSIS OF LIVER WITHOUT ASCITES (6) Anemia Code(s): D64.9 - ANEMIA, UNSPECIFIED (7) Gait abnormality Code(s): R26.9 - UNSPECIFIED ABNORMALITIES OF GAIT AND MOBILITY (8) History of bilateral inguinal hernia repair Code(s): Z98.890 - OTHER SPECIFIED POSTPROCEDURAL STATES; Z87.19 - PERSONAL HISTORY OF OTHER DISEASES OF THE DIGESTIVE SYSTEM (9) Hyperlipidemia Code(s): E78.5 - HYPERLIPIDEMIA, UNSPECIFIED (10) Hypertension Code(s): I10 - ESSENTIAL (PRIMARY) HYPERTENSION (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 Code(s): D49.0 - NEOPLASM OF UNSPECIFIED BEHAVIOR OF DIGESTIVE SYSTEM (12) Intraductal papillary mucinous neoplasm of pancreas Code(s): D49.0 - NEOPLASM OF UNSPECIFIED BEHAVIOR OF DIGESTIVE SYSTEM (13) Leukocytosis Code(s): D72.829 - ELEVATED WHITE BLOOD CELL COUNT, UNSPECIFIED (14) Malnutrition Code(s): E46 - UNSPECIFIED PROTEIN-CALORIE MALNUTRITION (15) Muscle weakness (generalized) Code(s): M62.81 - MUSCLE WEAKNESS (GENERALIZED) (16) Orthostatic hypotension Code(s): I95.1 - ORTHOSTATIC HYPOTENSION (17) Physical deconditioning Code(s): R53.81 - OTHER MALAISE (18) Splenomegaly Code(s): R16.1 - SPLENOMEGALY, NOT ELSEWHERE CLASSIFIED (19) Symptomatic anemia Code(s): D64.9 - ANEMIA, UNSPECIFIED (20) Volume depletion Code(s): E86.9 - VOLUME DEPLETION, UNSPECIFIED (21) Prerenal azotemia Code(s): R79.89 - OTHER SPECIFIED ABNORMAL FINDINGS OF BLOOD CHEMISTRY Assessment/Plan Assessment/plan: acute dehydration, acute prerenal azotemia, acute anemia, acute gouty arthritis, acute generalized muscle weakness, HTN, HLD, mucinous papillary neoplasm of the pancreas; blood transfusion, IV Cefazolin as per ID, DVT/GI prophylaxis, physical therapy, out of bed in chair as tolerated, IV fluids for dehydration, Losartan for HTN, atorvastatin for HLD, allopurinol for hyperuricemia.
[2020-05-03] MEDS: PANTOPRAZOLE 40 MG TABLET PO SCH (10:05)
[2020-05-03] MEDS: predniSONE 20 MG TABLET (UD) PO SCH (10:06)
[2020-05-03] MEDS: ENOXAPARIN NA (PORCINE) 40 MG/0.4 ML DISP.SYRIN SQ SCH (10:06)
[2020-05-03] MEDS: CHOLECALCIFEROL (VIT D3) 1,000 UNIT (25 MCG) TABLET PO SCH (10:06)
[2020-05-03] MEDS: ALLOPURINOL 100 MG TABLET (FP) PO SCH (10:06)
--- NOTE | 2020-05-03 13:28 | PN ---
Progress Note, Physician History of Present Illness: AWAKE IN BED C/O GENERALIZED BODY PAIN S/P INJECTION R ELBOW AFEBRILE WBC DOWN 5.7 AZOTEMIA IMPROVED LACTIC ACIDOSIS RESOLVED - Current Medication List Current Medications: Active Medications Acetaminophen (Tylenol -) 650 mg PO Q4H PRN PRN Reason: MODERATE PAIN Allopurinol (Zyloprim -) 100 mg PO DAILY [facility] Last Admin: 05/03/20 10:06 Dose: 100 mg Documented by: Atorvastatin Calcium (Lipitor -) 80 mg PO HS [facility] Last Admin: 05/02/20 21:07 Dose: 80 mg Documented by: Cholecalciferol (Vitamin D3 -) 5,000 unit PO DAILY [facility] Last Admin: 05/03/20 10:06 Dose: 5,000 unit Documented by: Enoxaparin Sodium (Lovenox -) 40 mg SQ DAILY [facility] Last Admin: 05/03/20 10:06 Dose: 40 mg Documented by: Potassium Chloride/Dextrose/Sod Cl (D5-1/2ns+20 Meq Kcl -) 20 meq in 1,000 mls @ 50 mls/hr IV ASDIR [facility] Last Admin: 05/03/20 10:03 Dose: 50 mls/hr Documented by: Losartan Potassium (Cozaar -) 50 mg PO NOW [facility] Last Admin: 05/03/20 04:11 Dose: 50 mg Documented by: Pantoprazole Sodium (Protonix -) 40 mg PO DAILY [facility] Stop: 05/05/20 10:01 Last Admin: 05/03/20 10:05 Dose: 40 mg Documented by: Prednisone (Deltasone -) 40 mg PO DAILY [facility] Stop: 05/05/20 10:01 Last Admin: 05/03/20 10:06 Dose: 40 mg Documented by: Prednisone (Deltasone -) 20 mg PO DAILY [facility] Stop: 05/08/20 10:01 - Objective Vital Signs: Vital Signs Temperature 98.6 F 05/03/20 09:19 Pulse Rate 63 05/03/20 09:19 Respiratory Rate 18 05/03/20 09:19 Blood Pressure 157/85 05/03/20 09:19 O2 Sat by Pulse Oximetry (%) 99 05/03/20 09:00 Constitutional: Yes: No Distress Eyes: Yes: Conjunctiva Clear Cardiovascular: Yes: Regular Rate and Rhythm, S1, S2 Respiratory: Yes: CTA Bilaterally Gastrointestinal: Yes: Normal Bowel Sounds, Soft Extremities: Yes: Other (+ FLUCTUANT SWELLING R ELBOW, THUMB SWELLING, BILATERAL KNEE AND JACKELYN SWELLING) Labs: CBC, BMP 05/03/20 06:45 05/03/20 06:45 INR, PTT INR 1.28 (0.83-1.09) H 05/01/20 18:35 Assessment/Plan GOUT ? CELLULITIS CONTINUE TREATMENT FOR GOUT CEFAZOLIN
[2020-05-03] MEDS: CEFAZOLIN 1 GM/D5W 1 GM/50 ML BAG IVPB SCH (18:01)
[2020-05-03] MEDS: ATORVASTATIN CA 80 MG TABLET (FP) PO SCH (21:07)
[2020-05-04] MEDS: CEFAZOLIN 1 GM/D5W 1 GM/50 ML BAG IVPB SCH ×3 (01:00→17:42)
[2020-05-04] MEDS: LOSARTAN POTASSIUM 50 MG TABLET (FP) PO SCH (05:04)
[2020-05-04 07:39] LABS: BASO % 0.2 % (0-2.0); HEMATOCRIT 30.5 % (35.4-49); HEMOGLOBIN 9.9 GM/dL (11.7-16.9); LYMPH % 8.6 % (8-40); MCH 26.1 pg (25.7-33.7); MCHC 32.5 g/dl (32.0-35.9); MEAN CELL VOLUME 80.4 fl (80-96); MEAN PLT VOLUME 9.3 fl (7.5-11.1); MONO % 13.5 % (3.8-10.2); NEUT % 77.7 % (42.8-82.8); PLATELET COUNT 194 K/MM3 (134-434); RBC 3.79 M/mm3 (4.00-5.60); RDW 16.6 % (11.9-15.9); WHITE BLOOD COUNT 6.6 K/mm3 (4.0-10.0)
[2020-05-04 08:03] LABS: ALBUMIN 1.8 g/dl (3.4-5.0); BILIRUBIN,TOTAL 0.5 mg/dL (0.2-1); CALCIUM 8.6 mg/dL (8.5-10.1); CREATININE 1.5 mg/dL (0.55-1.3); POTASSIUM 4.6 mmol/L (3.5-5.1); TOT PROT 6.8 g/dl (6.4-8.2)
--- NOTE | 2020-05-04 09:03 | PN ---
Progress Note, Physician Chief Complaint: Patient seen and examined at the bedside, no acute events from last night, afebrile. History of Present Illness: This 74 yr old male with PMH of gout, HTN, HLD, chronic anemia, mucinous papillary neoplasm of the pancreas admitted via ER with an acute anemia, dehydration, fever, leukocytosis, edema of the right elbow, and acute gouty arthritis. - Current Medication List Current Medications: Active Medications Acetaminophen (Tylenol -) 650 mg PO Q4H PRN PRN Reason: MODERATE PAIN Allopurinol (Zyloprim -) 100 mg PO DAILY [facility] Last Admin: 05/03/20 10:06 Dose: 100 mg Documented by: Atorvastatin Calcium (Lipitor -) 80 mg PO HS [facility] Last Admin: 05/03/20 21:07 Dose: 80 mg Documented by: Cholecalciferol (Vitamin D3 -) 5,000 unit PO DAILY [facility] Last Admin: 05/03/20 10:06 Dose: 5,000 unit Documented by: Enoxaparin Sodium (Lovenox -) 40 mg SQ DAILY [facility] Last Admin: 05/03/20 10:06 Dose: 40 mg Documented by: Potassium Chloride/Dextrose/Sod Cl (D5-1/2ns+20 Meq Kcl -) 20 meq in 1,000 mls @ 50 mls/hr IV ASDIR [facility] Last Admin: 05/03/20 10:03 Dose: 50 mls/hr Documented by: Cefazolin Sodium (Ancef 1 Gm Premixed Ivpb -) 1 gm in 50 mls @ 100 mls/hr IVPB Q8H-IV [facility] Last Admin: 05/04/20 01:00 Dose: 100 mls/hr Documented by: Pantoprazole Sodium (Protonix -) 40 mg PO DAILY [facility] Stop: 05/05/20 10:01 Last Admin: 05/03/20 10:05 Dose: 40 mg Documented by: Prednisone (Deltasone -) 40 mg PO DAILY [facility] Stop: 05/05/20 10:01 Last Admin: 05/03/20 10:06 Dose: 40 mg Documented by: Prednisone (Deltasone -) 20 mg PO DAILY [facility] Stop: 05/08/20 10:01 - Objective Vital Signs: Vital Signs Temperature 97.5 F L 05/04/20 05:35 Pulse Rate 59 L 05/04/20 05:35 Respiratory Rate 18 05/04/20 05:35 Blood Pressure 150/87 05/04/20 05:35 O2 Sat by Pulse Oximetry (%) 99 05/04/20 05:35 Constitutional: Yes: Well Nourished, No Distress, Calm Eyes: Yes: Conjunctiva Clear, EOM Intact HENT: Yes: Atraumatic, Normocephalic Neck: Yes: Supple, Trachea Midline Cardiovascular: Yes: Regular Rate and Rhythm Respiratory: Yes: Regular, CTA Bilaterally Gastrointestinal: Yes: Normal Bowel Sounds, Soft ...Rectal Exam: Yes: Deferred Genitourinary: Yes: WNL Musculoskeletal: Yes: Muscle Weakness, Other (edema of the right elbow) Extremities: Yes: WNL Edema: Yes Edema: RUE: 2+ (elbow) Peripheral Pulses WNL: Yes Integumentary: Yes: WNL Neurological: Yes: Alert, Oriented, Unsteady Gait, Weakness ...Motor Strength: LUE (generalized muscle weakness) Psychiatric: Yes: Alert, Oriented Labs: CBC, BMP 05/04/20 07:18 05/04/20 07:18 INR, PTT INR 1.28 (0.83-1.09) H 05/01/20 18:35 - ....Imaging Other: Report Reviewed (lab data reviewed) Problem List - Problems (1) Fever Code(s): R50.9 - FEVER, UNSPECIFIED Qualifiers: Fever type: unspecified Qualified Code(s): R50.9 - Fever, unspecified (2) Gout Code(s): M10.9 - GOUT, UNSPECIFIED Qualifiers: Gout site: multiple sites Gout etiology: unspecified cause Chronicity: unspecified Qualified Code(s): M10.9 - Gout, unspecified (3) BOUCHRA (acute kidney injury) Code(s): N17.9 - ACUTE KIDNEY FAILURE, UNSPECIFIED (4) Abnormal weight loss Code(s): R63.4 - ABNORMAL WEIGHT LOSS (5) Alcoholic cirrhosis of liver Code(s): K70.30 - ALCOHOLIC CIRRHOSIS OF LIVER WITHOUT ASCITES (6) Anemia Code(s): D64.9 - ANEMIA, UNSPECIFIED (7) Gait abnormality Code(s): R26.9 - UNSPECIFIED ABNORMALITIES OF GAIT AND MOBILITY (8) History of bilateral inguinal hernia repair Code(s): Z98.890 - OTHER SPECIFIED POSTPROCEDURAL STATES; Z87.19 - PERSONAL HISTORY OF OTHER DISEASES OF THE DIGESTIVE SYSTEM (9) Hyperlipidemia Code(s): E78.5 - HYPERLIPIDEMIA, UNSPECIFIED (10) Hypertension Code(s): I10 - ESSENTIAL (PRIMARY) HYPERTENSION (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 Code(s): D49.0 - NEOPLASM OF UNSPECIFIED BEHAVIOR OF DIGESTIVE SYSTEM (12) Intraductal papillary mucinous neoplasm of pancreas Code(s): D49.0 - NEOPLASM OF UNSPECIFIED BEHAVIOR OF DIGESTIVE SYSTEM (13) Leukocytosis Code(s): D72.829 - ELEVATED WHITE BLOOD CELL COUNT, UNSPECIFIED (14) Malnutrition Code(s): E46 - UNSPECIFIED PROTEIN-CALORIE MALNUTRITION (15) Muscle weakness (generalized) Code(s): M62.81 - MUSCLE WEAKNESS (GENERALIZED) (16) Orthostatic hypotension Code(s): I95.1 - ORTHOSTATIC HYPOTENSION (17) Physical deconditioning Code(s): R53.81 - OTHER MALAISE (18) Splenomegaly Code(s): R16.1 - SPLENOMEGALY, NOT ELSEWHERE CLASSIFIED (19) Symptomatic anemia Code(s): D64.9 - ANEMIA, UNSPECIFIED (20) Volume depletion Code(s): E86.9 - VOLUME DEPLETION, UNSPECIFIED (21) Prerenal azotemia Code(s): R79.89 - OTHER SPECIFIED ABNORMAL FINDINGS OF BLOOD CHEMISTRY Assessment/Plan Assessment/plan: acute dehydration, acute anemia, acute generalized muscle weakness, colchicine induced myopathy, acute gouty arthritis, HTN, HLD, mucinous papillary neoplasm of the pancreas; IV fluids, IV Cefazolin as per ID, DVT/GI prophylaxis, physical therapy, prednisone for gouty arthritis, atorvastatin for HLD, allopurinol for hyperuricemia, tylenol prn for pain.
[2020-05-04] MEDS: PANTOPRAZOLE 40 MG TABLET PO SCH (09:25)
[2020-05-04] MEDS: ALLOPURINOL 100 MG TABLET (FP) PO SCH (09:25)
[2020-05-04] MEDS: CHOLECALCIFEROL (VIT D3) 1,000 UNIT (25 MCG) TABLET PO SCH (09:25)
[2020-05-04] MEDS: ENOXAPARIN NA (PORCINE) 40 MG/0.4 ML DISP.SYRIN SQ SCH (09:25)
[2020-05-04] MEDS: predniSONE 20 MG TABLET (UD) PO SCH (09:25)
[2020-05-04] MEDS: D5-1/2NS+20 MEQ KCL - 20 MEQ/1,000 ML INFUS.BAG IV SCH (17:46)
[2020-05-04] MEDS: ATORVASTATIN CA 80 MG TABLET (FP) PO SCH (21:09)
[2020-05-05] MEDS: CEFAZOLIN 1 GM/D5W 1 GM/50 ML BAG IVPB SCH ×3 (02:57→17:20)
[2020-05-05] MEDS ORDERED: PT OWN MED DRAWER 7, Y5N ONE (06:48)
--- NOTE | 2020-05-05 08:54 | PN ---
Progress Note, Physician Chief Complaint: Patient seen and examined at the bedside, no acute events from last night, generalized muscle weakness. History of Present Illness: This 74 yr old male with PMH of HTN, gout, mucinous papillary neoplasm of the pancreas, HLD admitted via ER with an acute dehydration, prerenal azotemia, anemia, acute gouty arthritis, colchicine induced myopathy, UTI. - Current Medication List Current Medications: Active Medications Acetaminophen (Tylenol -) 650 mg PO Q4H PRN PRN Reason: MODERATE PAIN Allopurinol (Zyloprim -) 100 mg PO DAILY [facility] Last Admin: 05/04/20 09:25 Dose: 100 mg Documented by: Atorvastatin Calcium (Lipitor -) 80 mg PO HS [facility] Last Admin: 05/04/20 21:09 Dose: 80 mg Documented by: Cholecalciferol (Vitamin D3 -) 5,000 unit PO DAILY [facility] Last Admin: 05/04/20 09:25 Dose: 5,000 unit Documented by: Enoxaparin Sodium (Lovenox -) 40 mg SQ DAILY [facility] Last Admin: 05/04/20 09:25 Dose: 40 mg Documented by: Potassium Chloride/Dextrose/Sod Cl (D5-1/2ns+20 Meq Kcl -) 20 meq in 1,000 mls @ 50 mls/hr IV ASDIR [facility] Last Admin: 05/04/20 17:46 Dose: 50 mls/hr Documented by: Cefazolin Sodium (Ancef 1 Gm Premixed Ivpb -) 1 gm in 50 mls @ 100 mls/hr IVPB Q8H-IV [facility] Last Admin: 05/05/20 02:57 Dose: 100 mls/hr Documented by: Pantoprazole Sodium (Protonix -) 40 mg PO DAILY [facility] Stop: 05/05/20 10:01 Last Admin: 05/04/20 09:25 Dose: 40 mg Documented by: Prednisone (Deltasone -) 40 mg PO DAILY [facility] Stop: 05/05/20 10:01 Last Admin: 05/04/20 09:25 Dose: 40 mg Documented by: Prednisone (Deltasone -) 20 mg PO DAILY [facility] Stop: 05/08/20 10:01 - Objective Vital Signs: Vital Signs Temperature 98.4 F 05/05/20 05:53 Pulse Rate 68 05/05/20 05:53 Respiratory Rate 18 05/05/20 05:53 Blood Pressure 156/92 05/05/20 05:53 O2 Sat by Pulse Oximetry (%) 96 05/05/20 05:53 Constitutional: Yes: Well Nourished, No Distress, Calm Eyes: Yes: Conjunctiva Clear, EOM Intact HENT: Yes: Atraumatic, Normocephalic Neck: Yes: Supple, Trachea Midline Cardiovascular: Yes: Regular Rate and Rhythm Respiratory: Yes: Regular, CTA Bilaterally Gastrointestinal: Yes: Normal Bowel Sounds, Soft ...Rectal Exam: Yes: Deferred Genitourinary: Yes: WNL Breast(s): Yes: WNL Musculoskeletal: Yes: Muscle Weakness Extremities: Yes: Other (swelling of the right elbow) Edema: Yes Edema: RUE: 2+ (elbow) Peripheral Pulses WNL: Yes Integumentary: Yes: WNL Neurological: Yes: Alert, Oriented, Unsteady Gait, Weakness ...Motor Strength: LUE (generalized muscle weakness of all extremities) Psychiatric: Yes: Alert, Oriented Labs: CBC, BMP 05/04/20 07:18 05/04/20 07:18 INR, PTT INR 1.28 (0.83-1.09) H 05/01/20 18:35 - ....Imaging Other: Report Reviewed (lab data reviewed) Problem List - Problems (1) Fever Code(s): R50.9 - FEVER, UNSPECIFIED Qualifiers: Fever type: unspecified Qualified Code(s): R50.9 - Fever, unspecified (2) Gout Code(s): M10.9 - GOUT, UNSPECIFIED Qualifiers: Gout site: multiple sites Gout etiology: unspecified cause Chronicity: unspecified Qualified Code(s): M10.9 - Gout, unspecified (3) BOUCHRA (acute kidney injury) Code(s): N17.9 - ACUTE KIDNEY FAILURE, UNSPECIFIED (4) Abnormal weight loss Code(s): R63.4 - ABNORMAL WEIGHT LOSS (5) Alcoholic cirrhosis of liver Code(s): K70.30 - ALCOHOLIC CIRRHOSIS OF LIVER WITHOUT ASCITES (6) Anemia Code(s): D64.9 - ANEMIA, UNSPECIFIED (7) Gait abnormality Code(s): R26.9 - UNSPECIFIED ABNORMALITIES OF GAIT AND MOBILITY (8) History of bilateral inguinal hernia repair Code(s): Z98.890 - OTHER SPECIFIED POSTPROCEDURAL STATES; Z87.19 - PERSONAL HISTORY OF OTHER DISEASES OF THE DIGESTIVE SYSTEM (9) Hyperlipidemia Code(s): E78.5 - HYPERLIPIDEMIA, UNSPECIFIED (10) Hypertension Code(s): I10 - ESSENTIAL (PRIMARY) HYPERTENSION (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 Code(s): D49.0 - NEOPLASM OF UNSPECIFIED BEHAVIOR OF DIGESTIVE SYSTEM (12) Intraductal papillary mucinous neoplasm of pancreas Code(s): D49.0 - NEOPLASM OF UNSPECIFIED BEHAVIOR OF DIGESTIVE SYSTEM (13) Leukocytosis Code(s): D72.829 - ELEVATED WHITE BLOOD CELL COUNT, UNSPECIFIED (14) Malnutrition Code(s): E46 - UNSPECIFIED PROTEIN-CALORIE MALNUTRITION (15) Muscle weakness (generalized) Code(s): M62.81 - MUSCLE WEAKNESS (GENERALIZED) (16) Orthostatic hypotension Code(s): I95.1 - ORTHOSTATIC HYPOTENSION (17) Physical deconditioning Code(s): R53.81 - OTHER MALAISE (18) Splenomegaly Code(s): R16.1 - SPLENOMEGALY, NOT ELSEWHERE CLASSIFIED (19) Symptomatic anemia Code(s): D64.9 - ANEMIA, UNSPECIFIED (20) Volume depletion Code(s): E86.9 - VOLUME DEPLETION, UNSPECIFIED (21) Prerenal azotemia Code(s): R79.89 - OTHER SPECIFIED ABNORMAL FINDINGS OF BLOOD CHEMISTRY Assessment/Plan Assessment/plan: acute Klebsiella pneumoniae UTI, acute dehydration, acute anemia, acute gouty arthritis, acute colchicine induced myopathy, HTN, HLD, mucinous papillary neoplasm of the pancreas; IV fluids, IV Cefazolin as per ID for UTI, DVT/GI prophylaxis, blood transfusion as necessary, atorvastatin, prednisone.
[2020-05-05] MEDS: predniSONE 20 MG TABLET (UD) PO SCH (10:53)
[2020-05-05] MEDS: PANTOPRAZOLE 40 MG TABLET PO SCH (10:53)
[2020-05-05] MEDS: ENOXAPARIN NA (PORCINE) 40 MG/0.4 ML DISP.SYRIN SQ SCH (10:53)
[2020-05-05] MEDS: CHOLECALCIFEROL (VIT D3) 1,000 UNIT (25 MCG) TABLET PO SCH (10:53)
[2020-05-05] MEDS: ALLOPURINOL 100 MG TABLET (FP) PO SCH (10:54)
[2020-05-05] MEDS: ACETAMINOPHEN 325 MG TABLET (FP) PO PRN ×2 (12:47→19:06)
[2020-05-05] MEDS: D5-1/2NS+20 MEQ KCL - 20 MEQ/1,000 ML INFUS.BAG IV SCH ×2 (14:12→15:24)
--- NOTE | 2020-05-05 14:42 | PN ---
Progress Note, Physician History of Present Illness: AWAKE IN BED REPORTS LESS GENERALIZED BODY PAIN S/P INJECTION R ELBOW AFEBRILE WBC DOWN AZOTEMIA IMPROVED LACTIC ACIDOSIS RESOLVED - Current Medication List Current Medications: Active Medications Acetaminophen (Tylenol -) 650 mg PO Q4H PRN PRN Reason: MODERATE PAIN Last Admin: 05/05/20 12:47 Dose: 650 mg Documented by: Allopurinol (Zyloprim -) 100 mg PO DAILY [facility] Last Admin: 05/05/20 10:54 Dose: 100 mg Documented by: Atorvastatin Calcium (Lipitor -) 80 mg PO HS [facility] Last Admin: 05/04/20 21:09 Dose: 80 mg Documented by: Cholecalciferol (Vitamin D3 -) 5,000 unit PO DAILY [facility] Last Admin: 05/05/20 10:53 Dose: 5,000 unit Documented by: Enoxaparin Sodium (Lovenox -) 40 mg SQ DAILY [facility] Last Admin: 05/05/20 10:53 Dose: 40 mg Documented by: Potassium Chloride/Dextrose/Sod Cl (D5-1/2ns+20 Meq Kcl -) 20 meq in 1,000 mls @ 50 mls/hr IV ASDIR [facility] Last Admin: 05/05/20 14:12 Dose: Not Given Documented by: Cefazolin Sodium (Ancef 1 Gm Premixed Ivpb -) 1 gm in 50 mls @ 100 mls/hr IVPB Q8H-IV [facility] Last Admin: 05/05/20 10:53 Dose: 100 mls/hr Documented by: Prednisone (Deltasone -) 20 mg PO DAILY [facility] Stop: 05/08/20 10:01 - Objective Vital Signs: Vital Signs Temperature 97.9 F 05/05/20 13:26 Pulse Rate 65 05/05/20 13:26 Respiratory Rate 18 05/05/20 13:26 Blood Pressure 173/85 H 05/05/20 13:26 O2 Sat by Pulse Oximetry (%) 99 05/05/20 10:00 Constitutional: Yes: No Distress Eyes: Yes: Conjunctiva Clear Cardiovascular: Yes: Regular Rate and Rhythm, S1, S2 Respiratory: Yes: CTA Bilaterally Gastrointestinal: Yes: Normal Bowel Sounds, Soft. No: Tenderness Extremities: Yes: Other (+ FLUCTUANT SWELLING OVER R ELBOW + BILAT KNEE AND ANKLE SWELLING W/O ERYTHEMA/ WARMTH) Labs: CBC, BMP 05/04/20 07:18 07/15/20 07:18 INR, PTT INR 1.28 (0.83-1.09) H 05/01/20 18:35 Assessment/Plan GOUT ? CELLULITIS UTI CONTINUE TREATMENT FOR GOUT CEFAZOLIN SKIN/ COVERAGE
[2020-05-05] MEDS: ATORVASTATIN CA 80 MG TABLET (FP) PO SCH (21:25)
[2020-05-05] MEDS: LOSARTAN POTASSIUM 50 MG TABLET (FP) PO SCH (23:23)
[2020-05-06] MEDS: CEFAZOLIN 1 GM/D5W 1 GM/50 ML BAG IVPB SCH ×3 (01:09→17:29)
[2020-05-06] MEDS: ACETAMINOPHEN 325 MG TABLET (FP) PO PRN ×4 (03:22→18:16)
[2020-05-06 08:36] LABS: BASO % 0.2 % (0-2.0); HEMATOCRIT 29.6 % (35.4-49); HEMOGLOBIN 9.8 GM/dL (11.7-16.9); LYMPH % 8.4 % (8-40); MCH 26.8 pg (25.7-33.7); MCHC 33.2 g/dl (32.0-35.9); MEAN CELL VOLUME 80.8 fl (80-96); MEAN PLT VOLUME 10.3 fl (7.5-11.1); MONO % 9.8 % (3.8-10.2); NEUT % 81.6 % (42.8-82.8); PLATELET COUNT 283 K/MM3 (134-434); RBC 3.66 M/mm3 (4.00-5.60); RDW 16.8 % (11.9-15.9); WHITE BLOOD COUNT 10.2 K/mm3 (4.0-10.0)
--- NOTE | 2020-05-06 08:36 | PN ---
Progress Note, Physician Chief Complaint: Patient seen and examined at the bedside, no acute events from last night, no labored breathing, afebrile. History of Present Illness: This 74 yr old male with PMH of mucinous papillary neoplasm of the pancreas, HLD, HTN, gout, chronic anemia admitted via ER with an acute anemia, acute dehydration, acute gouty arthritis, acute colchicine induced myopathy, generalized muscle weakness. - Current Medication List Current Medications: Active Medications Acetaminophen (Tylenol -) 650 mg PO Q4H PRN PRN Reason: MODERATE PAIN Last Admin: 05/06/20 03:22 Dose: 650 mg Documented by: Allopurinol (Zyloprim -) 100 mg PO DAILY [facility] Last Admin: 05/05/20 10:54 Dose: 100 mg Documented by: Atorvastatin Calcium (Lipitor -) 80 mg PO HS [facility] Last Admin: 05/05/20 21:25 Dose: 80 mg Documented by: Cholecalciferol (Vitamin D3 -) 5,000 unit PO DAILY [facility] Last Admin: 05/05/20 10:53 Dose: 5,000 unit Documented by: Enoxaparin Sodium (Lovenox -) 40 mg SQ DAILY [facility] Last Admin: 05/05/20 10:53 Dose: 40 mg Documented by: Potassium Chloride/Dextrose/Sod Cl (D5-1/2ns+20 Meq Kcl -) 20 meq in 1,000 mls @ 50 mls/hr IV ASDIR [facility] Last Admin: 05/05/20 15:24 Dose: 50 mls/hr Documented by: Cefazolin Sodium (Ancef 1 Gm Premixed Ivpb -) 1 gm in 50 mls @ 100 mls/hr IVPB Q8H-IV [facility] Last Admin: 05/06/20 01:09 Dose: 100 mls/hr Documented by: Losartan Potassium (Cozaar -) 50 mg PO DAILY [facility] Last Admin: 05/05/20 23:23 Dose: 50 mg Documented by: Prednisone (Deltasone -) 20 mg PO DAILY [facility] Stop: 05/08/20 10:01 - Objective Vital Signs: Vital Signs Temperature 97.9 F 05/05/20 22:00 Pulse Rate 58 L 05/06/20 05:00 Respiratory Rate 18 05/06/20 05:00 Blood Pressure 146/92 05/06/20 05:00 O2 Sat by Pulse Oximetry (%) 97 05/05/20 22:00 Constitutional: Yes: Well Nourished, No Distress, Calm Eyes: Yes: Conjunctiva Clear, EOM Intact HENT: Yes: Atraumatic, Normocephalic Neck: Yes: Supple, Trachea Midline Cardiovascular: Yes: Regular Rate and Rhythm Respiratory: Yes: Regular, CTA Bilaterally Gastrointestinal: Yes: Normal Bowel Sounds, Soft ...Rectal Exam: Yes: Deferred Genitourinary: Yes: WNL Breast(s): Yes: WNL Musculoskeletal: Yes: Muscle Weakness Extremities: Yes: Other (edema of the right elbow) Edema: Yes Edema: RUE: 2+ (elbow) Peripheral Pulses WNL: Yes Integumentary: Yes: WNL Neurological: Yes: Alert, Oriented, Unsteady Gait, Weakness ...Motor Strength: LUE (generalized muscle weakness of all extremities) Psychiatric: Yes: Alert, Oriented Labs: INR, PTT INR 1.28 (0.83-1.09) H 05/01/20 18:35 - ....Imaging Other: Report Reviewed (lab data reviewed) Problem List - Problems (1) Fever Code(s): R50.9 - FEVER, UNSPECIFIED Qualifiers: Fever type: unspecified Qualified Code(s): R50.9 - Fever, unspecified (2) Gout Code(s): M10.9 - GOUT, UNSPECIFIED Qualifiers: Gout site: multiple sites Gout etiology: unspecified cause Chronicity: unspecified Qualified Code(s): M10.9 - Gout, unspecified (3) BOUCHRA (acute kidney injury) Code(s): N17.9 - ACUTE KIDNEY FAILURE, UNSPECIFIED (4) Abnormal weight loss Code(s): R63.4 - ABNORMAL WEIGHT LOSS (5) Alcoholic cirrhosis of liver Code(s): K70.30 - ALCOHOLIC CIRRHOSIS OF LIVER WITHOUT ASCITES (6) Anemia Code(s): D64.9 - ANEMIA, UNSPECIFIED (7) Gait abnormality Code(s): R26.9 - UNSPECIFIED ABNORMALITIES OF GAIT AND MOBILITY (8) History of bilateral inguinal hernia repair Code(s): Z98.890 - OTHER SPECIFIED POSTPROCEDURAL STATES; Z87.19 - PERSONAL HISTORY OF OTHER DISEASES OF THE DIGESTIVE SYSTEM (9) Hyperlipidemia Code(s): E78.5 - HYPERLIPIDEMIA, UNSPECIFIED (10) Hypertension Code(s): I10 - ESSENTIAL (PRIMARY) HYPERTENSION (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 Code(s): D49.0 - NEOPLASM OF UNSPECIFIED BEHAVIOR OF DIGESTIVE SYSTEM (12) Intraductal papillary mucinous neoplasm of pancreas Code(s): D49.0 - NEOPLASM OF UNSPECIFIED BEHAVIOR OF DIGESTIVE SYSTEM (13) Leukocytosis Code(s): D72.829 - ELEVATED WHITE BLOOD CELL COUNT, UNSPECIFIED (14) Malnutrition Code(s): E46 - UNSPECIFIED PROTEIN-CALORIE MALNUTRITION (15) Muscle weakness (generalized) Code(s): M62.81 - MUSCLE WEAKNESS (GENERALIZED) (16) Orthostatic hypotension Code(s): I95.1 - ORTHOSTATIC HYPOTENSION (17) Physical deconditioning Code(s): R53.81 - OTHER MALAISE (18) Splenomegaly Code(s): R16.1 - SPLENOMEGALY, NOT ELSEWHERE CLASSIFIED (19) Symptomatic anemia Code(s): D64.9 - ANEMIA, UNSPECIFIED (20) Volume depletion Code(s): E86.9 - VOLUME DEPLETION, UNSPECIFIED (21) Prerenal azotemia Code(s): R79.89 - OTHER SPECIFIED ABNORMAL FINDINGS OF BLOOD CHEMISTRY Assessment/Plan Assessment/plan: acute dehydration, acute prerenal azotemia, acute gouty arthritis, acute Klebsiella Pneumoniae UTI, acute anemia, acute generalized muscle weakness, acute colchicine induced myopathy, HTN, HLD, mucinous papillary neoplasm of the pancreas; d/c IV fluids, DVT/GI prophylaxis, atorvastatin for HLD, prednisone for acute gouty arthritis and colchicine induced myopathy, allopurinol for hyperuricemia, physical therapy, IV Cefazolin as per ID for UTI.
[2020-05-06 09:03] LABS: POTASSIUM 4.7 mmol/L (3.5-5.1)
[2020-05-06 09:15] LABS: BILIRUBIN,TOTAL 0.3 mg/dL (0.2-1); BLOOD UREA NITROGEN 40.6 mg/dL (7-18); CALCIUM 8.3 mg/dL (8.5-10.1); CREATININE 1.5 mg/dL (0.55-1.3); TOT PROT 6.7 g/dl (6.4-8.2)
[2020-05-06] MEDS: ALLOPURINOL 100 MG TABLET (FP) PO SCH (09:44)
[2020-05-06] MEDS: predniSONE 20 MG TABLET (UD) PO SCH (09:45)
[2020-05-06] MEDS: ENOXAPARIN NA (PORCINE) 40 MG/0.4 ML DISP.SYRIN SQ SCH (09:45)
[2020-05-06] MEDS: CHOLECALCIFEROL (VIT D3) 1,000 UNIT (25 MCG) TABLET PO SCH (09:45)
[2020-05-06] MEDS: LOSARTAN POTASSIUM 50 MG TABLET (FP) PO SCH (09:46)
[2020-05-06] MEDS ORDERED: PANTOPRAZOLE 20 MG TABLET PO SCH (10:00)
--- NOTE | 2020-05-06 15:10 | PN ---
Progress Note, Physician History of Present Illness: AWAKE IN BED REPORTS LESS GENERALIZED BODY PAIN S/P INJECTION R ELBOW AFEBRILE WBC DOWN AZOTEMIA IMPROVED LACTIC ACIDOSIS RESOLVED - Current Medication List Current Medications: Active Medications Acetaminophen (Tylenol -) 650 mg PO Q4H PRN PRN Reason: MODERATE PAIN Last Admin: 05/06/20 14:01 Dose: 650 mg Documented by: Allopurinol (Zyloprim -) 100 mg PO DAILY [facility] Last Admin: 05/06/20 09:44 Dose: 100 mg Documented by: Atorvastatin Calcium (Lipitor -) 80 mg PO HS [facility] Last Admin: 05/05/20 21:25 Dose: 80 mg Documented by: Cholecalciferol (Vitamin D3 -) 5,000 unit PO DAILY [facility] Last Admin: 05/06/20 09:45 Dose: 5,000 unit Documented by: Enoxaparin Sodium (Lovenox -) 40 mg SQ DAILY [facility] Last Admin: 05/06/20 09:45 Dose: 40 mg Documented by: Cefazolin Sodium (Ancef 1 Gm Premixed Ivpb -) 1 gm in 50 mls @ 100 mls/hr IVPB Q8H-IV [facility] Last Admin: 05/06/20 09:45 Dose: 100 mls/hr Documented by: Losartan Potassium (Cozaar -) 50 mg PO DAILY [facility] Last Admin: 05/06/20 09:46 Dose: 50 mg Documented by: Prednisone (Deltasone -) 20 mg PO DAILY [facility] Stop: 05/08/20 10:01 Last Admin: 05/06/20 09:45 Dose: 20 mg Documented by: - Objective Vital Signs: Vital Signs Temperature 97.6 F 05/06/20 10:00 Pulse Rate 65 05/06/20 10:00 Respiratory Rate 16 05/06/20 10:00 Blood Pressure 188/87 H 05/06/20 10:00 O2 Sat by Pulse Oximetry (%) 97 05/06/20 10:00 Eyes: Yes: Conjunctiva Clear Cardiovascular: Yes: Regular Rate and Rhythm, S2 Respiratory: Yes: CTA Bilaterally Gastrointestinal: Yes: Normal Bowel Sounds, Soft. No: Tenderness Extremities: Yes: Other (decreased r elbow swelling/ erythema) Labs: CBC, BMP 05/06/20 07:08 05/06/20 07:08 INR, PTT INR 1.28 (0.83-1.09) H 05/01/20 18:35 Assessment/Plan GOUT ? CELLULITIS UTI CONTINUE TREATMENT FOR GOUT CEFAZOLIN SKIN/ COVERAGE
[2020-05-06] MEDS: ATORVASTATIN CA 80 MG TABLET (FP) PO SCH (21:14)
[2020-05-07] MEDS: ACETAMINOPHEN 325 MG TABLET (FP) PO PRN ×4 (01:12→18:35)
[2020-05-07] MEDS: CEFAZOLIN 1 GM/D5W 1 GM/50 ML BAG IVPB SCH ×3 (01:12→17:48)
[2020-05-07] MEDS: LOSARTAN POTASSIUM 50 MG TABLET (FP) PO SCH (10:18)
[2020-05-07] MEDS: ALLOPURINOL 100 MG TABLET (FP) PO SCH (10:18)
[2020-05-07] MEDS: predniSONE 20 MG TABLET (UD) PO SCH (10:18)
[2020-05-07] MEDS: ENOXAPARIN NA (PORCINE) 40 MG/0.4 ML DISP.SYRIN SQ SCH (10:18)
[2020-05-07] MEDS: CHOLECALCIFEROL (VIT D3) 1,000 UNIT (25 MCG) TABLET PO SCH (10:18)
--- NOTE | 2020-05-07 12:00 | PN ---
Progress Note, Physician Chief Complaint: Patient seen and examined at the bedside, no acute events from last night, afebrile, oxygen saturation 98% on room air. History of Present Illness: This 74 yr old male with PMH of HTN, HLD, gout, and mucinous papillary neoplasm of the pancreas admitted via ER with an acute dehydration, acute anemia, acute gouty arthritis, acute colchicine induced myopathy, and Klebsiella Pneumoniae UTI. - Current Medication List Current Medications: Active Medications Acetaminophen (Tylenol -) 650 mg PO Q4H PRN PRN Reason: MODERATE PAIN Last Admin: 05/07/20 10:18 Dose: 650 mg Documented by: Allopurinol (Zyloprim -) 100 mg PO DAILY [facility] Last Admin: 05/07/20 10:18 Dose: 100 mg Documented by: Atorvastatin Calcium (Lipitor -) 80 mg PO HS [facility] Last Admin: 05/06/20 21:14 Dose: 80 mg Documented by: Cholecalciferol (Vitamin D3 -) 5,000 unit PO DAILY [facility] Last Admin: 05/07/20 10:18 Dose: 5,000 unit Documented by: Enoxaparin Sodium (Lovenox -) 40 mg SQ DAILY [facility] Last Admin: 05/07/20 10:18 Dose: 40 mg Documented by: Cefazolin Sodium (Ancef 1 Gm Premixed Ivpb -) 1 gm in 50 mls @ 100 mls/hr IVPB Q8H-IV [facility] Last Admin: 05/07/20 10:19 Dose: 100 mls/hr Documented by: Losartan Potassium (Cozaar -) 50 mg PO DAILY [facility] Last Admin: 05/07/20 10:18 Dose: 50 mg Documented by: Prednisone (Deltasone -) 20 mg PO DAILY [facility] Stop: 05/08/20 10:01 Last Admin: 05/07/20 10:18 Dose: 20 mg Documented by: - Objective Vital Signs: Vital Signs Temperature 97.7 F 05/07/20 10:00 Pulse Rate 74 05/07/20 10:00 Respiratory Rate 14 05/07/20 10:00 Blood Pressure 155/82 05/07/20 10:00 O2 Sat by Pulse Oximetry (%) 98 05/07/20 10:00 Constitutional: Yes: Well Nourished, No Distress, Calm Eyes: Yes: Conjunctiva Clear, EOM Intact HENT: Yes: Atraumatic, Normocephalic Neck: Yes: Supple, Trachea Midline Cardiovascular: Yes: Regular Rate and Rhythm Respiratory: Yes: Regular, CTA Bilaterally Gastrointestinal: Yes: Normal Bowel Sounds, Soft ...Rectal Exam: Yes: Deferred Genitourinary: Yes: WNL Breast(s): Yes: WNL Musculoskeletal: Yes: Muscle Weakness Extremities: Yes: Other (swelling of the right elbow) Edema: Yes Edema: RUE: 2+ (elbow) Peripheral Pulses WNL: Yes Integumentary: Yes: WNL Neurological: Yes: Alert, Oriented, Unsteady Gait, Weakness ...Motor Strength: LUE (generalized muscle weakness of all extremities) Psychiatric: Yes: Alert, Oriented Labs: CBC, BMP 05/06/20 07:08 05/06/20 07:08 INR, PTT INR 1.28 (0.83-1.09) H 05/01/20 18:35 - ....Imaging Other: Report Reviewed (lab data reviewed) Problem List - Problems (1) Fever Code(s): R50.9 - FEVER, UNSPECIFIED Qualifiers: Fever type: unspecified Qualified Code(s): R50.9 - Fever, unspecified (2) Gout Code(s): M10.9 - GOUT, UNSPECIFIED Qualifiers: Gout site: multiple sites Gout etiology: unspecified cause Chronicity: unspecified Qualified Code(s): M10.9 - Gout, unspecified (3) BOUCHRA (acute kidney injury) Code(s): N17.9 - ACUTE KIDNEY FAILURE, UNSPECIFIED (4) Abnormal weight loss Code(s): R63.4 - ABNORMAL WEIGHT LOSS (5) Alcoholic cirrhosis of liver Code(s): K70.30 - ALCOHOLIC CIRRHOSIS OF LIVER WITHOUT ASCITES (6) Anemia Code(s): D64.9 - ANEMIA, UNSPECIFIED (7) Gait abnormality Code(s): R26.9 - UNSPECIFIED ABNORMALITIES OF GAIT AND MOBILITY (8) History of bilateral inguinal hernia repair Code(s): Z98.890 - OTHER SPECIFIED POSTPROCEDURAL STATES; Z87.19 - PERSONAL HISTORY OF OTHER DISEASES OF THE DIGESTIVE SYSTEM (9) Hyperlipidemia Code(s): E78.5 - HYPERLIPIDEMIA, UNSPECIFIED (10) Hypertension Code(s): I10 - ESSENTIAL (PRIMARY) HYPERTENSION (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 Code(s): D49.0 - NEOPLASM OF UNSPECIFIED BEHAVIOR OF DIGESTIVE SYSTEM (12) Intraductal papillary mucinous neoplasm of pancreas Code(s): D49.0 - NEOPLASM OF UNSPECIFIED BEHAVIOR OF DIGESTIVE SYSTEM (13) Leukocytosis Code(s): D72.829 - ELEVATED WHITE BLOOD CELL COUNT, UNSPECIFIED (14) Malnutrition Code(s): E46 - UNSPECIFIED PROTEIN-CALORIE MALNUTRITION (15) Muscle weakness (generalized) Code(s): M62.81 - MUSCLE WEAKNESS (GENERALIZED) (16) Orthostatic hypotension Code(s): I95.1 - ORTHOSTATIC HYPOTENSION (17) Physical deconditioning Code(s): R53.81 - OTHER MALAISE (18) Splenomegaly Code(s): R16.1 - SPLENOMEGALY, NOT ELSEWHERE CLASSIFIED (19) Symptomatic anemia Code(s): D64.9 - ANEMIA, UNSPECIFIED (20) Volume depletion Code(s): E86.9 - VOLUME DEPLETION, UNSPECIFIED (21) Prerenal azotemia Code(s): R79.89 - OTHER SPECIFIED ABNORMAL FINDINGS OF BLOOD CHEMISTRY Assessment/Plan Assessment/plan: acute dehydration, acute anemia, acute gouty arthritis, acute edema of the right elbow, acute colchicine induced myopathy, HTN, mucinous pa pillary neoplasm of the pancreas; DVT/GI prophylaxis, prednisone for colchicine induced myopathy, atorvastatin for HLD, tylenol for pain, IV Cefazolin as per ID for UTI, losartan for HTN.
[2020-05-07] MEDS: ATORVASTATIN CA 80 MG TABLET (FP) PO SCH (23:36)
[2020-05-08] MEDS: CEFAZOLIN 1 GM/D5W 1 GM/50 ML BAG IVPB SCH ×3 (02:18→17:25)
--- NOTE | 2020-05-08 08:51 | PN ---
Progress Note, Physician Chief Complaint: Patient seen and examined at the bedside, no acute events from last night, afebrile. History of Present Illness: This 74 yr old male with PMH of HTN, HLD, gout, mucinous papillary neoplasm of the pancreas admitted via ER with an acute dehydration, acute anemia, acute gouty arthritis, acute colchicine induced myopathy, acute UTI, and an acute generalized muscle weakness. - Current Medication List Current Medications: Active Medications Acetaminophen (Tylenol -) 650 mg PO Q4H PRN PRN Reason: MODERATE PAIN Last Admin: 05/07/20 18:35 Dose: 650 mg Documented by: Allopurinol (Zyloprim -) 100 mg PO DAILY [facility] Last Admin: 05/07/20 10:18 Dose: 100 mg Documented by: Atorvastatin Calcium (Lipitor -) 80 mg PO HS [facility] Last Admin: 05/07/20 23:36 Dose: 80 mg Documented by: Cholecalciferol (Vitamin D3 -) 5,000 unit PO DAILY [facility] Last Admin: 05/07/20 10:18 Dose: 5,000 unit Documented by: Enoxaparin Sodium (Lovenox -) 40 mg SQ DAILY [facility] Last Admin: 05/07/20 10:18 Dose: 40 mg Documented by: Cefazolin Sodium (Ancef 1 Gm Premixed Ivpb -) 1 gm in 50 mls @ 100 mls/hr IVPB Q8H-IV [facility] Last Admin: 05/08/20 02:18 Dose: 100 mls/hr Documented by: Losartan Potassium (Cozaar -) 50 mg PO DAILY [facility] Last Admin: 05/07/20 10:18 Dose: 50 mg Documented by: Prednisone (Deltasone -) 20 mg PO DAILY [facility] Stop: 05/08/20 10:01 Last Admin: 05/07/20 10:18 Dose: 20 mg Documented by: - Objective Vital Signs: Vital Signs Temperature 97.9 F 05/08/20 05:22 Pulse Rate 66 05/08/20 05:22 Respiratory Rate 18 05/08/20 05:22 Blood Pressure 168/88 05/08/20 05:22 O2 Sat by Pulse Oximetry (%) 97 05/08/20 05:22 Constitutional: Yes: Well Nourished, No Distress, Calm Eyes: Yes: Conjunctiva Clear, EOM Intact HENT: Yes: Atraumatic, Normocephalic Neck: Yes: Supple, Trachea Midline Cardiovascular: Yes: Regular Rate and Rhythm Respiratory: Yes: Regular, CTA Bilaterally Gastrointestinal: Yes: Normal Bowel Sounds, Soft ...Rectal Exam: Yes: Deferred Genitourinary: Yes: WNL Breast(s): Yes: WNL Musculoskeletal: Yes: Muscle Weakness Extremities: Yes: Other (Edema of the right elbow) Edema: Yes Edema: RUE: 2+ (elbow) Peripheral Pulses WNL: Yes Integumentary: Yes: WNL Neurological: Yes: Alert, Oriented, Unsteady Gait, Weakness ...Motor Strength: LUE (generalized muscle weakness of all extremities) Psychiatric: Yes: Alert, Oriented Labs: INR, PTT INR 1.28 (0.83-1.09) H 05/01/20 18:35 - ....Imaging Other: Report Reviewed (lab data reviewed) Problem List - Problems (1) Fever Code(s): R50.9 - FEVER, UNSPECIFIED Qualifiers: Fever type: unspecified Qualified Code(s): R50.9 - Fever, unspecified (2) Gout Code(s): M10.9 - GOUT, UNSPECIFIED Qualifiers: Gout site: multiple sites Gout etiology: unspecified cause Chronicity: unspecified Qualified Code(s): M10.9 - Gout, unspecified (3) BOUCHRA (acute kidney injury) Code(s): N17.9 - ACUTE KIDNEY FAILURE, UNSPECIFIED (4) Abnormal weight loss Code(s): R63.4 - ABNORMAL WEIGHT LOSS (5) Alcoholic cirrhosis of liver Code(s): K70.30 - ALCOHOLIC CIRRHOSIS OF LIVER WITHOUT ASCITES (6) Anemia Code(s): D64.9 - ANEMIA, UNSPECIFIED (7) Gait abnormality Code(s): R26.9 - UNSPECIFIED ABNORMALITIES OF GAIT AND MOBILITY (8) History of bilateral inguinal hernia repair Code(s): Z98.890 - OTHER SPECIFIED POSTPROCEDURAL STATES; Z87.19 - PERSONAL HISTORY OF OTHER DISEASES OF THE DIGESTIVE SYSTEM (9) Hyperlipidemia Code(s): E78.5 - HYPERLIPIDEMIA, UNSPECIFIED (10) Hypertension Code(s): I10 - ESSENTIAL (PRIMARY) HYPERTENSION (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 Code(s): D49.0 - NEOPLASM OF UNSPECIFIED BEHAVIOR OF DIGESTIVE SYSTEM (12) Intraductal papillary mucinous neoplasm of pancreas Code(s): D49.0 - NEOPLASM OF UNSPECIFIED BEHAVIOR OF DIGESTIVE SYSTEM (13) Leukocytosis Code(s): D72.829 - ELEVATED WHITE BLOOD CELL COUNT, UNSPECIFIED (14) Malnutrition Code(s): E46 - UNSPECIFIED PROTEIN-CALORIE MALNUTRITION (15) Muscle weakness (generalized) Code(s): M62.81 - MUSCLE WEAKNESS (GENERALIZED) (16) Orthostatic hypotension Code(s): I95.1 - ORTHOSTATIC HYPOTENSION (17) Physical deconditioning Code(s): R53.81 - OTHER MALAISE (18) Splenomegaly Code(s): R16.1 - SPLENOMEGALY, NOT ELSEWHERE CLASSIFIED (19) Symptomatic anemia Code(s): D64.9 - ANEMIA, UNSPECIFIED (20) Volume depletion Code(s): E86.9 - VOLUME DEPLETION, UNSPECIFIED (21) Prerenal azotemia Code(s): R79.89 - OTHER SPECIFIED ABNORMAL FINDINGS OF BLOOD CHEMISTRY Assessment/Plan Assessment/plan: acute dehydration, acute anemia, acute gouty arthritis, acute colchicine induced myopathy, HTN, HLD, mucinous papillary neoplasm of the pancreas; DVT/GI prophylaxis, IV Cefazolin as per ID for UTI, atorvastatin for HLD, losartan for HTN, Allopurinol for hyperuricemia, prednisone for colchicine induced myopathy.
[2020-05-08 08:56] LABS: BASO % 0.5 % (0-2.0); HEMATOCRIT 29.1 % (35.4-49); HEMOGLOBIN 9.5 GM/dL (11.7-16.9); MCH 26.3 pg (25.7-33.7); MCHC 32.6 g/dl (32.0-35.9); MEAN CELL VOLUME 80.7 fl (80-96); MEAN PLT VOLUME 10.6 fl (7.5-11.1); MONO % 10.1 % (3.8-10.2); NEUT % 78.4 % (42.8-82.8); PLATELET COUNT 309 K/MM3 (134-434)
[2020-05-08 09:25] LABS: BILIRUBIN,TOTAL 0.5 mg/dL (0.2-1); BLOOD UREA NITROGEN 37.9 mg/dL (7-18); CALCIUM 8.3 mg/dL (8.5-10.1); CREATININE 1.2 mg/dL (0.55-1.3); POTASSIUM 4.8 mmol/L (3.5-5.1); TOT PROT 6.6 g/dl (6.4-8.2)
[2020-05-08] MEDS: predniSONE 20 MG TABLET (UD) PO SCH (10:13)
[2020-05-08] MEDS: ACETAMINOPHEN 325 MG TABLET (FP) PO PRN ×3 (10:13→18:21)
[2020-05-08] MEDS: CHOLECALCIFEROL (VIT D3) 1,000 UNIT (25 MCG) TABLET PO SCH (10:13)
[2020-05-08] MEDS: ALLOPURINOL 100 MG TABLET (FP) PO SCH (10:13)
[2020-05-08] MEDS: LOSARTAN POTASSIUM 50 MG TABLET (FP) PO SCH ×2 (10:17→23:20)
[2020-05-08] MEDS: ENOXAPARIN NA (PORCINE) 40 MG/0.4 ML DISP.SYRIN SQ SCH (10:17)
[2020-05-08] MEDS: ATORVASTATIN CA 80 MG TABLET (FP) PO SCH (23:19)
[2020-05-09] MEDS: CEFAZOLIN 1 GM/D5W 1 GM/50 ML BAG IVPB SCH ×2 (01:41→10:48)
--- NOTE | 2020-05-09 05:39 | PN ---
Progress Note, Physician Chief Complaint: Patient seen and examined at the bedside, no acute events from last night, afebrile. History of Present Illness: This 74 yr old male with PMH of gout, HTN, HLD, mucinous papillary neoplasm of the pancreas admitted via ER with an acute dehydration, acute generalized muscle weakness, acute gouty arthritis, acute colchicine induced myopathy, acute anemia, and an acute prerenal azotemia. - Current Medication List Current Medications: Active Medications Acetaminophen (Tylenol -) 650 mg PO Q4H PRN PRN Reason: MODERATE PAIN Last Admin: 05/08/20 18:21 Dose: 650 mg Documented by: Allopurinol (Zyloprim -) 100 mg PO DAILY [facility] Last Admin: 05/08/20 10:13 Dose: 100 mg Documented by: Atorvastatin Calcium (Lipitor -) 80 mg PO HS [facility] Last Admin: 05/08/20 23:19 Dose: 80 mg Documented by: Cholecalciferol (Vitamin D3 -) 5,000 unit PO DAILY [facility] Last Admin: 05/08/20 10:13 Dose: 5,000 unit Documented by: Enoxaparin Sodium (Lovenox -) 40 mg SQ DAILY [facility] Last Admin: 05/08/20 10:17 Dose: 40 mg Documented by: Cefazolin Sodium (Ancef 1 Gm Premixed Ivpb -) 1 gm in 50 mls @ 100 mls/hr IVPB Q8H-IV [facility] Last Admin: 05/09/20 01:41 Dose: 100 mls/hr Documented by: Losartan Potassium (Cozaar -) 50 mg PO BID [facility] Last Admin: 05/08/20 23:20 Dose: 50 mg Documented by: - Objective Vital Signs: Vital Signs Temperature 98 F 05/09/20 05:29 Pulse Rate 65 05/09/20 05:29 Respiratory Rate 18 05/09/20 05:29 Blood Pressure 160/89 05/09/20 05:29 O2 Sat by Pulse Oximetry (%) 98 05/09/20 05:29 Constitutional: Yes: Well Nourished, No Distress, Calm, Thin Eyes: Yes: Conjunctiva Clear, EOM Intact HENT: Yes: Atraumatic, Normocephalic Neck: Yes: Supple, Trachea Midline Cardiovascular: Yes: Regular Rate and Rhythm Respiratory: Yes: Regular, CTA Bilaterally Gastrointestinal: Yes: Normal Bowel Sounds, Soft ...Rectal Exam: Yes: Deferred Genitourinary: Yes: WNL Breast(s): Yes: WNL Musculoskeletal: Yes: Muscle Weakness Edema: No Peripheral Pulses WNL: Yes Integumentary: Yes: WNL Neurological: Yes: Alert, Oriented, Unsteady Gait, Weakness ...Motor Strength: LUE (generalized muscle weakness of all extremities) Psychiatric: Yes: Alert, Oriented Labs: CBC, BMP 05/08/20 07:40 05/08/20 07:40 INR, PTT INR 1.28 (0.83-1.09) H 05/01/20 18:35 Problem List - Problems (1) Fever Code(s): R50.9 - FEVER, UNSPECIFIED Qualifiers: Fever type: unspecified Qualified Code(s): R50.9 - Fever, unspecified (2) Gout Code(s): M10.9 - GOUT, UNSPECIFIED Qualifiers: Gout site: multiple sites Gout etiology: unspecified cause Chronicity: unspecified Qualified Code(s): M10.9 - Gout, unspecified (3) BOUCHRA (acute kidney injury) Code(s): N17.9 - ACUTE KIDNEY FAILURE, UNSPECIFIED (4) Abnormal weight loss Code(s): R63.4 - ABNORMAL WEIGHT LOSS (5) Alcoholic cirrhosis of liver Code(s): K70.30 - ALCOHOLIC CIRRHOSIS OF LIVER WITHOUT ASCITES (6) Anemia Code(s): D64.9 - ANEMIA, UNSPECIFIED (7) Gait abnormality Code(s): R26.9 - UNSPECIFIED ABNORMALITIES OF GAIT AND MOBILITY (8) History of bilateral inguinal hernia repair Code(s): Z98.890 - OTHER SPECIFIED POSTPROCEDURAL STATES; Z87.19 - PERSONAL HISTORY OF OTHER DISEASES OF THE DIGESTIVE SYSTEM (9) Hyperlipidemia Code(s): E78.5 - HYPERLIPIDEMIA, UNSPECIFIED (10) Hypertension Code(s): I10 - ESSENTIAL (PRIMARY) HYPERTENSION (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 Code(s): D49.0 - NEOPLASM OF UNSPECIFIED BEHAVIOR OF DIGESTIVE SYSTEM (12) Intraductal papillary mucinous neoplasm of pancreas Code(s): D49.0 - NEOPLASM OF UNSPECIFIED BEHAVIOR OF DIGESTIVE SYSTEM (13) Leukocytosis Code(s): D72.829 - ELEVATED WHITE BLOOD CELL COUNT, UNSPECIFIED (14) Malnutrition Code(s): E46 - UNSPECIFIED PROTEIN-CALORIE MALNUTRITION (15) Muscle weakness (generalized) Code(s): M62.81 - MUSCLE WEAKNESS (GENERALIZED) (16) Orthostatic hypotension Code(s): I95.1 - ORTHOSTATIC HYPOTENSION (17) Physical deconditioning Code(s): R53.81 - OTHER MALAISE (18) Splenomegaly Code(s): R16.1 - SPLENOMEGALY, NOT ELSEWHERE CLASSIFIED (19) Symptomatic anemia Code(s): D64.9 - ANEMIA, UNSPECIFIED (20) Volume depletion Code(s): E86.9 - VOLUME DEPLETION, UNSPECIFIED (21) Prerenal azotemia Code(s): R79.89 - OTHER SPECIFIED ABNORMAL FINDINGS OF BLOOD CHEMISTRY Assessment/Plan Assessment/plan: acute dehydration, acute prerenal azotemia, acute UTI, acute gouty arthritis, acute colchicine induced myopathy, acute anemia, acute generalized muscle weakness, HTN, HLD, edema of the right elbow, mucinous papillary neoplasm of the pancreas; DVT prophylaxis, IV Cefazolin as per ID for UTI, atorvastatin for HLD, losartan for HTN, Tylenol prn for pain, and Allopurinol for hyperuricemia.
[2020-05-09] MEDS: ALLOPURINOL 100 MG TABLET (FP) PO SCH (10:47)
[2020-05-09] MEDS: CHOLECALCIFEROL (VIT D3) 1,000 UNIT (25 MCG) TABLET PO SCH (10:47)
[2020-05-09] MEDS: LOSARTAN POTASSIUM 50 MG TABLET (FP) PO SCH ×2 (10:48→21:24)
[2020-05-09] MEDS: ENOXAPARIN NA (PORCINE) 40 MG/0.4 ML DISP.SYRIN SQ SCH (10:48)
[2020-05-09] MEDS ORDERED: amLODIPine BESYLATE 2.5 MG TABLET (FP) PO SCH (11:45)
--- NOTE | 2020-05-09 15:40 | PN ---
Progress Note, Physician History of Present Illness: AWAKE IN BED REPORTS LESS GENERALIZED BODY PAIN AFEBRILE WBC DOWN WNL AZOTEMIA IMPROVED LACTIC ACIDOSIS RESOLVED - Current Medication List Current Medications: Active Medications Acetaminophen (Tylenol -) 650 mg PO Q4H PRN PRN Reason: MODERATE PAIN Last Admin: 05/08/20 18:21 Dose: 650 mg Documented by: Allopurinol (Zyloprim -) 100 mg PO DAILY [facility] Last Admin: 05/09/20 10:47 Dose: 100 mg Documented by: Amlodipine Besylate (Norvasc -) 2.5 mg PO DAILY [facility] Last Admin: 05/09/20 12:37 Dose: 2.5 mg Documented by: Atorvastatin Calcium (Lipitor -) 80 mg PO HS [facility] Last Admin: 05/08/20 23:19 Dose: 80 mg Documented by: Cholecalciferol (Vitamin D3 -) 5,000 unit PO DAILY [facility] Last Admin: 05/09/20 10:47 Dose: 5,000 unit Documented by: Enoxaparin Sodium (Lovenox -) 40 mg SQ DAILY [facility] Last Admin: 05/09/20 10:48 Dose: 40 mg Documented by: Cefazolin Sodium (Ancef 1 Gm Premixed Ivpb -) 1 gm in 50 mls @ 100 mls/hr IVPB Q8H-IV [facility] Last Admin: 05/09/20 10:48 Dose: 100 mls/hr Documented by: Losartan Potassium (Cozaar -) 50 mg PO BID [facility] Last Admin: 05/09/20 10:48 Dose: 50 mg Documented by: - Objective Vital Signs: Vital Signs Temperature 97.5 F L 05/09/20 11:00 Pulse Rate 72 05/09/20 11:00 Respiratory Rate 20 05/09/20 11:00 Blood Pressure 166/100 05/09/20 11:00 O2 Sat by Pulse Oximetry (%) 98 05/09/20 11:00 Constitutional: Yes: No Distress Eyes: Yes: Conjunctiva Clear Cardiovascular: Yes: Regular Rate and Rhythm, S1, S2 Respiratory: Yes: CTA Bilaterally Gastrointestinal: Yes: Normal Bowel Sounds, Soft. No: Tenderness Extremities: Yes: Other (+ FLUCTUANT SWELLING OVER R ELBOW) Labs: CBC, BMP 05/08/20 07:40 05/08/20 07:40 INR, PTT INR 1.28 (0.83-1.09) H 05/01/20 18:35 Assessment/Plan GOUT ? CELLULITIS UTI CONTINUE TREATMENT FOR GOUT SUBSTITUTE PO KEFLEX X 3D
[2020-05-09] MEDS: ACETAMINOPHEN 325 MG TABLET (FP) PO PRN (18:38)
[2020-05-09] MEDS: CEPHALEXIN MONOHYDRATE 500 MG CAPSULE (UD) PO SCH (21:24)
[2020-05-09] MEDS: ATORVASTATIN CA 80 MG TABLET (FP) PO SCH (21:25)
[2020-05-10 08:29] LABS: BASO % 0.3 % (0-2.0); HEMATOCRIT 28.6 % (35.4-49); HEMOGLOBIN 9.3 GM/dL (11.7-16.9); LYMPH % 14.2 % (8-40); MCH 26.3 pg (25.7-33.7); MCHC 32.5 g/dl (32.0-35.9); MEAN CELL VOLUME 80.8 fl (80-96); MEAN PLT VOLUME 10.3 fl (7.5-11.1); NEUT % 66.5 % (42.8-82.8); PLATELET COUNT 266 K/MM3 (134-434); RBC 3.54 M/mm3 (4.00-5.60); RDW 17.4 % (11.9-15.9); WHITE BLOOD COUNT 6.1 K/mm3 (4.0-10.0)
--- NOTE | 2020-05-10 08:43 | PN ---
Progress Note, Physician Chief Complaint: Patient seen and examined at the bedside, no acute events from last night, afebrile. History of Present Illness: This 74 yr old male with PMH of gout, HTN, HLD, mucinous papillary neoplasm of the pancreas and chronic anemia admitted via ER with an acute dehydration, acute anemia, acute generalized muscle weakness, acute gouty arthritis, acute colchicine induced myopathy. - Current Medication List Current Medications: Active Medications Acetaminophen (Tylenol -) 650 mg PO Q4H PRN PRN Reason: MODERATE PAIN Last Admin: 05/09/20 18:38 Dose: 650 mg Documented by: Allopurinol (Zyloprim -) 100 mg PO DAILY [facility] Last Admin: 05/09/20 10:47 Dose: 100 mg Documented by: Amlodipine Besylate (Norvasc -) 5 mg PO DAILY [facility] Atorvastatin Calcium (Lipitor -) 80 mg PO HS [facility] Last Admin: 05/09/20 21:25 Dose: 80 mg Documented by: Cephalexin HCl (Keflex -) 500 mg PO BID [facility] Last Admin: 05/09/20 21:24 Dose: 500 mg Documented by: Cholecalciferol (Vitamin D3 -) 5,000 unit PO DAILY [facility] Last Admin: 05/09/20 10:47 Dose: 5,000 unit Documented by: Enoxaparin Sodium (Lovenox -) 40 mg SQ DAILY [facility] Last Admin: 05/09/20 10:48 Dose: 40 mg Documented by: Losartan Potassium (Cozaar -) 50 mg PO BID [facility] Last Admin: 05/09/20 21:24 Dose: 50 mg Documented by: - Objective Vital Signs: Vital Signs Temperature 97.6 F 05/10/20 05:45 Pulse Rate 84 05/10/20 05:45 Respiratory Rate 20 05/10/20 05:45 Blood Pressure 154/76 05/10/20 05:45 O2 Sat by Pulse Oximetry (%) 99 05/10/20 05:45 Constitutional: Yes: Well Nourished, No Distress, Calm Eyes: Yes: Conjunctiva Clear, EOM Intact HENT: Yes: Atraumatic, Normocephalic Neck: Yes: Supple, Trachea Midline Cardiovascular: Yes: Regular Rate and Rhythm Respiratory: Yes: Regular, CTA Bilaterally Gastrointestinal: Yes: Normal Bowel Sounds, Soft ...Rectal Exam: Yes: Deferred Genitourinary: Yes: WNL Breast(s): Yes: WNL Musculoskeletal: Yes: Muscle Weakness Extremities: Yes: WNL Edema: No Peripheral Pulses WNL: Yes Integumentary: Yes: WNL Neurological: Yes: Alert, Oriented, Unsteady Gait, Weakness ...Motor Strength: LUE (generalized muscle weakness of all extremities) Psychiatric: Yes: Alert, Oriented Labs: INR, PTT INR 1.28 (0.83-1.09) H 05/01/20 18:35 - ....Imaging Other: Report Reviewed (lab data reviewed) Problem List - Problems (1) Fever Code(s): R50.9 - FEVER, UNSPECIFIED Qualifiers: Fever type: unspecified Qualified Code(s): R50.9 - Fever, unspecified (2) Gout Code(s): M10.9 - GOUT, UNSPECIFIED Qualifiers: Gout site: multiple sites Gout etiology: unspecified cause Chronicity: unspecified Qualified Code(s): M10.9 - Gout, unspecified (3) BOUCHRA (acute kidney injury) Code(s): N17.9 - ACUTE KIDNEY FAILURE, UNSPECIFIED (4) Abnormal weight loss Code(s): R63.4 - ABNORMAL WEIGHT LOSS (5) Alcoholic cirrhosis of liver Code(s): K70.30 - ALCOHOLIC CIRRHOSIS OF LIVER WITHOUT ASCITES (6) Anemia Code(s): D64.9 - ANEMIA, UNSPECIFIED (7) Gait abnormality Code(s): R26.9 - UNSPECIFIED ABNORMALITIES OF GAIT AND MOBILITY (8) History of bilateral inguinal hernia repair Code(s): Z98.890 - OTHER SPECIFIED POSTPROCEDURAL STATES; Z87.19 - PERSONAL HISTORY OF OTHER DISEASES OF THE DIGESTIVE SYSTEM (9) Hyperlipidemia Code(s): E78.5 - HYPERLIPIDEMIA, UNSPECIFIED (10) Hypertension Code(s): I10 - ESSENTIAL (PRIMARY) HYPERTENSION (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 Code(s): D49.0 - NEOPLASM OF UNSPECIFIED BEHAVIOR OF DIGESTIVE SYSTEM (12) Intraductal papillary mucinous neoplasm of pancreas Code(s): D49.0 - NEOPLASM OF UNSPECIFIED BEHAVIOR OF DIGESTIVE SYSTEM (13) Leukocytosis Code(s): D72.829 - ELEVATED WHITE BLOOD CELL COUNT, UNSPECIFIED (14) Malnutrition Code(s): E46 - UNSPECIFIED PROTEIN-CALORIE MALNUTRITION (15) Muscle weakness (generalized) Code(s): M62.81 - MUSCLE WEAKNESS (GENERALIZED) (16) Orthostatic hypotension Code(s): I95.1 - ORTHOSTATIC HYPOTENSION (17) Physical deconditioning Code(s): R53.81 - OTHER MALAISE (18) Splenomegaly Code(s): R16.1 - SPLENOMEGALY, NOT ELSEWHERE CLASSIFIED (19) Symptomatic anemia Code(s): D64.9 - ANEMIA, UNSPECIFIED (20) Volume depletion Code(s): E86.9 - VOLUME DEPLETION, UNSPECIFIED (21) Prerenal azotemia Code(s): R79.89 - OTHER SPECIFIED ABNORMAL FINDINGS OF BLOOD CHEMISTRY Assessment/Plan Assessment/plan: acute dehydration, prerenal azotemia, generalized muscle weakness, acute gouty arthritis, acute colchicine induced myopathy, acute anemia; lisinopril and amlodipine for HTN, DVT/GI prophyalxis, Cephalexin for UTI, atorvastatin for HLD, tylenol prn for pain, allopurinol for hyperuricemia, discharge planning, social media assistant request, transfer to [facility], [place] for short term rehab.
[2020-05-10 08:53] LABS: ALBUMIN 2.1 g/dl (3.4-5.0); BILIRUBIN,TOTAL 0.7 mg/dL (0.2-1); BLOOD UREA NITROGEN 32.5 mg/dL (7-18); CALCIUM 8.1 mg/dL (8.5-10.1); CREATININE 1.1 mg/dL (0.55-1.3); POTASSIUM 4.6 mmol/L (3.5-5.1); TOT PROT 6.2 g/dl (6.4-8.2)
[2020-05-10] MEDS: ENOXAPARIN NA (PORCINE) 40 MG/0.4 ML DISP.SYRIN SQ SCH (09:38)
[2020-05-10] MEDS: CHOLECALCIFEROL (VIT D3) 1,000 UNIT (25 MCG) TABLET PO SCH (09:38)
[2020-05-10] MEDS: CEPHALEXIN MONOHYDRATE 500 MG CAPSULE (UD) PO SCH ×2 (09:38→21:20)
[2020-05-10] MEDS: LOSARTAN POTASSIUM 50 MG TABLET (FP) PO SCH ×2 (09:38→21:19)
[2020-05-10] MEDS: amLODIPine BESYLATE 5 MG TABLET (FP) PO SCH (09:38)
[2020-05-10] MEDS: ALLOPURINOL 100 MG TABLET (FP) PO SCH (09:38)
[2020-05-10 18:34] VITALS: BMI 19.2
[2020-05-10] MEDS: ATORVASTATIN CA 80 MG TABLET (FP) PO SCH (21:19)
--- NOTE | 2020-05-11 08:37 | PN ---
Progress Note, Physician Chief Complaint: Patient seen and examined at the bedside, no acute events from last night, afebrile. History of Present Illness: This 74 yr old male with PMH of mucinous papillary neoplasm of the pancreas, gout, HTN, HLD, chronic anemia admitted via ER with an acute anemia, acute dehydration, prerenal azotemia, gouty arthritis, colchicine induced myopathy and an acute generalized muscle weakness, and an acute Klebsiella Pneumonia UTI. - Current Medication List Current Medications: Active Medications Acetaminophen (Tylenol -) 650 mg PO Q4H PRN PRN Reason: MODERATE PAIN Last Admin: 05/09/20 18:38 Dose: 650 mg Documented by: Allopurinol (Zyloprim -) 100 mg PO DAILY [facility] Last Admin: 05/10/20 09:38 Dose: 100 mg Documented by: Amlodipine Besylate (Norvasc -) 5 mg PO DAILY [facility] Last Admin: 05/10/20 09:38 Dose: 5 mg Documented by: Atorvastatin Calcium (Lipitor -) 80 mg PO HS [facility] Last Admin: 05/10/20 21:19 Dose: 80 mg Documented by: Cephalexin HCl (Keflex -) 500 mg PO BID [facility] Last Admin: 05/10/20 21:20 Dose: 500 mg Documented by: Cholecalciferol (Vitamin D3 -) 5,000 unit PO DAILY [facility] Last Admin: 05/10/20 09:38 Dose: 5,000 unit Documented by: Enoxaparin Sodium (Lovenox -) 40 mg SQ DAILY [facility] Last Admin: 05/10/20 09:38 Dose: 40 mg Documented by: Losartan Potassium (Cozaar -) 50 mg PO BID [facility] Last Admin: 05/10/20 21:19 Dose: 50 mg Documented by: - Objective Vital Signs: Vital Signs Temperature 98.4 F 05/11/20 06:00 Pulse Rate 87 05/11/20 06:00 Respiratory Rate 18 05/10/20 21:00 Blood Pressure 137/76 05/11/20 06:00 O2 Sat by Pulse Oximetry (%) 96 05/10/20 21:18 Constitutional: Yes: Well Nourished, No Distress, Calm Eyes: Yes: Conjunctiva Clear, EOM Intact HENT: Yes: Atraumatic, Normocephalic Neck: Yes: Supple, Trachea Midline Cardiovascular: Yes: Regular Rate and Rhythm Respiratory: Yes: Regular, CTA Bilaterally Gastrointestinal: Yes: Normal Bowel Sounds, Soft ...Rectal Exam: Yes: Deferred Genitourinary: Yes: WNL Breast(s): Yes: WNL Musculoskeletal: Yes: Muscle Weakness Extremities: Yes: Other (gouty arthritis, swelling of the right elbow) Edema: Yes Edema: RUE: 2+ (elbow) Peripheral Pulses WNL: Yes Integumentary: Yes: WNL Neurological: Yes: Alert, Oriented, Unsteady Gait, Weakness ...Motor Strength: LUE (generalized muscle weakness of all extremities) Psychiatric: Yes: Alert, Oriented Labs: CBC, BMP 05/10/20 06:50 05/10/20 06:50 INR, PTT INR 1.28 (0.83-1.09) H 05/01/20 18:35 - ....Imaging Other: Report Reviewed (lab data reviewed) Problem List - Problems (1) Fever Code(s): R50.9 - FEVER, UNSPECIFIED Qualifiers: Fever type: unspecified Qualified Code(s): R50.9 - Fever, unspecified (2) Gout Code(s): M10.9 - GOUT, UNSPECIFIED Qualifiers: Gout site: multiple sites Gout etiology: unspecified cause Chronicity: unspecified Qualified Code(s): M10.9 - Gout, unspecified (3) BOUCHRA (acute kidney injury) Code(s): N17.9 - ACUTE KIDNEY FAILURE, UNSPECIFIED (4) Abnormal weight loss Code(s): R63.4 - ABNORMAL WEIGHT LOSS (5) Alcoholic cirrhosis of liver Code(s): K70.30 - ALCOHOLIC CIRRHOSIS OF LIVER WITHOUT ASCITES (6) Anemia Code(s): D64.9 - ANEMIA, UNSPECIFIED (7) Gait abnormality Code(s): R26.9 - UNSPECIFIED ABNORMALITIES OF GAIT AND MOBILITY (8) History of bilateral inguinal hernia repair Code(s): Z98.890 - OTHER SPECIFIED POSTPROCEDURAL STATES; Z87.19 - PERSONAL HISTORY OF OTHER DISEASES OF THE DIGESTIVE SYSTEM (9) Hyperlipidemia Code(s): E78.5 - HYPERLIPIDEMIA, UNSPECIFIED (10) Hypertension Code(s): I10 - ESSENTIAL (PRIMARY) HYPERTENSION (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 Code(s): D49.0 - NEOPLASM OF UNSPECIFIED BEHAVIOR OF DIGESTIVE SYSTEM (12) Intraductal papillary mucinous neoplasm of pancreas Code(s): D49.0 - NEOPLASM OF UNSPECIFIED BEHAVIOR OF DIGESTIVE SYSTEM (13) Leukocytosis Code(s): D72.829 - ELEVATED WHITE BLOOD CELL COUNT, UNSPECIFIED (14) Malnutrition Code(s): E46 - UNSPECIFIED PROTEIN-CALORIE MALNUTRITION (15) Muscle weakness (generalized) Code(s): M62.81 - MUSCLE WEAKNESS (GENERALIZED) (16) Orthostatic hypotension Code(s): I95.1 - ORTHOSTATIC HYPOTENSION (17) Physical deconditioning Code(s): R53.81 - OTHER MALAISE (18) Splenomegaly Code(s): R16.1 - SPLENOMEGALY, NOT ELSEWHERE CLASSIFIED (19) Symptomatic anemia Code(s): D64.9 - ANEMIA, UNSPECIFIED (20) Volume depletion Code(s): E86.9 - VOLUME DEPLETION, UNSPECIFIED (21) Prerenal azotemia Code(s): R79.89 - OTHER SPECIFIED ABNORMAL FINDINGS OF BLOOD CHEMISTRY Assessment/Plan Assessment/plan: acute dehydration, acute anemia, acute gouty arthritis, Kl ebsiella pneumonia UTI, acute colchicine induced myopathy, acute generalized muscle weakness, HTN, chronic anemia, mucinous papillary neoplasm of the pancreas; Keflex for UTI as per ID, amlodipine and losartan for HTN, atorvastatin for HLD, tylenol prn for pain, DVT/GI prophylaxis, allopurinol for hyperuricemia, physical therapy, discharge planning, licensed master social worker request, repeat Covid 19 test.
[2020-05-11] MEDS: CHOLECALCIFEROL (VIT D3) 1,000 UNIT (25 MCG) TABLET PO SCH (09:44)
[2020-05-11] MEDS: amLODIPine BESYLATE 5 MG TABLET (FP) PO SCH (09:45)
[2020-05-11] MEDS: ALLOPURINOL 100 MG TABLET (FP) PO SCH (09:45)
[2020-05-11] MEDS: CEPHALEXIN MONOHYDRATE 500 MG CAPSULE (UD) PO SCH ×2 (09:46→21:32)
[2020-05-11] MEDS: ENOXAPARIN NA (PORCINE) 40 MG/0.4 ML DISP.SYRIN SQ SCH (09:46)
[2020-05-11] MEDS: LOSARTAN POTASSIUM 50 MG TABLET (FP) PO SCH ×2 (09:46→21:33)
[2020-05-11] MEDS: ACETAMINOPHEN 325 MG TABLET (FP) PO PRN ×2 (18:46→23:32)
[2020-05-11] MEDS: ATORVASTATIN CA 80 MG TABLET (FP) PO SCH (21:32)
[2020-05-12] MEDS: COLLAGENASE CLOSTRIDIUM HIST. 30 GRAMS TUBE TP SCH (06:19)
--- NOTE | 2020-05-12 08:36 | PN ---
Progress Note, Physician Chief Complaint: Patient seen and examined at the bedside, no acute events from last night, afebrile. History of Present Illness: This 74 yr old male with PMH of gout, chronic anemia, mucinous papillary neoplasm of the pancreas, severe malnutrition, decubitus ulcer of the left buttock admitted via ER with an acute dehydration, acute Klebsiella pneumoniae UTI, acute anemia, prerenal azotemia, acute gouty arthritis, acute edema of the right elbow, acute colchicie induced myopathy. - Current Medication List Current Medications: Active Medications Acetaminophen (Tylenol -) 650 mg PO Q4H PRN PRN Reason: MODERATE PAIN Last Admin: 05/11/20 23:32 Dose: 650 mg Documented by: Allopurinol (Zyloprim -) 100 mg PO DAILY [facility] Last Admin: 05/11/20 09:45 Dose: 100 mg Documented by: Amlodipine Besylate (Norvasc -) 5 mg PO DAILY [facility] Last Admin: 05/11/20 09:45 Dose: 5 mg Documented by: Atorvastatin Calcium (Lipitor -) 80 mg PO HS [facility] Last Admin: 05/11/20 21:32 Dose: 80 mg Documented by: Cephalexin HCl (Keflex -) 500 mg PO BID [facility] Last Admin: 05/11/20 21:32 Dose: 500 mg Documented by: Cholecalciferol (Vitamin D3 -) 5,000 unit PO DAILY [facility] Last Admin: 05/11/20 09:44 Dose: 5,000 unit Documented by: Collagenase (Santyl -) 1 applic TP DAILY [facility] Last Admin: 05/12/20 06:19 Dose: 1 applic Documented by: Enoxaparin Sodium (Lovenox -) 40 mg SQ DAILY [facility] Last Admin: 05/11/20 09:46 Dose: 40 mg Documented by: Losartan Potassium (Cozaar -) 50 mg PO BID [facility] Last Admin: 05/11/20 21:33 Dose: 50 mg Documented by: - Objective Vital Signs: Vital Signs Temperature 98.7 F 05/12/20 05:47 Pulse Rate 67 05/12/20 05:47 Respiratory Rate 18 05/12/20 05:47 Blood Pressure 142/81 05/12/20 05:47 O2 Sat by Pulse Oximetry (%) 97 05/12/20 05:47 Constitutional: Yes: No Distress, Calm, Cachectic, Thin Eyes: Yes: Conjunctiva Clear, EOM Intact HENT: Yes: Atraumatic, Normocephalic Neck: Yes: Supple, Trachea Midline Cardiovascular: Yes: Regular Rate and Rhythm Respiratory: Yes: Regular, CTA Bilaterally Gastrointestinal: Yes: Normal Bowel Sounds, Soft ...Rectal Exam: Yes: Deferred Genitourinary: Yes: WNL Breast(s): Yes: WNL Musculoskeletal: Yes: Muscle Weakness Extremities: Yes: Other (edema of the right elbow) Edema: Yes Edema: RUE: 3+ (elbow) Peripheral Pulses WNL: Yes Integumentary: Yes: Pressure Ulcer (left buttock) Neurological: Yes: Alert, Oriented, Unsteady Gait, Weakness ...Motor Strength: LUE (generalized muscle weakness of all extremities) Psychiatric: Yes: Alert, Oriented Labs: CBC, BMP 05/10/20 06:50 05/10/20 06:50 INR, PTT INR 1.28 (0.83-1.09) H 05/01/20 18:35 - ....Imaging Other: Report Reviewed (lab data reviewed) Problem List - Problems (1) Fever Code(s): R50.9 - FEVER, UNSPECIFIED Qualifiers: Fever type: unspecified Qualified Code(s): R50.9 - Fever, unspecified (2) Gout Code(s): M10.9 - GOUT, UNSPECIFIED Qualifiers: Gout site: multiple sites Gout etiology: unspecified cause Chronicity: unspecified Qualified Code(s): M10.9 - Gout, unspecified (3) BOUCHRA (acute kidney injury) Code(s): N17.9 - ACUTE KIDNEY FAILURE, UNSPECIFIED (4) Abnormal weight loss Code(s): R63.4 - ABNORMAL WEIGHT LOSS (5) Alcoholic cirrhosis of liver Code(s): K70.30 - ALCOHOLIC CIRRHOSIS OF LIVER WITHOUT ASCITES (6) Anemia Code(s): D64.9 - ANEMIA, UNSPECIFIED (7) Gait abnormality Code(s): R26.9 - UNSPECIFIED ABNORMALITIES OF GAIT AND MOBILITY (8) History of bilateral inguinal hernia repair Code(s): Z98.890 - OTHER SPECIFIED POSTPROCEDURAL STATES; Z87.19 - PERSONAL HISTORY OF OTHER DISEASES OF THE DIGESTIVE SYSTEM (9) Hyperlipidemia Code(s): E78.5 - HYPERLIPIDEMIA, UNSPECIFIED (10) Hypertension Code(s): I10 - ESSENTIAL (PRIMARY) HYPERTENSION (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 Code(s): D49.0 - NEOPLASM OF UNSPECIFIED BEHAVIOR OF DIGESTIVE SYSTEM (12) Intraductal papillary mucinous neoplasm of pancreas Code(s): D49.0 - NEOPLASM OF UNSPECIFIED BEHAVIOR OF DIGESTIVE SYSTEM (13) Leukocytosis Code(s): D72.829 - ELEVATED WHITE BLOOD CELL COUNT, UNSPECIFIED (14) Malnutrition Code(s): E46 - UNSPECIFIED PROTEIN-CALORIE MALNUTRITION (15) Muscle weakness (generalized) Code(s): M62.81 - MUSCLE WEAKNESS (GENERALIZED) (16) Orthostatic hypotension Code(s): I95.1 - ORTHOSTATIC HYPOTENSION (17) Physical deconditioning Code(s): R53.81 - OTHER MALAISE (18) Splenomegaly Code(s): R16.1 - SPLENOMEGALY, NOT ELSEWHERE CLASSIFIED (19) Symptomatic anemia Code(s): D64.9 - ANEMIA, UNSPECIFIED (20) Volume depletion Code(s): E86.9 - VOLUME DEPLETION, UNSPECIFIED (21) Prerenal azotemia Code(s): R79.89 - OTHER SPECIFIED ABNORMAL FINDINGS OF BLOOD CHEMISTRY Assessment/Plan Assessment/plan: acute dehydration, prerenal azotemia, generalized muscle weakness, acute Klebsiella pneumoniae UTI, acute anemia, acute gouty arthritis, acute colchicine induced myopathy, decubitus ulcer of the left buttock, HTN, HLD, mucinosu papillary neoplasm of the pancreas, severe malnutrition, hypoproteinemia, hypoalbuminemia; DVT/GI prophylaxis, topical Collagenase for decubitus ulcer, atorvastatin for HLD, losartan and amlodipine for HTN, physical therapy, allopurinol for hyperuricemia, tylenol prn for pain.
[2020-05-12] MEDS: ENOXAPARIN NA (PORCINE) 40 MG/0.4 ML DISP.SYRIN SQ SCH (10:03)
[2020-05-12] MEDS: CHOLECALCIFEROL (VIT D3) 1,000 UNIT (25 MCG) TABLET PO SCH (10:03)
[2020-05-12] MEDS: ACETAMINOPHEN 325 MG TABLET (FP) PO PRN ×2 (10:04→21:21)
[2020-05-12] MEDS: LOSARTAN POTASSIUM 50 MG TABLET (FP) PO SCH ×2 (10:04→21:22)
[2020-05-12] MEDS: CEPHALEXIN MONOHYDRATE 500 MG CAPSULE (UD) PO SCH (10:05)
[2020-05-12] MEDS: ALLOPURINOL 100 MG TABLET (FP) PO SCH (10:05)
[2020-05-12] MEDS: amLODIPine BESYLATE 5 MG TABLET (FP) PO SCH (10:05)
--- NOTE | 2020-05-12 16:59 | PN ---
Progress Note (short form) - Note Progress Note: [facility] Pt seen and examined. Dressing changed. left buttocks ulcer stage 3. Continue santyl. No need for any debridement at this time. Trey Cortez dO
[2020-05-12] MEDS: ATORVASTATIN CA 80 MG TABLET (FP) PO SCH (21:22)
[2020-05-13] MEDS: ACETAMINOPHEN 325 MG TABLET (FP) PO PRN (03:30)
--- NOTE | 2020-05-13 08:17 | PN ---
Progress Note, Physician Chief Complaint: Patient seen and examined at the bedside, no acute events from last night, oxygen saturation 97% on room air. History of Present Illness: This 74 yr old male with PMH of stage 3 decubitus ulcer of the left buttock, gout, HTN, HLD, mucinous papillary neoplasm of the pancreas, chronic anemia admitted via ER with an acute anemia, acute dehydration, prerenal azotemia, gouty arthritis, colchicine induced myopathy, generalized muscle weakness, edema of the right elbow. - Current Medication List Current Medications: Active Medications Acetaminophen (Tylenol -) 650 mg PO Q4H PRN PRN Reason: MODERATE PAIN Last Admin: 05/13/20 03:30 Dose: 650 mg Documented by: Allopurinol (Zyloprim -) 100 mg PO DAILY [facility] Last Admin: 05/12/20 10:05 Dose: 100 mg Documented by: Amlodipine Besylate (Norvasc -) 5 mg PO DAILY [facility] Last Admin: 05/12/20 10:05 Dose: 5 mg Documented by: Atorvastatin Calcium (Lipitor -) 80 mg PO HS [facility] Last Admin: 05/12/20 21:22 Dose: 80 mg Documented by: Cholecalciferol (Vitamin D3 -) 5,000 unit PO DAILY [facility] Last Admin: 05/12/20 10:03 Dose: 5,000 unit Documented by: Collagenase (Santyl -) 1 applic TP DAILY [facility] Last Admin: 05/12/20 06:19 Dose: 1 applic Documented by: Enoxaparin Sodium (Lovenox -) 40 mg SQ DAILY [facility] Last Admin: 05/12/20 10:03 Dose: 40 mg Documented by: Losartan Potassium (Cozaar -) 50 mg PO BID [facility] Last Admin: 05/12/20 21:22 Dose: 50 mg Documented by: - Objective Vital Signs: Vital Signs Temperature 98.7 F 05/13/20 05:24 Pulse Rate 102 H 05/13/20 05:24 Respiratory Rate 18 05/13/20 05:24 Blood Pressure 142/78 05/13/20 05:24 O2 Sat by Pulse Oximetry (%) 97 05/13/20 05:24 Constitutional: Yes: No Distress, Calm, Cachectic, Thin Eyes: Yes: Conjunctiva Clear, EOM Intact HENT: Yes: Atraumatic, Normocephalic Neck: Yes: Supple, Trachea Midline Cardiovascular: Yes: Regular Rate and Rhythm Respiratory: Yes: Regular, CTA Bilaterally Gastrointestinal: Yes: Normal Bowel Sounds, Soft ...Rectal Exam: Yes: Deferred Genitourinary: Yes: WNL Breast(s): Yes: WNL Musculoskeletal: Yes: Muscle Weakness Extremities: Yes: Other (gouty arthritis) Edema: Yes Edema: RUE: 2+ (elbow) Peripheral Pulses WNL: Yes Integumentary: Yes: Pressure Ulcer (stage 3 decubitus ulcer of the left buttock) Neurological: Yes: Alert, Oriented, Unsteady Gait, Weakness ...Motor Strength: LUE (generalized muscle weakness of all extremities) Psychiatric: Yes: Alert, Oriented Labs: CBC, BMP 05/10/20 06:50 05/10/20 06:50 INR, PTT INR 1.28 (0.83-1.09) H 05/01/20 18:35 - ....Imaging Other: Report Reviewed (lab data reviewed) Problem List - Problems (1) Fever Code(s): R50.9 - FEVER, UNSPECIFIED Qualifiers: Fever type: unspecified Qualified Code(s): R50.9 - Fever, unspecified (2) Gout Code(s): M10.9 - GOUT, UNSPECIFIED Qualifiers: Gout site: multiple sites Gout etiology: unspecified cause Chronicity: unspecified Qualified Code(s): M10.9 - Gout, unspecified (3) BOUCHRA (acute kidney injury) Code(s): N17.9 - ACUTE KIDNEY FAILURE, UNSPECIFIED (4) Abnormal weight loss Code(s): R63.4 - ABNORMAL WEIGHT LOSS (5) Alcoholic cirrhosis of liver Code(s): K70.30 - ALCOHOLIC CIRRHOSIS OF LIVER WITHOUT ASCITES (6) Anemia Code(s): D64.9 - ANEMIA, UNSPECIFIED (7) Gait abnormality Code(s): R26.9 - UNSPECIFIED ABNORMALITIES OF GAIT AND MOBILITY (8) History of bilateral inguinal hernia repair Code(s): Z98.890 - OTHER SPECIFIED POSTPROCEDURAL STATES; Z87.19 - PERSONAL HISTORY OF OTHER DISEASES OF THE DIGESTIVE SYSTEM (9) Hyperlipidemia Code(s): E78.5 - HYPERLIPIDEMIA, UNSPECIFIED (10) Hypertension Code(s): I10 - ESSENTIAL (PRIMARY) HYPERTENSION (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 Code(s): D49.0 - NEOPLASM OF UNSPECIFIED BEHAVIOR OF DIGESTIVE SYSTEM (12) Intraductal papillary mucinous neoplasm of pancreas Code(s): D49.0 - NEOPLASM OF UNSPECIFIED BEHAVIOR OF DIGESTIVE SYSTEM (13) Leukocytosis Code(s): D72.829 - ELEVATED WHITE BLOOD CELL COUNT, UNSPECIFIED (14) Malnutrition Code(s): E46 - UNSPECIFIED PROTEIN-CALORIE MALNUTRITION (15) Muscle weakness (generalized) Code(s): M62.81 - MUSCLE WEAKNESS (GENERALIZED) (16) Orthostatic hypotension Code(s): I95.1 - ORTHOSTATIC HYPOTENSION (17) Physical deconditioning Code(s): R53.81 - OTHER MALAISE (18) Splenomegaly Code(s): R16.1 - SPLENOMEGALY, NOT ELSEWHERE CLASSIFIED (19) Symptomatic anemia Code(s): D64.9 - ANEMIA, UNSPECIFIED (20) Volume depletion Code(s): E86.9 - VOLUME DEPLETION, UNSPECIFIED (21) Prerenal azotemia Code(s): R79.89 - OTHER SPECIFIED ABNORMAL FINDINGS OF BLOOD CHEMISTRY Assessment/Plan Assessment/plan: acute dehydration, prerenal azotemia, generalized muscle weakness, severe malnutrition, gouty arthritis, colchicine induced myopathy, 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 discharge planning, social service assistant request, transfer to [facility] for short term rehab.
[2020-05-13] MEDS: ALLOPURINOL 100 MG TABLET (FP) PO SCH (09:48)
[2020-05-13] MEDS: ENOXAPARIN NA (PORCINE) 40 MG/0.4 ML DISP.SYRIN SQ SCH (09:48)
[2020-05-13] MEDS: COLLAGENASE CLOSTRIDIUM HIST. 30 GRAMS TUBE TP SCH (09:49)
[2020-05-13] MEDS: LOSARTAN POTASSIUM 50 MG TABLET (FP) PO SCH (09:49)
[2020-05-13] MEDS: amLODIPine BESYLATE 5 MG TABLET (FP) PO SCH (09:49)
[2020-05-13] MEDS: CHOLECALCIFEROL (VIT D3) 1,000 UNIT (25 MCG) TABLET PO SCH (09:49)
[2020-05-13 12:03] VITALS: PULSE 85
[2020-05-13] MEDS ORDERED: DOCUSATE SODIUM 100 MG CAPSULE (FP) PO ONE (12:10)
--- NOTE | 2020-05-13 13:31 | DS ---
Physical Examination Vital Signs: Vital Signs Temperature 98.1 F 05/13/20 10:00 Pulse Rate 85 05/13/20 10:00 Respiratory Rate 14 05/13/20 10:00 Blood Pressure 128/78 05/13/20 10:00 O2 Sat by Pulse Oximetry (%) 99 05/13/20 10:00 Constitutional: Yes: No Distress, Calm, Thin Eyes: Yes: Conjunctiva Clear, EOM Intact HENT: Yes: Atraumatic, Normocephalic Neck: Yes: Supple, Trachea Midline Cardiovascular: Yes: Regular Rate and Rhythm Respiratory: Yes: Regular, CTA Bilaterally Gastrointestinal: Yes: Normal Bowel Sounds, Soft ...Rectal Exam: Yes: Deferred Renal/: Yes: WNL Breast(s): Yes: WNL Musculoskeletal: Yes: Joint Swelling (right elbow) Edema: Yes Edema: RUE: 2+ (elbow) Peripheral Pulses WNL: Yes Integumentary: Yes: Pressure Ulcer (stage 3 sacral ulcer) Neurological: Yes: Oriented, Unsteady Gait ...Motor Strength: LUE (generalized muscle weakness of all extremities) Psychiatric: Yes: Alert, Oriented Labs: CBC, BMP 05/10/20 06:50 05/10/20 06:50 Discharge Summary Problems reviewed: Yes Reason For Visit: ANEMIA/WEAKNESS Current Active Problems Anemia (Acute) Fever (Acute) Gout (Acute) Muscle weakness (Acute) Prerenal azotemia (Acute) Condition: Improved - Instructions Diet, Activity, Other Instructions: Losartan 50mg po bid. Amlodipine 5mg po od. Activity as tolerated. Transfer to [facility] for short term rehab. Follow up with Dr. Monsivais. Total time spent over 30 minutes. Disposition: [facility] - Home Medications Comprehensive Discharge Medication List: Ambulatory Orders Allopurinol [Zyloprim -] 100 mg PO DAILY 10/01/19 Atorvastatin Calcium 80 mg PO HS 10/01/19 Acetaminophen [Tylenol .Regular Strength -] 650 mg PO Q4H PRN tablet 04/17/20 Allopurinol [Zyloprim -] 100 mg PO DAILY tablet 04/17/20 Atorvastatin Ca [Lipitor] 80 mg PO HS tablet 04/17/20 Pantoprazole Sodium [Protonix -] 40 mg PO DAILY tablet.ec 04/17/20 Acetaminophen [Tylenol .Regular Strength -] 650 mg PO Q4H PRN tablet 05/09/20 Allopurinol [Zyloprim -] 100 mg PO DAILY tablet 05/09/20 Atorvastatin Ca [Lipitor] 80 mg PO HS tablet 05/09/20 Cephalexin Monohydrate [Keflex -] 500 mg PO BID #4 capsule 05/09/20 Cholecalciferol (Vitamin D3) [Vitamin D3 -] 5,000 unit PO DAILY tab 05/09/20 Losartan Potassium [Cozaar -] 50 mg PO BID #60 tablet 05/09/20 Amlodipine Besylate [Norvasc -] 5 mg PO DAILY tablet 05/12/20 Collagenase Clostridium Hist. [Santyl -] 1 applic TP DAILY tube 05/12/20
[2020-05-13 14:36] VITALS: BP 143/80; TEMP 98
== END 2020-05-13 14:50 | DRG 91 ==
LOC: JER 16:17 → JERBED 19:58 → J6S 05-02 14:49
PROVIDERS: ADMIT Internal Medicine; ATTEND Internal Medicine
PROC: 0X9B3ZX Drainage of Right Elbow Region, Percutaneous Approach, Diagnostic (ICD-10-PCS; principal; 2020-05-02)
PROC: 30233N1 Transfusion of Nonautologous Red Blood Cells into Peripheral Vein, Percutaneous Approach (ICD-10-PCS; 2020-05-02)
DX: G72.0 Drug-induced myopathy (principal); E43 Unspecified severe protein-calorie malnutrition; L89.323 Pressure ulcer of left buttock, stage 3; N17.9 Acute kidney failure, unspecified; L03.90 Cellulitis, unspecified; M62.82 Rhabdomyolysis; E87.2 Acidosis; N39.0 Urinary tract infection, site not specified; Z68.1 Body mass index [BMI] 19.9 or less, adult; D49.0 Neoplasm of unspecified behavior of digestive system; D64.9 Anemia, unspecified; M10.9 Gout, unspecified; R50.9 Fever, unspecified; M62.81 Muscle weakness (generalized); T50.4X5A Adverse effect of drugs affecting uric acid metabolism, initial encounter; E86.0 Dehydration; E78.5 Hyperlipidemia, unspecified; D72.829 Elevated white blood cell count, unspecified
CPT/HCPCS: 36415; 36430; 71045-TC-FY; 80053; 81003; 82272; 82550; 82553; 83605; 84484; 84550; 85025; 85610; 85730; 86850; 86870; 86900; 86901; 86902; 86922; 87040; 87070; 87075; 87077; 87086; 87186; 87205; 89060; 93005; 93010; 97116-GP; 97161-GP; 99285-25; J0131; P9058; U0003

== ENCOUNTER 2021-10-21 19:01 | Inpatient (IN) | payer BC, OTHER ==
[2021-10-21] MEDS ORDERED: DEXAMETHASONE SOD PHOSPHATE 10 MG/1 ML VIAL IVPUSH ONE (21:35)
[2021-10-21 22:03] LABS: BASO % 1.1 % (0-2.0); EOS % 0.1 % (0-4.5); HEMATOCRIT 29.6 % (35.4-49); HEMOGLOBIN 8.9 GM/dL (11.7-16.9); LYMPH % 2.8 % (8-40); MCH 24.5 pg (25.7-33.7); MEAN CELL VOLUME 81.6 fl (80-96); MEAN PLT VOLUME 9.9 fl (7.5-11.1); MONO % 5.4 % (3.8-10.2); NEUT % 90.6 % (42.8-82.8); PLATELET COUNT 558 10^3/uL (134-434); RBC 3.62 M/mm3 (4.00-5.60)
[2021-10-21 22:15] LABS: CHLORIDE 102 mmol/L (98-107); SODIUM 136 mmol/L (136-145)
[2021-10-21 22:19] LABS: ALBUMIN 2.2 g/dl (3.4-5.0); BLOOD UREA NITROGEN 77.6 mg/dL (7-18); CALCIUM 8.1 mg/dL (8.5-10.1); CO2 16 mmol/L (21-32); GLUCOSE,RANDOM 87 mg/dL (74-106)
[2021-10-21] MEDS ORDERED: SODIUM CHLORIDE 0.9% 500 ML INFUS.BAG IV ONE (22:19)
[2021-10-21 22:21] LABS: CREATININE 6.1 mg/dL (0.55-1.3); SGOT/AST 53 U/L (15-37); SGPT/ALT 18 U/L (13-61)
[2021-10-21 22:23] LABS: BILIRUBIN,TOTAL 1.2 mg/dL (0.2-1); TOT PROT 8.2 g/dl (6.4-8.2)
[2021-10-21 22:24] LABS: ALK PHOS 194 U/L (45-117)
[2021-10-21 22:25] LABS: LDH 883 U/L (87-246)
[2021-10-21 22:41] LABS: VENOUS O2 SATURATION 97.2 % (70-80); VENOUS PCO2 25.8 mmHg (38-52); VENOUS PH 7.444 (7.310-7.410)
[2021-10-21 22:45] LABS: ANISOCYTOSIS 3+; MACROCYTOSIS 0; OVALOCYTE 1+; PLATELET ESTIMATE INCREASED; TARGET CELLS 1+
[2021-10-21 22:46] LABS: ANION GAP 17 MMOL/L (8-16)
[2021-10-21] MEDS ORDERED: DEXAMETHASONE SOD PHOSPHATE 10 MG/1 ML VIAL ONE (23:08)
[2021-10-21 23:31] LABS: INR 1.39 (0.83-1.09); PROTHROMBIN TIME (PATIENT) 16.3 SEC (9.7-13.0)
[2021-10-21 23:33] LABS: ACTIVATED PTT 32.9 SECONDS (25.2-36.5)
[2021-10-21 23:43] LABS: CALCIUM 7.7 mg/dL (8.5-10.1)
[2021-10-21 23:45] LABS: BLOOD UREA NITROGEN 79.2 mg/dL (7-18)
[2021-10-21 23:47] LABS: CREATININE 6.2 mg/dL (0.55-1.3)
[2021-10-21] MEDS ORDERED: INSULIN REGULAR HUMAN 100 UNITS/ML *VIAL IVPUSH ONE (23:58)
[2021-10-21] MEDS ORDERED: ALBUTEROL SO4 HFA INHALER IH ONE (23:58)
[2021-10-21] MEDS ORDERED: DEXTROSE 50%-WATER - 25 GM/50 ML VIAL IVPUSH ONE (23:58)
[2021-10-22] MEDS ORDERED: PIPERACILLIN/TAZOB 4.5 GM 4.5 GM in DEXTROSE 5%-WATER 100 ML IVPB ONE (00:03)
[2021-10-22] MEDS ORDERED: VANCOMYCIN 1 GM in D5W (PRE-DOCKED) 1,000 MG/250 ML IVPB ONE (00:03)
[2021-10-22] MEDS ORDERED: SODIUM CHLORIDE 0.9% 500 ML INFUS.BAG IV ONE (00:11)
[2021-10-22] MEDS ORDERED: DEXTROSE 50%-WATER - 25 GM/50 ML VIAL ONE (00:39)
[2021-10-22] MEDS ORDERED: ALBUTEROL SO4 HFA INHALER IH ONE (00:39)
[2021-10-22] MEDS ORDERED: INSULIN REGULAR HUMAN 100 UNITS/ML *VIAL ONE (00:40)
[2021-10-22] MEDS ORDERED: VANCOMYCIN 1 GRAM (PRE-DOCKED) 1,000 MG/250 ML BAG IVPB ONE (00:40)
[2021-10-22 01:06] LABS: EPI CELLS 25 /uL (0-25.1); HYALINE CASTS 1 /uL (0-3.1); PH,URINE 5.5 (5.0-8.0); URINE APPEARANCE CLEAR; URINE BACTERIA 4 /uL (0-1359); URINE BILIRUBIN NEGATIVE (NEGATIVE); URINE COLOR DK YELLOW; URINE GLUCOSE (UA) NEGATIVE (NEGATIVE); URINE KETONE NEGATIVE (NEGATIVE); URINE LEUK ESTERASE TRACE (NEGATIVE); URINE NITRITE NEGATIVE (NEGATIVE); URINE PROTEIN 3+ (NEGATIVE); URINE RBC 679 /uL (0-23.9); URINE UROBILINOGEN 0.2 mg/dL (0.2-1.0); URINE WBC 24 /uL (0-25.8)
[2021-10-22] MEDS ORDERED: ACETAMINOPHEN 325 MG TABLET (FP) PO PRN (01:57)
[2021-10-22] MEDS ORDERED: POLYETHYLENE GLYCOL (HEALTHYLAX) 3350 17 GM PACKET PO PRN (01:57)
[2021-10-22] MEDS ORDERED: HEPARIN NA (PORCINE) 5,000 UNITS/ML 1ML VIAL ONE ×3 (02:21→23:31)
[2021-10-22] MEDS ORDERED: CEFEPIME 1 GM in DEXTROSE 5%-WATER - 1 GM/50 ML IVPB IVPB SCH (02:27)
[2021-10-22] MEDS ORDERED: CEFEPIME 1 GM/100 ML BAG IVPB ONE (02:56)
[2021-10-22] MEDS ORDERED: oxyCODONE HCL 5 MG TABLET PO PRN (05:01)
[2021-10-22] MEDS ORDERED: SENNOSIDES 8.6MG TABLET (FP) PO PRN (05:01)
[2021-10-22] MEDS: HEPARIN NA (PORCINE) 5,000 UNITS/ML 1ML VIAL SQ SCH ×3 (06:39→23:52)
[2021-10-22] MEDS: SODIUM BICARBONATE 650 MG TABLET PO SCH ×2 (07:30→14:30)
[2021-10-22] MEDS ORDERED: amLODIPine BESYLATE 5 MG TABLET (FP) ONE (08:01)
[2021-10-22] MEDS ORDERED: PANTOPRAZOLE 40 MG TABLET ONE (08:01)
[2021-10-22] MEDS ORDERED: SODIUM ZIRCONIUM CYCLOSILICATE (LOKELMA) 5 GM PACKET ONE ×2 (08:01→19:31)
[2021-10-22] MEDS ORDERED: ALBUTEROL SO4 HFA INHALER IH PRN (08:17)
[2021-10-22] MEDS ORDERED: DEXTROSE 5%-NORMAL SALINE 1,000 ML IV SCH (08:45)
[2021-10-22] MEDS ORDERED: SODIUM CHLORIDE 1,000 ML IV SCH ×2 (09:15→12:45)
[2021-10-22] MEDS: SODIUM ZIRCONIUM CYCLOSILICATE (LOKELMA) 5 GM PACKET PO SCH (10:00)
[2021-10-22] MEDS: ZINC SULFATE 220 MG CAPSULE (FP) PO SCH (10:00)
[2021-10-22] MEDS ORDERED: LOSARTAN POTASSIUM 25 MG TABLET PO SCH (10:00)
[2021-10-22] MEDS: amLODIPine BESYLATE 5 MG TABLET (FP) PO SCH (10:00)
[2021-10-22] MEDS: PANTOPRAZOLE 40 MG TABLET PO SCH (10:00)
[2021-10-22] MEDS ORDERED: ALLOPURINOL 100 MG TABLET (FP) PO SCH (10:00)
[2021-10-22] MEDS: DEXAMETHASONE SOD PHOSPHATE 10 MG/1 ML VIAL IVPUSH SCH (10:00)
[2021-10-22] MEDS: CHOLECALCIFEROL (VIT D3) 1,000 UNIT (25 MCG) TABLET PO SCH (10:32)
[2021-10-22 18:29] LABS: EPI CELLS 17 /uL (0-25.1); HYALINE CASTS 4 /uL (0-3.1); URINE APPEARANCE CLOUDY; URINE BACTERIA 5 /uL (0-1359); URINE BILIRUBIN NEGATIVE (NEGATIVE); URINE COLOR YELLOW; URINE GLUCOSE (UA) NEGATIVE (NEGATIVE); URINE KETONE NEGATIVE (NEGATIVE); URINE LEUK ESTERASE 1+ (NEGATIVE); URINE NITRITE NEGATIVE (NEGATIVE); URINE PROTEIN 2+ (NEGATIVE); URINE UROBILINOGEN 0.2 mg/dL (0.2-1.0); URINE WBC 64 /uL (0-25.8)
[2021-10-22] MEDS ORDERED: SODIUM BICARBONATE 8.4% - 150 MEQ in DEXTROSE 5%-WATER - 1,000 ML IV SCH (18:30)
[2021-10-22] MEDS ORDERED: SODIUM ZIRCONIUM CYCLOSILICATE (LOKELMA) 5 GM PACKET PO ONE (18:30)
[2021-10-22] MEDS ORDERED: SODIUM CHLORIDE 1,000 ML IV STA (19:00)
[2021-10-22 20:49] LABS: URINE RBC 40 /uL (0-23.9)
[2021-10-22 20:50] LABS: YEAST NONE SEEN (NEGATIVE)
[2021-10-22] MEDS ORDERED: PT OWN MED DRAWER 7, Y5N ONE (21:06)
[2021-10-22] MEDS ORDERED: CEFEPIME 1 GM in DEXTROSE 5%-WATER 100 ML IVPB SCH (22:00)
[2021-10-22] MEDS ORDERED: ATORVASTATIN CA 40 MG TABLET (FP) ONE (23:36)
[2021-10-22] MEDS: ATORVASTATIN CA 80 MG TABLET (FP) PO SCH (23:52)
[2021-10-23] MEDS ORDERED: oxyCODONE HCL 5 MG TABLET ONE (06:00)
[2021-10-23] MEDS ORDERED: HEPARIN NA (PORCINE) 5,000 UNITS/ML 1ML VIAL ONE ×2 (06:14→15:48)
[2021-10-23] MEDS: HEPARIN NA (PORCINE) 5,000 UNITS/ML 1ML VIAL SQ SCH ×3 (06:23→22:52)
[2021-10-23] MEDS: SODIUM ZIRCONIUM CYCLOSILICATE (LOKELMA) 5 GM PACKET PO SCH ×3 (12:20→22:54)
[2021-10-23] MEDS ORDERED: ACETAMINOPHEN 325 MG TABLET (FP) ONE (12:53)
[2021-10-23] MEDS ORDERED: SODIUM ZIRCONIUM CYCLOSILICATE (LOKELMA) 5 GM PACKET ONE (13:40)
[2021-10-23] MEDS ORDERED: DEXAMETHASONE SOD PHOSPHATE 10 MG/1 ML VIAL ONE (13:40)
[2021-10-23] MEDS ORDERED: ZINC SULFATE 220 MG CAPSULE (FP) ONE (13:41)
[2021-10-23] MEDS ORDERED: amLODIPine BESYLATE 5 MG TABLET (FP) ONE (13:41)
[2021-10-23] MEDS ORDERED: PANTOPRAZOLE 40 MG TABLET ONE (13:41)
[2021-10-23] MEDS ORDERED: CHOLECALCIFEROL (VIT D3) 1,000 UNIT (25 MCG) TABLET ONE (13:41)
[2021-10-23 14:00] LABS: HEMATOCRIT 21.7 % (35.4-49); MCH 24.5 pg (25.7-33.7); MCHC 30.8 g/dl (32.0-35.9); MEAN CELL VOLUME 79.6 fl (80-96); MEAN PLT VOLUME 8.3 fl (7.5-11.1); RBC 2.73 M/mm3 (4.00-5.60)
[2021-10-23] MEDS: ZINC SULFATE 220 MG CAPSULE (FP) PO SCH (14:05)
[2021-10-23] MEDS: PANTOPRAZOLE 40 MG TABLET PO SCH (14:05)
[2021-10-23] MEDS: amLODIPine BESYLATE 5 MG TABLET (FP) PO SCH (14:05)
[2021-10-23] MEDS: DEXAMETHASONE SOD PHOSPHATE 10 MG/1 ML VIAL IVPUSH SCH (14:05)
[2021-10-23] MEDS: CHOLECALCIFEROL (VIT D3) 1,000 UNIT (25 MCG) TABLET PO SCH (14:05)
[2021-10-23 14:14] LABS: HEMOGLOBIN 6.7 GM/dL (11.7-16.9); PLATELET COUNT 906 10^3/uL (134-434); WHITE BLOOD COUNT 35.6 K/mm3 (4.0-10.0)
[2021-10-23 14:16] LABS: CALCIUM 7.8 mg/dL (8.5-10.1)
[2021-10-23 14:18] LABS: BLOOD UREA NITROGEN 91.1 mg/dL (7-18); MAGNESIUM 1.6 mg/dL (1.8-2.4)
[2021-10-23 14:20] LABS: URIC ACID 8.7 mg/dL (2.6-7.2)
[2021-10-23 14:21] LABS: CREATININE 6.2 mg/dL (0.55-1.3); PHOSPHOROUS 5.1 mg/dL (2.5-4.9)
[2021-10-23] MEDS ORDERED: MAGNESIUM SULF 50% (8.12 MEQ/2 ML-1 GM VIAL) IVPB ONE (14:49)
[2021-10-23 15:20] LABS: ANISOCYTOSIS 2+; CHLORIDE 106 mmol/L (98-107); PLATELET ESTIMATE ADEQUATE; SODIUM 139 mmol/L (136-145); TARGET CELLS 1+
[2021-10-23 15:22] LABS: CALCIUM 8.1 mg/dL (8.5-10.1)
[2021-10-23 15:23] LABS: BLOOD UREA NITROGEN 90.1 mg/dL (7-18); CO2 18 mmol/L (21-32); MAGNESIUM 1.7 mg/dL (1.8-2.4)
[2021-10-23 15:24] LABS: ALBUMIN 1.9 g/dl (3.4-5.0); GLUCOSE,RANDOM 83 mg/dL (74-106)
[2021-10-23 15:26] LABS: SGOT/AST 48 U/L (15-37); SGPT/ALT 19 U/L (13-61)
[2021-10-23 15:27] LABS: BILIRUBIN,TOTAL 1.7 mg/dL (0.2-1); CREATININE 6.2 mg/dL (0.55-1.3)
[2021-10-23 15:29] LABS: TOT PROT 7.5 g/dl (6.4-8.2)
[2021-10-23 15:30] LABS: ALK PHOS 198 U/L (45-117)
[2021-10-23 15:33] LABS: ANION GAP 14 MMOL/L (8-16)
[2021-10-23] MEDS ORDERED: MAGNESIUM SULFATE IN WATER 2 GM/50 ML IVPB IVPB ONE (15:48)
[2021-10-23 15:50] LABS: ADD RBC MORPHOLOGY YES
[2021-10-23] MEDS ORDERED: SODIUM BICARBONATE 8.4% - 75 MEQ in SODIUM CHLORIDE 0.45% 1,000 ML IV SCH (18:00)
[2021-10-23] MEDS ORDERED: VANCOMYCIN 500 MG in DEXTROSE 5%-WATER - 100 ML IVPB ONE (18:00)
[2021-10-23] MEDS ORDERED: MEROPENEM 1 GM VIAL (RESTRICTED TO ID) IVPB ONE (18:08)
[2021-10-23] MEDS ORDERED: DEXTROSE 5%-WATER 100 ML IVPB ONE (18:09)
[2021-10-23] MEDS: MEROPENEM 1 GM in DEXTROSE 5%-WATER 100 ML IVPB SCH (18:10)
[2021-10-23] MEDS: SODIUM BICARBONATE 8.4% - 75 MEQ in SODIUM CHLORIDE 0.45% 1,000 ML IV SCH (18:50)
[2021-10-23] MEDS ORDERED: VANCOMYCIN 1 GRAM (PRE-DOCKED) 1,000 MG/250 ML BAG IVPB SCH (22:00)
[2021-10-23] MEDS ORDERED: VANCOMYCIN 1 GM in D5W (PRE-DOCKED) 1,000 MG/250 ML IVPB SCH (22:00)
[2021-10-23] MEDS ORDERED: DEXTROSE 50%-WATER - 25 GM/50 ML VIAL IVPUSH ONE (22:21)
[2021-10-23] MEDS ORDERED: INSULIN REGULAR HUMAN 100 UNITS/ML *VIAL IVPUSH ONE (22:21)
[2021-10-23] MEDS ORDERED: DEXTROSE 50%-WATER 25 GM/50 ML DISP.SYRIN ONE (22:51)
[2021-10-23] MEDS: CHLORHEXIDINE GLUCONATE 4% CLEANSER FOR DECOLONIZATION TP SCH (22:52)
[2021-10-23] MEDS: MUPIROCIN 2% TOPICAL OINTMENT FOR DECOLONIZATION NS SCH (22:52)
[2021-10-23] MEDS: ATORVASTATIN CA 80 MG TABLET (FP) PO SCH (23:12)
[2021-10-24 01:09] LABS: BLOOD UREA NITROGEN 94.9 mg/dL (7-18); CALCIUM 7.6 mg/dL (8.5-10.1); MAGNESIUM 1.9 mg/dL (1.8-2.4)
[2021-10-24 01:13] LABS: CREATININE 6.5 mg/dL (0.55-1.3)
[2021-10-24] MEDS: SODIUM BICARBONATE 8.4% - 75 MEQ in SODIUM CHLORIDE 0.45% 1,000 ML IV SCH ×2 (01:59→09:21)
[2021-10-24] MEDS ORDERED: MEROPENEM 1 GM VIAL (RESTRICTED TO ID) IVPB ONE ×2 (03:45→15:34)
[2021-10-24] MEDS ORDERED: DEXTROSE 5%-WATER 100 ML IVPB ONE ×2 (03:46→15:34)
[2021-10-24] MEDS: MEROPENEM 1 GM in DEXTROSE 5%-WATER 100 ML IVPB SCH ×2 (05:05→17:12)
[2021-10-24] MEDS: HEPARIN NA (PORCINE) 5,000 UNITS/ML 1ML VIAL SQ SCH ×3 (05:05→22:40)
[2021-10-24] MEDS ORDERED: oxyCODONE HCL 5 MG TABLET PO PRN (08:00)
[2021-10-24] MEDS ORDERED: SENNOSIDES 8.6MG TABLET (FP) PO PRN (08:00)
[2021-10-24] MEDS ORDERED: ALBUTEROL SO4 HFA INHALER IH PRN (08:00)
[2021-10-24] MEDS ORDERED: POLYETHYLENE GLYCOL (HEALTHYLAX) 3350 17 GM PACKET PO PRN (08:00)
[2021-10-24] MEDS ORDERED: ACETAMINOPHEN 325 MG TABLET (FP) PO PRN (08:00)
[2021-10-24] MEDS: MUPIROCIN 2% TOPICAL OINTMENT FOR DECOLONIZATION NS SCH ×2 (09:19→22:27)
[2021-10-24] MEDS: SODIUM ZIRCONIUM CYCLOSILICATE (LOKELMA) 5 GM PACKET PO SCH ×3 (09:20→22:39)
[2021-10-24] MEDS: DEXAMETHASONE SOD PHOSPHATE 10 MG/1 ML VIAL IVPUSH SCH (09:20)
[2021-10-24] MEDS: CHOLECALCIFEROL (VIT D3) 1,000 UNIT (25 MCG) TABLET PO SCH (09:21)
[2021-10-24] MEDS: amLODIPine BESYLATE 10 MG TABLET (FP) PO SCH (09:24)
[2021-10-24] MEDS: PANTOPRAZOLE 40 MG TABLET PO SCH (09:24)
[2021-10-24] MEDS: ZINC SULFATE 220 MG CAPSULE (FP) PO SCH (09:24)
[2021-10-24 11:19] LABS: HEMATOCRIT 15.5 % (35.4-49); MCH 25.6 pg (25.7-33.7); MCHC 31.1 g/dl (32.0-35.9); MEAN CELL VOLUME 82.5 fl (80-96); MEAN PLT VOLUME 8.6 fl (7.5-11.1); PLATELET COUNT 867 10^3/uL (134-434); RBC 1.87 M/mm3 (4.00-5.60); RDW 18.4 % (11.9-15.9); WHITE BLOOD COUNT 23.1 K/mm3 (4.0-10.0)
[2021-10-24 11:23] LABS: HEMOGLOBIN 4.8 GM/dL (11.7-16.9)
[2021-10-24 11:43] LABS: CALCIUM 7.9 mg/dL (8.5-10.1)
[2021-10-24 11:44] LABS: ALBUMIN 1.8 g/dl (3.4-5.0)
[2021-10-24 11:45] LABS: MAGNESIUM 1.9 mg/dL (1.8-2.4)
[2021-10-24 11:47] LABS: PHOSPHOROUS 4.9 mg/dL (2.5-4.9)
[2021-10-24 11:48] LABS: BILIRUBIN,TOTAL 1.1 mg/dL (0.2-1); TOT PROT 6.9 g/dl (6.4-8.2)
[2021-10-24 12:47] LABS: ANISOCYTOSIS 2+; MACROCYTOSIS 0; OVALOCYTE 2+; PLATELET ESTIMATE INCREASED; TEAR DROP CELLS 1+
[2021-10-24 12:56] LABS: BILIRUBIN,DIRECT 0.4 mg/dL (0.0-0.2)
[2021-10-24] MEDS: SODIUM CHLORIDE 0.45% 1,000 ML IV SCH ×2 (14:34→22:27)
[2021-10-24 14:58] LABS: RETICULOCYTES 0.81 % (0.5-1.5)
[2021-10-24] MEDS: ATORVASTATIN CA 40 MG TABLET (FP) PO SCH (22:26)
[2021-10-24] MEDS: CHLORHEXIDINE GLUCONATE 4% CLEANSER FOR DECOLONIZATION TP SCH (22:27)
[2021-10-24] MEDS ORDERED: INSULIN REGULAR HUMAN 100 UNITS/ML *VIAL IVPUSH ONE (22:51)
[2021-10-24] MEDS ORDERED: CALCIUM GLUCONATE 10% - 1,000 MG/10 ML VIAL IVPUSH ONE (22:51)
[2021-10-24] MEDS ORDERED: DEXTROSE 50%-WATER - 25 GM/50 ML VIAL IVPUSH ONE (23:12)
[2021-10-24] MEDS ORDERED: DEXTROSE 50%-WATER 25 GM/50 ML DISP.SYRIN ONE (23:32)
[2021-10-25] MEDS: SODIUM CHLORIDE 0.45% 1,000 ML IV SCH ×4 (02:00→23:13)
[2021-10-25 02:10] LABS: HEMATOCRIT 25.4 % (35.4-49); HEMOGLOBIN 8.6 GM/dL (11.7-16.9); MCH 28.3 pg (25.7-33.7); MCHC 33.6 g/dl (32.0-35.9); MEAN CELL VOLUME 84.1 fl (80-96); MEAN PLT VOLUME 8.4 fl (7.5-11.1); PLATELET COUNT 680 10^3/uL (134-434); RBC 3.02 M/mm3 (4.00-5.60); RDW 17.8 % (11.9-15.9); WHITE BLOOD COUNT 18.6 K/mm3 (4.0-10.0)
[2021-10-25 02:28] LABS: CALCIUM 7.6 mg/dL (8.5-10.1)
[2021-10-25 02:29] LABS: BLOOD UREA NITROGEN 90.1 mg/dL (7-18)
[2021-10-25 02:32] LABS: CREATININE 5.8 mg/dL (0.55-1.3)
[2021-10-25] MEDS ORDERED: DEXTROSE 5%-WATER 100 ML IVPB ONE ×2 (04:25→17:28)
[2021-10-25] MEDS ORDERED: MEROPENEM 1 GM VIAL (RESTRICTED TO ID) IVPB ONE ×2 (04:25→17:28)
[2021-10-25] MEDS: MEROPENEM 1 GM in DEXTROSE 5%-WATER 100 ML IVPB SCH ×2 (06:08→17:38)
[2021-10-25 08:04] LABS: EOS % 0.1 % (0-4.5); HEMATOCRIT 26.9 % (35.4-49); HEMOGLOBIN 9.1 GM/dL (11.7-16.9); LYMPH % 1.6 % (8-40); MCH 29.2 pg (25.7-33.7); MCHC 33.9 g/dl (32.0-35.9); MEAN CELL VOLUME 86.4 fl (80-96); MEAN PLT VOLUME 8.8 fl (7.5-11.1); MONO % 10.3 % (3.8-10.2); NEUT % 87.5 % (42.8-82.8); PLATELET COUNT 856 10^3/uL (134-434); RBC 3.11 M/mm3 (4.00-5.60); RDW 17.2 % (11.9-15.9)
[2021-10-25 08:05] LABS: BASO % 0.5 % (0-2.0)
[2021-10-25 08:42] LABS: ALBUMIN 1.5 g/dl (3.4-5.0); BLOOD UREA NITROGEN 96.8 mg/dL (7-18); CALCIUM 8.1 mg/dL (8.5-10.1)
[2021-10-25 08:43] LABS: MAGNESIUM 1.9 mg/dL (1.8-2.4)
[2021-10-25 08:45] LABS: PHOSPHOROUS 5.7 mg/dL (2.5-4.9)
[2021-10-25] MEDS ORDERED: DEXTROSE 50%-WATER - 25 GM/50 ML VIAL IVPUSH ONE (08:45)
[2021-10-25] MEDS ORDERED: INSULIN REGULAR HUMAN 100 UNITS/ML *VIAL IVPUSH ONE (08:45)
[2021-10-25] MEDS ORDERED: CALCIUM GLUCONATE 10% - 1,000 MG/10 ML VIAL IVPUSH ONE (08:45)
[2021-10-25 08:46] LABS: CREATININE 5.7 mg/dL (0.55-1.3)
[2021-10-25 08:47] LABS: BILIRUBIN,TOTAL 0.8 mg/dL (0.2-1); TOT PROT 6.4 g/dl (6.4-8.2)
[2021-10-25] MEDS ORDERED: DEXTROSE 50%-WATER 25 GM/50 ML DISP.SYRIN ONE (10:27)
[2021-10-25] MEDS ORDERED: PT OWN MED DRAWER 7, Y5N ONE (10:29)
[2021-10-25] MEDS: DEXAMETHASONE SOD PHOSPHATE 10 MG/1 ML VIAL IVPUSH SCH (11:38)
[2021-10-25] MEDS: MUPIROCIN 2% TOPICAL OINTMENT FOR DECOLONIZATION NS SCH (11:38)
[2021-10-25] MEDS: SODIUM ZIRCONIUM CYCLOSILICATE (LOKELMA) 5 GM PACKET PO SCH (11:39)
[2021-10-25] MEDS: ZINC SULFATE 220 MG CAPSULE (FP) PO SCH (11:40)
[2021-10-25] MEDS: amLODIPine BESYLATE 10 MG TABLET (FP) PO SCH (11:40)
[2021-10-25] MEDS: PANTOPRAZOLE 40 MG TABLET PO SCH (11:40)
[2021-10-25] MEDS: CHOLECALCIFEROL (VIT D3) 1,000 UNIT (25 MCG) TABLET PO SCH (11:41)
[2021-10-25] MEDS: SODIUM BICARBONATE 650 MG TABLET PO SCH ×2 (14:30→23:05)
[2021-10-25] MEDS ORDERED: SENNOSIDES 8.6MG TABLET (FP) PO PRN (22:59)
[2021-10-25] MEDS ORDERED: POLYETHYLENE GLYCOL (HEALTHYLAX) 3350 17 GM PACKET PO PRN (22:59)
[2021-10-25] MEDS ORDERED: ALBUTEROL SO4 HFA INHALER IH PRN (22:59)
[2021-10-25] MEDS: ATORVASTATIN CA 40 MG TABLET (FP) PO SCH (23:05)
[2021-10-26] MEDS ORDERED: MEROPENEM 1 GM VIAL (RESTRICTED TO ID) IVPB ONE (05:48)
[2021-10-26] MEDS ORDERED: DEXTROSE 5%-WATER 100 ML IVPB ONE (05:49)
[2021-10-26] MEDS: MEROPENEM 1 GM in DEXTROSE 5%-WATER 100 ML IVPB SCH ×2 (05:52→18:54)
[2021-10-26] MEDS: SODIUM CHLORIDE 0.45% 1,000 ML IV SCH ×2 (06:30→09:10)
[2021-10-26 08:23] LABS: BASO % 0.4 % (0-2.0); EOS % 0.1 % (0-4.5); HEMATOCRIT 27.3 % (35.4-49); HEMOGLOBIN 9.4 GM/dL (11.7-16.9); LYMPH % 2.5 % (8-40); MCH 29.5 pg (25.7-33.7); MCHC 34.3 g/dl (32.0-35.9); MEAN CELL VOLUME 85.9 fl (80-96); MEAN PLT VOLUME 9.1 fl (7.5-11.1); MONO % 10.5 % (3.8-10.2); NEUT % 86.5 % (42.8-82.8); PLATELET COUNT 774 10^3/uL (134-434); RBC 3.18 M/mm3 (4.00-5.60); RDW 17.5 % (11.9-15.9); WHITE BLOOD COUNT 13.5 K/mm3 (4.0-10.0)
[2021-10-26 08:36] LABS: BLOOD UREA NITROGEN 95.2 mg/dL (7-18)
[2021-10-26 08:38] LABS: ALBUMIN 1.7 g/dl (3.4-5.0); CALCIUM 7.7 mg/dL (8.5-10.1)
[2021-10-26 08:39] LABS: MAGNESIUM 1.9 mg/dL (1.8-2.4)
[2021-10-26 08:41] LABS: CREATININE 5.4 mg/dL (0.55-1.3)
[2021-10-26 08:42] LABS: PHOSPHOROUS 5.5 mg/dL (2.5-4.9)
[2021-10-26 08:43] LABS: BILIRUBIN,TOTAL 0.6 mg/dL (0.2-1); TOT PROT 6.1 g/dl (6.4-8.2)
[2021-10-26 08:49] LABS: INR 1.26 (0.83-1.09); PROTHROMBIN TIME (PATIENT) 14.2 SEC (9.7-13.0)
[2021-10-26 08:51] LABS: ACTIVATED PTT 32.3 SECONDS (25.2-36.5)
[2021-10-26] MEDS ORDERED: MUPIROCIN 2% TOPICAL OINTMENT FOR DECOLONIZATION NS SCH (10:00)
[2021-10-26] MEDS: ZINC SULFATE 220 MG CAPSULE (FP) PO SCH (10:14)
[2021-10-26] MEDS: CHOLECALCIFEROL (VIT D3) 1,000 UNIT (25 MCG) TABLET PO SCH (10:14)
[2021-10-26] MEDS: PANTOPRAZOLE 40 MG TABLET PO SCH (10:14)
[2021-10-26] MEDS: SODIUM ZIRCONIUM CYCLOSILICATE (LOKELMA) 5 GM PACKET PO SCH (10:14)
[2021-10-26] MEDS: amLODIPine BESYLATE 10 MG TABLET (FP) PO SCH (10:14)
[2021-10-26] MEDS: SODIUM BICARBONATE 650 MG TABLET PO SCH ×2 (10:14→21:47)
[2021-10-26] MEDS: DEXAMETHASONE SOD PHOSPHATE 10 MG/1 ML VIAL IVPUSH SCH (10:58)
[2021-10-26] MEDS: SODIUM BICARBONATE 8.4% - 50 MEQ in SODIUM CHLORIDE 0.45% 1,000 ML IV SCH ×2 (14:39→22:23)
[2021-10-26] MEDS ORDERED: PT OWN MED DRAWER 7, Y5N ONE (17:34)
[2021-10-26] MEDS: ACETAMINOPHEN 325 MG TABLET (FP) PO PRN (18:08)
[2021-10-26] MEDS: ATORVASTATIN CA 40 MG TABLET (FP) PO SCH (21:39)
[2021-10-26] MEDS ORDERED: CHLORHEXIDINE GLUCONATE 4% CLEANSER FOR DECOLONIZATION TP SCH (22:00)
[2021-10-26] MEDS: HEPARIN NA (PORCINE) 5,000 UNITS/ML 1ML VIAL SQ SCH (22:19)
[2021-10-27] MEDS: SODIUM BICARBONATE 8.4% - 50 MEQ in SODIUM CHLORIDE 0.45% 1,000 ML IV SCH ×3 (04:00→21:04)
[2021-10-27] MEDS ORDERED: MEROPENEM 1 GM VIAL (RESTRICTED TO ID) IVPB ONE ×2 (04:42→16:50)
[2021-10-27] MEDS ORDERED: DEXTROSE 5%-WATER 100 ML IVPB ONE ×2 (04:42→16:50)
[2021-10-27] MEDS: MEROPENEM 1 GM in DEXTROSE 5%-WATER 100 ML IVPB SCH ×2 (06:12→17:09)
[2021-10-27] MEDS: HEPARIN NA (PORCINE) 5,000 UNITS/ML 1ML VIAL SQ SCH ×3 (06:12→21:03)
[2021-10-27 07:48] LABS: HEMATOCRIT 27.1 % (35.4-49); HEMOGLOBIN 9.3 GM/dL (11.7-16.9); MCH 28.4 pg (25.7-33.7); MCHC 34.2 g/dl (32.0-35.9); PLATELET COUNT 638 10^3/uL (134-434); RBC 3.26 M/mm3 (4.00-5.60); RDW 17.8 % (11.9-15.9); WHITE BLOOD COUNT 14.8 K/mm3 (4.0-10.0)
[2021-10-27 08:36] LABS: BLOOD UREA NITROGEN 98.3 mg/dL (7-18); CALCIUM 7.5 mg/dL (8.5-10.1)
[2021-10-27 08:37] LABS: ALBUMIN 1.6 g/dl (3.4-5.0)
[2021-10-27 08:39] LABS: CREATININE 5.1 mg/dL (0.55-1.3)
[2021-10-27 08:41] LABS: BILIRUBIN,TOTAL 0.6 mg/dL (0.2-1); TOT PROT 5.9 g/dl (6.4-8.2)
[2021-10-27] MEDS: SODIUM ZIRCONIUM CYCLOSILICATE (LOKELMA) 5 GM PACKET PO SCH (10:28)
[2021-10-27] MEDS: DEXAMETHASONE SOD PHOSPHATE 10 MG/1 ML VIAL IVPUSH SCH (10:29)
[2021-10-27] MEDS: PANTOPRAZOLE 40 MG TABLET PO SCH (10:30)
[2021-10-27] MEDS: CHOLECALCIFEROL (VIT D3) 1,000 UNIT (25 MCG) TABLET PO SCH (10:30)
[2021-10-27] MEDS: ZINC SULFATE 220 MG CAPSULE (FP) PO SCH (10:30)
[2021-10-27] MEDS: SODIUM BICARBONATE 650 MG TABLET PO SCH ×2 (10:30→21:04)
[2021-10-27] MEDS: amLODIPine BESYLATE 10 MG TABLET (FP) PO SCH (10:30)
[2021-10-27] MEDS: ATORVASTATIN CA 40 MG TABLET (FP) PO SCH (21:03)
[2021-10-28] MEDS: oxyCODONE HCL 5 MG TABLET PO PRN ×2 (02:25→17:22)
[2021-10-28] MEDS: SODIUM BICARBONATE 8.4% - 50 MEQ in SODIUM CHLORIDE 0.45% 1,000 ML IV SCH ×2 (04:40→14:55)
[2021-10-28] MEDS ORDERED: MEROPENEM 1 GM VIAL (RESTRICTED TO ID) IVPB ONE ×2 (05:14→16:28)
[2021-10-28] MEDS ORDERED: DEXTROSE 5%-WATER 100 ML IVPB ONE ×2 (05:14→16:28)
[2021-10-28] MEDS: MEROPENEM 1 GM in DEXTROSE 5%-WATER 100 ML IVPB SCH ×2 (05:41→17:17)
[2021-10-28] MEDS: HEPARIN NA (PORCINE) 5,000 UNITS/ML 1ML VIAL SQ SCH ×3 (05:42→22:07)
[2021-10-28 07:10] LABS: MCH 28.3 pg (25.7-33.7); MCHC 33.5 g/dl (32.0-35.9); MEAN CELL VOLUME 84.4 fl (80-96); MEAN PLT VOLUME 9.4 fl (7.5-11.1); PLATELET COUNT 602 10^3/uL (134-434); RBC 3.19 M/mm3 (4.00-5.60); WHITE BLOOD COUNT 15.8 K/mm3 (4.0-10.0)
[2021-10-28 07:48] LABS: CALCIUM 7.7 mg/dL (8.5-10.1)
[2021-10-28 07:49] LABS: ALBUMIN 1.7 g/dl (3.4-5.0); BLOOD UREA NITROGEN 96.6 mg/dL (7-18); MAGNESIUM 1.9 mg/dL (1.8-2.4)
[2021-10-28 07:51] LABS: PHOSPHOROUS 6.1 mg/dL (2.5-4.9)
[2021-10-28 07:52] LABS: CREATININE 4.8 mg/dL (0.55-1.3)
[2021-10-28 07:53] LABS: BILIRUBIN,TOTAL 0.7 mg/dL (0.2-1); TOT PROT 5.8 g/dl (6.4-8.2)
[2021-10-28] MEDS ORDERED: LOPERAMIDE HCL 2 MG CAPSULE PO ONE (08:09)
[2021-10-28] MEDS ORDERED: LOPERAMIDE HCL 2 MG CAPSULE PO PRN (08:09)
[2021-10-28] MEDS: CHOLECALCIFEROL (VIT D3) 1,000 UNIT (25 MCG) TABLET PO SCH (10:42)
[2021-10-28] MEDS: DEXAMETHASONE SOD PHOSPHATE 10 MG/1 ML VIAL IVPUSH SCH (10:42)
[2021-10-28] MEDS: PANTOPRAZOLE 40 MG TABLET PO SCH (10:42)
[2021-10-28] MEDS: amLODIPine BESYLATE 10 MG TABLET (FP) PO SCH (10:42)
[2021-10-28] MEDS: ZINC SULFATE 220 MG CAPSULE (FP) PO SCH (10:42)
[2021-10-28] MEDS: SODIUM BICARBONATE 650 MG TABLET PO SCH ×2 (10:42→22:07)
[2021-10-28 20:01] VITALS: BMI 19.5
[2021-10-28] MEDS: ATORVASTATIN CA 40 MG TABLET (FP) PO SCH (22:07)
[2021-10-28] MEDS ORDERED: oxyCODONE HCL 5 MG TABLET PO PRN (22:31)
[2021-10-28] MEDS ORDERED: guaiFENesin/CODEINE 10 ML UNIT-DOSE CUPS PO PRN (22:31)
[2021-10-29] MEDS: SODIUM BICARBONATE 8.4% - 50 MEQ in SODIUM CHLORIDE 0.45% 1,000 ML IV SCH (02:38)
[2021-10-29] MEDS ORDERED: MEROPENEM 1 GM VIAL (RESTRICTED TO ID) IVPB ONE ×2 (05:19→17:19)
[2021-10-29] MEDS ORDERED: DEXTROSE 5%-WATER 100 ML IVPB ONE ×2 (05:19→17:19)
[2021-10-29] MEDS: MEROPENEM 1 GM in DEXTROSE 5%-WATER 100 ML IVPB SCH ×2 (05:48→17:46)
[2021-10-29] MEDS: HEPARIN NA (PORCINE) 5,000 UNITS/ML 1ML VIAL SQ SCH ×3 (05:48→22:22)
[2021-10-29 07:29] LABS: HEMATOCRIT 23.9 % (35.4-49); HEMOGLOBIN 8.3 GM/dL (11.7-16.9); MCH 28.7 pg (25.7-33.7); MCHC 34.7 g/dl (32.0-35.9); MEAN CELL VOLUME 82.9 fl (80-96); MEAN PLT VOLUME 9.1 fl (7.5-11.1); PLATELET COUNT 494 10^3/uL (134-434); RBC 2.89 M/mm3 (4.00-5.60); RDW 18.3 % (11.9-15.9); WHITE BLOOD COUNT 17.9 K/mm3 (4.0-10.0)
[2021-10-29 08:10] LABS: ALBUMIN 1.7 g/dl (3.4-5.0); BLOOD UREA NITROGEN 90.6 mg/dL (7-18); CALCIUM 7.5 mg/dL (8.5-10.1)
[2021-10-29 08:11] LABS: MAGNESIUM 1.7 mg/dL (1.8-2.4)
[2021-10-29 08:13] LABS: CREATININE 4.4 mg/dL (0.55-1.3)
[2021-10-29 08:15] LABS: BILIRUBIN,TOTAL 1.1 mg/dL (0.2-1); TOT PROT 5.6 g/dl (6.4-8.2)
[2021-10-29] MEDS ORDERED: MAGNESIUM SULF 50% (8.12 MEQ/2 ML-1 GM VIAL) IVPB ONE (09:01)
[2021-10-29] MEDS: CHOLECALCIFEROL (VIT D3) 1,000 UNIT (25 MCG) TABLET PO SCH (10:00)
[2021-10-29] MEDS: SODIUM BICARBONATE 650 MG TABLET PO SCH ×2 (10:00→22:22)
[2021-10-29] MEDS: amLODIPine BESYLATE 10 MG TABLET (FP) PO SCH (10:00)
[2021-10-29] MEDS: PANTOPRAZOLE 40 MG TABLET PO SCH (10:00)
[2021-10-29] MEDS: DEXAMETHASONE SOD PHOSPHATE 10 MG/1 ML VIAL IVPUSH SCH (10:00)
[2021-10-29] MEDS: VITAMIN B COMP W-C 1 EA TABLET (NEPHRO-VITE) PO SCH (10:00)
[2021-10-29] MEDS: ZINC SULFATE 220 MG CAPSULE (FP) PO SCH (10:01)
[2021-10-29 11:25] LABS: ANISOCYTOSIS 3+; MACROCYTOSIS 0; OVALOCYTE 2+; PLATELET ESTIMATE INCREASED
[2021-10-29] MEDS ORDERED: SODIUM BICARBONATE 8.4% - 50 MEQ in SODIUM CHLORIDE 0.45% 1,000 ML IV SCH (12:01)
[2021-10-29] MEDS ORDERED: FUROSEMIDE 40 MG/4 ML INJECTABLE VIAL IVPUSH ONE (12:02)
[2021-10-29] MEDS: ATORVASTATIN CA 40 MG TABLET (FP) PO SCH (22:22)
[2021-10-30] MEDS ORDERED: SODIUM BICARBONATE 8.4% - 50 MEQ in SODIUM CHLORIDE 0.45% 1,000 ML IV SCH (05:15)
[2021-10-30] MEDS ORDERED: MEROPENEM 1 GM VIAL (RESTRICTED TO ID) IVPB ONE ×2 (06:06→17:27)
[2021-10-30] MEDS ORDERED: DEXTROSE 5%-WATER 100 ML IVPB ONE ×2 (06:06→17:27)
[2021-10-30] MEDS: HEPARIN NA (PORCINE) 5,000 UNITS/ML 1ML VIAL SQ SCH ×3 (06:14→23:09)
[2021-10-30] MEDS: MEROPENEM 1 GM in DEXTROSE 5%-WATER 100 ML IVPB SCH ×2 (06:14→17:30)
[2021-10-30] MEDS ORDERED: FUROSEMIDE 40 MG/4 ML INJECTABLE VIAL IVPUSH ONE (07:26)
[2021-10-30] MEDS: DEXAMETHASONE SOD PHOSPHATE 10 MG/1 ML VIAL IVPUSH SCH (10:21)
[2021-10-30] MEDS: ZINC SULFATE 220 MG CAPSULE (FP) PO SCH (15:32)
[2021-10-30] MEDS: amLODIPine BESYLATE 10 MG TABLET (FP) PO SCH (15:32)
[2021-10-30] MEDS: CHOLECALCIFEROL (VIT D3) 1,000 UNIT (25 MCG) TABLET PO SCH (15:32)
[2021-10-30] MEDS: VITAMIN B COMP W-C 1 EA TABLET (NEPHRO-VITE) PO SCH (15:32)
[2021-10-30] MEDS: PANTOPRAZOLE 40 MG TABLET PO SCH (15:32)
[2021-10-30] MEDS: SODIUM CHLORIDE 0.45% 1,000 ML IV SCH (15:33)
[2021-10-30] MEDS: ATORVASTATIN CA 40 MG TABLET (FP) PO SCH (23:09)
[2021-10-31] MEDS ORDERED: MEROPENEM 1 GM VIAL (RESTRICTED TO ID) IVPB ONE ×2 (07:02→17:57)
[2021-10-31] MEDS ORDERED: DEXTROSE 5%-WATER 100 ML IVPB ONE ×2 (07:02→17:57)
[2021-10-31] MEDS: MEROPENEM 1 GM in DEXTROSE 5%-WATER 100 ML IVPB SCH ×2 (07:05→17:59)
[2021-10-31] MEDS: HEPARIN NA (PORCINE) 5,000 UNITS/ML 1ML VIAL SQ SCH ×3 (07:05→21:43)
[2021-10-31 07:35] LABS: HEMATOCRIT 25.1 % (35.4-49); HEMOGLOBIN 8.6 GM/dL (11.7-16.9); MCH 28.4 pg (25.7-33.7); MCHC 34.2 g/dl (32.0-35.9); MEAN CELL VOLUME 83.1 fl (80-96); MEAN PLT VOLUME 9.6 fl (7.5-11.1); PLATELET COUNT 591 10^3/uL (134-434); RBC 3.02 M/mm3 (4.00-5.60); RDW 18.3 % (11.9-15.9); WHITE BLOOD COUNT 24.1 K/mm3 (4.0-10.0)
[2021-10-31 08:09] LABS: CALCIUM 8.1 mg/dL (8.5-10.1)
[2021-10-31 08:12] LABS: CREATININE 3.4 mg/dL (0.55-1.3)
[2021-10-31 08:13] LABS: PHOSPHOROUS 5.7 mg/dL (2.5-4.9)
[2021-10-31 08:14] LABS: BILIRUBIN,TOTAL 0.6 mg/dL (0.2-1)
[2021-10-31 09:22] LABS: ANISOCYTOSIS 1+; MACROCYTOSIS 1+; OVALOCYTE 1+; PLATELET ESTIMATE INCREASED
[2021-10-31] MEDS: FUROSEMIDE 40 MG/4 ML INJECTABLE VIAL IVPUSH ONE ×2 (10:33→10:35)
[2021-10-31] MEDS: DEXAMETHASONE SOD PHOSPHATE 10 MG/1 ML VIAL IVPUSH SCH (10:33)
[2021-10-31] MEDS: ZINC SULFATE 220 MG CAPSULE (FP) PO SCH (10:34)
[2021-10-31] MEDS: CHOLECALCIFEROL (VIT D3) 1,000 UNIT (25 MCG) TABLET PO SCH (10:34)
[2021-10-31] MEDS: PANTOPRAZOLE 40 MG TABLET PO SCH (10:34)
[2021-10-31] MEDS: amLODIPine BESYLATE 10 MG TABLET (FP) PO SCH (10:34)
[2021-10-31] MEDS: VITAMIN B COMP W-C 1 EA TABLET (NEPHRO-VITE) PO SCH (10:34)
[2021-10-31] MEDS: SODIUM CHLORIDE 0.45% 1,000 ML IV SCH (13:25)
[2021-10-31] MEDS: ATORVASTATIN CA 40 MG TABLET (FP) PO SCH (21:43)
[2021-11-01] MEDS: ACETAMINOPHEN 325 MG TABLET (FP) PO PRN (04:00)
[2021-11-01] MEDS ORDERED: DEXTROSE 5%-WATER 100 ML IVPB ONE ×3 (04:52→17:47)
[2021-11-01] MEDS ORDERED: MEROPENEM 1 GM VIAL (RESTRICTED TO ID) IVPB ONE ×3 (04:52→17:47)
[2021-11-01] MEDS ORDERED: FUROSEMIDE 40 MG/4 ML INJECTABLE VIAL IVPUSH ONE (05:10)
[2021-11-01] MEDS: MEROPENEM 1 GM in DEXTROSE 5%-WATER 100 ML IVPB SCH ×2 (05:31→17:45)
[2021-11-01] MEDS ORDERED: guaiFENesin 600 MG TABLET.ER (FP) PO ONE ×2 (05:53→06:03)
[2021-11-01] MEDS: HEPARIN NA (PORCINE) 5,000 UNITS/ML 1ML VIAL SQ SCH ×3 (06:24→21:17)
[2021-11-01 08:09] LABS: HEMOGLOBIN 8.4 GM/dL (11.7-16.9); MCHC 32.3 g/dl (32.0-35.9); MEAN CELL VOLUME 83.4 fl (80-96); MEAN PLT VOLUME 9.9 fl (7.5-11.1); PLATELET COUNT 590 10^3/uL (134-434); RBC 3.12 M/mm3 (4.00-5.60); RDW 18.8 % (11.9-15.9); WHITE BLOOD COUNT 26.6 K/mm3 (4.0-10.0)
[2021-11-01 08:39] LABS: CALCIUM 7.3 mg/dL (8.5-10.1)
[2021-11-01 08:40] LABS: BLOOD UREA NITROGEN 73.4 mg/dL (7-18)
[2021-11-01 08:43] LABS: CREATININE 2.8 mg/dL (0.55-1.3)
[2021-11-01] MEDS: DEXAMETHASONE SOD PHOSPHATE 10 MG/1 ML VIAL IVPUSH SCH (10:12)
[2021-11-01 11:25] LABS: ANISOCYTOSIS 1+; MACROCYTOSIS 0; PLATELET ESTIMATE INCREASED
[2021-11-01] MEDS: CHOLECALCIFEROL (VIT D3) 1,000 UNIT (25 MCG) TABLET PO SCH (11:43)
[2021-11-01] MEDS: amLODIPine BESYLATE 10 MG TABLET (FP) PO SCH (11:44)
[2021-11-01] MEDS: PANTOPRAZOLE 40 MG TABLET PO SCH (11:44)
[2021-11-01] MEDS: VITAMIN B COMP W-C 1 EA TABLET (NEPHRO-VITE) PO SCH (11:44)
[2021-11-01] MEDS: ZINC SULFATE 220 MG CAPSULE (FP) PO SCH (11:44)
[2021-11-01] MEDS: ATORVASTATIN CA 40 MG TABLET (FP) PO SCH (21:17)
[2021-11-02] MEDS: HEPARIN NA (PORCINE) 5,000 UNITS/ML 1ML VIAL SQ SCH ×2 (06:04→14:29)
[2021-11-02 07:20] LABS: HEMATOCRIT 23.2 % (35.4-49); HEMOGLOBIN 7.7 GM/dL (11.7-16.9); LYMPH % 2.1 % (8-40); MCH 27.6 pg (25.7-33.7); MCHC 33.3 g/dl (32.0-35.9); MEAN PLT VOLUME 9.6 fl (7.5-11.1); MONO % 12.7 % (3.8-10.2); NEUT % 85.2 % (42.8-82.8); PLATELET COUNT 466 10^3/uL (134-434); RDW 18.7 % (11.9-15.9); WHITE BLOOD COUNT 20.3 K/mm3 (4.0-10.0)
[2021-11-02 09:14] LABS: CALCIUM 7.5 mg/dL (8.5-10.1)
[2021-11-02 09:15] LABS: BLOOD UREA NITROGEN 66.2 mg/dL (7-18)
[2021-11-02 09:18] LABS: CREATININE 2.2 mg/dL (0.55-1.3)
[2021-11-02] MEDS: CHOLECALCIFEROL (VIT D3) 1,000 UNIT (25 MCG) TABLET PO SCH (09:38)
[2021-11-02] MEDS: DEXAMETHASONE SOD PHOSPHATE 10 MG/1 ML VIAL IVPUSH SCH (09:38)
[2021-11-02] MEDS: AMINO ACIDS/PROTEIN HYDROLYS 30 ML LIQUID.PKT PO SCH ×3 (09:38→16:38)
[2021-11-02] MEDS: PANTOPRAZOLE 40 MG TABLET PO SCH (09:39)
[2021-11-02] MEDS: amLODIPine BESYLATE 10 MG TABLET (FP) PO SCH (09:39)
[2021-11-02] MEDS: VITAMIN B COMP W-C 1 EA TABLET (NEPHRO-VITE) PO SCH (09:39)
[2021-11-02] MEDS: ZINC SULFATE 220 MG CAPSULE (FP) PO SCH (09:39)
[2021-11-02 10:19] LABS: ANISOCYTOSIS 2+; MACROCYTOSIS 2+; OVALOCYTE 1+; PLATELET ESTIMATE NORMAL; TEAR DROP CELLS 1+
[2021-11-02] MEDS ORDERED: FUROSEMIDE 40 MG/4 ML INJECTABLE VIAL IVPUSH ONE (15:30)
[2021-11-02] MEDS ORDERED: POTASSIUM CHLORIDE TABS 20 MEQ TABLET.ER (FP) PO ONE (15:31)
[2021-11-02] MEDS: ATORVASTATIN CA 40 MG TABLET (FP) PO SCH (22:11)
[2021-11-02] MEDS: ACETAMINOPHEN 325 MG TABLET (FP) PO PRN (22:11)
[2021-11-03 07:07] LABS: BASO % 0.3 % (0-2.0); HEMATOCRIT 24.7 % (35.4-49); HEMOGLOBIN 8.2 GM/dL (11.7-16.9); LYMPH % 2.1 % (8-40); MCH 27.4 pg (25.7-33.7); MCHC 33.1 g/dl (32.0-35.9); MEAN CELL VOLUME 82.8 fl (80-96); MEAN PLT VOLUME 9.5 fl (7.5-11.1); MONO % 15.1 % (3.8-10.2); NEUT % 82.5 % (42.8-82.8); PLATELET COUNT 511 10^3/uL (134-434); RBC 2.99 M/mm3 (4.00-5.60); RDW 18.8 % (11.9-15.9); WHITE BLOOD COUNT 21.4 K/mm3 (4.0-10.0)
[2021-11-03 07:25] LABS: BLOOD UREA NITROGEN 60.8 mg/dL (7-18); CALCIUM 7.9 mg/dL (8.5-10.1)
[2021-11-03 07:29] LABS: CREATININE 1.8 mg/dL (0.55-1.3)
[2021-11-03] MEDS ORDERED: FUROSEMIDE 40 MG/4 ML INJECTABLE VIAL IVPUSH ONE (08:23)
[2021-11-03] MEDS ORDERED: POTASSIUM CHLORIDE TABS 20 MEQ TABLET.ER (FP) PO ONE (08:24)
[2021-11-03 09:00] LABS: ANISOCYTOSIS 0; HELMET CELLS 0; HOWELL-JOLLY BODIES 0; MACROCYTOSIS 0; OVALOCYTE 0; PLATELET ESTIMATE INCREASED; ROULEAU 0; SICKELED CELLS 0; TARGET CELLS 0; TEAR DROP CELLS 0; TOXIC GRANULATION 0
[2021-11-03] MEDS: AMINO ACIDS/PROTEIN HYDROLYS 30 ML LIQUID.PKT PO SCH ×3 (09:15→17:25)
[2021-11-03] MEDS: ZINC SULFATE 220 MG CAPSULE (FP) PO SCH (09:15)
[2021-11-03] MEDS: CHOLECALCIFEROL (VIT D3) 1,000 UNIT (25 MCG) TABLET PO SCH (09:15)
[2021-11-03] MEDS: DEXAMETHASONE SOD PHOSPHATE 10 MG/1 ML VIAL IVPUSH SCH (09:16)
[2021-11-03] MEDS: amLODIPine BESYLATE 10 MG TABLET (FP) PO SCH (09:16)
[2021-11-03] MEDS: PANTOPRAZOLE 40 MG TABLET PO SCH (09:16)
[2021-11-03] MEDS: VITAMIN B COMP W-C 1 EA TABLET (NEPHRO-VITE) PO SCH (09:16)
[2021-11-03] MEDS: ACETAMINOPHEN 325 MG TABLET (FP) PO PRN (22:44)
[2021-11-03] MEDS: ATORVASTATIN CA 40 MG TABLET (FP) PO SCH (22:44)
[2021-11-04] MEDS ORDERED: FUROSEMIDE 40 MG/4 ML INJECTABLE VIAL IVPUSH ONE (00:42)
[2021-11-04] MEDS ORDERED: FUROSEMIDE 40 MG/4 ML INJECTABLE VIAL ONE (06:15)
[2021-11-04 07:58] LABS: BASO % 0.2 % (0-2.0); HEMATOCRIT 23.8 % (35.4-49); HEMOGLOBIN 7.8 GM/dL (11.7-16.9); LYMPH % 2.5 % (8-40); MCH 27.3 pg (25.7-33.7); MCHC 32.6 g/dl (32.0-35.9); MEAN CELL VOLUME 83.7 fl (80-96); MONO % 12.3 % (3.8-10.2); PLATELET COUNT 476 10^3/uL (134-434); RBC 2.84 M/mm3 (4.00-5.60); WHITE BLOOD COUNT 18.4 K/mm3 (4.0-10.0)
[2021-11-04 08:12] LABS: BLOOD UREA NITROGEN 57.7 mg/dL (7-18); CALCIUM 7.4 mg/dL (8.5-10.1)
[2021-11-04 08:16] LABS: CREATININE 1.6 mg/dL (0.55-1.3)
[2021-11-04] MEDS ORDERED: POTASSIUM CHLORIDE TABS 20 MEQ TABLET.ER (FP) PO ONE (09:35)
[2021-11-04] MEDS: DEXAMETHASONE SOD PHOSPHATE 10 MG/1 ML VIAL IVPUSH SCH (10:57)
[2021-11-04] MEDS: PANTOPRAZOLE 40 MG TABLET PO SCH (12:05)
[2021-11-04] MEDS: amLODIPine BESYLATE 10 MG TABLET (FP) PO SCH (12:05)
[2021-11-04] MEDS: VITAMIN B COMP W-C 1 EA TABLET (NEPHRO-VITE) PO SCH (12:05)
[2021-11-04] MEDS: ZINC SULFATE 220 MG CAPSULE (FP) PO SCH (12:05)
[2021-11-04] MEDS: CHOLECALCIFEROL (VIT D3) 1,000 UNIT (25 MCG) TABLET PO SCH (12:12)
[2021-11-04] MEDS: AMINO ACIDS/PROTEIN HYDROLYS 30 ML LIQUID.PKT PO SCH ×2 (12:14→17:45)
[2021-11-04] MEDS: ACETAMINOPHEN 325 MG TABLET (FP) PO PRN (22:48)
[2021-11-04] MEDS: ATORVASTATIN CA 40 MG TABLET (FP) PO SCH (22:51)
[2021-11-05 07:17] LABS: BASO % 0.1 % (0-2.0); HEMATOCRIT 25.2 % (35.4-49); HEMOGLOBIN 8.1 GM/dL (11.7-16.9); LYMPH % 2.3 % (8-40); MCH 27.2 pg (25.7-33.7); MCHC 32.3 g/dl (32.0-35.9); MEAN CELL VOLUME 84.3 fl (80-96); MEAN PLT VOLUME 9.8 fl (7.5-11.1); MONO % 14.6 % (3.8-10.2); PLATELET COUNT 450 10^3/uL (134-434); RBC 2.99 M/mm3 (4.00-5.60); WHITE BLOOD COUNT 20.1 K/mm3 (4.0-10.0)
[2021-11-05 07:32] LABS: BLOOD UREA NITROGEN 53.6 mg/dL (7-18); CALCIUM 7.5 mg/dL (8.5-10.1)
[2021-11-05 07:36] LABS: CREATININE 1.4 mg/dL (0.55-1.3)
[2021-11-05 08:51] LABS: ANISOCYTOSIS 1+; MACROCYTOSIS 0; PLATELET ESTIMATE NORMAL
[2021-11-05] MEDS: DEXAMETHASONE SOD PHOSPHATE 10 MG/1 ML VIAL IVPUSH SCH (10:55)
[2021-11-05] MEDS: AMINO ACIDS/PROTEIN HYDROLYS 30 ML LIQUID.PKT PO SCH ×2 (10:56→17:28)
[2021-11-05] MEDS: VITAMIN B COMP W-C 1 EA TABLET (NEPHRO-VITE) PO SCH (10:56)
[2021-11-05] MEDS: PANTOPRAZOLE 40 MG TABLET PO SCH (10:56)
[2021-11-05] MEDS: amLODIPine BESYLATE 10 MG TABLET (FP) PO SCH (10:56)
[2021-11-05] MEDS: ZINC SULFATE 220 MG CAPSULE (FP) PO SCH (10:56)
[2021-11-05] MEDS: CHOLECALCIFEROL (VIT D3) 1,000 UNIT (25 MCG) TABLET PO SCH (10:57)
[2021-11-05] MEDS ORDERED: POTASSIUM CHLORIDE TABS 20 MEQ TABLET.ER (FP) PO ONE (11:00)
[2021-11-05] MEDS ORDERED: FUROSEMIDE 40 MG/4 ML INJECTABLE VIAL IVPUSH ONE (11:00)
[2021-11-05] MEDS: ATORVASTATIN CA 40 MG TABLET (FP) PO SCH ×2 (21:09→21:12)
[2021-11-06 07:49] LABS: CALCIUM 8.1 mg/dL (8.5-10.1)
[2021-11-06 07:50] LABS: BLOOD UREA NITROGEN 43.5 mg/dL (7-18)
[2021-11-06 07:52] LABS: CREATININE 1.2 mg/dL (0.55-1.3)
[2021-11-06] MEDS ORDERED: FUROSEMIDE 40 MG/4 ML INJECTABLE VIAL IVPUSH ONE (08:08)
[2021-11-06] MEDS ORDERED: POTASSIUM CHLORIDE TABS 20 MEQ TABLET.ER (FP) PO ONE (08:09)
[2021-11-06 08:13] LABS: BASO % 0.4 % (0-2.0); HEMATOCRIT 24.9 % (35.4-49); LYMPH % 2.9 % (8-40); MCH 27.2 pg (25.7-33.7); MCHC 32.3 g/dl (32.0-35.9); MEAN CELL VOLUME 84.3 fl (80-96); MEAN PLT VOLUME 9.8 fl (7.5-11.1); MONO % 12.7 % (3.8-10.2); PLATELET COUNT 387 10^3/uL (134-434); RBC 2.95 M/mm3 (4.00-5.60)
[2021-11-06 10:14] LABS: ANISOCYTOSIS 1+; MACROCYTOSIS 0; PLATELET ESTIMATE NORMAL
[2021-11-06] MEDS: ZINC SULFATE 220 MG CAPSULE (FP) PO SCH (10:36)
[2021-11-06] MEDS: PANTOPRAZOLE 40 MG TABLET PO SCH (10:44)
[2021-11-06] MEDS: amLODIPine BESYLATE 10 MG TABLET (FP) PO SCH (10:44)
[2021-11-06] MEDS: DEXAMETHASONE SOD PHOSPHATE 10 MG/1 ML VIAL IVPUSH SCH (10:44)
[2021-11-06] MEDS: VITAMIN B COMP W-C 1 EA TABLET (NEPHRO-VITE) PO SCH (10:44)
[2021-11-06] MEDS: AMINO ACIDS/PROTEIN HYDROLYS 30 ML LIQUID.PKT PO SCH ×2 (10:44→18:41)
[2021-11-06] MEDS: CHOLECALCIFEROL (VIT D3) 1,000 UNIT (25 MCG) TABLET PO SCH (10:45)
[2021-11-06] MEDS: ATORVASTATIN CA 40 MG TABLET (FP) PO SCH (21:20)
[2021-11-07] MEDS: ACETAMINOPHEN 325 MG TABLET (FP) PO PRN ×2 (04:40→10:34)
[2021-11-07 07:52] LABS: CALCIUM 7.9 mg/dL (8.5-10.1)
[2021-11-07 07:53] LABS: BLOOD UREA NITROGEN 36.7 mg/dL (7-18)
[2021-11-07 07:56] LABS: CREATININE 1.2 mg/dL (0.55-1.3); HEMATOCRIT 23.3 % (35.4-49); HEMOGLOBIN 7.4 GM/dL (11.7-16.9); MEAN CELL VOLUME 84.3 fl (80-96); MEAN PLT VOLUME 9.9 fl (7.5-11.1); PLATELET COUNT 328 10^3/uL (134-434); RBC 2.76 M/mm3 (4.00-5.60); RDW 18.8 % (11.9-15.9); WHITE BLOOD COUNT 20.6 K/mm3 (4.0-10.0)
[2021-11-07 10:01] LABS: ANISOCYTOSIS 1+; MACROCYTOSIS 0; PLATELET ESTIMATE NORMAL
[2021-11-07] MEDS: VITAMIN B COMP W-C 1 EA TABLET (NEPHRO-VITE) PO SCH (10:33)
[2021-11-07] MEDS: ZINC SULFATE 220 MG CAPSULE (FP) PO SCH (10:33)
[2021-11-07] MEDS: PANTOPRAZOLE 40 MG TABLET PO SCH (10:33)
[2021-11-07] MEDS: AMINO ACIDS/PROTEIN HYDROLYS 30 ML LIQUID.PKT PO SCH ×2 (10:34→17:27)
[2021-11-07] MEDS: amLODIPine BESYLATE 10 MG TABLET (FP) PO SCH (10:34)
[2021-11-07] MEDS: DEXAMETHASONE SOD PHOSPHATE 10 MG/1 ML VIAL IVPUSH SCH (10:34)
[2021-11-07] MEDS: CHOLECALCIFEROL (VIT D3) 1,000 UNIT (25 MCG) TABLET PO SCH (10:35)
[2021-11-07] MEDS ORDERED: POTASSIUM CHLORIDE TABS 20 MEQ TABLET.ER (FP) PO ONE (13:47)
[2021-11-07] MEDS ORDERED: FUROSEMIDE 40 MG/4 ML INJECTABLE VIAL IVPUSH ONE (14:00)
[2021-11-07] MEDS: ATORVASTATIN CA 40 MG TABLET (FP) PO SCH (21:03)
[2021-11-08] MEDS: PANTOPRAZOLE 40 MG TABLET PO SCH (09:31)
[2021-11-08] MEDS: VITAMIN B COMP W-C 1 EA TABLET (NEPHRO-VITE) PO SCH (09:31)
[2021-11-08] MEDS: CHOLECALCIFEROL (VIT D3) 1,000 UNIT (25 MCG) TABLET PO SCH (09:31)
[2021-11-08] MEDS: DEXAMETHASONE SOD PHOSPHATE 10 MG/1 ML VIAL IVPUSH SCH (09:31)
[2021-11-08] MEDS: AMINO ACIDS/PROTEIN HYDROLYS 30 ML LIQUID.PKT PO SCH ×2 (09:31→17:25)
[2021-11-08] MEDS: amLODIPine BESYLATE 10 MG TABLET (FP) PO SCH (09:31)
[2021-11-08] MEDS: ZINC SULFATE 220 MG CAPSULE (FP) PO SCH (09:31)
[2021-11-08] MEDS ORDERED: POTASSIUM CHLORIDE TABS 20 MEQ TABLET.ER (FP) PO ONE (11:30)
[2021-11-08] MEDS ORDERED: FUROSEMIDE 40 MG/4 ML INJECTABLE VIAL IVPUSH ONE (11:30)
[2021-11-08] MEDS: ATORVASTATIN CA 40 MG TABLET (FP) PO SCH (22:17)
[2021-11-09] MEDS ORDERED: FUROSEMIDE 40 MG/4 ML INJECTABLE VIAL IVPUSH ONE (09:25)
[2021-11-09] MEDS ORDERED: EPOETIN ALFA-EPBX 20,000 UNIT/ML VIAL SQ ONE (10:03)
[2021-11-09] MEDS: CHOLECALCIFEROL (VIT D3) 1,000 UNIT (25 MCG) TABLET PO SCH (11:16)
[2021-11-09] MEDS: AMINO ACIDS/PROTEIN HYDROLYS 30 ML LIQUID.PKT PO SCH (11:16)
[2021-11-09] MEDS: PANTOPRAZOLE 40 MG TABLET PO SCH (11:16)
[2021-11-09] MEDS: amLODIPine BESYLATE 10 MG TABLET (FP) PO SCH (11:16)
[2021-11-09] MEDS: ZINC SULFATE 220 MG CAPSULE (FP) PO SCH (11:17)
[2021-11-09] MEDS: VITAMIN B COMP W-C 1 EA TABLET (NEPHRO-VITE) PO SCH (11:17)
[2021-11-09 14:30] VITALS: BP 142/93; PULSE 108; TEMP 97.3
== END 2021-11-09 17:38 | DRG 871 ==
LOC: JER 19:01 → JERBED 10-22 01:55 → JICU 10-23 16:49 → J4W 10-25 20:10
PROVIDERS: ADMIT Internal Medicine; ATTEND Internal Medicine
PROC: 30233N1 Transfusion of Nonautologous Red Blood Cells into Peripheral Vein, Percutaneous Approach (ICD-10-PCS; principal; 2021-10-24)
DX: A41.89 Other specified sepsis (principal); U07.1 COVID-19; J96.01 Acute respiratory failure with hypoxia; J12.82 Pneumonia due to coronavirus disease 2019; N17.9 Acute kidney failure, unspecified; I69.351 Hemiplegia and hemiparesis following cerebral infarction affecting right dominant side; E46 Unspecified protein-calorie malnutrition; J98.11 Atelectasis; I13.0 Hypertensive heart and chronic kidney disease with heart failure and stage 1 through stage 4 chronic kidney disease, or unspecified chronic kidney disease; E87.2 Acidosis; S31.109A Unspecified open wound of abdominal wall, unspecified quadrant without penetration into peritoneal cavity, initial encounter; D49.0 Neoplasm of unspecified behavior of digestive system; R65.20 Severe sepsis without septic shock; E87.5 Hyperkalemia; K70.30 Alcoholic cirrhosis of liver without ascites; N18.9 Chronic kidney disease, unspecified; K21.9 Gastro-esophageal reflux disease without esophagitis; N40.0 Benign prostatic hyperplasia without lower urinary tract symptoms; E78.5 Hyperlipidemia, unspecified; F01.50 Vascular dementia, unspecified severity, without behavioral disturbance, psychotic disturbance, mood disturbance, and anxiety; D72.829 Elevated white blood cell count, unspecified; E87.70 Fluid overload, unspecified; D50.9 Iron deficiency anemia, unspecified; K59.00 Constipation, unspecified; E88.09 Other disorders of plasma-protein metabolism, not elsewhere classified; L89.152 Pressure ulcer of sacral region, stage 2; X58.XXXA Exposure to other specified factors, initial encounter; Y93.9 Activity, unspecified; Y92.89 Other specified places as the place of occurrence of the external cause; Y99.9 Unspecified external cause status
CPT/HCPCS: 36415; 36430; 71045-TC-FY; 71250-TC; 74176-TC; 76775-TC; 80048; 80053; 81003; 82248; 82272; 82550; 82553; 82570; 82607; 82728; 82746; 82803; 82962; 83010; 83540; 83550; 83605; 83615; 83735; 84100; 84156; 84300; 84484; 84550; 85025; 85027; 85045; 85379; 85610; 85730; 86140; 86850; 86870; 86880; 86900; 86901; 86902; 86922; 87040; 87086; 87186; 87324; 87449; 87804; 93005; 93010; 97162-GP; 99285-25; C9803; G0480; J1100; J1644; P9058; U0003; U0005

== ENCOUNTER 2021-11-23 10:37 | Inpatient (IN) | payer OTHER, BC ==
[2021-11-23] MEDS ORDERED: SODIUM CHLORIDE 0.9% 500 ML INFUS.BAG IV ONE (10:42)
[2021-11-23] MEDS ORDERED: ACETAMINOPHEN 1000 MG/100 ML BAG IVPB ONE (10:55)
[2021-11-23] MEDS ORDERED: ACETAMINOPHEN INJECTION 100 ML IVPB ONE (10:56)
[2021-11-23] MEDS ORDERED: LACTATED RINGERS SOLUTION 1000 ML INFUS.BAG IV ONE (10:57)
[2021-11-23] MEDS ORDERED: VANCOMYCIN 1 GM in D5W (PRE-DOCKED) 1,000 MG/250 ML IVPB ONE (11:24)
[2021-11-23] MEDS ORDERED: MEROPENEM 1 GM in DEXTROSE 5%-WATER 100 ML IVPB ONE (11:25)
[2021-11-23] MEDS ORDERED: MEROPENEM 500 MG VIAL (RESTRICTED TO ID) IVPB ONE (11:38)
[2021-11-23] MEDS ORDERED: VANCOMYCIN 1 GRAM (PRE-DOCKED) 1,000 MG/250 ML BAG IVPB ONE (11:39)
[2021-11-23 11:48] LABS: HEMATOCRIT 19.3 % (35.4-49); MCH 26.3 pg (25.7-33.7); MCHC 30.8 g/dl (32.0-35.9); MEAN CELL VOLUME 85.4 fl (80-96); MEAN PLT VOLUME 9.1 fl (7.5-11.1); PLATELET COUNT 313 10^3/uL (134-434); RBC 2.26 M/mm3 (4.00-5.60); RDW 19.4 % (11.9-15.9); WHITE BLOOD COUNT 26.5 K/mm3 (4.0-10.0)
[2021-11-23 11:55] LABS: INR 1.93 (0.83-1.09); PROTHROMBIN TIME (PATIENT) 22.4 SEC (9.7-13.0)
[2021-11-23 11:58] LABS: ACTIVATED PTT 36.8 SECONDS (25.2-36.5)
[2021-11-23 12:00] LABS: VENOUS BASE EXCESS -6.3 mmol/L (-2-2); VENOUS O2 SATURATION 42.9 % (70-80); VENOUS PCO2 35.6 mmHg (38-52); VENOUS PH 7.342 (7.310-7.410)
[2021-11-23 12:23] LABS: CHLORIDE 110 mmol/L (98-107); SODIUM 141 mmol/L (136-145)
[2021-11-23 12:25] LABS: CALCIUM 7.1 mg/dL (8.5-10.1)
[2021-11-23 12:26] LABS: ALBUMIN 1.8 g/dl (3.4-5.0); ANION GAP 11 MMOL/L (8-16); BLOOD UREA NITROGEN 30.7 mg/dL (7-18); CO2 20 mmol/L (21-32); GLUCOSE,RANDOM 58 mg/dL (74-106)
[2021-11-23 12:29] LABS: CREATININE 1.3 mg/dL (0.55-1.3); SGOT/AST 24 U/L (15-37); SGPT/ALT 20 U/L (13-61)
[2021-11-23 12:30] LABS: BILIRUBIN,TOTAL 0.4 mg/dL (0.2-1); TOT PROT 5.7 g/dl (6.4-8.2)
[2021-11-23 12:32] LABS: ALK PHOS 165 U/L (45-117)
[2021-11-23 12:45] LABS: LACTIC ACID 4.6 mmol/L (0.4-2.0)
[2021-11-23 12:49] LABS: ANISOCYTOSIS 2+; MACROCYTOSIS 0; OVALOCYTE 1+; PLATELET ESTIMATE NORMAL; TEAR DROP CELLS 1+
[2021-11-23] MEDS ORDERED: DEXTROSE 50%-WATER - 25 GM/50 ML VIAL IVPUSH ONE (13:14)
[2021-11-23] MEDS ORDERED: DEXTROSE 50%-WATER 25 GM/50 ML DISP.SYRIN ONE (13:24)
[2021-11-23] MEDS: D5-1/2NS+20 MEQ KCL - 20 MEQ/1,000 ML INFUS.BAG IV SCH (17:00)
[2021-11-23 17:23] LABS: LACTIC ACID 4.8 mmol/L (0.4-2.0)
[2021-11-23] MEDS ORDERED: TAMSULOSIN HCL 0.4 MG CAP ONE (22:00)
[2021-11-23] MEDS ORDERED: ATORVASTATIN CA 40 MG TABLET (FP) ONE (22:00)
[2021-11-23] MEDS ORDERED: PANTOPRAZOLE SODIUM 40 MG VIAL IVPUSH SCH (22:00)
[2021-11-23] MEDS ORDERED: MIRTAZAPINE 15 MG TABLET (FP) ONE (22:00)
[2021-11-23] MEDS ORDERED: PANTOPRAZOLE SODIUM 40 MG VIAL ONE (22:01)
[2021-11-23] MEDS: MIRTAZAPINE 15 MG TABLET (FP) PO SCH (22:08)
[2021-11-23] MEDS: TAMSULOSIN HCL 0.4 MG CAP PO SCH (22:09)
[2021-11-23] MEDS: ATORVASTATIN CA 40 MG TABLET (FP) PO SCH (22:09)
[2021-11-24 09:18] LABS: BASO % 0.3 % (0-2.0); HEMATOCRIT 29.1 % (35.4-49); HEMOGLOBIN 9.2 GM/dL (11.7-16.9); LYMPH % 6.3 % (8-40); MCH 26.9 pg (25.7-33.7); MCHC 31.7 g/dl (32.0-35.9); MEAN PLT VOLUME 9.1 fl (7.5-11.1); MONO % 8.6 % (3.8-10.2); NEUT % 84.8 % (42.8-82.8); PLATELET COUNT 242 10^3/uL (134-434); RBC 3.43 M/mm3 (4.00-5.60); RDW 18.2 % (11.9-15.9); WHITE BLOOD COUNT 20.8 K/mm3 (4.0-10.0)
[2021-11-24 10:02] LABS: ALBUMIN 1.8 g/dl (3.4-5.0); BLOOD UREA NITROGEN 35.4 mg/dL (7-18); CALCIUM 7.1 mg/dL (8.5-10.1); MAGNESIUM 1.2 mg/dL (1.8-2.4)
[2021-11-24 10:06] LABS: CREATININE 1.3 mg/dL (0.55-1.3)
[2021-11-24 10:07] LABS: BILIRUBIN,TOTAL 0.7 mg/dL (0.2-1); TOT PROT 5.5 g/dl (6.4-8.2)
[2021-11-24 10:28] LABS: ANISOCYTOSIS 1+; MACROCYTOSIS 0; PLATELET ESTIMATE NORMAL
[2021-11-24] MEDS: PANTOPRAZOLE SODIUM 40 MG VIAL IVPUSH SCH (10:37)
[2021-11-24 12:08] LABS: LACTIC ACID 2.9 mmol/L (0.4-2.0)
[2021-11-24] MEDS ORDERED: PHYTONADIONE 10 MG/1 ML AMP IVPB ONE (14:21)
[2021-11-24] MEDS ORDERED: DEXTROSE 5%-WATER - 50 ML IVPB ONE ×2 (15:01→18:56)
[2021-11-24] MEDS ORDERED: PIPERACILLIN/TAZOBACTAM 3.375 GM VIAL IVPB ONE ×2 (15:01→18:56)
[2021-11-24] MEDS: D5-1/2NS+20 MEQ KCL - 20 MEQ/1,000 ML INFUS.BAG IV SCH (15:06)
[2021-11-24 15:17] LABS: EPI CELLS 2 /uL (0-25.1); HYALINE CASTS 3 /uL (0-3.1); PH,URINE 5.5 (5.0-8.0); URINE APPEARANCE CLOUDY; URINE BACTERIA 235 /uL (0-1359); URINE BILIRUBIN NEGATIVE (NEGATIVE); URINE COLOR YELLOW; URINE GLUCOSE (UA) NEGATIVE (NEGATIVE); URINE KETONE NEGATIVE (NEGATIVE); URINE LEUK ESTERASE 2+ (NEGATIVE); URINE NITRITE NEGATIVE (NEGATIVE); URINE PROTEIN 2+ (NEGATIVE); URINE RBC 55 /uL (0-23.9); URINE UROBILINOGEN 0.2 mg/dL (0.2-1.0); URINE WBC 751 /uL (0-25.8)
[2021-11-24] MEDS: PIPERACILLIN/TAZOB 3.375 GM 3.375 GM in DEXTROSE 5%-WATER - 50 ML IVPB SCH ×2 (15:32→19:03)
[2021-11-24] MEDS: VANCOMYCIN 1 GRAM (PRE-DOCKED) 1,000 MG/250 ML BAG IVPB SCH (16:43)
[2021-11-24] MEDS: MIRTAZAPINE 15 MG TABLET (FP) PO SCH (22:01)
[2021-11-24] MEDS: ATORVASTATIN CA 40 MG TABLET (FP) PO SCH (22:01)
[2021-11-24] MEDS: TAMSULOSIN HCL 0.4 MG CAP PO SCH (22:01)
[2021-11-25] MEDS ORDERED: PIPERACILLIN/TAZOBACTAM 3.375 GM VIAL IVPB ONE ×3 (00:49→18:57)
[2021-11-25] MEDS ORDERED: DEXTROSE 5%-WATER - 50 ML IVPB ONE ×3 (00:49→18:58)
[2021-11-25] MEDS: ACETAMINOPHEN 325 MG TABLET (FP) PO PRN ×2 (00:54→19:36)
[2021-11-25] MEDS: PIPERACILLIN/TAZOB 3.375 GM 3.375 GM in DEXTROSE 5%-WATER - 50 ML IVPB SCH ×3 (01:28→18:56)
[2021-11-25 07:09] LABS: BASO % 0.3 % (0-2.0); EOS % 0.1 % (0-4.5); HEMATOCRIT 23.7 % (35.4-49); HEMOGLOBIN 7.8 GM/dL (11.7-16.9); LYMPH % 6.9 % (8-40); MCH 27.2 pg (25.7-33.7); MCHC 32.7 g/dl (32.0-35.9); MEAN CELL VOLUME 83.3 fl (80-96); MEAN PLT VOLUME 9.5 fl (7.5-11.1); MONO % 8.5 % (3.8-10.2); NEUT % 84.2 % (42.8-82.8); PLATELET COUNT 227 10^3/uL (134-434); RBC 2.85 M/mm3 (4.00-5.60); RDW 18.4 % (11.9-15.9); WHITE BLOOD COUNT 17.1 K/mm3 (4.0-10.0)
[2021-11-25 07:16] LABS: INR 1.6 (0.83-1.09); PROTHROMBIN TIME (PATIENT) 18.5 SEC (9.7-13.0)
[2021-11-25 07:26] LABS: CHLORIDE 112 mmol/L (98-107); SODIUM 141 mmol/L (136-145)
[2021-11-25 07:30] LABS: ANION GAP 9 MMOL/L (8-16); BLOOD UREA NITROGEN 34.4 mg/dL (7-18); CO2 19 mmol/L (21-32); GLUCOSE,RANDOM 80 mg/dL (74-106)
[2021-11-25 07:34] LABS: CREATININE 1.3 mg/dL (0.55-1.3)
[2021-11-25 07:35] LABS: IRON SERUM 25 ug/dL (50-175); TOTAL IRON BINDING CAPACITY 96 ug/dL (250-450)
[2021-11-25 07:59] LABS: CALCIUM 6.3 mg/dL (8.5-10.1)
[2021-11-25] MEDS: PANTOPRAZOLE SODIUM 40 MG VIAL IVPUSH SCH (10:16)
[2021-11-25] MEDS: D5-1/2NS+20 MEQ KCL - 20 MEQ/1,000 ML INFUS.BAG IV SCH ×2 (10:16→18:56)
[2021-11-25] MEDS: VANCOMYCIN 1 GRAM (PRE-DOCKED) 1,000 MG/250 ML BAG IVPB SCH (12:23)
[2021-11-25] MEDS ORDERED: POTASSIUM CHLORIDE TABS 10 MEQ TABLET.ER (FP) PO ONE (13:27)
[2021-11-25 15:50] VITALS: BMI 19.5
[2021-11-25] MEDS: AMINO ACIDS/PROTEIN HYDROLYS 30 ML LIQUID.PKT PO SCH (18:56)
[2021-11-25] MEDS: MIRTAZAPINE 15 MG TABLET (FP) PO SCH (21:23)
[2021-11-25] MEDS: THIAMINE HCL 100 MG TABLET (FP) PO SCH (21:23)
[2021-11-25] MEDS: TAMSULOSIN HCL 0.4 MG CAP PO SCH (21:23)
[2021-11-25] MEDS: ATORVASTATIN CA 40 MG TABLET (FP) PO SCH (21:24)
[2021-11-26] MEDS ORDERED: PIPERACILLIN/TAZOBACTAM 3.375 GM VIAL IVPB ONE ×3 (01:34→17:09)
[2021-11-26] MEDS ORDERED: DEXTROSE 5%-WATER - 50 ML IVPB ONE ×3 (01:34→17:09)
[2021-11-26] MEDS: PIPERACILLIN/TAZOB 3.375 GM 3.375 GM in DEXTROSE 5%-WATER - 50 ML IVPB SCH ×3 (01:57→17:19)
[2021-11-26] MEDS: AMINO ACIDS/PROTEIN HYDROLYS 30 ML LIQUID.PKT PO SCH ×2 (09:30→17:19)
[2021-11-26] MEDS: THIAMINE HCL 100 MG TABLET (FP) PO SCH ×2 (10:00→21:41)
[2021-11-26] MEDS: PANTOPRAZOLE SODIUM 40 MG VIAL IVPUSH SCH (10:00)
[2021-11-26] MEDS: ZINC SULFATE 220 MG CAPSULE (FP) PO SCH (10:00)
[2021-11-26] MEDS: FOLIC ACID 1 MG TABLET (FP) PO SCH (10:00)
[2021-11-26] MEDS: MULTIVITAMINS (DAILY MVI) TABLET (FP) PO SCH (10:00)
[2021-11-26] MEDS: VANCOMYCIN 1 GRAM (PRE-DOCKED) 1,000 MG/250 ML BAG IVPB SCH (11:58)
[2021-11-26 13:04] LABS: HEMATOCRIT 28.7 % (35.4-49); HEMOGLOBIN 9.4 GM/dL (11.7-16.9); MCH 27.8 pg (25.7-33.7); MCHC 32.8 g/dl (32.0-35.9); MEAN CELL VOLUME 84.9 fl (80-96); MEAN PLT VOLUME 9.5 fl (7.5-11.1); PLATELET COUNT 202 10^3/uL (134-434); RBC 3.38 M/mm3 (4.00-5.60); RDW 18.6 % (11.9-15.9); WHITE BLOOD COUNT 11.1 K/mm3 (4.0-10.0)
[2021-11-26 13:23] LABS: CHLORIDE 112 mmol/L (98-107); SODIUM 140 mmol/L (136-145)
[2021-11-26 13:27] LABS: ALBUMIN 1.6 g/dl (3.4-5.0); ANION GAP 7 MMOL/L (8-16); BLOOD UREA NITROGEN 22.6 mg/dL (7-18); CO2 21 mmol/L (21-32); GLUCOSE,RANDOM 117 mg/dL (74-106); MAGNESIUM 1.2 mg/dL (1.8-2.4)
[2021-11-26 13:29] LABS: CREATININE 1.1 mg/dL (0.55-1.3); SGOT/AST 18 U/L (15-37); SGPT/ALT 13 U/L (13-61)
[2021-11-26 13:31] LABS: BILIRUBIN,TOTAL 0.7 mg/dL (0.2-1); TOT PROT 5.4 g/dl (6.4-8.2)
[2021-11-26 13:32] LABS: ALK PHOS 146 U/L (45-117)
[2021-11-26 13:43] LABS: CALCIUM 6.6 mg/dL (8.5-10.1)
[2021-11-26] MEDS: ACETAMINOPHEN 325 MG TABLET (FP) PO PRN ×2 (14:53→21:41)
[2021-11-26] MEDS: D5-1/2NS+20 MEQ KCL - 20 MEQ/1,000 ML INFUS.BAG IV SCH (14:54)
[2021-11-26] MEDS: MIRTAZAPINE 15 MG TABLET (FP) PO SCH (21:40)
[2021-11-26] MEDS: ATORVASTATIN CA 40 MG TABLET (FP) PO SCH (21:40)
[2021-11-26] MEDS: TAMSULOSIN HCL 0.4 MG CAP PO SCH (21:41)
[2021-11-27] MEDS ORDERED: DEXTROSE 5%-WATER - 50 ML IVPB ONE ×2 (01:37→09:58)
[2021-11-27] MEDS ORDERED: PIPERACILLIN/TAZOBACTAM 3.375 GM VIAL IVPB ONE ×2 (01:37→09:58)
[2021-11-27] MEDS: PIPERACILLIN/TAZOB 3.375 GM 3.375 GM in DEXTROSE 5%-WATER - 50 ML IVPB SCH ×2 (02:19→10:15)
[2021-11-27] MEDS: ACETAMINOPHEN 325 MG TABLET (FP) PO PRN ×2 (03:07→20:09)
[2021-11-27 08:36] LABS: HEMATOCRIT 23.2 % (35.4-49); HEMOGLOBIN 7.8 GM/dL (11.7-16.9); MCH 28.1 pg (25.7-33.7); MCHC 33.8 g/dl (32.0-35.9); MEAN CELL VOLUME 83.2 fl (80-96); MEAN PLT VOLUME 8.8 fl (7.5-11.1); PLATELET COUNT 158 10^3/uL (134-434); RBC 2.79 M/mm3 (4.00-5.60); WHITE BLOOD COUNT 8.9 K/mm3 (4.0-10.0)
[2021-11-27 08:51] LABS: CHLORIDE 113 mmol/L (98-107); SODIUM 138 mmol/L (136-145)
[2021-11-27 08:55] LABS: ALBUMIN 1.4 g/dl (3.4-5.0)
[2021-11-27 08:57] LABS: ANION GAP 8 MMOL/L (8-16); BLOOD UREA NITROGEN 17.5 mg/dL (7-18); CO2 17 mmol/L (21-32); GLUCOSE,RANDOM 76 mg/dL (74-106)
[2021-11-27 08:59] LABS: CREATININE 0.9 mg/dL (0.55-1.3); SGOT/AST 17 U/L (15-37); SGPT/ALT 12 U/L (13-61)
[2021-11-27] MEDS ORDERED: IRON SUCROSE INJECTION 200 MG in SODIUM CHLORIDE 90 ML IVPB ONE (09:00)
[2021-11-27 09:01] LABS: BILIRUBIN,TOTAL 0.8 mg/dL (0.2-1); TOT PROT 4.9 g/dl (6.4-8.2)
[2021-11-27 09:02] LABS: ALK PHOS 131 U/L (45-117)
[2021-11-27 09:07] LABS: CALCIUM 6.3 mg/dL (8.5-10.1)
[2021-11-27] MEDS: AMINO ACIDS/PROTEIN HYDROLYS 30 ML LIQUID.PKT PO SCH ×2 (10:14→17:24)
[2021-11-27] MEDS: FOLIC ACID 1 MG TABLET (FP) PO SCH (10:16)
[2021-11-27] MEDS: PANTOPRAZOLE SODIUM 40 MG VIAL IVPUSH SCH (10:16)
[2021-11-27] MEDS: MULTIVITAMINS (DAILY MVI) TABLET (FP) PO SCH (10:16)
[2021-11-27] MEDS: THIAMINE HCL 100 MG TABLET (FP) PO SCH ×2 (10:16→21:15)
[2021-11-27] MEDS: ZINC SULFATE 220 MG CAPSULE (FP) PO SCH (10:16)
[2021-11-27] MEDS: MAGNESIUM 2GM/50ML STERILE WATER IVPB IVPB SCH ×2 (14:21→20:10)
[2021-11-27] MEDS: D5-1/2NS+20 MEQ KCL - 20 MEQ/1,000 ML INFUS.BAG IV SCH (17:24)
[2021-11-27 20:07] LABS: GLIADIN ANTIBODY IGA 5 units (0-19); GLIADIN ANTIBODY IGG 2 units (0-19); TRANSGLUTAMINASE IGG < 2 U/mL (0-5)
[2021-11-27] MEDS: ATORVASTATIN CA 40 MG TABLET (FP) PO SCH (21:14)
[2021-11-27] MEDS: IMIPENEM/CILASTATIN SODIUM 500 MG in SODIUM CHLORIDE 100 ML IVPB SCH (21:14)
[2021-11-27] MEDS: MIRTAZAPINE 15 MG TABLET (FP) PO SCH (21:15)
[2021-11-27] MEDS: TAMSULOSIN HCL 0.4 MG CAP PO SCH (21:15)
[2021-11-28] MEDS: IMIPENEM/CILASTATIN SODIUM 500 MG in SODIUM CHLORIDE 100 ML IVPB SCH ×4 (02:29→21:54)
[2021-11-28 08:06] LABS: ALBUMIN 1.4 g/dl (3.4-5.0)
[2021-11-28 08:09] LABS: CREATININE 0.8 mg/dL (0.55-1.3)
[2021-11-28 08:11] LABS: BILIRUBIN,TOTAL 0.3 mg/dL (0.2-1)
[2021-11-28 08:15] LABS: TOT PROT 5.2 g/dl (6.4-8.2)
[2021-11-28] MEDS: AMINO ACIDS/PROTEIN HYDROLYS 30 ML LIQUID.PKT PO SCH ×2 (08:33→17:29)
[2021-11-28] MEDS: MULTIVITAMINS (DAILY MVI) TABLET (FP) PO SCH (09:23)
[2021-11-28] MEDS: FOLIC ACID 1 MG TABLET (FP) PO SCH (09:23)
[2021-11-28] MEDS: PANTOPRAZOLE SODIUM 40 MG VIAL IVPUSH SCH (09:23)
[2021-11-28] MEDS: THIAMINE HCL 100 MG TABLET (FP) PO SCH ×2 (09:23→21:54)
[2021-11-28] MEDS: ZINC SULFATE 220 MG CAPSULE (FP) PO SCH (09:23)
[2021-11-28] MEDS: D5-1/2NS+20 MEQ KCL - 20 MEQ/1,000 ML INFUS.BAG IV SCH ×2 (09:25→14:17)
[2021-11-28] MEDS: MIRTAZAPINE 15 MG TABLET (FP) PO SCH (21:54)
[2021-11-28] MEDS: ATORVASTATIN CA 40 MG TABLET (FP) PO SCH (21:54)
[2021-11-28] MEDS: TAMSULOSIN HCL 0.4 MG CAP PO SCH (21:54)
[2021-11-28] MEDS: ACETAMINOPHEN 325 MG TABLET (FP) PO PRN (23:30)
[2021-11-29] MEDS: IMIPENEM/CILASTATIN SODIUM 500 MG in SODIUM CHLORIDE 100 ML IVPB SCH ×4 (02:51→21:06)
[2021-11-29] MEDS: D5-1/2NS+20 MEQ KCL - 20 MEQ/1,000 ML INFUS.BAG IV SCH ×2 (03:48→15:19)
[2021-11-29] MEDS: AMINO ACIDS/PROTEIN HYDROLYS 30 ML LIQUID.PKT PO SCH ×2 (10:28→17:08)
[2021-11-29] MEDS: NYSTATIN 100,000 UNIT/GM TOPICAL CREAM 15 GM TUBE TP SCH ×2 (10:28→22:17)
[2021-11-29] MEDS: FOLIC ACID 1 MG TABLET (FP) PO SCH (10:28)
[2021-11-29] MEDS: THIAMINE HCL 100 MG TABLET (FP) PO SCH ×2 (10:29→22:16)
[2021-11-29] MEDS: MULTIVITAMINS (DAILY MVI) TABLET (FP) PO SCH (10:29)
[2021-11-29] MEDS: ZINC SULFATE 220 MG CAPSULE (FP) PO SCH (10:29)
[2021-11-29] MEDS: PANTOPRAZOLE SODIUM 40 MG VIAL IVPUSH SCH (10:29)
[2021-11-29 12:29] LABS: ALBUMIN 1.4 g/dl (3.4-5.0); BLOOD UREA NITROGEN 10.4 mg/dL (7-18); CALCIUM 7.2 mg/dL (8.5-10.1)
[2021-11-29 12:32] LABS: CREATININE 0.7 mg/dL (0.55-1.3)
[2021-11-29 12:34] LABS: BILIRUBIN,TOTAL 0.4 mg/dL (0.2-1); TOT PROT 5.3 g/dl (6.4-8.2)
[2021-11-29 21:51] LABS: BASO % 0.5 % (0-2.0); EOS % 0.2 % (0-4.5); HEMATOCRIT 25.2 % (35.4-49); HEMOGLOBIN 8.2 GM/dL (11.7-16.9); LYMPH % 23.8 % (8-40); MCH 26.8 pg (25.7-33.7); MCHC 32.6 g/dl (32.0-35.9); MEAN CELL VOLUME 82.3 fl (80-96); MEAN PLT VOLUME 9.7 fl (7.5-11.1); MONO % 9.1 % (3.8-10.2); NEUT % 66.4 % (42.8-82.8); PLATELET COUNT 281 10^3/uL (134-434); RBC 3.06 M/mm3 (4.00-5.60); RDW 18.1 % (11.9-15.9)
[2021-11-29] MEDS: TAMSULOSIN HCL 0.4 MG CAP PO SCH (22:16)
[2021-11-29] MEDS: ATORVASTATIN CA 40 MG TABLET (FP) PO SCH (22:16)
[2021-11-29] MEDS: ACETAMINOPHEN 325 MG TABLET (FP) PO PRN (22:16)
[2021-11-29] MEDS: MIRTAZAPINE 15 MG TABLET (FP) PO SCH (22:20)
[2021-11-29] MEDS ORDERED: oxyCODONE HCL 5 MG TABLET PO ONE (22:29)
[2021-11-30] MEDS: IMIPENEM/CILASTATIN SODIUM 500 MG in SODIUM CHLORIDE 100 ML IVPB SCH ×4 (02:00→21:19)
[2021-11-30] MEDS: THIAMINE HCL 100 MG TABLET (FP) PO SCH ×2 (10:01→21:20)
[2021-11-30] MEDS: PANTOPRAZOLE SODIUM 40 MG VIAL IVPUSH SCH (10:01)
[2021-11-30] MEDS: ACETAMINOPHEN 325 MG TABLET (FP) PO PRN ×2 (10:01→15:26)
[2021-11-30] MEDS: AMINO ACIDS/PROTEIN HYDROLYS 30 ML LIQUID.PKT PO SCH ×2 (10:01→18:12)
[2021-11-30] MEDS: MULTIVITAMINS (DAILY MVI) TABLET (FP) PO SCH (10:01)
[2021-11-30] MEDS: ZINC SULFATE 220 MG CAPSULE (FP) PO SCH (10:01)
[2021-11-30] MEDS: NYSTATIN 100,000 UNIT/GM TOPICAL CREAM 15 GM TUBE TP SCH ×2 (10:02→21:20)
[2021-11-30] MEDS: FOLIC ACID 1 MG TABLET (FP) PO SCH (10:15)
[2021-11-30] MEDS: D5-1/2NS+20 MEQ KCL - 20 MEQ/1,000 ML INFUS.BAG IV SCH ×3 (10:15→21:35)
[2021-11-30 17:54] LABS: HEMATOCRIT 25.2 % (35.4-49); HEMOGLOBIN 8.2 GM/dL (11.7-16.9); MCH 27.6 pg (25.7-33.7); MCHC 32.7 g/dl (32.0-35.9); MEAN CELL VOLUME 84.3 fl (80-96); MEAN PLT VOLUME 9.5 fl (7.5-11.1); PLATELET COUNT 325 10^3/uL (134-434); RBC 2.98 M/mm3 (4.00-5.60); RDW 18.4 % (11.9-15.9); WHITE BLOOD COUNT 5.7 K/mm3 (4.0-10.0)
[2021-11-30 18:18] LABS: ALBUMIN 1.4 g/dl (3.4-5.0); BLOOD UREA NITROGEN 11.5 mg/dL (7-18); CALCIUM 7.3 mg/dL (8.5-10.1); MAGNESIUM 1.6 mg/dL (1.8-2.4)
[2021-11-30 18:22] LABS: CREATININE 0.7 mg/dL (0.55-1.3); PHOSPHOROUS 2.1 mg/dL (2.5-4.9)
[2021-11-30 18:23] LABS: BILIRUBIN,TOTAL 0.3 mg/dL (0.2-1); TOT PROT 5.5 g/dl (6.4-8.2)
[2021-11-30] MEDS: TAMSULOSIN HCL 0.4 MG CAP PO SCH (21:19)
[2021-11-30] MEDS: ATORVASTATIN CA 40 MG TABLET (FP) PO SCH (21:19)
[2021-11-30] MEDS: MIRTAZAPINE 15 MG TABLET (FP) PO SCH (21:20)
[2021-12-01] MEDS: IMIPENEM/CILASTATIN SODIUM 500 MG in SODIUM CHLORIDE 100 ML IVPB SCH ×3 (02:10→14:13)
[2021-12-01] MEDS: ACETAMINOPHEN 325 MG TABLET (FP) PO PRN (08:52)
[2021-12-01] MEDS: AMINO ACIDS/PROTEIN HYDROLYS 30 ML LIQUID.PKT PO SCH ×2 (08:54→17:39)
[2021-12-01] MEDS: MULTIVITAMINS (DAILY MVI) TABLET (FP) PO SCH (09:00)
[2021-12-01] MEDS: PANTOPRAZOLE SODIUM 40 MG VIAL IVPUSH SCH (09:00)
[2021-12-01] MEDS: ZINC SULFATE 220 MG CAPSULE (FP) PO SCH (09:00)
[2021-12-01] MEDS: FOLIC ACID 1 MG TABLET (FP) PO SCH (09:00)
[2021-12-01] MEDS: THIAMINE HCL 100 MG TABLET (FP) PO SCH (09:00)
[2021-12-01] MEDS: NYSTATIN 100,000 UNIT/GM TOPICAL CREAM 15 GM TUBE TP SCH (09:01)
[2021-12-01] MEDS: D5-1/2NS+20 MEQ KCL - 20 MEQ/1,000 ML INFUS.BAG IV SCH ×2 (09:55→15:00)
[2021-12-01] MEDS ORDERED: traMADol HCL 50 MG TABLET PO PRN (13:14)
[2021-12-01 14:56] VITALS: TEMP 98.9
[2021-12-01] MEDS ORDERED: MAGNESIUM OXIDE 400 MG TABLET (FP) PO ONE (15:02)
[2021-12-01] MEDS ORDERED: NAPH,MB-DB/K PH,MBDB POWDER PACKET PO ONE (15:02)
[2021-12-01 18:31] VITALS: BP 155/87; PULSE 87
== END 2021-12-01 18:39 | DRG 872 ==
LOC: JER 10:37 → JERBED 14:33 → J4W 22:28 → J4S 11-28 18:59
PROVIDERS: ADMIT Family Medicine; ATTEND Family Medicine
DX: A41.50 Gram-negative sepsis, unspecified (principal); I69.351 Hemiplegia and hemiparesis following cerebral infarction affecting right dominant side; N17.9 Acute kidney failure, unspecified; E46 Unspecified protein-calorie malnutrition; Z68.1 Body mass index [BMI] 19.9 or less, adult; A41.9 Sepsis, unspecified organism; M10.9 Gout, unspecified; R65.20 Severe sepsis without septic shock; I12.9 Hypertensive chronic kidney disease with stage 1 through stage 4 chronic kidney disease, or unspecified chronic kidney disease; N18.9 Chronic kidney disease, unspecified; N40.0 Benign prostatic hyperplasia without lower urinary tract symptoms; E78.5 Hyperlipidemia, unspecified; K70.30 Alcoholic cirrhosis of liver without ascites; F10.10 Alcohol abuse, uncomplicated; D63.8 Anemia in other chronic diseases classified elsewhere; E83.42 Hypomagnesemia; K21.9 Gastro-esophageal reflux disease without esophagitis; R62.7 Adult failure to thrive; Z87.39 Personal history of other diseases of the musculoskeletal system and connective tissue
CPT/HCPCS: 36415; 36430; 36511; 71045-TC-FY; 74177-TC; 80048; 80053; 81003; 82272; 82550; 82553; 82728; 82784; 82803; 82962; 83010; 83516; 83540; 83550; 83605; 83615; 83735; 84100; 84443; 84484; 85025; 85027; 85045; 85610; 85651; 85730; 86140; 86850; 86900; 86901; 86922; 87040; 87086; 87184; 87186; 87804; 93005; 93010; 99291; 99292; C9803; J1756; P9038; P9058; U0003; U0005

== ENCOUNTER 2022-01-06 10:20 | Inpatient (IN) | payer OTHER, BC ==
[2022-01-06] MEDS ORDERED: SODIUM CHLORIDE 1,000 ML IV SCH (10:30)
[2022-01-06] MEDS ORDERED: LACTATED RINGERS SOLUTION 1000 ML INFUS.BAG IV ONE (10:47)
[2022-01-06 10:52] VITALS: BMI 19.5
[2022-01-06 12:04] LABS: HEMATOCRIT 26.9 % (35.4-49); HEMOGLOBIN 8.3 GM/dL (11.7-16.9); MCH 24.1 pg (25.7-33.7); MCHC 30.9 g/dl (32.0-35.9); MEAN CELL VOLUME 77.9 fl (80-96); MEAN PLT VOLUME 8.2 fl (7.5-11.1); PLATELET COUNT 736 10^3/uL (134-434); RBC 3.46 M/mm3 (4.00-5.60); RDW 17.5 % (11.9-15.9)
[2022-01-06 12:11] LABS: INR 1.53 (0.83-1.09); PROTHROMBIN TIME (PATIENT) 17.7 SEC (9.7-13.0)
[2022-01-06] MEDS ORDERED: PIPERACILLIN/TAZOB 4.5 GM 4.5 GM in DEXTROSE 5%-WATER 100 ML IVPB ONE (12:13)
[2022-01-06 12:14] LABS: ACTIVATED PTT 46.6 SECONDS (25.2-36.5)
[2022-01-06] MEDS ORDERED: VANCOMYCIN 1 GM in D5W (PRE-DOCKED) 1,000 MG/250 ML IVPB ONE (12:14)
[2022-01-06] MEDS ORDERED: SODIUM CHLORIDE 0.9% 1000 ML INFUS.BAG IV ONE (12:14)
[2022-01-06] MEDS ORDERED: VANCOMYCIN 500 MG VIAL (RESTRICTED TO ID ONLY) ONE (12:15)
[2022-01-06 12:30] LABS: EPI CELLS 13 /uL (0-25.1); HYALINE CASTS 7 /uL (0-3.1); URINE APPEARANCE CLEAR; URINE BACTERIA 1 /uL (0-1359); URINE BILIRUBIN NEGATIVE (NEGATIVE); URINE COLOR YELLOW; URINE GLUCOSE (UA) NEGATIVE (NEGATIVE); URINE KETONE NEGATIVE (NEGATIVE); URINE LEUK ESTERASE TRACE (NEGATIVE); URINE NITRITE NEGATIVE (NEGATIVE); URINE PROTEIN 2+ (NEGATIVE); URINE RBC 11 /uL (0-23.9); URINE UROBILINOGEN 0.2 mg/dL (0.2-1.0); URINE WBC 43 /uL (0-25.8)
[2022-01-06 12:32] LABS: LACTIC ACID 3.2 mmol/L (0.4-2.0)
[2022-01-06 12:43] LABS: ALBUMIN 1.9 g/dl (3.4-5.0); BLOOD UREA NITROGEN 28.5 mg/dL (7-18); CALCIUM 8.5 mg/dL (8.5-10.1)
[2022-01-06 12:46] LABS: CREATININE 1.5 mg/dL (0.55-1.3)
[2022-01-06 12:50] LABS: BILIRUBIN,TOTAL 0.4 mg/dL (0.2-1)
[2022-01-06] MEDS ORDERED: ASPIRIN 81 MG CHEWABLE TABLETS PO ONE (13:22)
[2022-01-06 13:39] LABS: ANISOCYTOSIS 2+; MACROCYTOSIS 0; TEAR DROP CELLS 1+
[2022-01-06] MEDS ORDERED: PIPERACILLIN/TAZOB 4.5 GM 4.5 GM/100 ML BAG IVPB ONE (13:44)
[2022-01-06] MEDS ORDERED: ASPIRIN SUPPOSITORY 600 MG SUPP.RECT PR ONE (16:21)
[2022-01-06] MEDS ORDERED: ASPIRIN 300 MG SUPP.RECT RC ONE (16:23)
[2022-01-06] MEDS ORDERED: ACETAMINOPHEN 1000 MG/100 ML BAG IVPB PRN (17:30)
[2022-01-06] MEDS: SODIUM CHLORIDE 1,000 ML IV SCH (18:07)
[2022-01-06] MEDS ORDERED: HEPARIN NA (PORCINE) 5,000 UNITS/ML 1ML VIAL ONE (22:07)
[2022-01-06] MEDS: HEPARIN NA (PORCINE) 5,000 UNITS/ML 1ML VIAL SQ SCH (22:10)
[2022-01-07 07:28] LABS: ALBUMIN 1.6 g/dl (3.4-5.0); BLOOD UREA NITROGEN 27.2 mg/dL (7-18); CALCIUM 8.1 mg/dL (8.5-10.1)
[2022-01-07 07:31] LABS: CREATININE 1.5 mg/dL (0.55-1.3)
[2022-01-07 07:33] LABS: BILIRUBIN,TOTAL 0.5 mg/dL (0.2-1); TOT PROT 6.7 g/dl (6.4-8.2)
[2022-01-07 08:16] LABS: EOS % 0.3 % (0-4.5); HEMATOCRIT 22.2 % (35.4-49); HEMOGLOBIN 7.2 GM/dL (11.7-16.9); LYMPH % 12.4 % (8-40); MCH 24.9 pg (25.7-33.7); MCHC 32.3 g/dl (32.0-35.9); MEAN CELL VOLUME 77.2 fl (80-96); MEAN PLT VOLUME 8.2 fl (7.5-11.1); MONO % 12.1 % (3.8-10.2); NEUT % 74.2 % (42.8-82.8); PLATELET COUNT 569 10^3/uL (134-434); RBC 2.88 M/mm3 (4.00-5.60); RDW 17.4 % (11.9-15.9); WHITE BLOOD COUNT 26.8 K/mm3 (4.0-10.0)
[2022-01-07] MEDS: HEPARIN NA (PORCINE) 5,000 UNITS/ML 1ML VIAL SQ SCH ×2 (10:43→21:56)
[2022-01-07 11:19] LABS: ANISOCYTOSIS 1+; MACROCYTOSIS 0
[2022-01-07] MEDS ORDERED: DEXTROSE 5%-WATER - 50 ML IVPB ONE (12:30)
[2022-01-07] MEDS ORDERED: cefTRIAXone SODIUM 1 GM VIAL ONE (12:30)
[2022-01-07] MEDS: SODIUM CHLORIDE 1,000 ML IV SCH (12:32)
[2022-01-07] MEDS: CEFTRIAXONE 1 GM in DEXTROSE 5%-WATER - 50 ML IVPB SCH (12:33)
[2022-01-08] MEDS: SODIUM CHLORIDE 1,000 ML IV SCH (02:30)
[2022-01-08] MEDS: ASPIRIN 300 MG SUPP.RECT RC SCH (10:29)
[2022-01-08] MEDS: HEPARIN NA (PORCINE) 5,000 UNITS/ML 1ML VIAL SQ SCH ×2 (10:29→21:08)
[2022-01-08] MEDS: CEFTRIAXONE 1 GM in DEXTROSE 5%-WATER - 50 ML IVPB SCH (10:29)
[2022-01-08] MEDS ORDERED: SODIUM CHLORIDE 0.45% 1,000 ML IV SCH (12:15)
[2022-01-08 17:56] LABS: HEMATOCRIT 21.1 % (35.4-49); MCH 24.3 pg (25.7-33.7); MCHC 31.3 g/dl (32.0-35.9); MEAN CELL VOLUME 77.5 fl (80-96); PLATELET COUNT 579 10^3/uL (134-434); RBC 2.72 M/mm3 (4.00-5.60); RDW 17.2 % (11.9-15.9)
[2022-01-08 18:25] LABS: BLOOD UREA NITROGEN 29.2 mg/dL (7-18); CALCIUM 7.9 mg/dL (8.5-10.1)
[2022-01-08 18:26] LABS: ALBUMIN 1.6 g/dl (3.4-5.0)
[2022-01-08 18:27] LABS: HEMOGLOBIN 6.6 GM/dL (11.7-16.9)
[2022-01-08 18:28] LABS: CREATININE 1.5 mg/dL (0.55-1.3)
[2022-01-08 18:29] LABS: TOT PROT 6.6 g/dl (6.4-8.2)
[2022-01-08 18:30] LABS: BILIRUBIN,TOTAL 0.3 mg/dL (0.2-1)
[2022-01-08 21:02] LABS: ANISOCYTOSIS 3+; HELMET CELLS 1+; MACROCYTOSIS 0; OVALOCYTE 1+; SICKELED CELLS 1+; TEAR DROP CELLS 1+
[2022-01-09] MEDS ORDERED: DEXTROSE 5%-WATER - 50 ML IVPB ONE (09:30)
[2022-01-09] MEDS ORDERED: cefTRIAXone SODIUM 1 GM VIAL ONE (09:30)
[2022-01-09] MEDS: ASPIRIN 300 MG SUPP.RECT RC SCH (09:33)
[2022-01-09] MEDS: HEPARIN NA (PORCINE) 5,000 UNITS/ML 1ML VIAL SQ SCH ×2 (09:33→21:05)
[2022-01-09] MEDS: CEFTRIAXONE 1 GM in DEXTROSE 5%-WATER - 50 ML IVPB SCH (09:33)
[2022-01-09] MEDS: COLLAGENASE CLOSTRIDIUM HIST. 30 GRAMS TUBE TP SCH (09:34)
[2022-01-09] MEDS ORDERED: SODIUM CHLORIDE 0.45% 1,000 ML IV SCH (18:30)
[2022-01-10] MEDS ORDERED: cefTRIAXone SODIUM 1 GM VIAL ONE (09:01)
[2022-01-10] MEDS ORDERED: DEXTROSE 5%-WATER - 50 ML IVPB ONE (09:01)
[2022-01-10] MEDS: HEPARIN NA (PORCINE) 5,000 UNITS/ML 1ML VIAL SQ SCH ×2 (09:06→21:04)
[2022-01-10] MEDS: ASPIRIN 300 MG SUPP.RECT RC SCH (09:06)
[2022-01-10] MEDS: CEFTRIAXONE 1 GM in DEXTROSE 5%-WATER - 50 ML IVPB SCH (09:07)
[2022-01-10] MEDS ORDERED: clonazePAM 0.5 MG TABLET PO SCH (10:00)
[2022-01-10] MEDS: COLLAGENASE CLOSTRIDIUM HIST. 30 GRAMS TUBE TP SCH (10:30)
[2022-01-10] MEDS: clonazePAM 0.25 MG ODT TABLETS SL SCH ×2 (10:53→21:03)
[2022-01-10] MEDS: AMINO ACIDS 4.25%/D5W 1,000 ML IV SCH (12:35)
[2022-01-10] MEDS: METOPROLOL TARTRATE 5 MG/5 ML VIAL IVPUSH PRN ×2 (13:19→18:10)
[2022-01-10 17:53] LABS: EOS % 0.4 % (0-4.5); HEMATOCRIT 25.1 % (35.4-49); HEMOGLOBIN 8.2 GM/dL (11.7-16.9); LYMPH % 10.1 % (8-40); MCH 25.8 pg (25.7-33.7); MCHC 32.8 g/dl (32.0-35.9); MEAN CELL VOLUME 78.5 fl (80-96); MEAN PLT VOLUME 8.4 fl (7.5-11.1); MONO % 12.6 % (3.8-10.2); NEUT % 75.9 % (42.8-82.8); PLATELET COUNT 375 10^3/uL (134-434); RBC 3.19 M/mm3 (4.00-5.60); RDW 18.1 % (11.9-15.9); WHITE BLOOD COUNT 29.1 K/mm3 (4.0-10.0)
[2022-01-10 18:07] LABS: CALCIUM 8.3 mg/dL (8.5-10.1)
[2022-01-10 18:08] LABS: ALBUMIN 1.5 g/dl (3.4-5.0); BLOOD UREA NITROGEN 30.8 mg/dL (7-18)
[2022-01-10 18:12] LABS: CREATININE 1.5 mg/dL (0.55-1.3)
[2022-01-10 18:13] LABS: BILIRUBIN,TOTAL 0.6 mg/dL (0.2-1)
[2022-01-10 18:31] LABS: ANISOCYTOSIS 2+; MACROCYTOSIS 0; TARGET CELLS 1+
[2022-01-11] MEDS ORDERED: cefTRIAXone SODIUM 1 GM VIAL ONE (08:26)
[2022-01-11] MEDS ORDERED: DEXTROSE 5%-WATER - 50 ML IVPB ONE ×2 (08:26→14:54)
[2022-01-11] MEDS: AMINO ACIDS 4.25%/D5W 1,000 ML IV SCH (09:35)
[2022-01-11] MEDS: HEPARIN NA (PORCINE) 5,000 UNITS/ML 1ML VIAL SQ SCH ×2 (09:37→21:50)
[2022-01-11] MEDS: CEFTRIAXONE 1 GM in DEXTROSE 5%-WATER - 50 ML IVPB SCH (09:37)
[2022-01-11] MEDS: clonazePAM 0.25 MG ODT TABLETS SL SCH ×2 (09:37→21:46)
[2022-01-11] MEDS ORDERED: SODIUM BICARBONATE 8.4% 50 MEQ/50 ML DISP.SYRIN IVPUSH ONE (10:15)
[2022-01-11] MEDS: COLLAGENASE CLOSTRIDIUM HIST. 30 GRAMS TUBE TP SCH (11:41)
[2022-01-11] MEDS ORDERED: PROPOFOL 1,000,000 MCG/100 ML VIAL ONE (12:59)
[2022-01-11] MEDS ORDERED: MIDAZOLAM HCL 5 MG/1 ML Single Dose Vial ONE (12:59)
[2022-01-11] MEDS ORDERED: RAPID SEQUENCE INTUBATION KIT NR ONE (13:00)
[2022-01-11] MEDS ORDERED: FUROSEMIDE 40 MG/4 ML INJECTABLE VIAL IVPUSH ONE ×2 (13:00→13:15)
[2022-01-11] MEDS ORDERED: PANTOPRAZOLE SODIUM 80 MG in SODIUM CHLORIDE 100 ML IVPB SCH (13:15)
[2022-01-11] MEDS: PROPOFOL 1,000,000 MCG/100 ML VIAL IVPB SCH (13:15)
[2022-01-11] MEDS ORDERED: MIDAZOLAM HCL 2 MG/2 ML SINGLE DOSE VIAL IVPUSH ONE (13:19)
[2022-01-11] MEDS ORDERED: PROPOFOL 200 MG/20 ML VIAL IVPUSH ONE ×2 (13:19)
[2022-01-11] MEDS: ASPIRIN 300 MG SUPP.RECT RC SCH (13:49)
[2022-01-11] MEDS ORDERED: PIPERACILLIN/TAZOB 3.375 GM 3.375 GM in DEXTROSE 5%-WATER - 50 ML IVPB ONE (14:00)
[2022-01-11 14:07] LABS: ARTERIAL BLD GAS O2 SATURATION 96.4 % (95-98); ARTERIAL BLOOD GAS BASE EXCESS -9.4 mmol/L (-2-2); ARTERIAL BLOOD GAS PO2 86.5 mmHg (80-100); ARTERIAL BLOOD GAS pH 7.361 (7.350-7.450)
[2022-01-11 14:08] LABS: ALLENS TEST POSITIVE
[2022-01-11 14:09] LABS: VENT MODE VENT; VENT RATE 14
[2022-01-11] MEDS ORDERED: PIPERACILLIN/TAZOBACTAM 3.375 GM VIAL IVPB ONE (14:54)
[2022-01-11] MEDS ORDERED: ALBUTEROL SO4 2.5/IPRATROPIUM 0.5 INH SOL 3 ML VIAL.NEB. NEB SCH (16:00)
[2022-01-11] MEDS ORDERED: NOREPINEPHRINE BITARTRATE 4 MG/4 ML ML IV ONE (16:08)
[2022-01-11] MEDS: WATER IVPB SCH (16:20)
[2022-01-11] MEDS: NOREPINEPHRINE BITARTRATE IVPB SCH (16:20)
[2022-01-11] MEDS: DEXTROSE 5% IVPB SCH (16:20)
[2022-01-11] MEDS ORDERED: VASOPRESSIN 20 UNITS/ML VIAL IV ONE (17:33)
[2022-01-11] MEDS: VASOPRESSIN 40 UNITS/100 ML BAG IV SCH (17:41)
[2022-01-11] MEDS ORDERED: PHENYLEPHRINE HCL 10 MG/1 ML SINGLE DOSE VIAL ONE (17:47)
[2022-01-11] MEDS ORDERED: SODIUM CHLORIDE 0.9% 500 ML INFUS.BAG IV ONE ×2 (17:52→17:53)
[2022-01-11] MEDS: PANTOPRAZOLE SODIUM 160 MG in SODIUM CHLORIDE 290 ML IVPB SCH (18:24)
[2022-01-11] MEDS: PHENYLEPHRINE HCL 50,000 MCG in SODIUM CHLORIDE 495 ML IV SCH (18:25)
[2022-01-11 19:20] LABS: BASO % 0.3 % (0-2.0); EOS % 0.1 % (0-4.5); HEMATOCRIT 22.8 % (35.4-49); HEMOGLOBIN 7.1 GM/dL (11.7-16.9); LYMPH % 5.4 % (8-40); MCH 25.1 pg (25.7-33.7); MEAN CELL VOLUME 81.2 fl (80-96); MEAN PLT VOLUME 7.3 fl (7.5-11.1); MONO % 6.8 % (3.8-10.2); NEUT % 87.4 % (42.8-82.8); PLATELET COUNT 508 10^3/uL (134-434); RBC 2.81 M/mm3 (4.00-5.60); RDW 18.8 % (11.9-15.9)
[2022-01-11 19:26] LABS: WHITE BLOOD COUNT 51.5 K/mm3 (4.0-10.0)
[2022-01-11 19:36] LABS: INR 1.6 (0.83-1.09); PROTHROMBIN TIME (PATIENT) 18.5 SEC (9.7-13.0)
[2022-01-11 19:39] LABS: BLOOD UREA NITROGEN 32.5 mg/dL (7-18); CALCIUM 8.2 mg/dL (8.5-10.1); MAGNESIUM 1.3 mg/dL (1.8-2.4)
[2022-01-11 19:42] LABS: CREATININE 1.5 mg/dL (0.55-1.3); PHOSPHOROUS 3.3 mg/dL (2.5-4.9)
[2022-01-11 19:44] LABS: BILIRUBIN,TOTAL 0.4 mg/dL (0.2-1)
[2022-01-11 19:49] LABS: ALBUMIN 1.1 g/dl (3.4-5.0)
[2022-01-11] MEDS ORDERED: MAGNESIUM SULF 50% (8.12 MEQ/2 ML-1 GM VIAL) IVPB ONE (20:20)
[2022-01-11] MEDS: MUPIROCIN 2% TOPICAL OINTMENT FOR DECOLONIZATION NS SCH (21:43)
[2022-01-11] MEDS: CHLORHEXIDINE GLUCONATE 4% CLEANSER FOR DECOLONIZATION TP SCH (21:44)
[2022-01-11] MEDS ORDERED: DEXTROSE 50%-WATER - 25 GM/50 ML VIAL IVPUSH ONE (22:15)
[2022-01-11] MEDS ORDERED: DEXTROSE 50%-WATER - 25 GM/50 ML VIAL IVPUSH PRN (23:52)
[2022-01-12] MEDS ORDERED: DEXTROSE 5%-NORMAL SALINE 1,000 ML IV SCH (00:15)
[2022-01-12] MEDS: NOREPINEPHRINE BITARTRATE IVPB SCH ×2 (01:17→17:38)
[2022-01-12] MEDS: DEXTROSE 5% IVPB SCH ×2 (01:17→17:38)
[2022-01-12] MEDS: WATER IVPB SCH ×2 (01:17→17:38)
[2022-01-12] MEDS: FENTANYL NS IVPB 500 MCG/100 ML BAG IVPB SCH ×2 (03:28→20:40)
[2022-01-12] MEDS ORDERED: ACETAMINOPHEN 1000 MG/100 ML BAG IVPB PRN (04:30)
[2022-01-12] MEDS ORDERED: KETOROLAC TROMETHAMINE 30 MG/1 ML VIAL IVPUSH ONE (04:30)
[2022-01-12 07:04] LABS: BASO % 0.3 % (0-2.0); EOS % 0.1 % (0-4.5); HEMATOCRIT 19.2 % (35.4-49); MCH 24.9 pg (25.7-33.7); MEAN CELL VOLUME 80.4 fl (80-96); MEAN PLT VOLUME 7.8 fl (7.5-11.1); MONO % 8.2 % (3.8-10.2); NEUT % 89.4 % (42.8-82.8); PLATELET COUNT 333 10^3/uL (134-434); RBC 2.39 M/mm3 (4.00-5.60); RDW 18.5 % (11.9-15.9)
[2022-01-12 07:06] LABS: HEMOGLOBIN 5.9 GM/dL (11.7-16.9); WHITE BLOOD COUNT 87.1 K/mm3 (4.0-10.0)
[2022-01-12 07:21] LABS: INR 1.54 (0.83-1.09); PROTHROMBIN TIME (PATIENT) 17.8 SEC (9.7-13.0)
[2022-01-12 07:23] LABS: ACTIVATED PTT 42.6 SECONDS (25.2-36.5)
[2022-01-12 07:28] LABS: BLOOD UREA NITROGEN 34.1 mg/dL (7-18); CALCIUM 7.9 mg/dL (8.5-10.1); MAGNESIUM 1.4 mg/dL (1.8-2.4)
[2022-01-12 07:29] LABS: CREATININE 1.5 mg/dL (0.55-1.3)
[2022-01-12 07:31] LABS: BILIRUBIN,TOTAL 0.4 mg/dL (0.2-1); TOT PROT 4.7 g/dl (6.4-8.2)
[2022-01-12 07:32] LABS: PHOSPHOROUS 2.7 mg/dL (2.5-4.9)
[2022-01-12] MEDS ORDERED: METOPROLOL TARTRATE 5 MG/5 ML VIAL IVPUSH PRN (08:09)
[2022-01-12] MEDS ORDERED: clonazePAM 0.25 MG ODT TABLETS SL SCH (10:00)
[2022-01-12] MEDS ORDERED: POTASSIUM CHLORIDE 20 MEQ PREMIX IVPB 100 ML IVPB ONE (10:00)
[2022-01-12] MEDS: HYDROCORTISONE SOD SUCCINATE 100 MG/2 ML VIAL IVPUSH SCH ×3 (10:15→21:22)
[2022-01-12] MEDS: MUPIROCIN 2% TOPICAL OINTMENT FOR DECOLONIZATION NS SCH ×2 (10:15→22:52)
[2022-01-12] MEDS: FLUDROCORTISONE ACETATE 0.1 MG TABLET (FP) PO SCH (10:15)
[2022-01-12] MEDS: HEPARIN NA (PORCINE) 5,000 UNITS/ML 1ML VIAL SQ SCH ×2 (10:15→21:21)
[2022-01-12] MEDS: COLLAGENASE CLOSTRIDIUM HIST. 30 GRAMS TUBE TP SCH (10:15)
[2022-01-12] MEDS: ASPIRIN 300 MG SUPP.RECT RC SCH (10:15)
[2022-01-12] MEDS: PANTOPRAZOLE SODIUM 160 MG in SODIUM CHLORIDE 290 ML IVPB SCH (10:20)
[2022-01-12] MEDS: PIPERACILLIN/TAZOB 2.25 GM 2.25 GM in DEXTROSE 5%-WATER - 50 ML IVPB SCH ×2 (11:00→17:40)
[2022-01-12 11:16] LABS: ANISOCYTOSIS 2+; MACROCYTOSIS 1+
[2022-01-12] MEDS ORDERED: PIPERACILLIN/TAZOBACTAM 2.25 GM VIAL IVPB ONE ×2 (12:07→16:05)
[2022-01-12] MEDS ORDERED: DEXTROSE 5%-WATER - 50 ML IVPB ONE ×2 (12:07→16:05)
[2022-01-12] MEDS ORDERED: MIDAZOLAM HCL 2 MG/2 ML SINGLE DOSE VIAL IVPUSH ONE (16:57)
[2022-01-12 17:29] LABS: BLOOD UREA NITROGEN 32.4 mg/dL (7-18); CALCIUM 7.6 mg/dL (8.5-10.1)
[2022-01-12 17:32] LABS: CREATININE 1.6 mg/dL (0.55-1.3)
[2022-01-12 17:34] LABS: BILIRUBIN,TOTAL 0.4 mg/dL (0.2-1); TOT PROT 4.8 g/dl (6.4-8.2)
[2022-01-12] MEDS: PROPOFOL 1,000,000 MCG/100 ML VIAL IVPB SCH ×2 (17:37→21:08)
[2022-01-12] MEDS: VASOPRESSIN 40 UNITS/100 ML BAG IV SCH (17:39)
[2022-01-12] MEDS ORDERED: PIPERACILLIN/TAZOB 2.25 GM 2.25 GM in DEXTROSE 5%-WATER - 50 ML IVPB SCH (18:00)
[2022-01-12] MEDS: PHENYLEPHRINE HCL 50,000 MCG in SODIUM CHLORIDE 495 ML IV SCH (18:00)
[2022-01-12] MEDS ORDERED: VANCOMYCIN/WATER FOR INJ (PEG) 1,000 MG/200 ML BAG IVPB ONE (18:41)
[2022-01-12] MEDS ORDERED: MEROPENEM 1 GM VIAL (RESTRICTED TO ID) IVPB ONE (19:23)
[2022-01-12] MEDS ORDERED: DEXTROSE 5%-WATER 100 ML IVPB ONE (19:24)
[2022-01-12] MEDS: MEROPENEM 1 GM in DEXTROSE 5%-WATER 100 ML IVPB SCH (19:25)
[2022-01-12] MEDS: CHLORHEXIDINE GLUCONATE 4% CLEANSER FOR DECOLONIZATION TP SCH (22:51)
[2022-01-12 22:54] LABS: BASO % 0.3 % (0-2.0); EOS % 0.1 % (0-4.5); HEMATOCRIT 27.6 % (35.4-49); HEMOGLOBIN 8.8 GM/dL (11.7-16.9); LYMPH % 2.3 % (8-40); MCHC 31.8 g/dl (32.0-35.9); MEAN CELL VOLUME 81.9 fl (80-96); MEAN PLT VOLUME 7.6 fl (7.5-11.1); MONO % 5.6 % (3.8-10.2); NEUT % 91.7 % (42.8-82.8); PLATELET COUNT 158 10^3/uL (134-434); RBC 3.37 M/mm3 (4.00-5.60); RDW 18.8 % (11.9-15.9)
[2022-01-12 23:15] LABS: WHITE BLOOD COUNT 69.7 K/mm3 (4.0-10.0)
[2022-01-12 23:40] LABS: ANISOCYTOSIS 3+; MACROCYTOSIS 0; TEAR DROP CELLS 1+; TOXIC GRANULATION 1+
[2022-01-12 23:42] LABS: PLATELET ESTIMATE DECREASED
[2022-01-13] MEDS: FENTANYL NS IVPB 500 MCG/100 ML BAG IVPB SCH ×4 (00:29→22:39)
[2022-01-13] MEDS ORDERED: PIPERACILLIN/TAZOB 3.375 GM 3.375 GM in DEXTROSE 5%-WATER - 50 ML IVPB SCH (02:00)
[2022-01-13] MEDS: HYDROCORTISONE SOD SUCCINATE 100 MG/2 ML VIAL IVPUSH SCH ×4 (02:24→21:15)
[2022-01-13] MEDS: VASOPRESSIN 40 UNITS/100 ML BAG IV SCH ×3 (05:59→18:01)
[2022-01-13] MEDS ORDERED: DEXTROSE 5%-WATER 100 ML IVPB ONE ×2 (06:00→18:23)
[2022-01-13] MEDS ORDERED: MEROPENEM 1 GM VIAL (RESTRICTED TO ID) IVPB ONE ×2 (06:00→18:23)
[2022-01-13] MEDS: PANTOPRAZOLE SODIUM 160 MG in SODIUM CHLORIDE 290 ML IVPB SCH (06:01)
[2022-01-13] MEDS: MEROPENEM 1 GM in DEXTROSE 5%-WATER 100 ML IVPB SCH ×2 (06:02→18:26)
[2022-01-13 06:35] LABS: BASO % 0.2 % (0-2.0); EOS % 0.3 % (0-4.5); HEMATOCRIT 28.6 % (35.4-49); HEMOGLOBIN 9.1 GM/dL (11.7-16.9); LYMPH % 1.5 % (8-40); MCH 25.9 pg (25.7-33.7); MCHC 31.8 g/dl (32.0-35.9); MEAN CELL VOLUME 81.5 fl (80-96); MEAN PLT VOLUME 8.3 fl (7.5-11.1); MONO % 4.2 % (3.8-10.2); NEUT % 93.8 % (42.8-82.8); PLATELET COUNT 159 10^3/uL (134-434); RBC 3.51 M/mm3 (4.00-5.60); RDW 18.7 % (11.9-15.9)
[2022-01-13 06:39] LABS: INR 1.64 (0.83-1.09)
[2022-01-13 06:41] LABS: ACTIVATED PTT 48.5 SECONDS (25.2-36.5)
[2022-01-13 06:54] LABS: MAGNESIUM 1.1 mg/dL (1.8-2.4)
[2022-01-13 06:57] LABS: CREATININE 1.7 mg/dL (0.55-1.3); PHOSPHOROUS 3.8 mg/dL (2.5-4.9)
[2022-01-13 06:58] LABS: BILIRUBIN,TOTAL 0.5 mg/dL (0.2-1)
[2022-01-13 06:59] LABS: TOT PROT 4.8 g/dl (6.4-8.2)
[2022-01-13] MEDS ORDERED: DEXTROSE 50%-WATER - 25 GM/50 ML VIAL IVPUSH ONE (07:50)
[2022-01-13] MEDS ORDERED: MAGNESIUM SULFATE IN WATER 2 GM/50 ML IVPB IVPB ONE (08:00)
[2022-01-13 08:46] LABS: ALLENS TEST POSITIVE
[2022-01-13 08:47] LABS: VENT RATE 14
[2022-01-13 08:48] LABS: VENT MODE V
[2022-01-13 08:49] LABS: ARTERIAL BLOOD GAS pH 6.952 (7.350-7.450)
[2022-01-13] MEDS ORDERED: SODIUM BICARBONATE 8.4% 50 MEQ/50 ML DISP.SYRIN IVPUSH ONE ×3 (08:51→14:59)
[2022-01-13] MEDS ORDERED: MAGNESIUM 1GM/D5W - 1 GM/100 ML IVPB IVPB ONE (09:00)
[2022-01-13] MEDS: HEPARIN NA (PORCINE) 5,000 UNITS/ML 1ML VIAL SQ SCH ×2 (09:04→21:27)
[2022-01-13] MEDS: DEXTROSE 10%-WATER - 1,000 ML IV SCH (09:35)
[2022-01-13] MEDS: COLLAGENASE CLOSTRIDIUM HIST. 30 GRAMS TUBE TP SCH (09:37)
[2022-01-13] MEDS: MUPIROCIN 2% TOPICAL OINTMENT FOR DECOLONIZATION NS SCH ×2 (09:37→21:27)
[2022-01-13] MEDS ORDERED: SODIUM BICARBONATE 8.4% - 150 MEQ in DEXTROSE 5%-WATER - 1,000 ML IV SCH (10:00)
[2022-01-13] MEDS: FLUDROCORTISONE ACETATE 0.1 MG TABLET (FP) PO SCH (10:08)
[2022-01-13 11:00] LABS: ANISOCYTOSIS 2+; MACROCYTOSIS 0; OVALOCYTE 2+; TEAR DROP CELLS 1+
[2022-01-13 14:36] LABS: ARTERIAL BLOOD GAS BASE EXCESS -19.6 mmol/L (-2-2); ARTERIAL BLOOD GAS PO2 93.9 mmHg (80-100)
[2022-01-13 14:37] LABS: ALLENS TEST POSITIVE
[2022-01-13 14:38] LABS: VENT MODE AC; VENT RATE 14
[2022-01-13 14:40] LABS: ARTERIAL BLOOD GAS pH 7.024 (7.350-7.450)
[2022-01-13] MEDS: SODIUM BICARBONATE 8.4% - 150 MEQ in DEXTROSE 5%-WATER - 1,000 ML IV SCH (15:34)
[2022-01-13] MEDS: ASPIRIN 300 MG SUPP.RECT RC SCH (17:00)
[2022-01-13 17:24] LABS: CALCIUM 7.2 mg/dL (8.5-10.1)
[2022-01-13 17:25] LABS: BLOOD UREA NITROGEN 33.6 mg/dL (7-18)
[2022-01-13 17:28] LABS: CREATININE 1.8 mg/dL (0.55-1.3)
[2022-01-13] MEDS ORDERED: VASOPRESSIN 40 UNITS/100 ML BAG IV SCH (17:57)
[2022-01-13] MEDS: DEXTROSE 5% IVPB SCH (18:00)
[2022-01-13] MEDS: NOREPINEPHRINE BITARTRATE IVPB SCH (18:00)
[2022-01-13] MEDS: WATER IVPB SCH (18:00)
[2022-01-13] MEDS: PROPOFOL 1,000,000 MCG/100 ML VIAL IVPB SCH (18:14)
[2022-01-13 20:42] LABS: ARTERIAL BLD GAS O2 SATURATION 95.5 % (95-98); ARTERIAL BLOOD GAS BASE EXCESS -16.2 mmol/L (-2-2); ARTERIAL BLOOD GAS PO2 103.5 mmHg (80-100)
[2022-01-13 20:44] LABS: VENT MODE A/C; VENT RATE 14
[2022-01-13 20:46] LABS: ARTERIAL BLOOD GAS pH 7.095 (7.350-7.450)
[2022-01-13] MEDS: CHLORHEXIDINE GLUCONATE 4% CLEANSER FOR DECOLONIZATION TP SCH (21:28)
[2022-01-14] MEDS: SODIUM BICARBONATE 8.4% - 150 MEQ in DEXTROSE 5%-WATER - 1,000 ML IV SCH ×3 (01:00→18:26)
[2022-01-14] MEDS: FENTANYL NS IVPB 500 MCG/100 ML BAG IVPB SCH ×2 (02:15→04:30)
[2022-01-14] MEDS: HYDROCORTISONE SOD SUCCINATE 100 MG/2 ML VIAL IVPUSH SCH ×4 (02:34→21:48)
[2022-01-14] MEDS ORDERED: MEROPENEM 1 GM VIAL (RESTRICTED TO ID) IVPB ONE ×2 (04:22→18:23)
[2022-01-14] MEDS ORDERED: DEXTROSE 5%-WATER 100 ML IVPB ONE ×2 (04:23→18:24)
[2022-01-14] MEDS: VASOPRESSIN 40 UNITS/100 ML BAG IV SCH ×2 (05:14→18:27)
[2022-01-14] MEDS: MEROPENEM 1 GM in DEXTROSE 5%-WATER 100 ML IVPB SCH ×2 (06:06→18:26)
[2022-01-14 06:51] LABS: HEMATOCRIT 21.8 % (35.4-49); MCH 25.1 pg (25.7-33.7); MCHC 31.2 g/dl (32.0-35.9); MEAN CELL VOLUME 80.6 fl (80-96); MEAN PLT VOLUME 8.2 fl (7.5-11.1); PLATELET COUNT 64 10^3/uL (134-434); RDW 19.2 % (11.9-15.9)
[2022-01-14 07:06] LABS: CHLORIDE 107 mmol/L (98-107); SODIUM 141 mmol/L (136-145)
[2022-01-14 07:12] LABS: ANION GAP 18 MMOL/L (8-16); CO2 16 mmol/L (21-32); GLUCOSE,RANDOM 201 mg/dL (74-106)
[2022-01-14 07:13] LABS: ALBUMIN 0.9 g/dl (3.4-5.0); BLOOD UREA NITROGEN 33.2 mg/dL (7-18)
[2022-01-14 07:15] LABS: PHOSPHOROUS 3.9 mg/dL (2.5-4.9)
[2022-01-14 07:15] LABS: HEMOGLOBIN 6.8 GM/dL (11.7-16.9); WHITE BLOOD COUNT 81.7 K/mm3 (4.0-10.0)
[2022-01-14 07:16] LABS: CREATININE 1.8 mg/dL (0.55-1.3); SGOT/AST 138 U/L (15-37)
[2022-01-14 07:17] LABS: BILIRUBIN,TOTAL 0.6 mg/dL (0.2-1); SGPT/ALT 36 U/L (13-61)
[2022-01-14 07:26] LABS: ALK PHOS 317 U/L (45-117); CALCIUM 6.8 mg/dL (8.5-10.1)
[2022-01-14 07:34] LABS: ACTIVATED PTT 53.5 SECONDS (25.2-36.5); INR 1.6 (0.83-1.09); PROTHROMBIN TIME (PATIENT) 18.5 SEC (9.7-13.0)
[2022-01-14] MEDS ORDERED: CASPOFUNGIN ACETATE 50 MG in SODIUM CHLORIDE 250 ML IVPB ONE (08:27)
[2022-01-14] MEDS: DEXTROSE 10%-WATER - 1,000 ML IV SCH (08:45)
[2022-01-14] MEDS ORDERED: CASPOFUNGIN ACETATE 70 MG in SODIUM CHLORIDE 250 ML IVPB ONE (09:00)
[2022-01-14] MEDS ORDERED: FUROSEMIDE 100 MG/10 ML INJECTABLE VIAL IVPB ONE (09:30)
[2022-01-14] MEDS: PROPOFOL 1,000,000 MCG/100 ML VIAL IVPB SCH (10:30)
[2022-01-14 10:36] LABS: ANISOCYTOSIS 0; MACROCYTOSIS 0
[2022-01-14 10:58] LABS: PLATELET ESTIMATE DECREASED
[2022-01-14 10:59] LABS: ARTERIAL BLD GAS O2 SATURATION 88.2 % (95-98); ARTERIAL BLOOD GAS BASE EXCESS -12.5 mmol/L (-2-2); ARTERIAL BLOOD GAS PO2 61.8 mmHg (80-100); ARTERIAL BLOOD GAS pH 7.246 (7.350-7.450)
[2022-01-14 11:02] LABS: VENT MODE A/C; VENT RATE 26
[2022-01-14] MEDS: PANTOPRAZOLE SODIUM 40 MG VIAL IVPUSH SCH (11:30)
[2022-01-14] MEDS: FLUDROCORTISONE ACETATE 0.1 MG TABLET (FP) PO SCH (11:30)
[2022-01-14] MEDS: HEPARIN NA (PORCINE) 5,000 UNITS/ML 1ML VIAL SQ SCH ×2 (11:30→21:48)
[2022-01-14] MEDS: ASPIRIN 300 MG SUPP.RECT RC SCH (11:32)
[2022-01-14] MEDS: MUPIROCIN 2% TOPICAL OINTMENT FOR DECOLONIZATION NS SCH ×2 (11:32→21:52)
[2022-01-14] MEDS: COLLAGENASE CLOSTRIDIUM HIST. 30 GRAMS TUBE TP SCH (11:36)
[2022-01-14 13:53] LABS: ARTERIAL BLD GAS O2 SATURATION 88.8 % (95-98); ARTERIAL BLOOD GAS BASE EXCESS -12.6 mmol/L (-2-2); ARTERIAL BLOOD GAS PO2 62.8 mmHg (80-100); ARTERIAL BLOOD GAS pH 7.249 (7.350-7.450)
[2022-01-14 13:56] LABS: VENT MODE A/C; VENT RATE 26
[2022-01-14] MEDS ORDERED: VANCOMYCIN/WATER FOR INJ (PEG) 1,000 MG/200 ML BAG IVPB ONE (16:00)
[2022-01-14] MEDS: WATER IVPB SCH (17:00)
[2022-01-14] MEDS: NOREPINEPHRINE BITARTRATE IVPB SCH (17:00)
[2022-01-14] MEDS: DEXTROSE 5% IVPB SCH (17:00)
[2022-01-14] MEDS: CHLORHEXIDINE GLUCONATE 4% CLEANSER FOR DECOLONIZATION TP SCH (21:52)
[2022-01-15] MEDS: SODIUM BICARBONATE 8.4% - 150 MEQ in DEXTROSE 5%-WATER - 1,000 ML IV SCH ×2 (02:16→20:15)
[2022-01-15] MEDS: FENTANYL NS IVPB 500 MCG/100 ML BAG IVPB SCH (02:19)
[2022-01-15] MEDS: HYDROCORTISONE SOD SUCCINATE 100 MG/2 ML VIAL IVPUSH SCH ×4 (02:21→20:35)
[2022-01-15 04:39] LABS: ARTERIAL BLD GAS O2 SATURATION 89.2 % (95-98); ARTERIAL BLOOD GAS BASE EXCESS -8.7 mmol/L (-2-2); ARTERIAL BLOOD GAS PO2 61.9 mmHg (80-100); ARTERIAL BLOOD GAS pH 7.285 (7.350-7.450)
[2022-01-15 04:41] LABS: ALLENS TEST POSITIVE
[2022-01-15 04:42] LABS: VENT MODE AC/VC
[2022-01-15 04:43] LABS: VENT RATE 26
[2022-01-15] MEDS ORDERED: MEROPENEM 1 GM VIAL (RESTRICTED TO ID) IVPB ONE ×3 (05:18→17:30)
[2022-01-15] MEDS ORDERED: DEXTROSE 5%-WATER 100 ML IVPB ONE ×2 (05:18→17:30)
[2022-01-15 07:49] LABS: HEMOGLOBIN 9.8 GM/dL (11.7-16.9); MCH 26.4 pg (25.7-33.7); MCHC 33.7 g/dl (32.0-35.9); MEAN CELL VOLUME 78.3 fl (80-96); MEAN PLT VOLUME 10.3 fl (7.5-11.1); RBC 3.71 M/mm3 (4.00-5.60); RDW 19.1 % (11.9-15.9)
[2022-01-15 08:20] LABS: WHITE BLOOD COUNT 81.6 K/mm3 (4.0-10.0)
[2022-01-15 08:25] LABS: INR 1.48 (0.83-1.09); PROTHROMBIN TIME (PATIENT) 17.1 SEC (9.7-13.0)
[2022-01-15 08:28] LABS: ACTIVATED PTT 48.8 SECONDS (25.2-36.5)
[2022-01-15 08:54] LABS: ANISOCYTOSIS 2+; MACROCYTOSIS 0
[2022-01-15 08:56] LABS: CHLORIDE 100 mmol/L (98-107); SODIUM 140 mmol/L (136-145)
[2022-01-15 08:58] LABS: ALBUMIN 0.8 g/dl (3.4-5.0); CO2 22 mmol/L (21-32); GLUCOSE,RANDOM 299 mg/dL (74-106); MAGNESIUM 1.7 mg/dL (1.8-2.4)
[2022-01-15 09:01] LABS: CREATININE 1.8 mg/dL (0.55-1.3); PHOSPHOROUS 2.6 mg/dL (2.5-4.9); SGOT/AST 222 U/L (15-37); SGPT/ALT 55 U/L (13-61)
[2022-01-15 09:03] LABS: BILIRUBIN,TOTAL 0.7 mg/dL (0.2-1); TOT PROT 4.1 g/dl (6.4-8.2)
[2022-01-15 09:04] LABS: ALK PHOS 574 U/L (45-117); ANION GAP 19 MMOL/L (8-16)
[2022-01-15] MEDS ORDERED: MAGNESIUM SULF 50% (8.12 MEQ/2 ML-1 GM VIAL) IVPB ONE (09:07)
[2022-01-15] MEDS ORDERED: POTASSIUM CHLORIDE ORAL LIQUID 20 MEQ/15 ML PO ONE ×2 (09:07→16:33)
[2022-01-15] MEDS: KCL 10 MEQ IVPB 10 MEQ/100 ML INFUS.BAG IVPB SCH ×6 (09:58→18:13)
[2022-01-15] MEDS: FLUDROCORTISONE ACETATE 0.1 MG TABLET (FP) PO SCH (09:59)
[2022-01-15] MEDS: ASPIRIN 300 MG SUPP.RECT RC SCH (09:59)
[2022-01-15] MEDS: PANTOPRAZOLE SODIUM 40 MG VIAL IVPUSH SCH (09:59)
[2022-01-15] MEDS: COLLAGENASE CLOSTRIDIUM HIST. 30 GRAMS TUBE TP SCH (09:59)
[2022-01-15] MEDS: HEPARIN NA (PORCINE) 5,000 UNITS/ML 1ML VIAL SQ SCH (09:59)
[2022-01-15] MEDS: MUPIROCIN 2% TOPICAL OINTMENT FOR DECOLONIZATION NS SCH ×2 (09:59→21:05)
[2022-01-15] MEDS: DEXTROSE 10%-WATER - 1,000 ML IV SCH (10:26)
[2022-01-15] MEDS ORDERED: ALBUMIN HUMAN 25% 12.5 GM/50 ML VIAL IV ONE (10:58)
[2022-01-15] MEDS ORDERED: FUROSEMIDE 40 MG/4 ML INJECTABLE VIAL IVPUSH ONE (10:59)
[2022-01-15] MEDS: MEROPENEM 1 GM in DEXTROSE 5%-WATER 100 ML IVPB SCH ×2 (12:31→18:51)
[2022-01-15 14:24] LABS: PLATELET COUNT 20 10^3/uL (134-434)
[2022-01-15 14:48] LABS: WHITE BLOOD COUNT 87.9 K/mm3 (4.0-10.0)
[2022-01-15 16:06] LABS: CHLORIDE 105 mmol/L (98-107); SODIUM 140 mmol/L (136-145)
[2022-01-15 16:08] LABS: ANION GAP 17 MMOL/L (8-16); BLOOD UREA NITROGEN 33.2 mg/dL (7-18); CO2 18 mmol/L (21-32); GLUCOSE,RANDOM 190 mg/dL (74-106)
[2022-01-15 16:12] LABS: CREATININE 1.7 mg/dL (0.55-1.3)
[2022-01-15] MEDS: AMINO ACIDS/PROTEIN HYDROLYS 30 ML LIQUID.PKT GT SCH (17:36)
[2022-01-15] MEDS: NOREPINEPHRINE BITARTRATE IVPB SCH (17:52)
[2022-01-15] MEDS: WATER IVPB SCH (17:52)
[2022-01-15] MEDS: DEXTROSE 5% IVPB SCH (17:52)
[2022-01-15 18:33] LABS: MAGNESIUM 1.7 mg/dL (1.8-2.4)
[2022-01-15] MEDS ORDERED: MAGNESIUM 2GM/50ML STERILE WATER IVPB IVPB ONE (18:49)
[2022-01-15 19:34] LABS: HEMATOCRIT 27.2 % (35.4-49); MCH 25.8 pg (25.7-33.7); MCHC 32.9 g/dl (32.0-35.9); MEAN CELL VOLUME 78.2 fl (80-96); MEAN PLT VOLUME 8.1 fl (7.5-11.1); RBC 3.48 M/mm3 (4.00-5.60); RDW 19.2 % (11.9-15.9)
[2022-01-15] MEDS: PHENYLEPHRINE HCL 50,000 MCG in SODIUM CHLORIDE 495 ML IV SCH (20:16)
[2022-01-15 20:20] LABS: PLATELET COUNT 21 10^3/uL (134-434); WHITE BLOOD COUNT 70.3 K/mm3 (4.0-10.0)
[2022-01-15] MEDS: CHLORHEXIDINE GLUCONATE 4% CLEANSER FOR DECOLONIZATION TP SCH (21:05)
[2022-01-15] MEDS: BANATROL PLUS POWDER PACKET GT SCH (23:40)
[2022-01-16] MEDS: HYDROCORTISONE SOD SUCCINATE 100 MG/2 ML VIAL IVPUSH SCH ×4 (03:30→21:59)
[2022-01-16] MEDS ORDERED: MEROPENEM 1 GM VIAL (RESTRICTED TO ID) IVPB ONE ×2 (05:44→17:46)
[2022-01-16] MEDS ORDERED: DEXTROSE 5%-WATER 100 ML IVPB ONE ×2 (05:44→17:46)
[2022-01-16] MEDS: BANATROL PLUS POWDER PACKET GT SCH ×3 (06:03→22:15)
[2022-01-16] MEDS: MEROPENEM 1 GM in DEXTROSE 5%-WATER 100 ML IVPB SCH ×2 (06:04→17:52)
[2022-01-16 06:11] LABS: ARTERIAL BLD GAS O2 SATURATION 96.7 % (95-98); ARTERIAL BLOOD GAS PO2 97.2 mmHg (80-100); ARTERIAL BLOOD GAS pH 7.275 (7.350-7.450)
[2022-01-16 06:14] LABS: VENT MODE V-AC; VENT RATE 20
[2022-01-16 07:36] LABS: CHLORIDE 102 mmol/L (98-107); SODIUM 138 mmol/L (136-145)
[2022-01-16 07:41] LABS: ANION GAP 17 MMOL/L (8-16); BLOOD UREA NITROGEN 34.5 mg/dL (7-18); CO2 18 mmol/L (21-32); GLUCOSE,RANDOM 135 mg/dL (74-106); MAGNESIUM 2.5 mg/dL (1.8-2.4)
[2022-01-16 07:43] LABS: HEMATOCRIT 26.7 % (35.4-49); HEMOGLOBIN 9.2 GM/dL (11.7-16.9); MCH 26.7 pg (25.7-33.7); MCHC 34.5 g/dl (32.0-35.9); MEAN CELL VOLUME 77.4 fl (80-96); MEAN PLT VOLUME 9.8 fl (7.5-11.1); RBC 3.45 M/mm3 (4.00-5.60); RDW 20.1 % (11.9-15.9)
[2022-01-16 07:44] LABS: PHOSPHOROUS 2.6 mg/dL (2.5-4.9); SGOT/AST 210 U/L (15-37); SGPT/ALT 49 U/L (13-61)
[2022-01-16 07:46] LABS: TOT PROT 4.4 g/dl (6.4-8.2)
[2022-01-16 08:06] LABS: ALBUMIN 1.2 g/dl (3.4-5.0); ALK PHOS 697 U/L (45-117); CALCIUM 6.3 mg/dL (8.5-10.1)
[2022-01-16 08:30] LABS: WHITE BLOOD COUNT 57.5 K/mm3 (4.0-10.0)
[2022-01-16 08:31] LABS: PLATELET COUNT 9 10^3/uL (134-434)
[2022-01-16] MEDS: AMINO ACIDS/PROTEIN HYDROLYS 30 ML LIQUID.PKT GT SCH ×2 (09:24→17:53)
[2022-01-16] MEDS: ASCORBIC ACID 500 MG/5 ML UNIT DOSE CUP GT SCH (09:25)
[2022-01-16] MEDS: FLUDROCORTISONE ACETATE 0.1 MG TABLET (FP) PO SCH (09:25)
[2022-01-16] MEDS: PANTOPRAZOLE SODIUM 40 MG VIAL IVPUSH SCH (09:27)
[2022-01-16] MEDS: MUPIROCIN 2% TOPICAL OINTMENT FOR DECOLONIZATION NS SCH (09:28)
[2022-01-16] MEDS ORDERED: FUROSEMIDE 40 MG/4 ML INJECTABLE VIAL IVPUSH ONE ×2 (09:31)
[2022-01-16 09:43] LABS: ANISOCYTOSIS 1+; MACROCYTOSIS 0; OVALOCYTE 1+; TARGET CELLS 1+
[2022-01-16] MEDS ORDERED: MIDAZOLAM HCL 2 MG/2 ML SINGLE DOSE VIAL IVPUSH ONE (10:30)
[2022-01-16] MEDS ORDERED: MIDAZOLAM HCL 2 MG/2 ML SINGLE DOSE VIAL ONE (10:31)
[2022-01-16 15:03] LABS: HEMATOCRIT 24.6 % (35.4-49); HEMOGLOBIN 8.4 GM/dL (11.7-16.9); MCH 26.5 pg (25.7-33.7); MEAN CELL VOLUME 77.9 fl (80-96); MEAN PLT VOLUME 8.2 fl (7.5-11.1); PLATELET COUNT 62 10^3/uL (134-434); RBC 3.16 M/mm3 (4.00-5.60); RDW 19.8 % (11.9-15.9)
[2022-01-16 15:05] LABS: WHITE BLOOD COUNT 42.2 K/mm3 (4.0-10.0)
[2022-01-16 15:27] LABS: ANISOCYTOSIS 3+; MACROCYTOSIS 0; OVALOCYTE 1+
[2022-01-16] MEDS: COLLAGENASE CLOSTRIDIUM HIST. 30 GRAMS TUBE TP SCH (15:52)
[2022-01-16] MEDS: DEXTROSE 5% IVPB SCH ×2 (16:20→21:00)
[2022-01-16] MEDS: NOREPINEPHRINE BITARTRATE IVPB SCH ×2 (16:20→21:00)
[2022-01-16] MEDS: WATER IVPB SCH ×2 (16:20→21:00)
[2022-01-16] MEDS: CHLORHEXIDINE GLUCONATE 4% CLEANSER FOR DECOLONIZATION TP SCH (22:16)
[2022-01-17] MEDS: HYDROCORTISONE SOD SUCCINATE 100 MG/2 ML VIAL IVPUSH SCH ×3 (03:24→14:07)
[2022-01-17] MEDS ORDERED: DEXTROSE 5%-WATER 100 ML IVPB ONE (05:57)
[2022-01-17] MEDS ORDERED: MEROPENEM 1 GM VIAL (RESTRICTED TO ID) IVPB ONE (05:57)
[2022-01-17] MEDS: MEROPENEM 1 GM in DEXTROSE 5%-WATER 100 ML IVPB SCH (06:00)
[2022-01-17] MEDS: BANATROL PLUS POWDER PACKET GT SCH ×2 (06:00→14:07)
[2022-01-17 06:43] LABS: HEMATOCRIT 24.1 % (35.4-49); HEMOGLOBIN 8.2 GM/dL (11.7-16.9); MCH 26.2 pg (25.7-33.7); MCHC 33.9 g/dl (32.0-35.9); MEAN CELL VOLUME 77.3 fl (80-96); MEAN PLT VOLUME 8.2 fl (7.5-11.1); RBC 3.12 M/mm3 (4.00-5.60); RDW 20.3 % (11.9-15.9); WHITE BLOOD COUNT 27.3 K/mm3 (4.0-10.0)
[2022-01-17 06:45] LABS: PLATELET COUNT 32 10^3/uL (134-434)
[2022-01-17 06:57] LABS: CHLORIDE 104 mmol/L (98-107); SODIUM 139 mmol/L (136-145)
[2022-01-17 07:00] LABS: ALBUMIN 1.2 g/dl (3.4-5.0); ANION GAP 13 MMOL/L (8-16); CO2 22 mmol/L (21-32); GLUCOSE,RANDOM 95 mg/dL (74-106); MAGNESIUM 2.3 mg/dL (1.8-2.4)
[2022-01-17 07:01] LABS: BLOOD UREA NITROGEN 40.3 mg/dL (7-18)
[2022-01-17 07:03] LABS: PHOSPHOROUS 3.1 mg/dL (2.5-4.9)
[2022-01-17 07:04] LABS: SGOT/AST 150 U/L (15-37); SGPT/ALT 32 U/L (13-61)
[2022-01-17 07:05] LABS: BILIRUBIN,TOTAL 1.1 mg/dL (0.2-1); TOT PROT 4.7 g/dl (6.4-8.2)
[2022-01-17 07:06] LABS: ALK PHOS 696 U/L (45-117)
[2022-01-17 07:08] LABS: CALCIUM 6.7 mg/dL (8.5-10.1)
[2022-01-17] MEDS: KCL 10 MEQ IVPB 10 MEQ/100 ML INFUS.BAG IVPB SCH ×3 (08:26→11:00)
[2022-01-17] MEDS: AMINO ACIDS/PROTEIN HYDROLYS 30 ML LIQUID.PKT GT SCH (08:27)
[2022-01-17] MEDS: PANTOPRAZOLE SODIUM 40 MG VIAL IVPUSH SCH (09:07)
[2022-01-17] MEDS: FLUDROCORTISONE ACETATE 0.1 MG TABLET (FP) PO SCH (09:07)
[2022-01-17] MEDS: ASCORBIC ACID 500 MG/5 ML UNIT DOSE CUP GT SCH (09:08)
[2022-01-17 09:53] LABS: ANISOCYTOSIS 1+; MACROCYTOSIS 0; TARGET CELLS 1+
[2022-01-17 12:16] VITALS: PULSE 87
[2022-01-17 14:14] VITALS: BP 111/67; TEMP 97.2
[2022-01-17] MEDS: COLLAGENASE CLOSTRIDIUM HIST. 30 GRAMS TUBE TP SCH (15:00)
[2022-01-17] MEDS ORDERED: MORPHINE SULFATE/0.9% NACL/PF 100 MG/100 ML BAG IVPB SCH (16:00)
== END 2022-01-17 21:05 | disposition expired | DRG 870 ==
LOC: JER 10:20 → JERBED 13:26 → J4W 01-07 00:28 → JICU 01-11 12:51
PROVIDERS: ADMIT Family Medicine; ATTEND Family Medicine
PROC: 30233N1 Transfusion of Nonautologous Red Blood Cells into Peripheral Vein, Percutaneous Approach (ICD-10-PCS; 2022-01-09)
PROC: 5A1955Z Respiratory Ventilation, Greater than 96 Consecutive Hours (ICD-10-PCS; principal; 2022-01-11)
PROC: 0BH17EZ Insertion of Endotracheal Airway into Trachea, Via Natural or Artificial Opening (ICD-10-PCS; 2022-01-11)
PROC: 06HY33Z Insertion of Infusion Device into Lower Vein, Percutaneous Approach (ICD-10-PCS; 2022-01-11)
PROC: 4A133B1 Monitoring of Arterial Pressure, Peripheral, Percutaneous Approach (ICD-10-PCS; 2022-01-11)
PROC: 5A12012 Performance of Cardiac Output, Single, Manual (ICD-10-PCS; 2022-01-11)
PROC: 05HM33Z Insertion of Infusion Device into Right Internal Jugular Vein, Percutaneous Approach (ICD-10-PCS; 2022-01-16)
PROC: B543ZZA Ultrasonography of Right Jugular Veins, Guidance (ICD-10-PCS; 2022-01-16)
PROC: 30233R1 Transfusion of Nonautologous Platelets into Peripheral Vein, Percutaneous Approach (ICD-10-PCS; 2022-01-16)
DX: A41.9 Sepsis, unspecified organism (principal); J96.01 Acute respiratory failure with hypoxia; J69.0 Pneumonitis due to inhalation of food and vomit; R65.21 Severe sepsis with septic shock; M72.6 Necrotizing fasciitis; J15.0 Pneumonia due to Klebsiella pneumoniae; N17.0 Acute kidney failure with tubular necrosis; K66.1 Hemoperitoneum; I69.351 Hemiplegia and hemiparesis following cerebral infarction affecting right dominant side; E87.2 Acidosis; I47.2 Ventricular tachycardia; C25.9 Malignant neoplasm of pancreas, unspecified; I69.354 Hemiplegia and hemiparesis following cerebral infarction affecting left non-dominant side; I96 Gangrene, not elsewhere classified; L97.909 Non-pressure chronic ulcer of unspecified part of unspecified lower leg with unspecified severity; R18.8 Other ascites; I46.9 Cardiac arrest, cause unspecified; F01.50 Vascular dementia, unspecified severity, without behavioral disturbance, psychotic disturbance, mood disturbance, and anxiety; N18.9 Chronic kidney disease, unspecified; D64.9 Anemia, unspecified; K70.30 Alcoholic cirrhosis of liver without ascites; L89.152 Pressure ulcer of sacral region, stage 2; E83.119 Hemochromatosis, unspecified; D72.829 Elevated white blood cell count, unspecified; E87.6 Hypokalemia; E83.42 Hypomagnesemia; N40.0 Benign prostatic hyperplasia without lower urinary tract symptoms; K21.9 Gastro-esophageal reflux disease without esophagitis; M10.9 Gout, unspecified; R13.10 Dysphagia, unspecified; D69.6 Thrombocytopenia, unspecified; I12.9 Hypertensive chronic kidney disease with stage 1 through stage 4 chronic kidney disease, or unspecified chronic kidney disease; E78.5 Hyperlipidemia, unspecified; I67.9 Cerebrovascular disease, unspecified; L89.159 Pressure ulcer of sacral region, unspecified stage; Z66 Do not resuscitate; E16.2 Hypoglycemia, unspecified
CPT/HCPCS: 31500; 36415; 36430; 36511; 36600; 70450-TC; 70551-TC; 71045-TC-FY; 74176-TC; 80048; 80053; 80061; 81003; 82272; 82728; 82803; 82962; 83036; 83540; 83550; 83605; 83735; 83880; 84100; 84466; 84484; 85025; 85027; 85384; 85610; 85730; 86850; 86870; 86880; 86900; 86901; 86902; 86922; 87040; 87070; 87086; 87186; 87205; 87804; 93005; 93010; 93306-TC; 94002; 99285-25; C9803-CS; E0372; J1644; J3490; P9034; P9038; P9047; P9058; U0003; U0005